=== PATIENT | female | born 1960 | race Caucasian/White ===

== ENCOUNTER → 2018-06-20 | Outpatient (CLI) | payer MEDICARE | LOC: LAB FS 16:48 | PROVIDERS: ATTEND Family Medicine | DX: Z53.9 Procedure and treatment not carried out, unspecified reason (principal) ==

== ENCOUNTER → 2018-06-21 | Outpatient (CLI) | payer MEDICARE ==
[2018-06-21 14:46] LABS: INR 2.4 (0.8-1.4); PROTHROMBIN TIME PATIENT 26.2 SEC (12.2-14.7)
== END ==
LOC: RAD FS 13:58
PROVIDERS: ATTEND Family Medicine
DX: Z79.01 Long term (current) use of anticoagulants (principal)
CPT/HCPCS: 36415; 85610

== ENCOUNTER → 2018-07-08 | Outpatient (CLI) | payer MEDICARE ==
--- NOTE | 2018-07-08 10:35 | Diagnostic Imaging Report ---
INDICATION: Followup fracture. TIME OF EXAMINATION: 10:03 AM. COMPARISON: No prior study is available for comparison. FINDINGS: An obliquely oriented fracture of the distal femur is noted. There is slight medial displacement of the distal fracture fragment. No significant angulation is seen. There does appear to be some callus formation at the fracture site but the fracture line does remain clearly visible. The alignment at the knee is normal. There is generalized demineralization. IMPRESSION: Healing distal femur fracture; however, the fracture line does remain clearly visible. Dictated by: Dictated on workstation # [id number]
== END ==
LOC: RAD FS 10:05
PROVIDERS: ATTEND Nurse Practitioner
DX: S72.401D Unspecified fracture of lower end of right femur, subsequent encounter for closed fracture with routine healing (principal)
CPT/HCPCS: 73562

== ENCOUNTER → 2018-07-09 | Outpatient (CLI) | payer MEDICARE | LOC: LAB FS 10:19 | PROVIDERS: ATTEND Family Medicine | DX: L98.9 Disorder of the skin and subcutaneous tissue, unspecified (principal) | CPT/HCPCS: 87070; 87077; 87205 ==

== ENCOUNTER → 2018-07-09 | Outpatient (CLI) | payer MEDICARE | LOC: LAB FS 16:57 | PROVIDERS: ATTEND Family Medicine | DX: L89.153 Pressure ulcer of sacral region, stage 3 (principal); T81.9XXA Unspecified complication of procedure, initial encounter | CPT/HCPCS: 87070; 87075; 87205 ==

== ENCOUNTER → 2018-07-10 | Outpatient (CLI) | payer MEDICARE ==
[2018-07-10 17:59] LABS: HEMATOCRIT 40 % (35-52); HEMOGLOBIN 13.5 G/DL (11.5-16.0); MEAN CORPUSCULAR HEMOGLOBIN 32 PG (25-34)
[2018-07-10 18:00] LABS: BASOPHILS % (AUTO) 1 % (0-10); EOSINOPHILS # (AUTO) 0.1 10^3/uL (0.0-0.3); EOSINOPHILS % (AUTO) 2 % (0-10); LYMPHOCYTES # (AUTO) 2.1 X 10^3 (1.0-4.0); LYMPHOCYTES % (AUTO) 35 % (12-44); MEAN CORPUSCULAR HGB CONC 34 G/DL (32-36); MEAN CORPUSCULAR VOLUME 93 FL (80-99); MEAN PLATELET VOLUME 9.4 FL (7.4-10.4); MONOCYTES # (AUTO) 0.3 X 10^3 (0.0-1.0); MONOCYTES % (AUTO) 5 % (0-12); NEUTROPHILS # (AUTO) 3.4 X 10^3 (1.8-7.8); NEUTROPHILS % (AUTO) 57 % (42-75); PLATELET COUNT 247 10^3/uL (130-400)
== END ==
LOC: LAB FS 17:46
PROVIDERS: ATTEND Family Medicine
DX: E03.9 Hypothyroidism, unspecified (principal); Z79.01 Long term (current) use of anticoagulants
CPT/HCPCS: 36415; 84443; 85025

== ENCOUNTER → 2018-07-23 | Outpatient (CLI) | payer MEDICARE ==
[2018-07-23 17:47] LABS: PROTHROMBIN TIME PATIENT 23.7 SEC (12.2-14.7)
== END ==
LOC: RAD FS 16:27
PROVIDERS: ATTEND Family Medicine
DX: Z79.01 Long term (current) use of anticoagulants (principal)
CPT/HCPCS: 36415; 85610

== ENCOUNTER 2018-09-04 17:17 | Inpatient (IN) | payer MEDICARE ==
[~2018-09-04] VITALS: Ht 167.6 cm; Wt 47.2 kg
--- NOTE | 2018-09-04 17:20 | NUR ---
Patient states she has a pressure ulcer on her sacrum/coccyx.
[2018-09-04] MEDS ORDERED: methylPREDNISolone 125 MG (Solu-MEDROL) VIAL IVP ONE (17:30)
[2018-09-04] MEDS ORDERED: NS 1000 ML IV BAG IV ONE (17:30)
[2018-09-04] MEDS ORDERED: cefTRIAXone FOR IV USE 1,000 MG in WATER (STERILE) FOR INJECTION 10 ML IV ONE (17:30)
[2018-09-04] MEDS ORDERED: AZITHROMYCIN 250 MG TAB (ZITHROMAX) PO ONE (17:30)
[2018-09-04] MEDS ORDERED: RT-ALBUTEROL SULF 2.5 MG/3 ML PRE-MIX VIAL INH SCH (17:30)
[2018-09-04 17:40] LABS: BASOPHILS % (AUTO) 1 % (0-10); EOSINOPHILS % (AUTO) 9 % (0-10); HEMATOCRIT 44 % (35-52); HEMOGLOBIN 14.9 G/DL (11.5-16.0); LYMPHOCYTES # (AUTO) 1.4 X 10^3 (1.0-4.0); LYMPHOCYTES % (AUTO) 24 % (12-44); MEAN CORPUSCULAR HEMOGLOBIN 31 PG (25-34); MEAN CORPUSCULAR HGB CONC 34 G/DL (32-36); MEAN CORPUSCULAR VOLUME 91 FL (80-99); MEAN PLATELET VOLUME 9.7 FL (7.4-10.4); MONOCYTES % (AUTO) 5 % (0-12); NEUTROPHILS # (AUTO) 3.6 X 10^3 (1.8-7.8); NEUTROPHILS % (AUTO) 61 % (42-75); PLATELET COUNT 229 10^3/uL (130-400); RED CELL DISTRIBUTION WIDTH 13.2 % (10.0-14.5); WHITE BLOOD COUNT 5.8 10^3/uL (4.3-11.0)
[2018-09-04 17:41] LABS: BASOPHILS # (AUTO) 0.1 10^3/uL (0.0-0.1); EOSINOPHILS # (AUTO) 0.5 10^3/uL (0.0-0.3); MONOCYTES # (AUTO) 0.3 X 10^3 (0.0-1.0)
--- NOTE | 2018-09-04 17:55 | ED Respiratory ---
General Chief Complaint: Respiratory Problems Stated Complaint: SOB History of Present Illness Date Seen by Provider: Sep 04, 2018 Time Seen by Provider: 17:50 Initial Comments Patient presents emergency department for evaluation of respiratory distress that has been worsening over the past several weeks. She is seen her primary care provider and was started on Levaquin 2 weeks ago and was on it for one week and seemed improved somewhat however that she decompensated again last week and was started on Omnicef last Sunday but she did not start the medications until today. She wears oxygen at night but not during the day. Her room air oxygen saturation is been in the mid 80s and EMS was called and she was brought here for further evaluation. She did receive a DuoNeb in route which made her feel better however she is still quite dyspneic with respiratory rate of 24 using accessory muscles. Cough has been productive of a yellowish sputum. She is not altered or confused. She is definitely dyspneic but she is nontoxic at this time. Allergies and Home Medications Allergies Coded Allergies: No Known Drug Allergies (Unverified , 09/04/18) Patient Home Medication List Home Medication List Reviewed: Yes Review of Systems Review of Systems Constitutional: no symptoms reported Respiratory: cough, phlegm, short of breath All Other Systems Reviewed Negative Unless Noted: Yes Past Xmbngoq-Aavzta-Trbagp Hx Patient Social History Recent Foreign Travel: No Contact w/Someone Who Travel: No Physical Exam Capillary Refill : Height: '" Weight: lbs. oz. kg; BMI Method: General Appearance: moderate distress HEENT: PERRL/EOMI Neck: supple Respiratory: other (decreased aeration in all lung yadav with trace wheezing auscultated) Cardiovascular: regular rate, rhythm Gastrointestinal: non tender Extremities: no pedal edema Neurologic/Psychiatric: alert, oriented x 3 Skin: normal color Focused Exam Lactate Level 09/04/18 17:30: Lactic Acid Level Laboratory Tests Test 09/04/18 17:30 Progress/Results/Core Measures Suspected Sepsis SIRS Temperature: Pulse: Respiratory Rate: Laboratory Tests 09/04/18 17:30: White Blood Count 5.8 Blood Pressure / Mean: 09/04/18 17:30: Laboratory Tests 09/04/18 17:30: Platelet Count 229 Results/Orders Lab Results Laboratory Tests Test 09/04/18 17:30 Range/Units White Blood Count 5.8 4.3-11.0 10^3/uL Red Blood Count 4.77 4.35-5.85 10^6/uL Hemoglobin 14.9 11.5-16.0 G/DL Hematocrit 44 35-52 % Mean Corpuscular Volume 91 80-99 FL Mean Corpuscular Hemoglobin 31 25-34 PG Mean Corpuscular Hemoglobin Concent 34 32-36 G/DL Red Cell Distribution Width 13.2 10.0-14.5 % Platelet Count 229 130-400 10^3/uL Mean Platelet Volume 9.7 7.4-10.4 FL Neutrophils (%) (Auto) 61 42-75 % Lymphocytes (%) (Auto) 24 12-44 % Monocytes (%) (Auto) 5 0-12 % Eosinophils (%) (Auto) 9 0-10 % Basophils (%) (Auto) 1 0-10 % Neutrophils # (Auto) 3.6 1.8-7.8 X 10^3 Lymphocytes # (Auto) 1.4 1.0-4.0 X 10^3 Monocytes # (Auto) 0.3 0.0-1.0 X 10^3 Eosinophils # (Auto) 0.5 H 0.0-0.3 10^3/uL Basophils # (Auto) 0.1 0.0-0.1 10^3/uL My Orders Orders - CLIFTON LAU DO Chest 1 View Ap/Pa Only (09/04/18 17:30) Cbc With Automated Diff (09/04/18 17:30) Comprehensive Metabolic Panel (09/04/18 17:30) Lactic Acid Analyzer (09/04/18 17:30) Blood Culture (09/04/18 17:30) Probnp Fs (09/04/18 17:30) Troponin T (09/04/18 17:30) Protime With Inr (09/04/18 17:30) Partial Thromboplastin Time (09/04/18 17:30) Magnesium (09/04/18 17:30) Methylprednisolone Sod Succ (Solu-Medrol (09/04/18 17:30) Albuterol Pre-Mix Nebs (Rt) (Proventil (09/04/18 17:30) Svn Small Volume Nebulizer (09/04/18 17:30) Ceftriaxone For Iv Use (Rocephin For I (09/04/18 17:30) Azithromycin Tablet (Zithromax Tablet) (09/04/18 17:30) Blood Culture (09/04/18 17:36) Vital Signs/I&O Capillary Refill : Progress Note : Progress Note She appears to be getting better and is satting in the mid 90s after several breathing treatments. Her lung sounds are somewhat improved and her respiratory rate dropped to 22. I do not think that she needs BiPAP or intubation at this time but given she is feeling outpatient treatment and decompensating and I do not think she will get better at home I recommended transferred to [place] and she was agreeable to plan. Patient will be transferred in guarded condition after being started on Solu-Medrol Rocephin and Zithromax here. Patient aware and agreeable with plan and was present for conversation. Departure Impression Primary Impression: COPD with exacerbation Disposition: ADMITTED INPATIENT Condition: Improved Transfer Method of Transfer: EMS Departure-Patient Inst. Referrals: SELF,ANDRÉS HE (PCP/Family) Primary Care Physician CLIFTON LAU DO Sep 04, 2018 17:55
[2018-09-04 17:59] LABS: PROTHROMBIN TIME PATIENT 40.6 SEC (12.2-14.7)
--- NOTE | 2018-09-04 18:05 | Diagnostic Imaging Report ---
INDICATION: Shortness of breath x1 week. Portable chest at 05:58 p.m. FINDINGS: There are emphysematous changes in the lungs. Heart size and pulmonary vascularity are normal. There are no infiltrates, effusions, or pneumothoraces. IMPRESSION: COPD. No acute abnormalities seen. Dictated by: Dictated on workstation # [id number]
[2018-09-04 18:14] LABS: CARBON DIOXIDE 25 MMOL/L (21-32); CHLORIDE 89 MMOL/L (98-107); POTASSIUM 4.2 MMOL/L (3.6-5.0); SODIUM 128 MMOL/L (135-145)
[2018-09-04 18:15] LABS: ALANINE AMINOTRANSFERASE 13 U/L (0-55); ALBUMIN 3.8 GM/DL (3.2-4.5); ALKALINE PHOSPHATASE 67 U/L (40-136); BILIRUBIN,TOTAL 0.4 MG/DL (0.1-1.0); BUN/CREATININE RATIO 11; CALCIUM 8.9 MG/DL (8.5-10.1); CREATININE SERUM 0.37 MG/DL (0.60-1.30); GFR ESTIMATED > 60; GLUCOSE 101 MG/DL (70-105); MAGNESIUM 1.9 MG/DL (1.8-2.4); TOTAL PROTEIN 7.1 GM/DL (6.4-8.2)
--- NOTE | 2018-09-04 19:40 | NUR ---
SHAHRZAD SOLIMAN admitted to room 431-1, with an admitting diagnosis of COPD EXACERBATION, on 09/04/18 from [facility] via [facility], accompanied by EMT.SHAHRZAD SOLIMAN introduced to surroundings, call light, bed controls, phone, TV, temperature control, lights, meal times, smoking policy, visitor policy, side rail policy, bathrooms and showers. Patient Rights given to patient in the handbook. SHAHRZAD SOLIMAN verbalizes understanding that [facility] is not responsible for the loss or damage to any personal effects or valuables that are kept in the patients possession during their hospitalization. SHAHRZAD SOLIMAN verbalizes understanding of Interdisciplinary Patient Education. Patient and/or family were informed about the Rapid Response Team and its purpose.
[2018-09-04] MEDS ORDERED: CATHETER FLUSH 10 ML SYR IV PRN (20:15)
[2018-09-04 20:33] VITALS: BP 131/71
[2018-09-04] MEDS ORDERED: RT-ALBUTEROL/IPRATROPIUM 3 ML (DUONEB) VIAL INH PRN ×2 (20:50→21:30)
[2018-09-04 20:51] VITALS: BP 131/71
[2018-09-04] MEDS: CATHETER FLUSH 10 ML SYR IV SCH (23:13)
--- OUTSIDE RECORDS SUMMARY | 2018-09-04 23:30 | XMS REPORT | Continuity of Care Document ---
Author Organization Unknown Address Unknown Allergies Active Description Code Type Severity Reaction Onset Reported/Identified Relationship to Patient Clinical Status Yes latex [id number] Drug Allergy Unknown hives 09/04/2018 Yes No Known Drug Allergies [id number] Drug Allergy Unknown N/A 09/04/2018 Yes tetracycline [id number] Drug Allergy Unknown hives 09/04/2018 Medications There is no data. 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 07/01/2018 ANDRÉS RAMOS MD, Ot Z53.9 PROCEDURE AND TREATMENT NOT CARRIED OUT, 07/09/2018 JOHANN THORNTON Ot S72.401D UNSP FX LOWER END OF R FEMUR, SUBS FOR C 07/09/2018 ANDRÉS RAMOS MD, Ot Z79.01 HALF-WAY (CURRENT) USE OF ANTICOAGULANT 07/09/2018 JOHANN THORNTON Ot S72.401D UNSP FX LOWER END OF R FEMUR, SUBS FOR C 07/10/2018 ANDRÉS RAMOS MD, Ot L98.9 DISORDER OF THE SKIN AND SUBCUTANEOUS TI 07/10/2018 ANDRÉS RAMOS MD Ot L89.153 PRESSURE ULCER OF SACRAL REGION, STAGE 3 07/10/2018 ANDRÉS RAMOS MD, Ot T81.9XXA UNSPECIFIED COMPLICATION OF PROCEDURE, I 07/10/2018 ANDRÉS RAMOS MD, Ot L89.153 PRESSURE ULCER OF SACRAL REGION, STAGE 3 07/10/2018 ANDRÉS RAMOS MD, Ot T81.9XXA UNSPECIFIED COMPLICATION OF PROCEDURE, I 07/11/2018 JOHANN THORNTON Ot S72.401D UNSP FX LOWER END OF R FEMUR, SUBS FOR C 07/11/2018 ANDRÉS RAMOS MD, Ot E03.9 HYPOTHYROIDISM, UNSPECIFIED 07/11/2018 ANDRÉS RAMOS MD, Ot Z79.01 HALF-WAY (CURRENT) USE OF ANTICOAGULANT 07/11/2018 ANDRÉS RAMOS MD, Ot E03.9 HYPOTHYROIDISM, UNSPECIFIED 07/11/2018 ANDRÉS RAMOS MD, Ot Z79.01 HALF-WAY (CURRENT) USE OF ANTICOAGULANT 07/12/2018 ANDRÉS RAMOS MD, Ot Z79.01 HALF-WAY (CURRENT) USE OF ANTICOAGULANT 07/15/2018 ANDRÉS RAMOS MD Ot L89.153 PRESSURE ULCER OF SACRAL REGION, STAGE 3 07/15/2018 ANDRÉS RAMOS MD, Ot T81.9XXA UNSPECIFIED COMPLICATION OF PROCEDURE, I 07/16/2018 ANDRÉS RAMOS MD, Ot L98.9 DISORDER OF THE SKIN AND SUBCUTANEOUS TI 07/26/2018 ANDRÉS RAMOS MD, Ot Z79.01 HALF-WAY (CURRENT) USE OF ANTICOAGULANT 07/30/2018 JOHANN THORNTON 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 Results Test Result Range PT panel in platelet poor plasma by coagulation assay - 06/21/18 00:00 Prothrombin time (PT) in platelet poor plasma by coagulation assay 26.2 s 12.2-14.7 INR in platelet poor plasma or blood by coagulation assay 2.4 0.8-1.4 Gram stain microscopy - 07/08/18 17:20 Gram stain microscopy Many Gram positive cocci in clusters NR Bacteria identification in wound by culture - 07/08/18 17:20 Bacteria identification in wound by culture [id number] NR FREE TEXT EXTERNAL SUSCEPTIBILITY REPORTED 07/11/18 14:05 NRG QUANTITY OF GROWTH Many NRG FREE TEXT ENTRY 2 NO INDUCIBLE CLINDAMYIN RESISTANCE NR FREE TEXT ENTRY 3 DETECTED. [facility] RML Sensitivity Panel - 07/08/18 17:20 Oxacillin susceptibility test by minimum inhibitory concentration 0.5 NRG Clindamycin susceptibility test by minimum inhibitory concentration <= NRG Erythromycin susceptibility test by minimum inhibitory concentration > NRG Trimethoprim/sulfamethoxazole susceptibility test by minimum inhibitoryconcentration <= NRG Vancomycin susceptibility test by minimum inhibitory concentration 1 NRG Levofloxacin susceptibility test by minimum inhibitory concentration <= NRG Rifampin susceptibility test by minimum inhibitory concentration <= NRG Cefazolin susceptibility test by minimum inhibitory concentration <= NRG Linezolid susceptibility test by minimum inhibitory concentration 2 NRG Penicillin G susceptibility test by minimum inhibitory concentration > NRG Moxifloxacin susceptibility test by minimum inhibitory concentration <= NRG Minocycline susc NYASIA <= NRG Bacteria identification in isolate by anaerobe culture - 07/09/18 14:53 FREE TEXT EXTERNAL BETA LACTAMASE POSITIVE NRG QUANTITY OF GROWTH . NRG Bacteria identification in isolate by anaerobe culture SEE COMMEN NRG Gram stain microscopy - 07/09/18 14:53 Gram stain microscopy Many gram positive cocci in clusters NRG Bacteria identification in wound by culture - 07/09/18 14:53 Bacteria identification in wound by culture [id number] NRG FREE TEXT EXTERNAL SUSCEPTIBILITY REPORTED 07/13/18 12:05 NRG QUANTITY OF GROWTH Many NRG FREE TEXT ENTRY 2 METHICILLIN-SENSITIVITE STAPH AUREUS NRG FREE TEXT ENTRY 3 NO INDUCIBLE CLINDAMYCIN RESISTANCE NRG RML Sensitivity Panel - 07/09/18 14:53 Oxacillin susceptibility test by minimum inhibitory concentration 0.5 NRG Clindamycin susceptibility test by minimum inhibitory concentration <= NRG Erythromycin susceptibility test by minimum inhibitory concentration > NRG Trimethoprim/sulfamethoxazole susceptibility test by minimum inhibitoryconcentration <= NRG Vancomycin susceptibility test by minimum inhibitory concentration 1 NRG Levofloxacin susceptibility test by minimum inhibitory concentration <= NRG Rifampin susceptibility test by minimum inhibitory concentration <= NRG Cefazolin susceptibility test by minimum inhibitory concentration <= NRG Linezolid susceptibility test by minimum inhibitory concentration 2 NRG Penicillin G susceptibility test by minimum inhibitory concentration > NRG Moxifloxacin susceptibility test by minimum inhibitory concentration <= NRG Minocycline susc NYASIA <= NRG Complete blood count (CBC) with automated white blood cell (WBC) differential - 07/10/18 13:00 Blood leukocytes automated count (number/volume) 6.0 10*3/uL 4.3-11.0 Blood erythrocytes automated count (number/volume) 4.27 10*6/uL 4.35-5.85 Venous blood hemoglobin measurement (mass/volume) 13.5 g/dL 11.5-16.0 Blood hematocrit (volume fraction) 40 % 35-52 Automated erythrocyte mean corpuscular volume 93 [foz_us] 80-99 Automated erythrocyte mean corpuscular hemoglobin (mass per erythrocyte) 32 pg 25-34 Automated erythrocyte mean corpuscular hemoglobin concentration measurement (mass/volume) 34 g/dL 32-36 Automated erythrocyte distribution width ratio 14.0 % 10.0- 14.5 Automated blood platelet count (count/volume) 247 10*3/uL 130-400 Automated blood platelet mean volume measurement 9.4 [foz_us] 7.4-10.4 Automated blood neutrophils/100 leukocytes 57 % 42-75 Automated blood lymphocytes/100 leukocytes 35 % 12-44 Blood monocytes/100 leukocytes 5 % 0-12 Automated blood eosinophils/100 leukocytes 2 % 0-10 Automated blood basophils/100 leukocytes 1 % 0-10 Blood neutrophils automated count (number/volume) 3.4 10*3 1.8-7.8 Blood lymphocytes automated count (number/volume) 2.1 10*3 1.0-4.0 Blood monocytes automated count (number/volume) 0.3 10*3 0.0- 1.0 Automated eosinophil count 0.1 10*3/uL 0.0-0.3 Automated blood basophil count (count/volume) 0.0 10*3/uL 0.0-0.1 THYROID STIMULATING HORMONE - 07/10/18 13:00 THYROID STIMULATING HORMONE 2.23 u[iU]/mL 0.35-4.94 Bacteria identification in isolate by anaerobe culture - 07/10/18 14:54 Bacteria identification in isolate by anaerobe culture NOANA NR Gram stain microscopy - 07/10/18 14:54 Gram stain microscopy No bacteria seen NRG Bacteria identification in wound by culture - 07/10/18 14:54 Bacteria identification in wound by culture NSF NRG FREE TEXT EXTERNAL NO SUSCEPTIBILITIES SET UP NRG QUANTITY OF GROWTH Moderate NRG FREE TEXT ENTRY 2 NO BETA STREP, STAPH AUREUS, OR NRG FREE TEXT ENTRY 3 PSEUDMONAS ISOLATED NRG PT panel in platelet poor plasma by coagulation assay - 07/23/18 00:00 Prothrombin time (PT) in platelet poor plasma by coagulation assay 23.7 s 12.2-14.7 INR in platelet poor plasma or blood by coagulation assay 2.0 0.8-1.4 Complete blood count (CBC) with automated white blood cell (WBC) differential - 09/04/18 17:30 Blood leukocytes automated count (number/volume) 5.8 10*3/uL 4.3-11.0 Blood erythrocytes automated count (number/volume) 4.77 10*6/uL 4.35-5.85 Venous blood hemoglobin measurement (mass/volume) 14.9 g/dL 11.5-16.0 Blood hematocrit (volume fraction) 44 % 35-52 Automated erythrocyte mean corpuscular volume 91 [foz_us] 80-99 Automated erythrocyte mean corpuscular hemoglobin (mass per erythrocyte) 31 pg 25-34 Automated erythrocyte mean corpuscular hemoglobin concentration measurement (mass/volume) 34 g/dL 32-36 Automated erythrocyte distribution width ratio 13.2 % 10.0- 14.5 Automated blood platelet count (count/volume) 229 10*3/uL 130-400 Automated blood platelet mean volume measurement 9.7 [foz_us] 7.4-10.4 Automated blood neutrophils/100 leukocytes 61 % 42-75 Automated blood lymphocytes/100 leukocytes 24 % 12-44 Blood monocytes/100 leukocytes 5 % 0-12 Automated blood eosinophils/100 leukocytes 9 % 0-10 Automated blood basophils/100 leukocytes 1 % 0-10 Blood neutrophils automated count (number/volume) 3.6 10*3 1.8-7.8 Blood lymphocytes automated count (number/volume) 1.4 10*3 1.0-4.0 Blood monocytes automated count (number/volume) 0.3 10*3 0.0- 1.0 Automated eosinophil count 0.5 10*3/uL 0.0-0.3 Automated blood basophil count (count/volume) 0.1 10*3/uL 0.0-0.1 Blood lactic acid measurement (moles/volume) - 09/04/18 17:30 Blood lactic acid measurement (moles/volume) 1.08 mmol/L 0.50- 2.00 PT panel in platelet poor plasma by coagulation assay - 09/04/18 17:30 Prothrombin time (PT) in platelet poor plasma by coagulation assay 40.6 s 12.2-14.7 INR in platelet poor plasma or blood by coagulation assay 4.0 0.8-1.4 Activated partial thromboplastin time (aPTT) in platelet poor plasma bycoagulation assay - 09/04/18 17:30 Activated partial thromboplastin time (aPTT) in platelet poor plasma bycoagulation assay 65 s 24-35 Comprehensive metabolic panel - 09/04/18 17:30 Serum or plasma sodium measurement (moles/volume) 128 mmol/L 135-145 Serum or plasma potassium measurement (moles/volume) 4.2 mmol/L 3.6-5.0 Serum or plasma chloride measurement (moles/volume) 89 mmol/L 98-107 Carbon dioxide 25 mmol/L 21-32 Serum or plasma anion gap determination (moles/volume) 14 mmol/L 5-14 Serum or plasma urea nitrogen measurement (mass/volume) 4 mg/dL 7-18 Serum or plasma creatinine measurement (mass/volume) 0.37 mg/dL 0.60-1.30 Serum or plasma urea nitrogen/creatinine mass ratio 11 NRG Serum or plasma creatinine measurement with calculation of estimated glomerular filtration rate > NRG Serum or plasma glucose measurement (mass/volume) 101 mg/dL 70-105 Serum or plasma calcium measurement (mass/volume) 8.9 mg/dL 8.5-10.1 Serum or plasma total bilirubin measurement (mass/volume) 0.4 mg/dL 0.1-1.0 Serum or plasma alkaline phosphatase measurement (enzymatic activity/volume) 67 U/L 40-136 Serum or plasma aspartate aminotransferase measurement (enzymatic activity/volume) 20 U/L 5-34 Serum or plasma alanine aminotransferase measurement (enzymatic activity/volume) 13 U/L 0-55 Serum or plasma protein measurement (mass/volume) 7.1 g/dL 6.4-8.2 Serum or plasma albumin measurement (mass/volume) 3.8 g/dL 3.2-4.5 CALCIUM CORRECTED 9.1 mg/dL 8.5-10.1 Magnesium - 09/04/18 17:30 Magnesium 1.9 mg/dL 1.8-2.4 TROPONIN T - 09/04/18 17:30 TROPONIN T 26 % <=10 PROBNP FS - 09/04/18 17:30 PROBNP FS 190.1 pg/mL <75.0 Encounters ACCT No. Visit Date/Time Discharge Status Pt. Type Provider Facility Loc./Unit Complaint [id number] 07/23/2018 16:27:00 07/23/2018 23:59:59 CLS Outpatient SELF MD, ANDRÉS [facility] RAD FS Z79.01 [id number] 07/10/2018 17:46:00 07/10/2018 23:59:59 CLS Outpatient ANDRÉS RAMOS MD [facility] LAB FS TSH;CBC WITH AUTO DIFF [id number] 07/09/2018 16:57:00 07/09/2018 23:59:59 CLS Outpatient ANDRÉS RAMOS MD [facility] LAB FS L89.153; T8H9XA [id number] 07/09/2018 10:19:00 07/09/2018 23:59:59 CLS Outpatient ANDRÉS RAMOS MD [facility] LAB FS WOUND INFECTION [id number] 07/08/2018 10:05:00 07/08/2018 23:59:59 CLS Outpatient JOHANN THORNTON [facility] RAD FS M28.561 [id number] 06/21/2018 13:58:00 06/21/2018 23:59:59 CLS Outpatient ANDRÉS RAMOS MD [facility] RAD FS Z79.01 [id number] 06/20/2018 16:48:00 06/20/2018 23:59:59 CLS Outpatient ANDRÉS RAMOS MD [facility] LAB FS PT-INR [id number] 09/04/2018 17:55:00 ACT Inpatient SHAZIA GILES MD [facility] 4TH COPD EXACERBATION
--- OUTSIDE RECORDS SUMMARY | 2018-09-04 23:33 | XMS REPORT | Continuity of Care Document ---
Author Organization Unknown Address Unknown Allergies Active Description Code Type Severity Reaction Onset Reported/Identified Relationship to Patient Clinical Status Yes latex [id number] Drug Allergy Unknown hives 09/04/2018 Yes No Known Drug Allergies [id number] Drug Allergy Unknown N/A 09/04/2018 Yes tetracycline [id number] Drug Allergy Unknown hives 09/04/2018 Medications There is no data. 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 07/01/2018 ANDRÉS RAMOS MD, Ot Z53.9 PROCEDURE AND TREATMENT NOT CARRIED OUT, 07/09/2018 JOHANN THORNTON Ot S72.401D UNSP FX LOWER END OF R FEMUR, SUBS FOR C 07/09/2018 ANDRÉS RAMOS MD, Ot Z79.01 CUSTODIAL (CURRENT) USE OF ANTICOAGULANT 07/09/2018 JOHANN THORNTON [...] UNSPECIFIED 07/11/2018 ANDRÉS RAMOS MD, Ot Z79.01 CUSTODIAL (CURRENT) USE OF ANTICOAGULANT 07/11/2018 ANDRÉS RAMOS MD, Ot E03.9 HYPOTHYROIDISM, UNSPECIFIED 07/11/2018 ANDRÉS RAMOS MD, Ot Z79.01 CUSTODIAL (CURRENT) USE OF ANTICOAGULANT 07/12/2018 ANDRÉS RAMOS MD, Ot Z79.01 CUSTODIAL (CURRENT) USE OF ANTICOAGULANT 07/15/2018 ANDRÉS RAMOS MD Ot L89.153 PRESSURE ULCER OF SACRAL REGION, STAGE 3 07/15/2018 ANDRÉS RAMOS MD, Ot T81.9XXA UNSPECIFIED COMPLICATION OF PROCEDURE, I 07/16/2018 ANDRÉS RAMOS MD, Ot L98.9 DISORDER OF THE SKIN AND SUBCUTANEOUS TI 07/26/2018 ANDRÉS RAMOS MD, Ot Z79.01 CUSTODIAL (CURRENT) USE OF ANTICOAGULANT 07/30/2018 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 [facility] RML Sensitivity Panel - 07/08/18 17:20 [...] 14:53 Bacteria identification in wound by culture [id number] NRG FREE TEXT EXTERNAL SUSCEPTIBILITY REPORTED 07/13/18 [...] Status Pt. Type Provider Facility Loc./Unit Complaint [id number] 07/23/2018 16:27:00 07/23/2018 23:59:59 CLS Outpatient SELF MD, ANDRÉS [facility] RAD FS Z79.01 [id number] 07/10/2018 17:46:00 07/10/2018 23:59:59 CLS Outpatient ANDRÉS RAMOS MD [facility] LAB FS TSH;CBC WITH AUTO DIFF [id number] 07/09/2018 16:57:00 07/09/2018 23:59:59 CLS Outpatient ANDRÉS RAMOS MD [facility] LAB FS L89.153; T8H9XA [id number] 07/09/2018 10:19:00 07/09/2018 23:59:59 CLS Outpatient ANDRÉS RAMOS MD [facility] LAB FS WOUND INFECTION [id number] 07/08/2018 10:05:00 07/08/2018 23:59:59 CLS Outpatient JOHANN THORNTON [facility] RAD FS M28.561 [id number] 06/21/2018 13:58:00 06/21/2018 23:59:59 CLS Outpatient ANDRÉS RAMOS MD [facility] RAD FS Z79.01 [id number] 06/20/2018 16:48:00 06/20/2018 23:59:59 CLS Outpatient ANDRÉS RAMOS MD [facility] LAB FS PT-INR [id number] 09/04/2018 17:55:00 ACT Inpatient SHAZIA GILES MD [facility] 4TH COPD EXACERBATION
[2018-09-05] VITALS (7 sets, daily range): BP systolic 92–129; BP diastolic 52–75
[2018-09-05] MEDS: RT-ALBUTEROL/IPRATROPIUM 3 ML (DUONEB) VIAL INH SCH ×6 (02:52→22:40)
[2018-09-05 05:53] LABS: BASOPHILS % (AUTO) 0 % (0-10); EOSINOPHILS % (AUTO) 0 % (0-10); HEMATOCRIT 40 % (35-52); HEMOGLOBIN 13.8 G/DL (11.5-16.0); LYMPHOCYTES # (AUTO) 0.8 X 10^3 (1.0-4.0); LYMPHOCYTES % (AUTO) 31 % (12-44); MEAN CORPUSCULAR HEMOGLOBIN 31 PG (25-34); MEAN CORPUSCULAR HGB CONC 35 G/DL (32-36); MEAN CORPUSCULAR VOLUME 88 FL (80-99); MEAN PLATELET VOLUME 9.5 FL (7.4-10.4); MONOCYTES # (AUTO) 0.1 X 10^3 (0.0-1.0); MONOCYTES % (AUTO) 4 % (0-12); NEUTROPHILS # (AUTO) 1.6 X 10^3 (1.8-7.8); NEUTROPHILS % (AUTO) 64 % (42-75); PLATELET COUNT 250 10^3/uL (130-400); RED CELL DISTRIBUTION WIDTH 13.7 % (10.0-14.5); WHITE BLOOD COUNT 2.5 10^3/uL (4.3-11.0)
[2018-09-05 06:14] LABS: ALANINE AMINOTRANSFERASE 15 U/L (0-55); ALBUMIN 3.5 GM/DL (3.2-4.5); ALKALINE PHOSPHATASE 59 U/L (40-136); BILIRUBIN,TOTAL 0.3 MG/DL (0.1-1.0); BUN/CREATININE RATIO 10; CALCIUM 8.9 MG/DL (8.5-10.1); CARBON DIOXIDE 22 MMOL/L (21-32); CHLORIDE 95 MMOL/L (98-107); CREATININE SERUM 0.61 MG/DL (0.60-1.30); GFR ESTIMATED > 60; GLUCOSE 121 MG/DL (70-105); POTASSIUM 4.5 MMOL/L (3.6-5.0); SODIUM 126 MMOL/L (135-145); TOTAL PROTEIN 6.1 GM/DL (6.4-8.2)
[2018-09-05] MEDS: CATHETER FLUSH 10 ML SYR IV SCH ×3 (06:24→23:07)
[2018-09-05] MEDS: LACTOBACILLUS ACIDOPHILUS (PROBIOTIC) CAPSULE PO SCH ×3 (07:30→17:37)
[2018-09-05] MEDS ORDERED: LEVO125T6 PO (08:56)
[2018-09-05] MEDS ORDERED: OXYB10TA6 PO (08:56)
[2018-09-05] MEDS ORDERED: SERT100T8 PO (08:56)
[2018-09-05] MEDS ORDERED: SIMV20TA3 PO (08:56)
[2018-09-05] MEDS ORDERED: OMEP20CA12 PO (08:56)
[2018-09-05] MEDS ORDERED: WARF-47 PO (08:56)
--- NOTE | 2018-09-05 09:10 | Diagnostic Imaging Report ---
Indication: Severe hyperinflation compatible with COPD with chronic-appearing increased interstitial markings. There is no alveolar consolidation or pneumothorax or pleural fluid. There are diffuse chronic-appearing increased interstitial markings. There is extensive biapical bullous disease. Impression: Severe COPD changes and chronic-appearing increased interstitial markings. No acute consolidation or pneumothorax or pleural fluid. Dictated by: Dictated on workstation # [id number]
[2018-09-05] MEDS ORDERED: ALBU2.5V4 NEB (09:35)
[2018-09-05] MEDS ORDERED: CEFD300C3 PO (09:35)
[2018-09-05] MEDS ORDERED: WARF-48 PO (09:35)
[2018-09-05] MEDS ORDERED: BACL10TA PO ×2 (09:35)
[2018-09-05] MEDS ORDERED: LEVO25TA5 PO (09:35)
[2018-09-05] MEDS ORDERED: ALEN70TA5 PO (09:35)
[2018-09-05] MEDS ORDERED: RT-ALBUINH INH (09:36)
--- NOTE | 2018-09-05 09:43 | NUR ---
WENT OVER THE EXTERNAL MED HISTORY WITH THE PATIENT, SHE VERIFIED EVERYTHING SHE TAKES. SHE DOES NOT TAKE ANY OTC MEDS.
[2018-09-05] MEDS ORDERED: BACLOFEN 10 MG (LIORESAL) TAB PO PRN (10:00)
[2018-09-05] MEDS ORDERED: NON-FORMULARY MEDICATION 1 EA EA (Alendronate Sodium 70 MG) PO SCH (10:00)
[2018-09-05 11:19] LABS: ABG BASE EXCESS 1.2 MMOL/L (-2.5-2.5); ABG OXYGEN SATURATION 94 % (94-100); ABG PCO2 41 MMHG (35-45); ABG PH 7.41 (7.37-7.43); ABG PO2 69 MMHG (79-93); ABG TCO2 26.5 MMOL/L (21.0-31.0)
[2018-09-05 11:20] LABS: ALLENS TEST YES-POS
[2018-09-05 11:21] LABS: INSPIRED O2 3; PATIENT TEMP 99.6
[2018-09-05] MEDS ORDERED: RT-ALBUTEROL SULF 2.5 MG/3 ML PRE-MIX VIAL ONE (11:26)
[2018-09-05] MEDS ORDERED: RT-IPRATROPIUM (ATROVENT) 0.5MG/2.5ML AMP IH ONE ×2 (11:26→11:30)
--- NOTE | 2018-09-05 11:27 | Pulmonary Consultation ---
History of Present Illness History of Present Illness Date of Consultation 09/05/18 11:24 Time Seen by Provider: 10:27 Date of Admission History of Present Illness 57yo with hx of transverse myelitis/paraplegia, severe COPD presented to ED secondary to worsening SOB, and nonproductive cough. Over the last 2 wks pt has been on multiple rounds of Abx however has had no improvement. While in the ED pt was found to be hypoxic which did improve with adding oxygen. I am consulted for pulmonary management. Allergies and Home Medications Allergies Coded Allergies: latex (Verified Allergy, Unknown, hives, 09/04/18) tetracycline (Verified Allergy, Unknown, hives, 09/04/18) Home Medications Albuterol Sulfate 2.5 Mg/3 Ml Vial.neb, 3 ML NEB Q8H, (Reported) Albuterol Sulfate 1 Puff Puff, 2 PUFF INH Q4H PRN for SHORTNESS OF BREATH, (Reported) 1 PUFF = 90 MCG Alendronate Sodium 70 Mg Tablet, 70 MG PO Th, (Reported) Baclofen 10 Mg Tablet, 10 MG PO 1200, (Reported) Baclofen 10 Mg Tablet, 10 MG PO HS PRN for MUSCLE SPASMS, (Reported) Cefdinir 300 Mg Capsule, 300 MG PO BID, (Reported) FILLED 7 DAY SUPPLY ON 08-30-2018 Levothyroxine Sodium 125 Mcg Tablet, 125 MCG PO DAILY, (Reported) TAKES 25MCG ALONG WITH THE 125MCG TO EQUAL WITH 150MCG DOSE Levothyroxine Sodium 25 Mcg Tablet, 25 MCG PO DAILY, (Reported) TAKES 25MCG ALONG WITH THE 125MCG TO EQUAL WITH 150MCG DOSE Omeprazole 20 Mg Capsule.dr, 20 MG PO DAILY PRN for HEARTBURN, (Reported) Oxybutynin Chloride 10 Mg Tab.er.24, 10 MG PO DAILY, (Reported) Sertraline HCl 100 Mg Tablet, 100 MG PO DAILY, (Reported) Simvastatin 20 Mg Tablet, 20 MG PO DAILY, (Reported) Warfarin Sodium 2 Mg Tablet, PO UD, (Reported) TAKES 7MG ON SUN,TUES,THURS,SAT AND TAKES 6MG MON,WED,FRI Warfarin Sodium 5 Mg Tablet, PO UD, (Reported) TAKES 7MG ON SUN,TUES,THURS,SAT AND TAKES 6MG MON,WED,FRI Past Idgmswg-Clafkf-Skogpu Hx Patient Social History Alcohol Use: Denies Use Recreational Drug Use: No Smoking Status: Current Everyday Smoker Type Used: Cigarettes 2nd Hand Smoke Exposure: Yes Recent Foreign Travel: No Contact w/Someone Who Travel: No Recent Infectious Disease Expo: No Recent Hopitalizations: No Physical Abuse: No Sexual Abuse: No Mistreated: No Fear: No Immunizations Up To Date Date of Pneumonia Vaccine: Jan 04, 2018 Seasonal Allergies Seasonal Allergies: No Past Medical History Surgeries: Yes Appendectomy, Hysterectomy, Tonsillectomy Respiratory: Yes COPD Currently Using CPAP: No Currently Using BIPAP: No Cardiac: Yes High Cholesterol Neurological: Yes (Transverse myelitis, 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) Genitourinary: Yes (conteh catheter at home) Gastrointestinal: Yes (Ulcerative colitis) Musculoskeletal: Yes (Right femur fracture) Foot Drop Endocrine: No HEENT: No Cancer: No Psychosocial: No Integumentary: Yes (pressure ulcer on sacrum/coccyx) Blood Disorders: Yes (Bilateral leg DVTs) Review of Systems Time Seen by Provider: 11:45 Constitutional: Fever, Chills, Sweats, Weakness, Malaise Eyes: No: Pain, Vision change, Conjunctivae inflammation, Eyelid inflammation, Other, Redness ENT: Nose congestion; No: Ear pain, Ear discharge, Nose pain, Nose discharge, Mouth pain, Mouth swelling, Throat pain, Throat swelling, Other Respiratory: Cough, Shortness of breath, SOB with excertion, Wheezing, Sputum; No: Hemoptysis Cardiovascular: Palpitations, Paroxysmal Noc. Dyspnea, Lt Headedness; No: Chest Pain, Orthopnea, Edema, Other Sepsis Event Evaluation Height, Weight, BMI Height: 5'6.00" Weight: 107lbs. 0.0oz. 48.046092rn; 17.3 BMI Method:Stated Exam Exam Vital Signs Date Time Temp Pulse Resp B/P (MAP) Pulse Ox O2 Delivery O2 Flow Rate FiO2 09/05/18 10:51 92 Nasal Cannula 3.00 09/05/18 10:05 99.6 109 22 129/65 (86) 92 Nasal Cannula 3.00 09/05/18 07:00 93 09/05/18 06:59 92 Room Air 2.00 09/05/18 04:03 97.9 88 18 110/53 (72) 93 Nasal Cannula 3.00 09/05/18 02:53 88 Room Air 2.00 21 09/05/18 01:00 90 09/05/18 00:33 97.4 93 18 116/68 (84) 97 Nasal Cannula 3.00 09/04/18 20:55 95 Nasal Cannula 3.00 09/04/18 20:51 78 95 28 09/04/18 20:33 97.8 95 20 131/71 95 Nasal Cannula 3.00 09/04/18 19:50 95 Nasal Cannula 3.00 09/04/18 19:00 78 09/04/18 18:55 97.0 87 17 119/46 (70) 95 Room Air 09/04/18 17:45 94 Nasal Cannula 3.00 09/04/18 17:20 97.7 95 21 102/40 (60) 94 Room Air I & O 09/05/18 07:00 Intake Total 950 ml Output Total 450 ml Balance 500 ml Height & Weight Height: 5'6.00" Weight: 107lbs. 0.0oz. 48.986873zq; 17.3 BMI Method:Stated General Appearance: Anxious, Chronically ill, Mild Distress, Thin HEENT: PERRL/EOMI, Normal ENT Inspection, Pharynx Normal Neck: Full Range of Motion, Non Tender, Supple Respiratory: Accessory Muscle Use, Crackles, Decreased Breath Sounds, Wheezing Cardiovascular: Tachycardia Capillary Refill: Less Than 3 Seconds Gastrointestinal: non tender Extremity: Normal Capillary Refill, Normal Inspection, No Pedal Edema Neurologic/Psychiatric: Alert, Oriented x3 Skin: Normal Color, Warm/Dry Lymphatic: No Adenopathy Results Lab Laboratory Tests 09/04/18 17:30 09/05/18 05:45 Assessment/Plan Assessment/Plan COPDAE r/o PNA (Uses 3 liters of oxygen at home) -Currently on Vanco Zosyn -Solumedrol 125 x 1 then 40 Q 6 -Oxygen -Will do 1hr nebulaizer -Stat ABG - C02 41 -Secondary to persistent worsening SOB and hyponatremia check CT of chest r/o mass/infiltrate Hyponatremia r/o lung mass -Monitor Tobacco use -Education UPDATE 1535: CT of chest shows bronchial mucous impaction and atelectasis. Will proceed with bronchoscopy tomorrow AM in ICU. JAYLA CUELLAR DO Sep 05, 2018 11:27
[2018-09-05] MEDS: OXYBUTYNIN (DITROPAN) 5 MG TAB PO SCH ×2 (11:29→20:28)
[2018-09-05] MEDS: BACLOFEN 10 MG (LIORESAL) TAB PO SCH (11:29)
[2018-09-05] MEDS ORDERED: RT-ALBUTEROL SULF 2.5 MG/3 ML PRE-MIX VIAL INH SCH (11:30)
[2018-09-05] MEDS ORDERED: methylPREDNISolone 125 MG (Solu-MEDROL) VIAL IVP NR (11:30)
[2018-09-05] MEDS ORDERED: VANCOMYCIN INJECTION 0.1 MG in NS (IVPB) 250 ML IV SCH (11:30)
[2018-09-05] MEDS ORDERED: PIPERACILLIN/TAZO 4.5 GM/NS 100 ML IV NR ×2 (11:31)
--- NOTE | 2018-09-05 11:32 | History & Physical-Hospitalist ---
History of Present Illness HPI/Chief Complaint Pt is a 57yoCF with a PMH of paraplegia secondary to transverse myelitis, COPD, hypothyroidism who presented to the ER with a month long history of shortness of breath and cough. She was seen by her PCP multiple times over the last couple of weeks and was given multiple rounds of antibiotics but despite this continued to worsen. She was found to be hypoxic which is not normal for her and required oxygen to maintain her sats. This morning she states she is still short of breath and worse than yesterday. She can hardly speak more than 4-5 words due to dyspnea. Source: patient Exam Limitations: no limitations Date Seen 09/05/18 Time Seen by a Provider: 11:32 Attending Physician Shazia Garza MD PCP Ari Mayer MD Referring Physician Date of Admission Sep 04, 2018 at 17:55 Home Medications & Allergies Home Medications Reviewed patient Home Medication Reconciliation performed by pharmacy medication reconciliations scale technician and/or nursing. Patients Allergies have been reviewed. Allergies Allergies Coded Allergies latex (Verified Allergy, Unknown, hives, 09/04/18) tetracycline (Verified Allergy, Unknown, hives, 09/04/18) Past Ddkbryv-Tbbtfy-Hfvqmc Hx Past Med/Social Hx: Reviewed Nursing Past Med/Soc Hx Patient Social History Marrital Status: Alcohol Use: Denies Use Recreational Drug Use: No Smoking Status: Current Everyday Smoker Type Used: Cigarettes 2nd Hand Smoke Exposure: Yes Recent Foreign Travel: No Contact w/other who traveled: No Recent Hopitalizations: No Recent Infectious Disease Expo: No Immunizations Up To Date Date of Pneumonia Vaccine: Jan 04, 2018 Seasonal Allergies Seasonal Allergies: No Past Medical History Surgeries: Appendectomy, Hysterectomy, Tonsillectomy Currently Using CPAP: No Currently Using BIPAP: No Cardiac: High Cholesterol Musculoskeletal: Foot Drop History of Blood Disorders: Yes (Bilateral leg DVTs) Review of Systems Constitutional: no symptoms reported, malaise EENTM: no symptoms reported Respiratory: cough, dyspnea on exertion; No orthopnea; short of breath Cardiovascular: No chest pain, No palpitations Genitourinary: no symptoms reported Skin: no symptoms reported Psychiatric/Neurological: No Symptoms Reported Physical Exam Physical Exam Vital Signs Vital Signs - First Documented 09/04/18 09/04/18 09/04/18 17:20 17:45 20:51 Temp 97.7 Pulse 95 Resp 21 B/P (MAP) 102/40 (60) Pulse Ox 94 O2 Delivery Room Air O2 Flow Rate 3.00 FiO2 28 Capillary Refill : Less Than 3 SecondsLess Than 3 Seconds Height, Weight, BMI Height: 5'6.00" Weight: 107lbs. 0.0oz. 48.184302hw; 17.3 BMI Method:Stated General Appearance: No Apparent Distress, WD/WN Respiratory: Accessory Muscle Use, Wheezing Cardiovascular: Regular Rate, Rhythm, No Murmur Gastrointestinal: Normal Bowel Sounds, Soft Results Results/Procedures Labs Laboratory Tests 09/04/18 17:30 09/05/18 05:45 Patient resulted labs reviewed. Imaging: Reviewed Imaging Report Assessment/Plan Admission Diagnosis COPD Exacerbation Admission Status: Inpatient Order (span 2 midnights) Reason for Inpatient Admission: failed outpatient management Diagnosis/Problems Diagnosis/Problems (1) Acute respiratory distress Assessment & Plan: Pulm consulted, appreciate recs ABG ordered Continue MAT protocol Hour long treatment ordered by Dr Fenton Low threshold for transfer to unit (2) COPD with exacerbation Status: Acute Assessment & Plan: Solu medrol MAT protocol oxygen to keep sats greater than 90 Rule out sepsis Cover with Vanc/Zosyn (3) Hypothyroidism Assessment & Plan: Continue home meds Qualifiers: Hypothyroidism type: unspecified Qualified Codes: E03.9 - Hypothyroidism, unspecified (4) Paraplegia Assessment & Plan: PT/OT (5) Tobacco abuse Assessment & Plan: Recommended cessation (6) Counseling regarding end of life decision making Assessment & Plan: Discussed code status Patient agreeable to short term ventilation but not to trach or long term care pharmacist ventilation States would be decision maker should she be unable to communicate Clinical Quality Measures DVT/VTE Risk/Contraindication: Risk Factor Score Per Nursin RFS Level Per Nursing on Admit: 4+=Very High SHAZIA GARZA MD Sep 05, 2018 11:32
[2018-09-05] MEDS ORDERED: VANCOMYCIN 1 GM/NS 250 ML IVPB IV NR ×2 (12:00)
--- NOTE | 2018-09-05 15:05 | Physical Therapy Evaluation ---
PT Evaluation-General Medical Diagnosis Admission Date Sep 04, 2018 at 17:55 Medical Diagnosis: COPD exacerbation Onset Date: Sep 04, 2018 Therapy Diagnosis Therapy Diagnosis: debility Height/Weight Height (Feet): 5 Height (Inches): 6.00 Weight (Pounds): 107 Weight (Ounces): 0.0 Precautions Precautions/Isolations: Fall Prevention, Standard Precautions Weight Bear Status Right Lower Extremity: Right Non Weight Bearing Left Lower Extremity: Left Non Weight Bearing Referral Physician: Greg Reason for Referral: Evaluation/Treatment Medical History Pertinent Medical History: COPD, Hypothroidism, Smoking Additional Medical History Transverse Myelitis resulting in paraplegia Current History ED secondary to respiratory distress Reviewed History: Yes Social History Home: Single Level Current Living Status: Spouse Entry Into Home: Ramp Prior/Core FIM Prior Level of Function Therapy Code Descriptions/Definitions Functional [place] Measure: 0=Not Assessed/NA 4=Minimal Assistance 1=Total Assistance 5=Supervision or Setup 2=Maximal Assistance 6=Modified [place] 3=Moderate Assistance 7=Complete [place] Therapy Quality Codes: 6 Independent with activity with or without an assistive device 5 Patient requires set up or clean up by helper. Patient completes activity by themselves 4 Supervision or touching assist (CGA). [place] provide cues , steadying assist 3 The helper provides less than half the effort to complete the activity 2 The helper provides more than half the effort to complete the activity 1 Dependent. The helper does all the effort to complete an activity 7 Patient refused to complete or attempt activity 9 The patient did not perform the activity before the current illness or injury 88 Not attempted due to Medical conditions or safety concerns Functional Abilities and Goals: Independent: Patient completed the activities by him/herself, with or without an assistive device, with no assistance from a helper. Needed Some Help: Patient needed partial assistance from another person to complete activities. Dependent: A helper completed the activities for the patient. Unknown: Not Applicable: Bed Mobility: 5 Transfers (B,C,W/C) (FIM): 1 ( lifts patient from bed to w/c and to commode at home PLOF) Prior Devices Use: Manual wheelchair PT Evaluation-Current Subjective Patient and spouse agree to PT. Objective Patient Orientation: Normal For Age Problem Solving: Good Attachments: Oxygen (HS) ROM/Strength ROM Lower Extremities right knee immobilized secondary to femur fracture (prior)/left LE WFL Strength Lower Extremities flaccid bilateral LE Integumentary/Posture Integumentary refer to nursing notes Bladder Incontinence: Cope Cath Posture WFL Neuromuscular (Tone, Coordination, Reflexes) bilateral LE atrophy/flaccid Sensory Vision: Functional Hearing: Functional Sensation Right Lower Extremit: Impaired Sensation Left Lower Extremity: Impaired Transfers Therapy Code Descriptions/Definitions Functional [place] Measure: 0=Not Assessed/NA 4=Minimal Assistance 1=Total Assistance 5=Supervision or Setup 2=Maximal Assistance 6=Modified [place] 3=Moderate Assistance 7=Complete [place] Transfers (B, C, W/C) (FIM): 4 Scootin Rollin Supine to/from Sit: 5 bed t/f WC(FIM only if WC use): 4 with use of slide board under pad and patient assisting Gait Mode of Locomotion: Wheelchair Anticipated Mode of Locomotion: Wheelchair Balance Sitting Static: Normal Sitting Dynamic: Normal Assessment/Needs 57 y.o. female, will be seen short term by skilled PT to address transfer training with slide board for home use. Rehab Potential: Fair PT Short Term Goals Short Term Goals Time Frame: Sep 11, 2018 Transfers (B,C,W/C) (FIM): 5 (with slide board bed<>w/c) PT Plan Treatment/Plan Treatment Plan: Continue Plan of Care Treatment Plan: Bed Mobility, Education, Therapeutic Exercise, Transfers Treatment Duration: Sep 11, 2018 Frequency: 5 times per week Estimated Hrs Per Day: .25 hour per day Patient and/or Family Agrees t: Yes Discharge Recommendations Therapy D/C Recommendations: Home w/ Family Support Time/GCodes Time In: 1415 Time Out: 1428 Total Billed Treatment Time: 13 Total Billed Treatment 1 visit [facility] 14 min ROSEMARY ORELLANA PT Sep 05, 2018 15:05
--- NOTE | 2018-09-05 15:09 | Diagnostic Imaging Report ---
PROCEDURE: CT chest with contrast only. TECHNIQUE: Multiple contiguous axial images were obtained through the chest after administration of intravenous contrast. Auto Exposure Controls were utilized during the CT exam to meet ALARA standards for radiation dose reduction. INDICATION: Productive cough. Centrilobular emphysema and symmetrical air trapping present. There is some mucoid impaction and debris within bilateral dependent lower lobe airways. Some subsegmental bibasilar posterior sulcal atelectasis. Mucoid containing and mildly ectatic airways showed some mild thickening. No blebs, bullous disease or air cyst were found. No pneumothorax, no effusion, no evidence for abscess. No soft tissue density or lung mass. No adenopathy. IMPRESSION: Some mild cylindrical bronchiectasis airway thickening and mucoid impaction within dependent lower lobed airways with only trace peripheral partial atelectasis. No elise pneumonia, effusion or abscess. No mass or adenopathy. Dictated by: Dictated on workstation # [id number]
[2018-09-05] MEDS: PIPERACILLIN/TAZOBACTAM (BULK) 4.5 GM in NS (IVPB) 100 ML IV SCH (17:37)
[2018-09-05] MEDS: methylPREDNISolone 125 MG (Solu-MEDROL) VIAL IVP SCH ×2 (17:37→23:09)
[2018-09-05] MEDS: SIMvastatin 20 MG (ZOCOR) TAB PO SCH (20:28)
[2018-09-05] MEDS: VANCOMYCIN 750 MG/NS 250 ML IVPB IV SCH ×2 (23:08)
[2018-09-06 00:56] VITALS: BP 96/55
[2018-09-06] MEDS: PIPERACILLIN/TAZOBACTAM (BULK) 4.5 GM in NS (IVPB) 100 ML IV SCH ×3 (01:51→17:59)
[2018-09-06] MEDS: RT-ALBUTEROL/IPRATROPIUM 3 ML (DUONEB) VIAL INH SCH ×5 (03:20→23:06)
[2018-09-06 04:31] VITALS: BP 92/52
[2018-09-06] MEDS: CATHETER FLUSH 10 ML SYR IV SCH ×3 (05:56→21:18)
[2018-09-06] MEDS: methylPREDNISolone 125 MG (Solu-MEDROL) VIAL IVP SCH ×4 (05:56→23:56)
[2018-09-06] MEDS: LACTOBACILLUS ACIDOPHILUS (PROBIOTIC) CAPSULE PO SCH ×3 (06:33→17:59)
[2018-09-06] MEDS: LEVOTHYROXINE 125 MCG (LEVOTHROID) TABLET PO SCH (06:33)
[2018-09-06] MEDS: LEVOTHYROXINE 25 MCG (LEVOTHROID) TAB PO SCH (06:33)
--- NOTE | 2018-09-06 07:56 | Pulmonary Progress Note ---
Subjective Time Seen by a Provider: 07:00 Subjective/Events-last exam No complications noted. Pt still complains of SOB and difficulty coughing up thick sputum. Sepsis Event Evaluation Height, Weight, BMI Height: 5'6.00" Weight: 107lbs. 0.0oz. 48.989688ip; 17.3 BMI Method:Stated Focused Exam Lactate Level 09/04/18 17:30: Lactic Acid Level 1.08 09/05/18 11:47: Lactic Acid Level 1.16 Exam Exam Vital Signs Date Time Temp Pulse Resp B/P (MAP) Pulse Ox O2 Delivery O2 Flow Rate FiO2 09/06/18 07:00 89 09/06/18 04:31 98.3 87 16 92/52 (65) 97 Nasal Cannula 3.00 09/06/18 03:20 92 Nasal Cannula 3.00 09/06/18 01:00 93 09/06/18 00:56 98.3 96 20 96/55 (69) 93 Nasal Cannula 3.00 09/05/18 22:41 91 Nasal Cannula 3.00 09/05/18 20:30 Nasal Cannula 3.00 09/05/18 19:55 99.2 96 20 92/60 (71) 94 Nasal Cannula 3.00 09/05/18 19:37 93 Nasal Cannula 3.00 09/05/18 19:00 96 09/05/18 16:05 99.8 104 20 95/52 (66) 97 Nasal Cannula 3.00 09/05/18 15:07 90 Nasal Cannula 3.00 09/05/18 12:21 111 09/05/18 12:00 99.0 89 22 115/75 (88) 93 Nasal Cannula 3.00 09/05/18 11:34 92 Nasal Cannula 3.00 09/05/18 10:51 92 Nasal Cannula 3.00 09/05/18 10:05 99.6 109 22 129/65 (86) 92 Nasal Cannula 3.00 09/05/18 08:00 98.6 100 18 106/67 (80) 92 Nasal Cannula 3.00 09/05/18 08:00 Nasal Cannula 3.00 I & O 09/06/18 07:00 Intake Total 2837.5 ml Output Total 2550 ml Balance 287.5 ml Height & Weight Height: 5'6.00" Weight: 107lbs. 0.0oz. 48.512975gf; 17.3 BMI Method:Stated General Appearance: Anxious, Chronically ill, Mild Distress, Thin HEENT: PERRL/EOMI, Normal ENT Inspection, Pharynx Normal Neck: Full Range of Motion, Non Tender, Supple Respiratory: Accessory Muscle Use, Crackles, Decreased Breath Sounds, Wheezing Cardiovascular: Tachycardia Capillary Refill: Less Than 3 Seconds Gastrointestinal: non tender Extremity: Normal Capillary Refill, Normal Inspection, No Pedal Edema Neurologic/Psychiatric: Alert, Oriented x3 Skin: Normal Color, Warm/Dry Lymphatic: No Adenopathy Results Lab Laboratory Tests 09/04/18 17:30 09/05/18 05:45 Assessment/Plan Assessment/Plan COPDAE r/o PNA (Uses 3 liters of oxygen at home) with mucous plugs -Bronchoscope on hold secondary to it being out of order. -Add mucomyst to SVNs -Currently on Vanco Zosyn -Solumedrol 40 Q 6 -Oxygen -Stat ABG - C02 41 -CT of chest shows mucous plugging/impaction Hyponatremia r/o lung mass -Monitor Tobacco use -Education JAYLA CUELLAR DO Sep 06, 2018 07:56
[2018-09-06 08:53] VITALS: BP 109/51
[2018-09-06] MEDS: OXYBUTYNIN (DITROPAN) 5 MG TAB PO SCH ×2 (09:03→21:10)
[2018-09-06] MEDS: SERTRALINE 100 MG (ZOLOFT) TAB PO SCH (09:03)
--- NOTE | 2018-09-06 10:06 | Physical Therapy Daily Note ---
PT Daily Note-Current Subjective Patient request assistance to prepare for bowel program. Mental Status Patient Orientation: Normal For Age Transfers Therapy Code Descriptions/Definitions Functional [place] Measure: 0=Not Assessed/NA 4=Minimal Assistance 1=Total Assistance 5=Supervision or Setup 2=Maximal Assistance 6=Modified [place] 3=Moderate Assistance 7=Complete [place] Therapy Quality Codes: 6 Independent with activity with or without an assistive device 5 Patient requires set up or clean up by helper. Patient completes activity by themselves 4 Supervision or touching assist (CGA). [place] provide cues , steadying assist 3 The helper provides less than half the effort to complete the activity 2 The helper provides more than half the effort to complete the activity 1 Dependent. The helper does all the effort to complete an activity 7 Patient refused to complete or attempt activity 9 The patient did not perform the activity before the current illness or injury 88 Not attempted due to Medical conditions or safety concerns Transfers (B, C, W/C) (FIM): 4 Scootin Rollin Supine to/from Sit: 5 Bed to/from Chair: 4 slide board transfer bed to w/c with assistance to immobilize right LE /patient transferred w/c to toilet with minimal assist. Patient right LE elevated on trash can with pillow/blanket top to keep LE extended Weight Bearing Right Lower Extremity: Right Non Weight Bearing Left Lower Extremity: Left Non Weight Bearing Wheelchair Training Wheelchair (FIM): 1 Wheelchair Distance: 1=up to 49 ft Distance: 25' Wheelchair Level of Assist: 4 patient had increase SOA with minimal activity and is on 3L NC O2 Assessment Patient requires time to complete all functional tasks due to SOA. RN notified of patient up to toilet with supplies in hand. PT Short Term Goals Short Term Goals Time Frame: Sep 11, 2018 Transfers (B,C,W/C) (FIM): 5 (with slide board bed<>w/c) PT Plan Treatment/Plan Treatment Plan: Continue Plan of Care Treatment Plan: Bed Mobility, Education, Therapeutic Exercise, Transfers Treatment Duration: Sep 11, 2018 Frequency: 5 times per week Estimated Hrs Per Day: .25 hour per day Patient and/or Family Agrees t: Yes Time/GCodes Time In: 930 Time Out: 953 Total Billed Treatment Time: 23 Total Billed Treatment 1 visit [facility] 23 min ROSEMARY ORELLANA PT Sep 06, 2018 10:06
[2018-09-06 11:30] LABS: BASOPHILS % (AUTO) 0 % (0-10); EOSINOPHILS % (AUTO) 0 % (0-10); HEMATOCRIT 40 % (35-52); HEMOGLOBIN 13.9 G/DL (11.5-16.0); LYMPHOCYTES # (AUTO) 0.6 X 10^3 (1.0-4.0); LYMPHOCYTES % (AUTO) 8 % (12-44); MEAN CORPUSCULAR HEMOGLOBIN 31 PG (25-34); MEAN CORPUSCULAR HGB CONC 35 G/DL (32-36); MEAN CORPUSCULAR VOLUME 90 FL (80-99); MEAN PLATELET VOLUME 9.6 FL (7.4-10.4); MONOCYTES # (AUTO) 0.2 X 10^3 (0.0-1.0); MONOCYTES % (AUTO) 3 % (0-12); NEUTROPHILS # (AUTO) 6.1 X 10^3 (1.8-7.8); NEUTROPHILS % (AUTO) 88 % (42-75); PLATELET COUNT 249 10^3/uL (130-400); RED CELL DISTRIBUTION WIDTH 13.8 % (10.0-14.5); WHITE BLOOD COUNT 6.9 10^3/uL (4.3-11.0)
--- NOTE | 2018-09-06 11:38 | Progress Note-Hospitalist ---
Subjective HPI/CC On Admission Date Seen by Provider: Sep 06, 2018 Time Seen by Provider: 11:33 Pt is a 57yoCF with a PMH of paraplegia secondary to transverse myelitis, COPD, hypothyroidism who presented to the ER with a month long history of shortness of breath and cough. She was seen by her PCP multiple times over the last couple of weeks and was given multiple rounds of antibiotics but despite this continued to worsen. She was found to be hypoxic which is not normal for her and required oxygen to maintain her sats. This morning she states she is still short of br eath and worse than yesterday. She can hardly speak more than 4-5 words due to dyspnea. Subjective/Events-last exam Pt reports feeling much better. Breathing improved. Getting some mucus up. Focused Exam Lactate Level 09/04/18 17:30: Lactic Acid Level 1.08 09/05/18 11:47: Lactic Acid Level 1.16 Objective Exam Vital Signs Vital Signs Date Time Temp Pulse Resp B/P (MAP) Pulse Ox O2 Delivery O2 Flow Rate FiO2 09/06/18 08:53 98.1 84 20 109/51 (70) 96 Nasal Cannula 3.00 09/05/18 02:53 21 Capillary Refill : Less Than 3 SecondsLess Than 3 Seconds General Appearance: No Apparent Distress, Chronically ill, Thin Respiratory: No Accessory Muscle Use, No Respiratory Distress, Rhonci Cardiovascular: Regular Rate, Rhythm, No Murmur Gastrointestinal: Normal Bowel Sounds, Soft Neurologic/Psychiatric: Alert, Oriented x3 Results/Procedures Lab Patient resulted labs reviewed. Imaging: Reviewed Imaging Report Assessment/Plan Assessment and Plan Assess & Plan/Chief Complaint COPD exacerbation Diagnosis/Problems Diagnosis/Problems (1) Acute respiratory distress Assessment & Plan: Much improved from yesterday Pulm consulted, appreciate recs Continue MAT protocol Still oxygen dependent which is new for her (2) COPD with exacerbation Status: Acute Assessment & Plan: Solu medrol MAT protocol oxygen to keep sats greater than 90 Continue with Vanc/Zosyn if continues to improve will DC Vanc tomorrow and deescalate Zosyn Sunday (3) Hypothyroidism Assessment & Plan: Continue home meds Qualifiers: Hypothyroidism type: unspecified Qualified Codes: E03.9 - Hypothyroidism, unspecified (4) Paraplegia Assessment & Plan: PT/OT (5) Anticoagulant long-term use Assessment & Plan: on warfarin due to multiple DVTs in past INR 4.0 on arrival today's pending (6) Tobacco abuse Assessment & Plan: Recommended cessation (7) Counseling regarding end of life decision making Assessment & Plan: Discussed code status 09/05 Patient agreeable to short term ventilation but not to trach or correction ventilation States would be decision maker should she be unable to communicate Clinical Quality Measures DVT/VTE Risk/Contraindication: Risk Factor Score Per Nursin RFS Level Per Nursing on Admit: 4+=Very High SHAZIA GILES MD Sep 06, 2018 11:38
[2018-09-06 11:42] LABS: INR 3.4 (0.8-1.4); PROTHROMBIN TIME PATIENT 36.2 SEC (12.2-14.7)
[2018-09-06 11:43] LABS: BUN/CREATININE RATIO 13; CALCIUM 9.4 MG/DL (8.5-10.1); CARBON DIOXIDE 23 MMOL/L (21-32); CHLORIDE 94 MMOL/L (98-107); CREATININE SERUM 0.75 MG/DL (0.60-1.30); GFR ESTIMATED > 60; GLUCOSE 90 MG/DL (70-105); POTASSIUM 4.2 MMOL/L (3.6-5.0); SODIUM 129 MMOL/L (135-145)
[2018-09-06] MEDS: VANCOMYCIN 750 MG/NS 250 ML IVPB IV SCH ×2 (11:48)
[2018-09-06 11:56] LABS: BAND NEUTROPHILS 0 %; BASOPHILS % (MANUAL) 0 %; EOSINOPHILS % (MANUAL) 0 %; LYMPHOCYTES % (MANUAL) 9 %; MONOCYTES % (MANUAL) 1 %; NEUTROPHILS % (MANUAL) 90 %; RBC MORPH NORMAL
[2018-09-06] MEDS: BACLOFEN 10 MG (LIORESAL) TAB PO SCH (12:04)
[2018-09-06 12:44] VITALS: BP 93/57
--- NOTE | 2018-09-06 13:26 | NUR ---
patient did not get her 1000 due to RT Violet was with a critical patient and went to CT 2 times and intubated in between.
[2018-09-06 15:58] VITALS: BP 103/50
[2018-09-06 20:33] VITALS: BP 93/51
[2018-09-06] MEDS ORDERED: aCETylcysteine 20% (MUCOMYST) 30ML SOLN VIAL PO SCH (21:00)
[2018-09-06] MEDS: SIMvastatin 20 MG (ZOCOR) TAB PO SCH (21:10)
[2018-09-06] MEDS: guaiFENesin (MUCINEX) 600 MG TAB PO SCH (21:10)
--- NOTE | 2018-09-06 21:15 | NUR ---
Clarification with Dr. Garza - Scheduled Mucomyst is to be given with breathing treatment BID - not PO as originally ordered. Respiratory therapist notified and order corrected on EMAR.
[2018-09-06] MEDS ORDERED: TROUGH ORDER-PHARMACY XX ONE (22:00)
[2018-09-07] VITALS (27 sets, daily range): BP systolic 73–151; BP diastolic 40–98
[2018-09-07] MEDS: PIPERACILLIN/TAZOBACTAM (BULK) 4.5 GM in NS (IVPB) 100 ML IV SCH ×3 (01:35→17:18)
[2018-09-07] MEDS: RT-ALBUTEROL/IPRATROPIUM 3 ML (DUONEB) VIAL INH SCH ×6 (02:16→21:50)
--- NOTE | 2018-09-07 05:11 | NUR ---
To ICU for Bronchoscopy via bed accompanied by Frida,RN & TerezaRN. O2 at 3L NC. Awake and alert.
[2018-09-07] MEDS: CATHETER FLUSH 10 ML SYR IV SCH ×3 (05:17→21:51)
[2018-09-07] MEDS ORDERED: NS IV 1000 ML 1,000 ML ONE ×2 (05:23→06:22)
--- NOTE | 2018-09-07 05:38 | NUR ---
B/P REPORTED TO DR. CUELLAR AT THIS TIME. ORDER RECEIVED FOR 1 L NS BOLUS.
[2018-09-07 05:42] LABS: BASOPHILS % (AUTO) 0 % (0-10); EOSINOPHILS % (AUTO) 0 % (0-10); HEMATOCRIT 38 % (35-52); HEMOGLOBIN 13.3 G/DL (11.5-16.0); LYMPHOCYTES # (AUTO) 0.6 X 10^3 (1.0-4.0); LYMPHOCYTES % (AUTO) 9 % (12-44); MEAN CORPUSCULAR HEMOGLOBIN 31 PG (25-34); MEAN CORPUSCULAR HGB CONC 35 G/DL (32-36); MEAN CORPUSCULAR VOLUME 89 FL (80-99); MEAN PLATELET VOLUME 9.4 FL (7.4-10.4); MONOCYTES # (AUTO) 0.2 X 10^3 (0.0-1.0); MONOCYTES % (AUTO) 3 % (0-12); NEUTROPHILS # (AUTO) 5.9 X 10^3 (1.8-7.8); NEUTROPHILS % (AUTO) 89 % (42-75); PLATELET COUNT 232 10^3/uL (130-400); RED CELL DISTRIBUTION WIDTH 13.9 % (10.0-14.5); WHITE BLOOD COUNT 6.6 10^3/uL (4.3-11.0)
[2018-09-07] MEDS ORDERED: NS IV 1000 ML 1,000 ML IV ONE (05:45)
[2018-09-07 05:54] LABS: INR 2.2 (0.8-1.4); PROTHROMBIN TIME PATIENT 25.1 SEC (12.2-14.7)
[2018-09-07] MEDS ORDERED: fentaNYL INJECTION 100 MCG/2 ML AMP ONE (05:54)
[2018-09-07] MEDS ORDERED: MIDAZOLAM 5 MG/5 ML (VERSED) VIAL ONE (05:54)
[2018-09-07 05:59] LABS: BUN/CREATININE RATIO 17; CALCIUM 8.7 MG/DL (8.5-10.1); CARBON DIOXIDE 21 MMOL/L (21-32); CHLORIDE 94 MMOL/L (98-107); CREATININE SERUM 0.69 MG/DL (0.60-1.30); GFR ESTIMATED > 60; GLUCOSE 121 MG/DL (70-105); POTASSIUM 3.9 MMOL/L (3.6-5.0); SODIUM 127 MMOL/L (135-145)
--- NOTE | 2018-09-07 06:02 | Pulmonary Progress Note ---
Subjective Time Seen by a Provider: 05:30 Subjective/Events-last exam Pt is agreeable to bronchoscopy. Risk vs benefits explained to patient. Sepsis Event Evaluation Height, Weight, BMI Height: 5'6.00" Weight: 107lbs. 0.0oz. 48.240541uv; 17.3 BMI Method:Stated Focused Exam Lactate Level 09/04/18 17:30: Lactic Acid Level 1.08 09/05/18 11:47: Lactic Acid Level 1.16 Exam Exam Vital Signs Date Time Temp Pulse Resp B/P (MAP) Pulse Ox O2 Delivery O2 Flow Rate FiO2 09/07/18 05:21 90 18 91/51 (64) 95 Nasal Cannula 3.00 09/07/18 04:58 95 Nasal Cannula 3.00 09/07/18 04:00 98.2 86 20 105/56 (72) 97 Nasal Cannula 3.00 09/07/18 02:16 95 Nasal Cannula 3.00 09/07/18 01:00 94 09/07/18 00:00 98.2 96 20 113/60 (77) 97 Nasal Cannula 3.00 09/06/18 23:11 95 Nasal Cannula 3.00 09/06/18 23:06 95 Nasal Cannula 3.00 09/06/18 20:50 Nasal Cannula 3.00 09/06/18 20:33 97.8 94 20 93/51 (65) 94 Nasal Cannula 3.00 09/06/18 19:34 96 Nasal Cannula 3.00 09/06/18 19:00 97 09/06/18 15:58 98.0 88 18 103/50 (67) 98 Nasal Cannula 3.00 09/06/18 12:44 98.2 86 21 93/57 (69) 96 Nasal Cannula 3.00 09/06/18 12:25 93 09/06/18 08:53 98.1 84 20 109/51 (70) 96 Nasal Cannula 3.00 09/06/18 08:00 Nasal Cannula 3.00 09/06/18 07:46 92 Nasal Cannula 3.00 09/06/18 07:00 89 I & O 09/07/18 07:00 Intake Total 2339.5 ml Output Total 1600 ml Balance 739.5 ml Height & Weight Height: 5'6.00" Weight: 107lbs. 0.0oz. 48.897977be; 17.3 BMI Method:Stated General Appearance: No Apparent Distress, Chronically ill, Thin Respiratory: No Accessory Muscle Use, No Respiratory Distress, Rhonci Cardiovascular: Regular Rate, Rhythm, No Murmur Capillary Refill: Less Than 3 Seconds Gastrointestinal: non tender Neurologic/Psychiatric: Alert, Oriented x3 Skin: Normal Color, Warm/Dry Lymphatic: No Adenopathy Results Lab Laboratory Tests 09/06/18 11:24 09/07/18 05:29 Assessment/Plan Assessment/Plan Acute on chronic respiratory failure -Pt intubated after bronchoscopy -continue mechanical ventilation -propofol gtt, og -stat cxr pending COPDAE r/o PNA (Uses 3 liters of oxygen at home) with mucous plugs -Will do Bronchoscope this AM. Everything explained to pt and she is in agreement. -Continue Vanco Zosyn -Solumedroln 40 Q 6 -Oxygen -Q4 Duonebs -Stat ABG - C02 41 - CT of chest shows mucoid impaction - will do bronchoscopy to suction out mucous plugs and to r/o endobronchial mass. Hypotension -Will give a liter bolus over 1 hr -start NS at 125 Hyponatremia r/o lung mass -Monitor Tobacco use -Education Paraplegia secondary to hx of transverse myelitis (wheelchair bound) Hx of multiple DVTs -chronic anticoagulation hx hypothyroid UPDATE: AFTER BRONCHOSCOPY AND DURING WAKE UP PERIOD I WAS CALLED INTO PATIENTS ROOM SECONDARY TO RESPIRATORY DISTRESS. PT IS HAVING RESPIRATORY DISTRESS AND ACCESSORY MUSCLE USE. LUNG SOUND COARSE BILATERAL. SECONDARY TO RESPIRATORY DISTRESS PT WAS URGENTLY INTUBATED WITHOUT COMPLICATION. I ALSO CALLED AND UPDATED . JAYLA CUELLAR DO Sep 07, 2018 06:02
[2018-09-07] MEDS ORDERED: PROPOFOL DRIP (ICU) 100 ML IV ONE (06:22)
--- NOTE | 2018-09-07 06:28 | Pulmonary Procedures ---
Pulmonary Procedures Date of Procedure Date of Service: Sep 07, 2018 Bronch Bronchoscopy with bilateral washes and multiple passes to clear mucous plugs Preop DX mucous plugs/impaction Postop DX: same Complications: none After informed consent obtained and formal time out pt was sedated using Fentanyl and Versed. Bronchoscope was advanced through the nare and vocal cords. 1% lidocaine was used to anesthetize vocal cords, epiglottis, harlan, and left/right main stem bronchus. An anatomical tour was undertaken down to the segmental bronchi bilaterally. Bilateral washes were obtained. Pt tolerated procedure well. No complications noted. Stat CXR is pending. JAYLA CUELLAR DO Sep 07, 2018 06:27
--- NOTE | 2018-09-07 07:00 | NUR ---
TIMELINE NOTE: 0600: BEDSIDE BRONCHOSCOPY STARTED AT THIS TIME PER DR. CUELLAR. CONSENT ON CHART AND PROCEDURE DISCUSSED WITH PT BY DR. CUELLAR. 5 MG OF IV VERSED AND 100 MCG OF IV FENTANYL ADMINISTERED BY THIS RN. POST BRONCHOSCOPY PT HAD SEVERE RESPIRATORY DISTRESS WITH NECK PULLING, AND ABDOMINAL RETRACTIONS. INTUBATION DISCUSSED WITH PATIENT. 0636: 2 MG IV VERSED ADMINISTERED 0638: 5 ML PROPOFOL ADMINISTERED 0639: PT INTUBATED WITH A SIZE [address] CUELLAR, COLOR CHANGE NOTED, BREATH SOUNDS AUSCULTATED EQUALLY, BILATERALLY. OG TUBE INSERTED. 0700: CHEST X-RAY TAKEN AT THIS TIME TO CONFIRM PLACEMENT OF ETT AND OG TUBE.
[2018-09-07 07:31] LABS: MAGNESIUM 1.9 MG/DL (1.8-2.4)
--- NOTE | 2018-09-07 07:34 | Pulmonary Procedures ---
Pulmonary Procedures Date of Procedure Date of Service: Sep 07, 2018 Reason for Intubation: Acute respiratory failure Time of Intubation: 06:00 Intubation Method: orotracheal Medications: Fentanyl, Propofol, Versed Positive End Tide CO2: Yes Breath Sounds after Intubation: bilateral-equal Intubation Complications: no complications Post Intubation Xray: Yes JAYLA CUELLAR DO Sep 07, 2018 07:33
[2018-09-07 08:03] LABS: HEMOGLOBIN 12.7 G/DL (11.5-16.0); MEAN PLATELET VOLUME 9.6 FL (7.4-10.4); RED CELL DISTRIBUTION WIDTH 13.8 % (10.0-14.5); WHITE BLOOD COUNT 6.2 10^3/uL (4.3-11.0)
[2018-09-07] MEDS: fentaNYL INJECTION 1,250 MCG in NORMAL SALINE 250 ML INJ SCH (08:05)
--- NOTE | 2018-09-07 08:10 | Diagnostic Imaging Report ---
Portable erect AP chest 700 hours. INDICATION: Respiratory distress. FINDINGS: In the interval since the prior exam of 09/05/2018, the patient has been intubated. The tip of the ET tube overlies the distal tracheal air shadow and lies approximately 3 CM proximal to the harlan. An OG line has also been inserted. The tip of line is not visualized but the line does appear to extend below the diaphragm. The overall appearance of the chest has not changed significantly otherwise. The heart is stable in size. The severe chronic pulmonary changes noted on the prior study are again visualized and essentially no different. There is still no sign of failure, pneumonia or pleural effusion to indicate an acute abnormality. There is a linear lucency extending along the periphery of the right lung base. This is felt to be due to a skin fold and not to a pneumothorax. The mediastinum is not widened. The osseous structures are intact. IMPRESSION: 1. In the interval since the prior exam, the patient has been intubated. The ET tube appears to be in good position. There is also an OG line in place. 2. The chronic pulmonary changes noted previously are again evident and no different. There is no sign of an acute cardiopulmonary abnormality. Dictated by: Dictated on workstation # [id number]
[2018-09-07] MEDS: methylPREDNISolone 125 MG (Solu-MEDROL) VIAL IVP SCH ×3 (08:15→17:18)
[2018-09-07] MEDS ORDERED: MIDAZOLAM 5 MG/5 ML (VERSED) VIAL IVP ONE (08:15)
[2018-09-07] MEDS: NS IV 1000 ML 1,000 ML IV SCH ×4 (08:15→23:00)
[2018-09-07] MEDS ORDERED: fentaNYL INJECTION 100 MCG/2 ML AMP IVP ONE (08:15)
[2018-09-07] MEDS: PROPOFOL DRIP (ICU) 100 ML IV SCH ×3 (08:16→19:22)
[2018-09-07 08:17] LABS: ALANINE AMINOTRANSFERASE 21 U/L (0-55); ALBUMIN 3.3 GM/DL (3.2-4.5); ALKALINE PHOSPHATASE 49 U/L (40-136); BILIRUBIN,TOTAL 0.3 MG/DL (0.1-1.0); BUN/CREATININE RATIO 17; CALCIUM 7.9 MG/DL (8.5-10.1); CARBON DIOXIDE 20 MMOL/L (21-32); CHLORIDE 99 MMOL/L (98-107); CREATININE SERUM 0.58 MG/DL (0.60-1.30); GFR ESTIMATED > 60; GLUCOSE 122 MG/DL (70-105); MAGNESIUM 1.9 MG/DL (1.8-2.4); PHOSPHORUS 4.1 MG/DL (2.3-4.7); POTASSIUM 3.9 MMOL/L (3.6-5.0); SODIUM 128 MMOL/L (135-145); TOTAL PROTEIN 5.6 GM/DL (6.4-8.2)
--- NOTE | 2018-09-07 08:37 | Progress Note-Hospitalist ---
Subjective HPI/CC On Admission Date Seen by Provider: Sep 07, 2018 Time Seen by Provider: 08:31 Pt is a 57yoCF with a PMH of paraplegia secondary to transverse myelitis, COPD, hypothyroidism who presented to the ER with a month long history of shortness of breath and cough. She was seen by her PCP multiple times over the last couple of weeks and was given multiple rounds of antibiotics but despite this continued to worsen. She was found to be hypoxic which is not normal for her and required oxygen to maintain her sats. This morning she states she is still short of breath and worse than yesterday. She can hardly speak more than 4-5 words due to dyspnea. Subjective/Events-last exam Pt was transferred to ICU for bronch and is now intubated. Unable to provide ROS. RN states appearred to have bracycardia in the 30s but with adjustment of leads normal heart rate. Focused Exam Lactate Level 09/04/18 17:30: Lactic Acid Level 1.08 09/05/18 11:47: Lactic Acid Level 1.16 Objective Exam Vital Signs Vital Signs Date Time Temp Pulse Resp B/P (MAP) Pulse Ox O2 Delivery O2 Flow Rate FiO2 09/07/18 08:21 97.0 09/07/18 08:16 129/85 09/07/18 07:00 110 09/07/18 05:21 18 95 Nasal Cannula 3.00 09/05/18 02:53 21 Capillary Refill : Less Than 3 SecondsLess Than 3 Seconds General Appearance: Chronically ill, Thin, Other (intubated on vent) HEENT: Pharynx Normal Neck: Supple Respiratory: Rhonci, Other (on vent) Cardiovascular: Regular Rate, Rhythm, No Murmur Gastrointestinal: Normal Bowel Sounds, Soft Neurologic/Psychiatric: Other (sedated) Results/Procedures Lab Laboratory Tests 09/06/18 11:24 09/07/18 05:29 09/07/18 07:45 Patient resulted labs reviewed. Imaging: Reviewed Imaging Report Assessment/Plan Assessment and Plan Assess & Plan/Chief Complaint COPD exacerbation Diagnosis/Problems Diagnosis/Problems (1) Acute respiratory failure Status: Acute Assessment & Plan: Intubated 09/07 Pulm consulted, appreciate recs Chest PT Mucomyst ordered Bronchoscopy this AM- await cultures Qualifiers: Respiratory failure complication: hypoxia Qualified Codes: J96.01 - Acute respiratory failure with hypoxia (2) COPD with exacerbation Status: Acute Assessment & Plan: Solu medrol MAT protocol Intubated 09/07 Continue Zosyn (3) Hypothyroidism Assessment & Plan: Continue home meds Qualifiers: Hypothyroidism type: unspecified Qualified Codes: E03.9 - Hypothyroidism, unspecified (4) Paraplegia Assessment & Plan: PT/OT (5) Anticoagulant long-term use Assessment & Plan: on warfarin due to multiple DVTs in past INR within goal today Resume warfarin (6) Tobacco abuse Assessment & Plan: Recommended cessation (7) Counseling regarding end of life decision making Assessment & Plan: Discussed code status 09/05 Patient agreeable to short term ventilation but 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
[2018-09-07 08:38] LABS: ABG BASE EXCESS -2.7 MMOL/L (-2.5-2.5); ABG OXYGEN SATURATION 100 % (94-100); ABG PCO2 48 MMHG (35-45); ABG PO2 306 MMHG (79-93); ABG TCO2 24.5 MMOL/L (21.0-31.0)
[2018-09-07 08:45] LABS: ALLENS TEST YES-POS
[2018-09-07 08:46] LABS: INSPIRED O2 75%; VENTILATOR YES
--- NOTE | 2018-09-07 08:47 | Physical Therapy Progress Note ---
Therapy Progress Note Patient is currently intubated. Will check back on Sunday to see if patient is appropriate for PT. ANA M MCGUIRE PT Sep 07, 2018 08:47
[2018-09-07] MEDS ORDERED: warFARin 1 MG (COUMADIN) TAB PO SCH (09:00)
[2018-09-07] MEDS ORDERED: aCETylcysteine 20% (MUCOMYST) 30ML SOLN VIAL INH SCH (09:00)
[2018-09-07] MEDS: guaiFENesin (MUCINEX) 600 MG TAB PO SCH ×2 (09:23→21:23)
[2018-09-07] MEDS: warFARin 2 MG (COUMADIN) TAB PO SCH (09:23)
[2018-09-07] MEDS: LACTOBACILLUS ACIDOPHILUS (PROBIOTIC) CAPSULE PO SCH ×3 (09:24→17:16)
[2018-09-07] MEDS: LEVOTHYROXINE 25 MCG (LEVOTHROID) TAB PO SCH (09:24)
[2018-09-07] MEDS: warFARin 5 MG (COUMADIN) TAB PO SCH (09:24)
[2018-09-07] MEDS: PANTOPRAZOLE 40 MG (PROTONIX) VIAL IV SCH (09:24)
[2018-09-07] MEDS: SERTRALINE 100 MG (ZOLOFT) TAB PO SCH (09:24)
[2018-09-07] MEDS: LEVOTHYROXINE 125 MCG (LEVOTHROID) TABLET PO SCH (09:24)
[2018-09-07] MEDS: OXYBUTYNIN (DITROPAN) 5 MG TAB PO SCH ×2 (09:24→21:23)
--- NOTE | 2018-09-07 09:47 | Diagnostic Imaging Report ---
EXAMINATION: Chest radiograph, portable AP view. DATE: September 07, 2018 at 0759 hours. INDICATION: 57-year-old female, status post bronchoscopy. Shortness of breath. COMPARISON: September 07, 2018 at 0700 hours. FINDINGS: The endotracheal tube is approximately 4 cm above the harlan. The nasogastric tube extends below the [id number]. Stable overall appearance of the cardiomediastinal silhouette. There is no identified pneumothorax. There is no pleural effusion. There is question of opacities within the peripheral aspect of the mid to lower lung zone on the right although this could relate to soft tissue overlap. The left lung appears clear. IMPRESSION: 1. Support lines and tubes as above. 2. There is question of opacification within the peripheral aspect of the right mid to lower lung zone although this could relate to soft tissue overlap. Dictated by: Dictated on workstation # [id number]
[2018-09-07 10:11] LABS: INR 2.1 (0.8-1.4); PROTHROMBIN TIME PATIENT 24.9 SEC (12.2-14.7)
[2018-09-07] MEDS ORDERED: LIDOCAINE PF 1% 2 ML AMP INJ ONE (10:15)
[2018-09-07] MEDS ORDERED: LIDOCAINE PF 2% 5 ML (XYLOCAINE) VIAL INJ ONE (10:15)
[2018-09-07] MEDS ORDERED: LIDOCAINE JELLY 2% 6 ML SYRINGE MM ONE (10:15)
[2018-09-07] MEDS: aCETylcysteine 20% (MUCOMYST) 30ML SOLN VIAL INH SCH ×4 (10:36→21:50)
[2018-09-07] MEDS: BACLOFEN 10 MG (LIORESAL) TAB PO SCH (11:44)
[2018-09-07] MEDS: inSUlin ASPART (NovoLOG) 1 UNIT/0.01 ML (CHARGE PER UNIT) SC SCH ×2 (12:23→18:14)
--- NOTE | 2018-09-07 15:24 | NUR ---
DR CUELLAR INFORMED OF PT'S DECREASING BP.
[2018-09-07] MEDS ORDERED: NS IV 1000 ML 1,000 ML IV SCH ×2 (15:45→17:15)
[2018-09-07] MEDS ORDERED: DEXMEDETOMIDINE INJECTION 1,000 MCG in NS (IVPB) 250 ML IV SCH (15:45)
[2018-09-07] MEDS: DEXMEDETOMIDINE INJECTION 1,000 MCG in NS (IVPB) 250 ML IV SCH (16:06)
--- NOTE | 2018-09-07 16:59 | NUR ---
DR CUELLAR INFORMED OF PT'S CONTINUED LOW BP AFTER NS BOLUS. NEW ORDERS RECEIVED TO HAVE DR ESTEBAN PLACE CENTRAL LINE AND START LEVOPHED ONCE CENTRAL LINE OBTAINED. ADDITIONAL NS BOLUS ORDERED.
[2018-09-07] MEDS ORDERED: NOREPINEPHRINE 4 MG/4 ML (LEVOPHED) AMP IV ONE (17:05)
[2018-09-07] MEDS ORDERED: NS (IVPB) 250 ML ONE (17:05)
[2018-09-07] MEDS ORDERED: NOREPINEPHRINE 4 MG in NS (IVPB) 250 ML IV SCH ×4 (17:15)
[2018-09-07] MEDS ORDERED: LIDOCAINE 1% INJ 20 ML 20 ML VIAL ONE (17:54)
--- NOTE | 2018-09-07 18:34 | Diagnostic Imaging Report ---
PATIENT HISTORY: Central line placement. TECHNIQUE: Frontal view of the chest. COMPARISON: 7:59 a.m. on the same day. FINDINGS: The endotracheal tube is approximately 3.3 cm from the harlan. The left central line tip projects over the upper SVC. There are large lung volumes. There is linear opacity in the left lung base which appears chronic, may represent scarring or atelectasis. No pleural effusion or pneumothorax is seen. IMPRESSION: The tip of the left central line projects over the upper SVC. The endotracheal tube is 3.3 cm from the harlan. Chronic findings in the lungs, as described above. Dictated by: Dictated on workstation # [id number]
--- NOTE | 2018-09-07 18:47 | CONSULTATION REPORT ---
DATE OF SERVICE: ADMITTING PHYSICIAN: Dr. Garza. ATTENDING PRIMARY CARE PHYSICIAN: Dr. Mayer. HISTORY OF PRESENT ILLNESS: The patient is a 57-year-old female with a past medical history including paraplegia secondary to a transverse myelitis. She also had a history of COPD, hypothyroidism and has recurrent episodes of shortness of breath and cough. She was seen by her primary care physician multiple times over the past few weeks and given multiple rounds of antibiotics; however, she states that her shortness of breath and cough did worsen. She was also found to be hypoxic requiring more oxygen to maintain her saturations. She was admitted to the ICU and she underwent a bronchoscopy. Since the bronchoscopy, her blood pressure has been running low. There is a strong chance that she may need vasopressors to maintain blood pressure. She is currently intubated as well. PAST MEDICAL HISTORY: COPD, hypercholesterolemia, footdrop, bilateral lower extremity DVT, and hypothyroid. PAST SURGICAL HISTORY: Appendectomy, tonsillectomy, and hysterectomy. ALLERGIES: LATEX, TETRACYCLINE. MEDICATIONS: Albuterol nebulizer q.8 hours, albuterol MDI 2 puffs q.4 hours p.r.n., alendronate 70 mg daily, baclofen 10 mg daily, cefdinir 300 mg daily, levothyroxine 150 mcg daily, omeprazole 20 mg daily, oxybutynin 10 mg daily, sertraline 100 mg daily, simvastatin 20 mg daily, Coumadin 7 mg on Sunday, Sunday, , Sunday and 6 mg on the remaining days. SOCIAL HISTORY: Positive for smoke, [id number], negative alcohol. FAMILY HISTORY: Noncontributory. VITAL SIGNS: Temperature is 97.8, blood pressure 73/40, pulse 76, respirations 15 on 30% FiO2 mechanical ventilation and a pulse oximetry of 91%. REVIEW OF SYSTEMS: A well-nourished female, who is slightly awake and responsive. She is intubated and sedated. She does not report any abdominal pain and moves all 4 extremities purposefully upon command. She is currently comfortable. PHYSICAL EXAMINATION: CHEST: Scattered rales and rhonchi bilaterally. HEART: Regular, no murmurs. EXTREMITIES: No lower extremity edema. Negative Homans sign. HEENT: No scleral icterus. NECK: No cervical lymphadenopathy. ABDOMEN: Soft, nontender, nondistended. SKIN: Warm, dry. LABORATORY DATA: WBC is 6.2, hemoglobin 12.7, hematocrit 37, and platelets 231. BUN is 10, creatinine 0.58. BUN and creatinine ratio is 17. INR is 2.1. ASSESSMENT AND PLAN: A 57-year-old female with exacerbation of chronic obstructive pulmonary disease as well as the possibility of a pneumonic process. She has a gradual decline in blood pressure. She is currently intubated and sedated and will require a central venous catheter for further IV medical therapy, possible fluids as well as vasopressors. Job ID: [id number] DocumentID: [id number] Dictated Date: 09/07/2018 18:25:10 Solution Director Date: 09/07/2018 18:46:45 Dictated By: NEFTALI ESTEBAN MD
--- NOTE | 2018-09-07 19:43 | OPERATIVE REPORT ---
DATE OF SERVICE: 09/07/2018 ADMITTING PHYSICIAN: Dr. Garza. ATTENDING PRIMARY CARE PHYSICIAN: Dr. Mayer. PREOPERATIVE DIAGNOSES: Exacerbation of chronic obstructive pulmonary disease as well as impending pneumonia. POSTOPERATIVE DIAGNOSES: Exacerbation of chronic obstructive pulmonary disease as well as impending pneumonia. PROCEDURE: Placement of left subclavian central venous catheter. SURGEON: Neftali Esteban MD ANESTHESIA: Local. ESTIMATED BLOOD LOSS: Minimal. FINDINGS: Catheter tip at superior vena cava/right atrial junction. DISPOSITION: The patient tolerated the procedure well. INDICATIONS: The patient is a 57-year-old female who was admitted with worsening shortness of breath as well as cough and sputum production. She has a history of COPD and was admitted for exacerbation of COPD. Since being admitted to the ICU, she has had worsening oxygen saturations as well as requiring more oxygen. She underwent a bronchoscopy today and since that time it appears that she has also steadily declined from a respiratory standpoint and was intubated. There is a question of a possible pneumonic process. She will require central venous catheter for multiple IV medications, fluids as well as possible IV pressors. DESCRIPTION OF PROCEDURE: The chest and neck were prepped and draped in standard surgical fashion. The left subclavian region was then anesthetized using 1% lidocaine. The left subclavian vein was then cannulated with drawing of venous blood. The guidewire was then inserted without any resistance. The cannulating needle was removed and a small incision was made using 11 blade. A tract was then created through the layers using a venous dilator. A triple lumen central venous catheter was then placed over the guidewire using the Seldinger technique. Guidewire was removed and all three ports arabella venous blood and saline pushed in without any resistance. The catheter was then sutured to the skin using interrupted 3-0 silk sutures. Catheter was then cleaned and covered with Op-Site. The patient tolerated the procedure well. The chest x-ray showed adequate positioning of the catheter as well as no pneumothorax and the catheter may be used at any time. Job ID: [id number] DocumentID: [id number] Dictated Date: 09/07/2018 18:28:11 Video Engineer Date: 09/07/2018 19:43:03 Dictated By: NEFTALI ESTEBAN MD
[2018-09-07] MEDS: SIMvastatin 20 MG (ZOCOR) TAB PO SCH (21:23)
[2018-09-08] VITALS (31 sets, daily range): BP systolic 93–133; BP diastolic 52–95
[2018-09-08] MEDS: inSUlin ASPART (NovoLOG) 1 UNIT/0.01 ML (CHARGE PER UNIT) SC SCH ×5 (00:39→23:43)
[2018-09-08] MEDS: methylPREDNISolone 125 MG (Solu-MEDROL) VIAL IVP SCH ×5 (00:40→23:49)
[2018-09-08] MEDS: RT-ALBUTEROL/IPRATROPIUM 3 ML (DUONEB) VIAL INH SCH ×6 (02:41→21:51)
[2018-09-08] MEDS: aCETylcysteine 20% (MUCOMYST) 30ML SOLN VIAL INH SCH ×6 (02:41→21:51)
[2018-09-08 03:59] LABS: BASOPHILS % (AUTO) 0 % (0-10); EOSINOPHILS % (AUTO) 0 % (0-10); HEMATOCRIT 38 % (35-52); LYMPHOCYTES # (AUTO) 0.4 X 10^3 (1.0-4.0); LYMPHOCYTES % (AUTO) 15 % (12-44); MEAN CORPUSCULAR HEMOGLOBIN 31 PG (25-34); MEAN CORPUSCULAR HGB CONC 34 G/DL (32-36); MEAN CORPUSCULAR VOLUME 90 FL (80-99); MEAN PLATELET VOLUME 9.7 FL (7.4-10.4); MONOCYTES # (AUTO) 0.1 X 10^3 (0.0-1.0); MONOCYTES % (AUTO) 4 % (0-12); NEUTROPHILS # (AUTO) 2.2 X 10^3 (1.8-7.8); NEUTROPHILS % (AUTO) 81 % (42-75); PLATELET COUNT 149 10^3/uL (130-400); RED CELL DISTRIBUTION WIDTH 13.8 % (10.0-14.5); WHITE BLOOD COUNT 2.7 10^3/uL (4.3-11.0)
[2018-09-08 04:05] LABS: ABG OXYGEN SATURATION 91 % (94-100); ABG PCO2 39 MMHG (35-45); ABG PO2 58 MMHG (79-93); ABG TCO2 20.5 MMOL/L (21.0-31.0)
[2018-09-08 04:08] LABS: ABG PH 7.31 (7.37-7.43); ALLENS TEST POSITIVE; INSPIRED O2 30%; PATIENT TEMP 96.9; VENTILATOR YES
[2018-09-08] MEDS: PIPERACILLIN/TAZOBACTAM (BULK) 4.5 GM in NS (IVPB) 100 ML IV SCH ×3 (04:11→17:21)
[2018-09-08 04:13] LABS: INR 2.2 (0.8-1.4); PROTHROMBIN TIME PATIENT 25.2 SEC (12.2-14.7)
[2018-09-08 04:17] LABS: BUN/CREATININE RATIO 17; CALCIUM 7.2 MG/DL (8.5-10.1); CARBON DIOXIDE 17 MMOL/L (21-32); CHLORIDE 107 MMOL/L (98-107); CREATININE SERUM 0.54 MG/DL (0.60-1.30); GFR ESTIMATED > 60; GLUCOSE 174 MG/DL (70-105); MAGNESIUM 1.6 MG/DL (1.8-2.4); PHOSPHORUS 3.2 MG/DL (2.3-4.7); POTASSIUM 3.5 MMOL/L (3.6-5.0); SODIUM 133 MMOL/L (135-145)
[2018-09-08] MEDS: CATHETER FLUSH 10 ML SYR IV SCH ×3 (04:27→22:10)
--- NOTE | 2018-09-08 05:07 | Pulmonary Progress Note ---
Subjective Time Seen by a Provider: 05:15 Subjective/Events-last exam Pt is sedated on vent. Sepsis Event Evaluation Height, Weight, BMI Height: 5'6.00" Weight: 107lbs. 0.0oz. 48.906171dm; 17.3 BMI Method:Stated Focused Exam Lactate Level 09/05/18 11:47: Lactic Acid Level 1.16 Exam Exam Vital Signs Date Time Temp Pulse Resp B/P (MAP) Pulse Ox O2 Delivery O2 Flow Rate FiO2 09/08/18 04:05 74 20 93 30 09/08/18 04:00 71 18 116/67 (83) 92 Mechanical Ventilator 30.00 09/08/18 04:00 Mechanical Ventilator 30 09/08/18 03:00 63 23 127/68 (87) 93 Mechanical Ventilator 30.00 09/08/18 02:49 Mechanical Ventilator 30 09/08/18 02:42 64 18 95 30 09/08/18 02:00 66 18 124/71 (88) 94 Mechanical Ventilator 30.00 09/08/18 01:00 65 09/08/18 01:00 64 17 112/57 (75) 92 Mechanical Ventilator 30.00 09/08/18 00:00 Mechanical Ventilator 40 09/08/18 00:00 63 17 117/69 (85) 93 Mechanical Ventilator 30.00 09/07/18 23:00 63 18 110/64 (79) 93 Mechanical Ventilator 30.00 09/07/18 22:00 65 18 109/61 (77) 93 Mechanical Ventilator 30.00 09/07/18 21:54 61 18 93 30 09/07/18 21:51 Mechanical Ventilator 30 09/07/18 21:00 66 18 114/62 (79) 92 Mechanical Ventilator 30.00 09/07/18 20:00 Mechanical Ventilator 40 09/07/18 20:00 70 18 109/60 (76) 92 Mechanical Ventilator 30.00 09/07/18 19:22 96.6 70 16 106/59 91 Mechanical Ventilator 30.00 09/07/18 19:20 96.6 70 16 106/59 (75) 91 Mechanical Ventilator 30.00 09/07/18 19:00 67 17 107/60 (76) 92 Mechanical Ventilator 30.00 09/07/18 19:00 70 09/07/18 18:54 66 18 93 30 09/07/18 18:00 71 18 108/60 (76) 94 Mechanical Ventilator 30.00 09/07/18 17:00 76 15 73/40 (51) 91 Mechanical Ventilator 30.00 09/07/18 16:00 90 10 101/67 (78) 95 Mechanical Ventilator 30.00 09/07/18 16:00 97.8 09/07/18 15:21 67 18 99 40 09/07/18 15:14 Mechanical Ventilator 40 09/07/18 15:00 73 18 93/48 (63) 99 Mechanical Ventilator 40.00 09/07/18 14:00 78 14 101/53 (69) 99 Mechanical Ventilator 40.00 09/07/18 13:00 79 09/07/18 13:00 79 15 95/58 (70) 98 Mechanical Ventilator 40.00 09/07/18 12:00 80 15 109/60 (76) 99 Mechanical Ventilator 40.00 09/07/18 11:43 135/70 09/07/18 11:30 97.2 09/07/18 11:23 Mechanical Ventilator 40 09/07/18 11:00 75 18 124/64 (84) 99 Mechanical Ventilator 40.00 09/07/18 10:37 76 18 99 40 09/07/18 10:00 78 15 148/83 (104) 99 Mechanical Ventilator 40.00 09/07/18 09:16 86 18 100 50 09/07/18 09:00 144/85 (104) 09/07/18 09:00 Mechanical Ventilator 70.00 09/07/18 08:21 97.0 09/07/18 08:16 129/85 09/07/18 08:00 Mechanical Ventilator 70.00 09/07/18 08:00 Mechanical Ventilator 75 09/07/18 08:00 129/85 (100) 09/07/18 07:00 107 133/98 (110) 09/07/18 07:00 110 09/07/18 07:00 Mechanical Ventilator 70.00 09/07/18 06:39 97 18 92 100 09/07/18 05:21 90 18 91/51 (64) 95 Nasal Cannula 3.00 I & O 09/08/18 07:00 Intake Total 4500 ml Output Total 1800 ml Balance 2700 ml Height & Weight Height: 5'6.00" Weight: 107lbs. 0.0oz. 48.428787jc; 17.3 BMI Method:Stated General Appearance: Chronically ill, Thin, Other (intubated on vent) HEENT: Pharynx Normal Neck: Supple Respiratory: Rhonci, Other (on vent) Cardiovascular: Regular Rate, Rhythm, No Murmur Capillary Refill: Less Than 3 Seconds Gastrointestinal: non tender Neurologic/Psychiatric: Other (sedated) Results Lab Laboratory Tests 09/06/18 11:24 09/07/18 05:29 09/07/18 07:45 09/08/18 03:45 Assessment/Plan Assessment/Plan Acute on chronic respiratory failure -continue mechanical ventilation -Will plan on repeating bronch prior to extubation to ensure mucous plugs are cleared out. -Per RN still suctioning copious amounts of sputum from ET tube. -propofol gtt COPDAE r/o PNA (Uses 3 liters of oxygen at home) with mucous plugs -Continue Vanco Zosyn -Solumedroln 40 Q 6 -Oxygen -Q4 Duonebs with mucomyst -ABG - C02 41 - CT of chest shows mucoid impaction - will do bronchoscopy to suction out mucous plugs and to r/o endobronchial mass. Hypotension - resolved after 3.5 liters of IVF Hyponatremia r/o lung mass -Monitor Tobacco use -Education Paraplegia secondary to hx of transverse myelitis (wheelchair bound) Hx of multiple DVTs -chronic anticoagulation hx hypothyroid JAYLA CUELLAR DO Sep 08, 2018 05:07
[2018-09-08] MEDS: DEXMEDETOMIDINE INJECTION 1,000 MCG in NS (IVPB) 250 ML IV SCH ×2 (06:09→19:59)
[2018-09-08] MEDS: PROPOFOL DRIP (ICU) 100 ML IV SCH ×2 (06:10→14:45)
[2018-09-08] MEDS: LEVOTHYROXINE 125 MCG (LEVOTHROID) TABLET PO SCH (06:20)
[2018-09-08] MEDS: LEVOTHYROXINE 25 MCG (LEVOTHROID) TAB PO SCH (06:20)
[2018-09-08] MEDS: LACTOBACILLUS ACIDOPHILUS (PROBIOTIC) CAPSULE PO SCH ×3 (06:20→17:21)
[2018-09-08] MEDS: NS IV 1000 ML 1,000 ML IV SCH ×3 (06:23→19:46)
[2018-09-08] MEDS: POTASSIUM CL 10MEQ/50ML IVPB 50 ML IV SCH ×6 (06:24→09:16)
[2018-09-08] MEDS: MAGNESIUM 1 GM/100 ML IVPB 100 ML IV SCH ×3 (07:30→09:16)
[2018-09-08] MEDS: fentaNYL INJECTION 1,250 MCG in NORMAL SALINE 250 ML INJ SCH (08:18)
--- NOTE | 2018-09-08 08:19 | NUR ---
25ml cadd pump fentanyl wasted w/ dalia delgado
[2018-09-08] MEDS: PANTOPRAZOLE 40 MG (PROTONIX) VIAL IV SCH (08:20)
[2018-09-08] MEDS: SERTRALINE 100 MG (ZOLOFT) TAB PO SCH (08:21)
[2018-09-08] MEDS: OXYBUTYNIN (DITROPAN) 5 MG TAB PO SCH ×2 (08:21→21:07)
[2018-09-08] MEDS: guaiFENesin (MUCINEX) 600 MG TAB PO SCH ×2 (08:21→21:07)
[2018-09-08] MEDS: warFARin 2 MG (COUMADIN) TAB PO SCH (08:21)
[2018-09-08] MEDS: warFARin 5 MG (COUMADIN) TAB PO SCH (08:21)
--- NOTE | 2018-09-08 09:57 | Diagnostic Imaging Report ---
INDICATION: COPD. Ventilated patient COMPARISON: 09/07/2018 FINDINGS: Single frontal radiographic view of the chest was obtained and demonstrates indwelling endotracheal tube with tip below the clavicular heads and above the harlan. Cardiac silhouette and pulmonary vasculature within normal limits. Lungs continue to show significant hyperinflation with flattening of the hemidiaphragms, but otherwise remain clear. There is no focal consolidation, large effusion, nor pneumothorax. Osseous structures show no gross acute abnormalities. Left subclavian central venous catheter is again noted. IMPRESSION: 1. Indwelling endotracheal tube in stable position. 2. Background COPD changes, but no new acute cardiopulmonary process. Dictated by: Dictated on workstation # [id number]
--- NOTE | 2018-09-08 10:28 | Progress Note-Hospitalist ---
Subjective HPI/CC On Admission Date Seen by Provider: Sep 08, 2018 Time Seen by Provider: 10:26 Pt is a 57yoCF with a PMH of paraplegia secondary to transverse myelitis, COPD, hypothyroidism who presented to the ER with a month long history of shortness of breath and cough. She was seen by her PCP multiple times over the last couple of weeks and was given multiple rounds of antibiotics but despite this continued to worsen. She was found to be hypoxic which is not normal for her and required oxygen to maintain her sats. This morning she states she is still short of breath and worse than yesterday. She can hardly speak more than 4-5 words due to dyspnea. Subjective/Events-last exam Intubated and sedated. Unable to provide ROS. Sister at bedside. Updated her on status. All questions answered. Focused Exam Lactate Level 09/05/18 11:47: Lactic Acid Level 1.16 09/08/18 05:40: Lactic Acid Level 1.39 Objective Exam Vital Signs Vital Signs Date Time Temp Pulse Resp B/P (MAP) Pulse Ox O2 Delivery O2 Flow Rate FiO2 09/08/18 10:00 65 17 116/65 (82) 94 Mechanical Ventilator 30.00 09/08/18 09:03 30 09/08/18 07:34 96.2 Capillary Refill : Less Than 3 SecondsLess Than 3 Seconds General Appearance: Chronically ill, Thin, Other (intubated on vent) HEENT: Pharynx Normal Neck: Supple Respiratory: Rhonci; No Wheezing; Other (on vent) Cardiovascular: Regular Rate, Rhythm, No Murmur Gastrointestinal: Normal Bowel Sounds, Soft Extremity: No Calf Tenderness, No Pedal Edema Neurologic/Psychiatric: Other (sedated) Skin: Normal Color, Warm/Dry Results/Procedures Lab Laboratory Tests 09/08/18 03:45 Patient resulted labs reviewed. Imaging: Reviewed Imaging Report Assessment/Plan Assessment and Plan Assess & Plan/Chief Complaint COPD exacerbation Diagnosis/Problems Diagnosis/Problems (1) Acute respiratory failure Status: Acute Assessment & Plan: Intubated 09/07 Pulm consulted, appreciate recs Chest PT Mucomyst ordered Plan for repeat bronch prior to extubation Qualifiers: Respiratory failure complication: hypoxia Qualified Codes: J96.01 - Acute respiratory failure with hypoxia (2) COPD with exacerbation Status: Acute Assessment & Plan: Solu medrol MAT protocol Intubated 09/07 Continue Zosyn (3) Hypothyroidism Assessment & Plan: Continue home meds Qualifiers: Hypothyroidism type: unspecified Qualified Codes: E03.9 - Hypothyroidism, unspecified (4) Paraplegia Assessment & Plan: PT/OT (5) Anticoagulant long-term use Assessment & Plan: 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
[2018-09-08] MEDS: BACLOFEN 10 MG (LIORESAL) TAB PO SCH (11:55)
--- NOTE | 2018-09-08 19:11 | NUR ---
PER RT, DR CUELLAR TO BRONCH PT IN AM. THIS RN ATTEMPTED TO CALL AND UPDATE PT'S NAN, NO ANSWER AND UNABLE TO LEAVE VOICEMAIL--MAILBOX IS FULL.
[2018-09-08] MEDS: SIMvastatin 20 MG (ZOCOR) TAB PO SCH (21:07)
[2018-09-09] VITALS (31 sets, daily range): BP systolic 98–130; BP diastolic 41–83
[2018-09-09] MEDS: PROPOFOL DRIP (ICU) 100 ML IV SCH ×3 (00:28→19:47)
[2018-09-09] MEDS: NS IV 1000 ML 1,000 ML IV SCH ×2 (02:31→09:53)
[2018-09-09] MEDS: PIPERACILLIN/TAZOBACTAM (BULK) 4.5 GM in NS (IVPB) 100 ML IV SCH ×3 (02:32→17:12)
[2018-09-09] MEDS: RT-ALBUTEROL/IPRATROPIUM 3 ML (DUONEB) VIAL INH SCH ×6 (02:43→21:35)
[2018-09-09] MEDS: aCETylcysteine 20% (MUCOMYST) 30ML SOLN VIAL INH SCH ×6 (02:43→21:35)
[2018-09-09 03:41] LABS: ABG OXYGEN SATURATION 95 % (94-100); ABG PCO2 36 MMHG (35-45); ABG PH 7.36 (7.37-7.43); ABG PO2 64 MMHG (79-93); BASOPHILS % (AUTO) 0 % (0-10); EOSINOPHILS % (AUTO) 0 % (0-10); HEMATOCRIT 37 % (35-52); HEMOGLOBIN 12.7 G/DL (11.5-16.0); LYMPHOCYTES # (AUTO) 0.4 X 10^3 (1.0-4.0); LYMPHOCYTES % (AUTO) 12 % (12-44); MEAN CORPUSCULAR HGB CONC 34 G/DL (32-36); MEAN CORPUSCULAR VOLUME 90 FL (80-99); MEAN PLATELET VOLUME 9.7 FL (7.4-10.4); MONOCYTES # (AUTO) 0.1 X 10^3 (0.0-1.0); MONOCYTES % (AUTO) 4 % (0-12); NEUTROPHILS # (AUTO) 2.9 X 10^3 (1.8-7.8); NEUTROPHILS % (AUTO) 85 % (42-75); PLATELET COUNT 161 10^3/uL (130-400); RED CELL DISTRIBUTION WIDTH 14.1 % (10.0-14.5); WHITE BLOOD COUNT 3.4 10^3/uL (4.3-11.0)
[2018-09-09 03:43] LABS: MEAN CORPUSCULAR HEMOGLOBIN 30 PG (25-34)
[2018-09-09 03:44] LABS: ALLENS TEST POSITIVE; INSPIRED O2 30%; PATIENT TEMP 96; VENTILATOR YES
[2018-09-09 03:59] LABS: INR 3.2 (0.8-1.4); PROTHROMBIN TIME PATIENT 34.1 SEC (12.2-14.7)
[2018-09-09 04:09] LABS: PHOSPHORUS 2.3 MG/DL (2.3-4.7)
[2018-09-09 04:10] LABS: BUN/CREATININE RATIO 13; CALCIUM 7.2 MG/DL (8.5-10.1); CARBON DIOXIDE 17 MMOL/L (21-32); CHLORIDE 109 MMOL/L (98-107); CREATININE SERUM 0.47 MG/DL (0.60-1.30); GFR ESTIMATED > 60; GLUCOSE 128 MG/DL (70-105); MAGNESIUM 2.2 MG/DL (1.8-2.4); POTASSIUM 3.6 MMOL/L (3.6-5.0); SODIUM 133 MMOL/L (135-145)
[2018-09-09] MEDS: POTASSIUM CL 10MEQ/50ML IVPB 50 ML IV SCH ×4 (04:16→06:17)
[2018-09-09] MEDS: MAGNESIUM 1 GM/100 ML IVPB 100 ML IV SCH (04:16)
[2018-09-09] MEDS: KCL 20 MEQ TAB (K-DUR) PO SCH (04:17)
[2018-09-09] MEDS ORDERED: POTASSIUM CL 10MEQ/50ML IVPB 100 ML IV ONE (04:17)
[2018-09-09] MEDS ORDERED: LIDOCAINE PF 1% 2 ML AMP INJ ONE (05:00)
[2018-09-09] MEDS: methylPREDNISolone 125 MG (Solu-MEDROL) VIAL IVP SCH ×3 (05:31→17:12)
[2018-09-09] MEDS ORDERED: SODIUM PHOSPHATE INJ 15 MM in D5W 100 ML IVPB 100 ML IV ONE (05:45)
[2018-09-09] MEDS ORDERED: SODIUM BICARB 8.4% 50 MEQ/50 ML VIAL IV ONE (05:45)
--- NOTE | 2018-09-09 05:45 | Pulmonary Progress Note ---
Subjective Time Seen by a Provider: 07:46 Subjective/Events-last exam Pt is sedated on vent. Sepsis Event Evaluation Height, Weight, BMI Height: 5'6.00" Weight: 107lbs. 0.0oz. 48.929748ko; 17.3 BMI Method:Stated Focused Exam Lactate Level 09/08/18 05:40: Lactic Acid Level 1.39 Exam Exam Vital Signs Date Time Temp Pulse Resp B/P (MAP) Pulse Ox O2 Delivery O2 Flow Rate FiO2 09/09/18 05:00 67 17 114/65 (81) 94 Mechanical Ventilator 30.00 09/09/18 04:00 Mechanical Ventilator 30 09/09/18 04:00 96.0 09/09/18 04:00 75 13 113/65 (81) 95 Mechanical Ventilator 30.00 09/09/18 03:00 74 36 130/69 (89) 96 Mechanical Ventilator 30.00 09/09/18 02:47 Mechanical Ventilator 30 09/09/18 02:43 71 18 95 30 09/09/18 02:00 65 17 119/67 (84) 95 Mechanical Ventilator 30.00 09/09/18 01:00 69 09/09/18 01:00 69 16 114/64 (81) 95 Mechanical Ventilator 30.00 09/09/18 00:28 71 111/71 09/09/18 00:26 71 18 96 30 09/09/18 00:00 Mechanical Ventilator 30 09/09/18 00:00 66 15 119/66 (83) 96 Mechanical Ventilator 30.00 09/09/18 00:00 96.3 09/08/18 23:00 67 18 116/67 (83) 96 Mechanical Ventilator 30.00 09/08/18 22:00 68 15 108/62 (77) 95 Mechanical Ventilator 30.00 09/08/18 21:55 Mechanical Ventilator 30 09/08/18 21:51 78 22 94 30 09/08/18 21:00 67 18 111/69 (83) 95 Mechanical Ventilator 30.00 09/08/18 20:00 96.8 Mechanical Ventilator 30.00 09/08/18 20:00 75 17 105/60 (75) 95 Mechanical Ventilator 30.00 09/08/18 20:00 Mechanical Ventilator 30 09/08/18 19:00 75 18 115/71 (86) 94 Mechanical Ventilator 30.00 09/08/18 19:00 75 09/08/18 18:44 Mechanical Ventilator 30 09/08/18 18:38 67 18 95 30 09/08/18 18:00 73 17 133/52 (79) 94 Mechanical Ventilator 30.00 09/08/18 17:00 63 38 109/61 (77) 95 Mechanical Ventilator 30.00 09/08/18 16:00 66 15 104/59 (74) 94 Mechanical Ventilator 30.00 09/08/18 15:42 96.1 09/08/18 15:27 Mechanical Ventilator 30 09/08/18 15:00 69 15 103/61 (75) 94 Mechanical Ventilator 30.00 09/08/18 14:45 107/62 09/08/18 14:44 79 22 93 30 09/08/18 14:00 60 17 94 Mechanical Ventilator 30.00 09/08/18 13:00 62 17 107/62 (77) 94 Mechanical Ventilator 30.00 09/08/18 12:52 61 09/08/18 12:01 96.4 09/08/18 12:00 62 18 106/60 (75) 94 Mechanical Ventilator 30.00 09/08/18 12:00 Mechanical Ventilator 30 09/08/18 11:00 68 10 106/62 (77) 93 Mechanical Ventilator 30.00 09/08/18 10:49 61 18 94 30 09/08/18 10:00 65 17 116/65 (82) 94 Mechanical Ventilator 30.00 09/08/18 09:03 68 18 93 30 09/08/18 09:00 68 17 115/64 (81) 94 Mechanical Ventilator 30.00 09/08/18 08:00 Mechanical Ventilator 30 09/08/18 08:00 71 17 123/72 (89) 96 Mechanical Ventilator 30.00 09/08/18 07:34 96.2 09/08/18 07:00 70 21 117/66 (83) 95 Mechanical Ventilator 30.00 09/08/18 07:00 75 09/08/18 06:41 64 18 97 30 09/08/18 06:10 63 17 127/95 95 Mechanical Ventilator 30.00 09/08/18 06:00 68 17 127/95 (106) 95 Mechanical Ventilator 30.00 I & O 09/09/18 07:00 Intake Total 2490 ml Output Total 1345 ml Balance 1145 ml Height & Weight Height: 5'6.00" Weight: 107lbs. 0.0oz. 48.702377ms; 17.3 BMI Method:Stated General Appearance: Chronically ill, Thin, Other (intubated on vent) HEENT: Pharynx Normal Neck: Supple Respiratory: Rhonci; No Wheezing; Other (on vent) Cardiovascular: Regular Rate, Rhythm, No Murmur Capillary Refill: Less Than 3 Seconds Gastrointestinal: non tender Extremity: No Calf Tenderness, No Pedal Edema Neurologic/Psychiatric: Other (sedated) Skin: Normal Color, Warm/Dry Results Lab Laboratory Tests 09/07/18 07:45 09/08/18 03:45 09/09/18 03:30 Assessment/Plan Assessment/Plan Acute on chronic respiratory failure -continue mechanical ventilation -Repeat bronchoscopy today -Per RN still suctioning copious amounts of sputum from ET tube. -propofol gtt COPDAE r/o PNA (Uses 3 liters of oxygen at home) with mucous plugs -Continue Vanco Zosyn -Solumedrol 40 Q 6 -Oxygen -Q4 Duonebs with mucomyst -ABG - C02 41 - CT of chest shows mucoid impaction - will do bronchoscopy to suction out mucous plugs and to r/o endobronchial mass. Hypotension - resolved after 3.5 liters of IVF Hyponatremia r/o lung mass -Monitor Tobacco use -Education Paraplegia secondary to hx of transverse myelitis (wheelchair bound) Hx of multiple DVTs -chronic anticoagulation hx hypothyroid JYALA CUELLAR DO Sep 09, 2018 05:45
[2018-09-09] MEDS ORDERED: MIDAZOLAM 5 MG/5 ML (VERSED) VIAL ONE (06:08)
[2018-09-09] MEDS: inSUlin ASPART (NovoLOG) 1 UNIT/0.01 ML (CHARGE PER UNIT) SC SCH ×3 (06:16→18:00)
--- NOTE | 2018-09-09 06:24 | NUR ---
0624 BRONCH STARTED AT THIS TIME, VERSED 5MG GIVEN IV 0630 30MG OF ROCURONIUM GIVEN IV
[2018-09-09] MEDS: CATHETER FLUSH 10 ML SYR IV SCH ×3 (06:36→22:04)
[2018-09-09] MEDS: LACTOBACILLUS ACIDOPHILUS (PROBIOTIC) CAPSULE PO SCH ×3 (06:45→17:11)
[2018-09-09] MEDS: LEVOTHYROXINE 125 MCG (LEVOTHROID) TABLET PO SCH (06:45)
[2018-09-09] MEDS: LEVOTHYROXINE 25 MCG (LEVOTHROID) TAB PO SCH (06:45)
[2018-09-09] MEDS ORDERED: ROCURONIUM 10 MG/ML 5 ML SYRINGE IV ONE ×2 (06:45)
--- NOTE | 2018-09-09 06:49 | NUR ---
20 mg of rocuronium wasted with cherrie rn after bronch
--- NOTE | 2018-09-09 06:57 | Pulmonary Procedures ---
Pulmonary Procedures Date of Procedure Date of Service: Sep 09, 2018 Bronch Bronchoscopy with bronchoalveolar lavage (BAL), bilateral bronchial washes. Multiple passes were required with bronchoscope secondary to copious very thick sputum/sputum plugs. Preop DX: Mucous Plugs Postop DX: same Complications: none After informed consent obtained and formal time out pt was sedated using Fentanyl, propofol and Versed. Bronchoscope was advanced through the ET tube. 1% lidocaine was used to anesthetize harlan, and left/right main stem bronchus. An anatomical tour was undertaken down to the segmental bronchi bilaterally. No endobronchial lesions noted. bronchoalveolar lavage (BAL), bilateral bronchial washes were obtained. Multiple passes were required with bronchoscope secondary to copious very thick sputum/sputum plugs. . Pt tolerated procedure well. No complications noted. Stat CXR is pending. JAYLA CUELLAR DO Sep 09, 2018 06:57
--- NOTE | 2018-09-09 07:44 | Diagnostic Imaging Report ---
EXAM: CHEST 1 VIEW, AP/PA ONLY INDICATION: COPD. Ventilator. COMPARISON: Chest radiograph 09/08/2018. FINDINGS: Stable ETT tip between the levels of the clavicle and the harlan. Left subclavian CVC tip in mid SVC. NG tube tip below the [id number]. Normal heart size and central pulmonary vascularity. Scattered scarring. No new focal pulmonary opacity. No pleural effusion or pneumothorax. IMPRESSION: Stable exam including COPD and support lines in the expected positions. Dictated by: Dictated on workstation # [id number]
[2018-09-09] MEDS: guaiFENesin (MUCINEX) 600 MG TAB PO SCH ×2 (08:10→20:48)
[2018-09-09] MEDS: PANTOPRAZOLE 40 MG (PROTONIX) VIAL IV SCH (08:10)
[2018-09-09] MEDS: OXYBUTYNIN (DITROPAN) 5 MG TAB PO SCH ×2 (08:10→20:48)
[2018-09-09] MEDS: SERTRALINE 100 MG (ZOLOFT) TAB PO SCH (08:10)
--- NOTE | 2018-09-09 08:24 | Physical Therapy Progress Note ---
Therapy Progress Note Patient transferred to ICU 09/07/18 and intubated. PT will require new orders when patient is medically stable and able to actively participate with skilled therapy. ROSEMARY ORELLANA PT Sep 09, 2018 08:24
[2018-09-09] MEDS: warFARin 5 MG (COUMADIN) TAB PO SCH (09:00)
[2018-09-09] MEDS: DEXMEDETOMIDINE INJECTION 1,000 MCG in NS (IVPB) 250 ML IV SCH (09:54)
--- NOTE | 2018-09-09 10:20 | NUR ---
Pastoral care visit, pts intubated had visit with at bedside.
--- NOTE | 2018-09-09 11:58 | Occ Therapy Progress Note ---
Therapy Progress Note Patient is currently intubated. Will check back on 09/10/18 to see if patient is appropriate for OT services MACK GREEN OT Sep 09, 2018 11:58
--- NOTE | 2018-09-09 12:03 | Progress Note (SOAP) ---
Subjective Subjective/Events-last exam Remains intubated and sedated, bronch done this am with marked mucous plugging noted. Review of Systems Date Seen by Provider: Sep 09, 2018 Time Seen by Provider: 09:30 Focused Exam Lactate Level 09/08/18 05:40: Lactic Acid Level 1.39 Objective Exam Last Set of Vital Signs Vital Signs Date Time Temp Pulse Resp B/P (MAP) Pulse Ox O2 Delivery O2 Flow Rate FiO2 09/09/18 11:35 125/66 09/09/18 11:14 77 17 99 30 09/09/18 11:00 Mechanical Ventilator 30.00 09/09/18 04:00 96.0 Capillary Refill : Less Than 3 SecondsLess Than 3 Seconds I&O Intake and Output 09/09/18 00:00 Intake Total 3790 ml Output Total 1375 ml Balance 2415 ml IV Total 3550 ml Other 240 ml Output Urine Total 825 ml Oral Regurgitation 550 ml General: Other (sedated, intubated) Lungs: Other (ronchi) Heart: Regular Rate, No Murmurs Abdomen: Normal Bowel Sounds, Soft Extremities: No Edema Results/Procedures Lab Laboratory Tests 09/08/18 12:00: Glucometer 178H 09/08/18 17:20: Glucometer 142H 09/08/18 23:41: Glucometer 131H 09/09/18 03:30: White Blood Count 3.4L, Red Blood Count 4.17L, Hemoglobin 12.7, Hematocrit 37, Mean Corpuscular Volume 90, Mean Corpuscular Hemoglobin 30, Mean Corpuscular Hemoglobin Concent 34, Red Cell Distribution Width 14.1, Platelet Count 161, Mean Platelet Volume 9.7, Neutrophils (%) (Auto) 85H, Lymphocytes (%) (Auto) 12, Monocytes (%) (Auto) 4, Eosinophils (%) (Auto) 0, Basophils (%) (Auto) 0, Neutrophils # (Auto) 2.9, Lymphocytes # (Auto) 0.4L, Monocytes # (Auto) 0.1, Eosinophils # (Auto) 0.0, Basophils # (Auto) 0.0, Prothrombin Time 34.1H, INR Comment 3.2H, Blood Gas Puncture Site LEFT RADIAL, Blood Gas Patient Temperature 96, Arterial Blood pH 7.36L, Arterial Blood Partial Pressure CO2 36, Arterial Blood Partial Pressure O2 64L, Arterial Blood HCO3 20L, Arterial Blood Total CO2 21.0, Arterial Blood Oxygen Saturation 95, Arterial Blood Base Excess -5.0L, Kamari Test POSITIVE, Blood Gas Ventilator Setting YES, Blood Gas Inspired Oxygen 30%, Sodium Level 133L, Potassium Level 3.6, Chloride Level 109H, Carbon Dioxide Level 17L, Anion Gap 7, Blood Urea Nitrogen 6L, Creatinine 0.47L, Estimat Glomerular Filtration Rate > 60, BUN/Creatinine Ratio 13, Glucose Level 128H, Calcium Level 7.2L, Phosphorus Level 2.3, Magnesium Level 2.2, Triglycerides Level 62 Microbiology 09/04/18 Blood Culture - Preliminary, Resulted No growth 09/07/18 Mycobacterial Culture - Preliminary, Resulted Assessment/Plan Assessment/Plan (1) COPD with exacerbation Status: Acute Assessment & Plan: Pulm consulted, appreciate recommendations. On solumedrol 40 q6, mucomist and breathing treatments as well as zosyn. (2) Acute respiratory failure Status: Acute Assessment & Plan: Intubated and mechanically ventilated, [facility] 6/24 am with mu cous plugging treated, weaning per Dr. Fenton's recommendations. Qualifiers: Qualified Codes: J96.01 - Acute respiratory failure with hypoxia (3) Paraplegia Status: Chronic (4) Hypothyroidism Status: Chronic Assessment & Plan: Continue home levothyroxine Qualifiers: Qualified Codes: E03.9 - Hypothyroidism, unspecified (5) Anticoagulant long-term use Status: Chronic Assessment & Plan: History of VTE. INR 3.2 today, will give lower dose and resu me at 5 mg daily tomorrow (down from alternating 6 and 7 mg) while on antibiotics. (6) Hyponatremia Status: Acute Assessment & Plan: Improving with IVF. No mass or adenopathy on CT chest. Mo nitor. (7) Leukopenia Status: Acute Assessment & Plan: Suppression related to critical illness suspected, monitor. (8) DVT prophylaxis Assessment & Plan: On coumadin with therapeutic INR. Clinical Quality Measures DVT/VTE Risk/Contraindication: Risk Factor Score Per Nursin RFS Level Per Nursing on Admit: 4+=Very High LB SHAFFER MD Sep 09, 2018 12:03
[2018-09-09] MEDS: BACLOFEN 10 MG (LIORESAL) TAB PO SCH (12:32)
[2018-09-09] MEDS: fentaNYL INJECTION 1,250 MCG in NORMAL SALINE 250 ML INJ SCH (12:59)
[2018-09-09] MEDS: SIMvastatin 20 MG (ZOCOR) TAB PO SCH (20:48)
[2018-09-09] MEDS ORDERED: warFARin 2 MG (COUMADIN) TAB PO ONE (21:00)
[2018-09-10] VITALS (29 sets, daily range): BP systolic 70–149; BP diastolic 52–91
[2018-09-10] MEDS: DEXMEDETOMIDINE INJECTION 1,000 MCG in NS (IVPB) 250 ML IV SCH (00:44)
[2018-09-10] MEDS: inSUlin ASPART (NovoLOG) 1 UNIT/0.01 ML (CHARGE PER UNIT) SC SCH ×4 (00:44→17:46)
[2018-09-10] MEDS: PIPERACILLIN/TAZOBACTAM (BULK) 4.5 GM in NS (IVPB) 100 ML IV SCH ×3 (02:00→17:45)
[2018-09-10] MEDS: RT-ALBUTEROL/IPRATROPIUM 3 ML (DUONEB) VIAL INH SCH ×6 (02:35→23:10)
[2018-09-10 03:28] LABS: ABG BASE EXCESS -2.5 MMOL/L (-2.5-2.5); ABG OXYGEN SATURATION 94 % (94-100); ABG PCO2 36 MMHG (35-45); ABG PH 7.39 (7.37-7.43); ABG PO2 62 MMHG (79-93); ABG TCO2 23.1 MMOL/L (21.0-31.0)
[2018-09-10 03:31] LABS: BASOPHILS % (AUTO) 0 % (0-10); EOSINOPHILS % (AUTO) 0 % (0-10); HEMATOCRIT 37 % (35-52); HEMOGLOBIN 12.7 G/DL (11.5-16.0); LYMPHOCYTES # (AUTO) 0.5 X 10^3 (1.0-4.0); LYMPHOCYTES % (AUTO) 11 % (12-44); MEAN CORPUSCULAR HEMOGLOBIN 31 PG (25-34); MEAN CORPUSCULAR HGB CONC 34 G/DL (32-36); MEAN CORPUSCULAR VOLUME 90 FL (80-99); MEAN PLATELET VOLUME 10.1 FL (7.4-10.4); MONOCYTES # (AUTO) 0.1 X 10^3 (0.0-1.0); MONOCYTES % (AUTO) 3 % (0-12); NEUTROPHILS # (AUTO) 3.4 X 10^3 (1.8-7.8); NEUTROPHILS % (AUTO) 86 % (42-75); PLATELET COUNT 151 10^3/uL (130-400); RED CELL DISTRIBUTION WIDTH 14.2 % (10.0-14.5)
[2018-09-10 03:32] LABS: ALLENS TEST POSITIVE; INSPIRED O2 25% VENT; VENTILATOR YES
[2018-09-10 03:44] LABS: INR 4.1 (0.8-1.4); PROTHROMBIN TIME PATIENT 41.6 SEC (12.2-14.7)
[2018-09-10 03:51] LABS: BUN/CREATININE RATIO 15; CALCIUM 7.2 MG/DL (8.5-10.1); CARBON DIOXIDE 21 MMOL/L (21-32); CHLORIDE 109 MMOL/L (98-107); CREATININE SERUM 0.46 MG/DL (0.60-1.30); GFR ESTIMATED > 60; GLUCOSE 121 MG/DL (70-105); MAGNESIUM 2.1 MG/DL (1.8-2.4); PHOSPHORUS 2.8 MG/DL (2.3-4.7); SODIUM 136 MMOL/L (135-145)
[2018-09-10] MEDS: POTASSIUM CL 10MEQ/50ML IVPB 50 ML IV SCH (04:48)
[2018-09-10] MEDS: MAGNESIUM 1 GM/100 ML IVPB 100 ML IV SCH (04:48)
[2018-09-10] MEDS: KCL 20 MEQ TAB (K-DUR) PO SCH (04:49)
--- NOTE | 2018-09-10 05:06 | Pulmonary Progress Note ---
Subjective Time Seen by a Provider: 05:06 Subjective/Events-last exam Sedated on vent. Sepsis Event Evaluation Height, Weight, BMI Height: 5'6.00" Weight: 107lbs. 0.0oz. 48.026151iy; 17.3 BMI Method:Stated Focused Exam Lactate Level 09/08/18 05:40: Lactic Acid Level 1.39 Exam Exam Vital Signs Date Time Temp Pulse Resp B/P (MAP) Pulse Ox O2 Delivery O2 Flow Rate FiO2 09/10/18 04:00 Mechanical Ventilator 25 09/10/18 04:00 65 15 111/61 (78) 95 Mechanical Ventilator 25.00 09/10/18 04:00 96.0 09/10/18 03:00 67 17 111/61 (78) 94 Mechanical Ventilator 25.00 09/10/18 02:00 72 15 108/61 (77) 94 Mechanical Ventilator 25.00 09/10/18 01:00 81 13 112/57 (75) 95 Mechanical Ventilator 25.00 09/10/18 01:00 70 09/10/18 00:45 Mechanical Ventilator 25 09/10/18 00:00 Mechanical Ventilator 30 09/10/18 00:00 68 13 109/60 (76) 95 Mechanical Ventilator 25.00 09/10/18 00:00 96.3 09/09/18 23:00 73 14 106/59 (75) 91 Mechanical Ventilator 25.00 09/09/18 22:00 73 15 101/58 (72) 94 Mechanical Ventilator 25.00 09/09/18 21:00 71 15 107/59 (75) 96 Mechanical Ventilator 25.00 09/09/18 20:00 Mechanical Ventilator 30 09/09/18 20:00 96.0 09/09/18 20:00 75 16 111/58 (75) 96 Mechanical Ventilator 25.00 09/09/18 19:47 72 109/61 09/09/18 19:30 Mechanical Ventilator 25.00 09/09/18 19:15 78 16 99 25 09/09/18 19:00 69 09/09/18 19:00 78 14 112/63 (79) 99 Mechanical Ventilator 30.00 09/09/18 18:00 79 13 120/73 (89) 98 Mechanical Ventilator 30.00 09/09/18 17:00 72 17 114/59 (77) 95 Mechanical Ventilator 30.00 09/09/18 16:00 95.7 09/09/18 16:00 71 14 113/62 (79) 95 Mechanical Ventilator 30.00 09/09/18 15:32 Mechanical Ventilator 30 09/09/18 15:05 66 15 95 30 09/09/18 15:00 63 15 110/61 (77) 95 Mechanical Ventilator 30.00 09/09/18 14:00 69 14 104/50 (68) 94 Mechanical Ventilator 30.00 09/09/18 13:00 68 10 104/59 (74) 95 Mechanical Ventilator 30.00 09/09/18 13:00 67 09/09/18 12:00 Mechanical Ventilator 30 09/09/18 12:00 95.8 09/09/18 12:00 82 16 105/41 (62) 94 Mechanical Ventilator 30.00 09/09/18 11:35 125/66 09/09/18 11:14 77 17 99 30 09/09/18 11:00 76 26 111/83 (92) 98 Mechanical Ventilator 30.00 09/09/18 10:00 74 14 116/78 (91) 98 Mechanical Ventilator 30.00 09/09/18 09:00 71 14 113/59 (77) 99 Mechanical Ventilator 30.00 09/09/18 08:00 Mechanical Ventilator 30 09/09/18 08:00 75 14 101/59 (73) 99 Mechanical Ventilator 30.00 09/09/18 07:31 80 15 99 30 09/09/18 07:00 78 14 100/52 (68) 100 Mechanical Ventilator 30.00 09/09/18 07:00 80 09/09/18 06:30 23 09/09/18 06:00 79 17 110/59 (76) 96 Mechanical Ventilator 30.00 I & O 09/10/18 07:00 Intake Total 550 ml Output Total 1000 ml Balance -450 ml Height & Weight Height: 5'6.00" Weight: 107lbs. 0.0oz. 48.240378uj; 17.3 BMI Method:Stated General Appearance: Chronically ill, Thin, Other (intubated on vent) HEENT: Pharynx Normal Neck: Supple Respiratory: Rhonci; No Wheezing; Other (on vent) Cardiovascular: Regular Rate, Rhythm, No Murmur Capillary Refill: Less Than 3 Seconds Gastrointestinal: non tender Extremity: No Calf Tenderness, No Pedal Edema Neurologic/Psychiatric: Other (sedated) Skin: Normal Color, Warm/Dry Results Lab Laboratory Tests 09/09/18 03:30 09/10/18 03:20 Assessment/Plan Assessment/Plan Acute on chronic respiratory failure -continue mechanical ventilation -Will wean vent today -D/C Propofol, Fentanyl -Sputum production improved -propofol gtt COPDAE r/o PNA (Uses 3 liters of oxygen at home) with mucous plugs -Vanco Zosyn -Solumedrol 40 Q 6 -Oxygen -Q4 Duonebs with mucomyst -ABG - C02 41 - CT of chest shows mucoid impaction - will do bronchoscopy to suction out mucous plugs and to r/o endobronchial mass. Hypotension - resolved after 3.5 liters of IVF Hyponatremia r/o lung mass -Monitor Tobacco use -Education Paraplegia secondary to hx of transverse myelitis (wheelchair bound) Hx of multiple DVTs -chronic anticoagulation hx hypothyroid JAYLA CUELLAR DO Sep 10, 2018 05:06
[2018-09-10] MEDS: PROPOFOL DRIP (ICU) 100 ML IV SCH (05:20)
--- NOTE | 2018-09-10 05:45 | NUR ---
fentanyl drip held at this time per dr shen
[2018-09-10] MEDS: CATHETER FLUSH 10 ML SYR IV SCH ×3 (06:01→22:00)
[2018-09-10] MEDS: methylPREDNISolone 125 MG (Solu-MEDROL) VIAL IVP SCH ×3 (06:01→12:18)
[2018-09-10] MEDS: LEVOTHYROXINE 25 MCG (LEVOTHROID) TAB PO SCH (06:41)
[2018-09-10] MEDS: LEVOTHYROXINE 125 MCG (LEVOTHROID) TABLET PO SCH (06:42)
[2018-09-10] MEDS: LACTOBACILLUS ACIDOPHILUS (PROBIOTIC) CAPSULE PO SCH ×3 (06:42→17:00)
[2018-09-10] MEDS: warFARin 5 MG (COUMADIN) TAB PO SCH (07:29)
[2018-09-10] MEDS: aCETylcysteine 20% (MUCOMYST) 30ML SOLN VIAL INH SCH ×5 (07:45→23:10)
--- NOTE | 2018-09-10 08:33 | Physical Therapy Progress Note ---
Therapy Progress Note Patient transferred to ICU with no current PT orders. Patient is currently sedated and on mechanical ventilator. PT to dismiss patient from PT at this time. ROSEMARY ORELLANA PT Sep 10, 2018 08:32
[2018-09-10] MEDS ORDERED: LIDOCAINE 1% INJ 20 ML 20 ML VIAL ONE (09:06)
--- NOTE | 2018-09-10 09:12 | Diagnostic Imaging Report ---
INDICATION: Mechanical ventilation, COPD exacerbation. TECHNIQUE: Single view chest at 4:10 AM. CORRELATION STUDY: 09/09/2018. FINDINGS: Endotracheal tube projects over the low trachea above the level of the harlan. The left-sided central line tip projects over the right paramediastinal region. Gastric tubes are also present. Heart size and mediastinum are stable. Lung yadav are hyperinflated with changes reflecting likely COPD. Minimal atelectasis or perhaps infiltrate at the right lung base medially does appear to be a change from the prior study. IMPRESSION: 1. Generally stable appearance about the support lines and tubes. The endotracheal tube is over the lower aspect of the trachea. 2. Suggested infiltrate or atelectasis at the right lung base superimposed on COPD. Dictated by: Dictated on workstation # [id number]
--- NOTE | 2018-09-10 09:25 | NUR ---
Pt extubated per RT to Vapotherm 10L and 21%. Pt to have oxygen sats around the 92% sudha per Dr. Fenton.
[2018-09-10] MEDS: OXYBUTYNIN (DITROPAN) 5 MG TAB PO SCH ×2 (09:57→21:14)
[2018-09-10] MEDS: guaiFENesin (MUCINEX) 600 MG TAB PO SCH ×2 (09:57→21:14)
[2018-09-10] MEDS: PANTOPRAZOLE 40 MG (PROTONIX) VIAL IV SCH (09:57)
[2018-09-10] MEDS: NS IV 1000 ML 1,000 ML IV SCH (09:57)
[2018-09-10] MEDS: SERTRALINE 100 MG (ZOLOFT) TAB PO SCH (09:57)
--- NOTE | 2018-09-10 11:23 | Progress Note (SOAP) ---
Subjective Subjective/Events-last exam Planning to extubate this am per Dr. Fenton. Review of Systems Date Seen by Provider: Sep 10, 2018 Time Seen by Provider: 09:15 Focused Exam Lactate Level 09/08/18 05:40: Lactic Acid Level 1.39 Objective Exam Last Set of Vital Signs Vital Signs Date Time Temp Pulse Resp B/P (MAP) Pulse Ox O2 Delivery O2 Flow Rate FiO2 09/10/18 11:18 96 Vapotherm 5.00 21 09/10/18 10:00 90 20 98/62 (74) 09/10/18 04:00 96.0 Capillary Refill : Less Than 3 SecondsLess Than 3 Seconds I&O Intake and Output0 09/10/18 00:00 Intake Total 670 ml Output Total 1195 ml Balance -525 ml IV Total 310 ml Other 360 ml Output Urine Total 920 ml Oral Regurgitation 275 ml General: Alert, Mild Distress, Other (intubated, sedation off due to weaning) Lungs: Other (ronchi) Heart: Regular Rate, No Murmurs Results/Procedures Lab Laboratory Tests 09/09/18 12:02: Glucometer 145H 09/09/18 18:04: Glucometer 118H 09/09/18 23:30: Glucometer 113H 09/10/18 03:20: White Blood Count 4.0L, Red Blood Count 4.12L, Hemoglobin 12.7, Hematocrit 37, Mean Corpuscular Volume 90, Mean Corpuscular Hemoglobin 31, Mean Corpuscular Hemoglobin Concent 34, Red Cell Distribution Width 14.2, Platelet Count 151, Mean Platelet Volume 10.1, Neutrophils (%) (Auto) 86H, Lymphocytes (%) (Auto) 11L, Monocytes (%) (Auto) 3, Eosinophils (%) (Auto) 0, Basophils (%) (Auto) 0, N eutrophils # (Auto) 3.4, Lymphocytes # (Auto) 0.5L, Monocytes # (Auto) 0.1, Eosinophils # (Auto) 0.0, Basophils # (Auto) 0.0, Prothrombin Time 41.6H, INR Comment 4.1H, Blood Gas Puncture Site LEFT RADIAL, Blood Gas Patient Temperature 96.0, Arterial Blood pH 7.39, Arterial Blood Partial Pressure CO2 36, Arterial Blood Partial Pressure O2 62L, Arterial Blood HCO3 22L, Arterial Blood Total CO2 23.1, Arterial Blood Oxygen Saturation 94, Arterial Blood Base Excess -2.5, Kamari Test POSITIVE, Blood Gas Ventilator Setting YES, Blood Gas Inspired Oxygen 25% VENT, Sodium Level 136, Potassium Level 4.0, Chloride Level 109H, Carbon Dioxide Level 21, Anion Gap 6, Blood Urea Nitrogen 7, Creatinine 0.46L, Estimat Glomerular Filtration Rate > 60, BUN/Creatinine Ratio 15, Glucose Level 121H, Calcium Level 7.2L, Phosphorus Level 2.8, Magnesium Level 2.1 Microbiology 09/04/18 Blood Culture - Preliminary, Resulted No growth 09/09/18 Mycobacterial Culture - Preliminary, Resulted Assessment/Plan Assessment/Plan (1) COPD with exacerbation Status: Acute Assessment & Plan: Pulm consulted, appreciate recommendations. On solumedrol 40 q6, mucomist and breathing treatments as well as zosyn. (2) Acute respiratory failure Status: Acute Assessment & Plan: Intubated and mechanically ventilated, [facility] 09/09 am with mucous plugging treated, weaning per Dr. Fenton's recommendations. 09/10 attempting extubation today Qualifiers: Qualified Codes: J96.01 - Acute respiratory failure with hypoxia (3) Paraplegia Status: Chronic (4) Hypothyroidism Status: Chronic Assessment & Plan: Continue home levothyroxine Qualifiers: Qualified Codes: E03.9 - Hypothyroidism, unspecified (5) Anticoagulant long-term use Status: Chronic Assessment & Plan: History of VTE. INR 3.2 today, will give lower dose and resume at 5 mg daily tomorrow (down from alternating 6 and 7 mg) while on antibiotics. 09/10 INR 4.1 today, hold coumadin for today and resume at 5 mg daily. (6) Hyponatremia Status: Acute Assessment & Plan: Improving with IVF. No mass or adenopathy on CT chest. Monitor. (7) Leukopenia Status: Acute Assessment & Plan: Suppression related to critical illness suspected, monitor. 09/10 improving (8) DVT prophylaxis Assessment & Plan: On coumadin with therapeutic INR. Clinical Quality Measures DVT/VTE Risk/Contraindication: Risk Factor Score Per Nursin RFS Level Per Nursing on Admit: 4+=Very High LB SHAFFER MD Sep 10, 2018 11:23
--- NOTE | 2018-09-10 11:38 | Occ Therapy Progress Note ---
Therapy Progress Note pt was extubated this date. according to NSG (Elizabeth) pt remains on bed rest this date. OT will attempt to see pt 09/11/18/ when medically stable. MACK GREEN OT Sep 10, 2018 11:38
[2018-09-10] MEDS: BACLOFEN 10 MG (LIORESAL) TAB PO SCH (12:18)
[2018-09-10] MEDS ORDERED: morphine INJ 4 MG/ML 1 ML (VIAL/SYRINGE) IVP PRN (16:15)
[2018-09-10] MEDS: methylPREDNISolone 40 MG/ML (Solu-MEDROL) VIAL IV SCH ×2 (17:42→23:57)
[2018-09-10] MEDS: SIMvastatin 20 MG (ZOCOR) TAB PO SCH (21:14)
[2018-09-11] VITALS (25 sets, daily range): BP systolic 90–146; BP diastolic 41–95
[2018-09-11] MEDS: inSUlin ASPART (NovoLOG) 1 UNIT/0.01 ML (CHARGE PER UNIT) SC SCH ×4 (00:01→17:11)
[2018-09-11] MEDS: NS IV 1000 ML 1,000 ML IV SCH ×2 (00:02→02:41)
[2018-09-11] MEDS: PIPERACILLIN/TAZOBACTAM (BULK) 4.5 GM in NS (IVPB) 100 ML IV SCH ×3 (02:00→17:11)
[2018-09-11] MEDS: aCETylcysteine 20% (MUCOMYST) 30ML SOLN VIAL INH SCH ×6 (03:00→23:03)
[2018-09-11] MEDS: RT-ALBUTEROL/IPRATROPIUM 3 ML (DUONEB) VIAL INH SCH ×6 (03:00→23:03)
[2018-09-11 03:14] LABS: BASOPHILS % (AUTO) 0 % (0-10); EOSINOPHILS % (AUTO) 0 % (0-10); HEMATOCRIT 39 % (35-52); HEMOGLOBIN 13.4 G/DL (11.5-16.0); LYMPHOCYTES # (AUTO) 0.8 X 10^3 (1.0-4.0); LYMPHOCYTES % (AUTO) 6 % (12-44); MEAN CORPUSCULAR HEMOGLOBIN 31 PG (25-34); MEAN CORPUSCULAR HGB CONC 35 G/DL (32-36); MEAN CORPUSCULAR VOLUME 89 FL (80-99); MEAN PLATELET VOLUME 9.3 FL (7.4-10.4); MONOCYTES # (AUTO) 0.8 X 10^3 (0.0-1.0); MONOCYTES % (AUTO) 6 % (0-12); NEUTROPHILS # (AUTO) 11.5 X 10^3 (1.8-7.8); NEUTROPHILS % (AUTO) 88 % (42-75); PLATELET COUNT 217 10^3/uL (130-400); RED CELL DISTRIBUTION WIDTH 14.9 % (10.0-14.5)
[2018-09-11 03:29] LABS: INR 3.1 (0.8-1.4); PROTHROMBIN TIME PATIENT 33.6 SEC (12.2-14.7)
[2018-09-11 03:33] LABS: BUN/CREATININE RATIO 16; CARBON DIOXIDE 19 MMOL/L (21-32); CHLORIDE 107 MMOL/L (98-107); CREATININE SERUM 0.58 MG/DL (0.60-1.30); GFR ESTIMATED > 60; GLUCOSE 63 MG/DL (70-105); SODIUM 140 MMOL/L (135-145)
[2018-09-11] MEDS ORDERED: DEXTROSE 10% IV SOLUTION 1,000 ML IV PRN (05:00)
[2018-09-11] MEDS ORDERED: DEXTROSE 50% 50 ML (IMS) SYR IV PRN (05:00)
[2018-09-11] MEDS ORDERED: GLUCAGON EMERGENCY 1 MG/KIT IM PRN (05:00)
[2018-09-11] MEDS ORDERED: FLUCONAZOLE 200 MG/100 ML 100 ML IV ONE ×2 (05:30→09:00)
--- NOTE | 2018-09-11 05:31 | Pulmonary Progress Note ---
Subjective Time Seen by a Provider: 11:10 Subjective/Events-last exam Pt is having psychosis and confusion Sepsis Event Evaluation Height, Weight, BMI Height: 5'6.00" Weight: 107lbs. 0.0oz. 48.271517se; 17.3 BMI Method:Stated Focused Exam Lactate Level 09/08/18 05:40: Lactic Acid Level 1.39 Exam Exam Vital Signs Date Time Temp Pulse Resp B/P (MAP) Pulse Ox O2 Delivery O2 Flow Rate FiO2 09/11/18 05:00 97 24 127/66 (86) 91 Vapotherm 30.00 20.00 09/11/18 04:00 101 19 131/61 (84) 91 Vapotherm 30.00 20.00 09/11/18 04:00 Vapotherm 15.00 21 09/11/18 03:00 90 Vapotherm 20.00 30 09/11/18 03:00 96 26 127/95 (106) 91 Vapotherm 25.00 15.00 09/11/18 02:00 107 25 129/73 (91) 90 Vapotherm 25.00 15.00 09/11/18 01:00 106 19 134/94 (107) 92 Vapotherm 25.00 15.00 09/11/18 00:58 104 09/11/18 00:00 116 28 140/69 (92) 90 Vapotherm 25.00 15.00 09/11/18 00:00 Vapotherm 15.00 21 09/10/18 23:10 90 Vapotherm 15.00 25 09/10/18 23:00 124 27 134/65 (88) 89 Vapotherm 25.00 15.00 09/10/18 22:00 111 21 115/62 (79) 92 Vapotherm 25.00 15.00 09/10/18 21:00 101 23 139/90 (106) 90 Vapotherm 25.00 15.00 09/10/18 20:00 Vapotherm 15.00 21 09/10/18 20:00 98.4 09/10/18 20:00 109 21 70/52 (58) 96 Vapotherm 25.00 15.00 09/10/18 19:58 90 Vapotherm 15.00 25 09/10/18 19:00 98 27 149/65 (93) 92 Vapotherm 25.00 15.00 09/10/18 19:00 112 09/10/18 18:00 111 14 118/62 (80) 91 Vapotherm 25.00 15.00 09/10/18 17:42 Vapotherm 25.00 15.00 09/10/18 17:00 113 17 133/66 (88) 92 Vapotherm 21.00 15.00 09/10/18 16:00 124 11 119/56 (77) 88 Vapotherm 21.00 15.00 09/10/18 16:00 99.0 09/10/18 16:00 Vapotherm 15.00 21 09/10/18 15:56 Vapotherm 21.00 15.00 09/10/18 15:00 122 22 106/74 (85) Vapotherm 21.00 5.00 09/10/18 14:42 115 95 09/10/18 14:40 95 Vapotherm 5.00 21 09/10/18 14:00 115 18 130/91 (104) Vapotherm 21.00 5.00 09/10/18 13:00 114 24 127/71 (89) Vapotherm 21.00 5.00 09/10/18 12:55 104 09/10/18 12:00 96.8 09/10/18 12:00 112 17 134/70 (91) 96 Vapotherm 21.00 5.00 09/10/18 11:18 96 Vapotherm 5.00 21 09/10/18 11:13 Vapotherm 10.00 21 09/10/18 11:00 107 7 108/64 (79) 95 Vapotherm 21.00 10.00 09/10/18 10:00 90 20 98/62 (74) 94 Vapotherm 21.00 10.00 09/10/18 09:00 111 25 140/71 (94) 100 Mechanical Ventilator 25.00 09/10/18 08:10 77 20 99 25 09/10/18 08:00 92 19 104/58 (73) 100 Mechanical Ventilator 25.00 09/10/18 07:46 79 23 100 25 09/10/18 07:00 Mechanical Ventilator 25 09/10/18 07:00 60 19 104/59 (74) 94 Mechanical Ventilator 25.00 09/10/18 07:00 75 09/10/18 06:00 65 25 101/59 (73) 95 Mechanical Ventilator 25.00 I & O 09/11/18 07:00 Intake Total 250 ml Output Total 5965 ml Balance -5715 ml Height & Weight Height: 5'6.00" Weight: 107lbs. 0.0oz. 48.000828hr; 17.3 BMI Method:Stated General Appearance: Anxious, Chronically ill, Mild Distress, Thin HEENT: PERRL/EOMI, Normal ENT Inspection, Pharynx Normal Neck: Full Range of Motion, Non Tender, Supple Respiratory: Accessory Muscle Use, Crackles, Decreased Breath Sounds, Wheezing Cardiovascular: Tachycardia Capillary Refill: Less Than 3 Seconds Gastrointestinal: non tender Extremity: Normal Capillary Refill, Normal Inspection, No Pedal Edema Neurologic/Psychiatric: Alert, Oriented x3 Skin: Normal Color, Warm/Dry Lymphatic: No Adenopathy Results Lab Laboratory Tests 09/10/18 03:20 09/11/18 03:05 Assessment/Plan Assessment/Plan Acute on chronic respiratory failure -Pt is doing well off ventilator COPDAE with PNA (Uses 3 liters of oxygen at home) with mucous plugs - Zosyn -Solumedrol 40 Q 6 -Oxygen -Q4 Duonebs with mucomyst -ABG - C02 41 Tobacco use -Education ICU psychosis -Start Risperdal Paraplegia secondary to hx of transverse myelitis (wheelchair bound) Hx of multiple DVTs -chronic anticoagulation hx hypothyroid JAYLA CUELLAR DO Sep 11, 2018 05:31
[2018-09-11] MEDS ORDERED: HALOPERIDOL 5 MG/ML (HALDOL) AMP ONE (05:43)
[2018-09-11] MEDS ORDERED: HALOPERIDOL 5 MG/ML (HALDOL) AMP IV PRN (05:45)
[2018-09-11] MEDS ORDERED: NS (IVPB) 50 ML ONE (05:54)
[2018-09-11] MEDS: CATHETER FLUSH 10 ML SYR IV SCH ×3 (06:12→22:18)
[2018-09-11] MEDS: methylPREDNISolone 40 MG/ML (Solu-MEDROL) VIAL IV SCH ×3 (06:13→17:10)
[2018-09-11] MEDS: LEVOTHYROXINE 25 MCG (LEVOTHROID) TAB PO SCH (06:13)
[2018-09-11] MEDS: LACTOBACILLUS ACIDOPHILUS (PROBIOTIC) CAPSULE PO SCH ×3 (06:13→16:16)
[2018-09-11] MEDS: LEVOTHYROXINE 125 MCG (LEVOTHROID) TABLET PO SCH (06:13)
[2018-09-11] MEDS: DEXMEDETOMIDINE INJECTION 200 MCG in NS (IVPB) 50 ML IV SCH ×2 (06:20→08:57)
--- NOTE | 2018-09-11 07:46 | Diagnostic Imaging Report ---
INDICATION: Extubation chest. Comparison with 09/10/2018. FINDINGS: ET tube and NG tube have been removed. Left PICC line remains in good position. Lungs show mild hyperaeration with interstitial lung disease. Heart is not enlarged. IMPRESSION: Satisfactory extubation chest. Dictated by: Dictated on workstation # [id number]
[2018-09-11] MEDS: guaiFENesin (MUCINEX) 600 MG TAB PO SCH ×2 (08:36→20:58)
[2018-09-11] MEDS: SERTRALINE 100 MG (ZOLOFT) TAB PO SCH ×2 (08:36→08:47)
[2018-09-11] MEDS: OXYBUTYNIN (DITROPAN) 5 MG TAB PO SCH (08:36)
[2018-09-11] MEDS: PANTOPRAZOLE 40 MG (PROTONIX) VIAL IV SCH (08:36)
[2018-09-11] MEDS: risperiDONE 1 MG (RisperDAL) TAB PO SCH ×2 (08:36→20:58)
--- NOTE | 2018-09-11 09:19 | Physical Therapy Evaluation ---
PT Evaluation-General Medical Diagnosis Admission Date Sep 04, 2018 at 17:55 Medical Diagnosis: COPD exacerbation Onset Date: Sep 04, 2018 Therapy Diagnosis Therapy Diagnosis: impaired mobility, endurance, strength, ROM Height/Weight Height (Feet): 5 Height (Inches): 6.00 Weight (Pounds): 107 Weight (Ounces): 0.0 Precautions Precautions/Isolations: Fall Prevention, Standard Precautions, Pressure Ulcer Weight Bear Status Right Lower Extremity: Right Non Weight Bearing Left Lower Extremity: Left Non Weight Bearing Referral Physician: Morteza Fenton DO Reason for Referral: Evaluation/Treatment Medical History Pertinent Medical History: COPD, Hypothroidism, Smoking Additional Medical History Transverse Myelitis resulting in paraplegia Reviewed History: Yes Social History Home: Single Level Current Living Status: Spouse Entry Into Home: Ramp Patient states she can enter through garage (level entry) Prior/Core FIM Prior Level of Function Therapy Code Descriptions/Definitions Functional Gibson Measure: 0=Not Assessed/NA 4=Minimal Assistance 1=Total Assistance 5=Supervision or Setup 2=Maximal Assistance 6=Modified [place] 3=Moderate Assistance 7=Complete Gibson Therapy Quality Codes: 6 Independent with activity with or without an assistive device 5 Patient requires set up or clean up by helper. Patient completes activity by themselves 4 Supervision or touching assist (CGA). [place] provide cues , steadying assist 3 The helper provides less than half the effort to complete the activity 2 The helper provides more than half the effort to complete the activity 1 Dependent. The helper does all the effort to complete an activity 7 Patient refused to complete or attempt activity 9 The patient did not perform the activity before the current illness or injury 88 Not attempted due to Medical conditions or safety concerns Functional Abilities and Goals: Independent: Patient completed the activities by him/herself, with or without an assistive device, with no assistance from a helper. Needed Some Help: Patient needed partial assistance from another person to complete activities. Dependent: A helper completed the activities for the patient. Unknown: Not Applicable: Bed Mobility: 5 Transfers (B,C,W/C) (FIM): 1 Wheelchair Mobility: 5 Prior Devices Use: Manual wheelchair Patient states she performs a sliding transfer without sliding board at home, previous PT note states that her lifts her. PT Evaluation-Current Subjective Patient in bed pre tx, does not want to get out of bed or perform exercises in bed, she agrees to LE stretching. Patient seems to be hallucinating some, thinks the man on the TV is talking to her. Patient has a knee immobilizer on the right side. Pt/Family Goals none stated Objective Patient Orientation: Person, Confused Attachments: Oxygen, Cope Catheter, IV ROM/Strength ROM Lower Extremities right ankle contracture, limited ROM on right leg due to recent femur fx., patient has no AROM of LE's Strength Lower Extremities NA Integumentary/Posture Bladder Incontinence: Cope Cath Neuromuscular (Tone, Coordination, Reflexes) increased clonus right ankle Sensory Vision: Functional Hearing: Functional Sensation Right Lower Extremit: Impaired Sensation Left Lower Extremity: Impaired Transfers Therapy Code Descriptions/Definitions Functional Gibson Measure: 0=Not Assessed/NA 4=Minimal Assistance 1=Total Assistance 5=Supervision or Setup 2=Maximal Assistance 6=Modified Gibson 3=Moderate Assistance 7=Complete Gibson Treatment LE PROM in all planes on the left leg, just ankle stretching and hip abd on the right side due to femur fx. Assessment/Needs Patient has impaired mobility, strength, endurance, ROM. She has tight ankles, needs gastroc stretching. Rehab Potential: Fair PT Short Term Goals Short Term Goals Time Frame: Sep 11, 2018 Transfers (B,C,W/C) (FIM): 5 (with slide board bed<>w/c) Wheelchair (FIM): 1 Wheelchair Distance: 25' Wheelchair Level of Assist: 5 PT Plan Problem List Problem List: Activity Tolerance, Functional Strength, Safety, Balance, Transfer, Bed Mobility, ROM Treatment/Plan Treatment Plan: Continue Plan of Care Treatment Plan: Bed Mobility, Education, Therapeutic Exercise, Transfers Treatment Duration: Sep 11, 2018 Frequency: 5 times per week Estimated Hrs Per Day: .25 hour per day Patient and/or Family Agrees t: Yes Safety Risks/Education Patient Education: Transfer Techniques, Correct Positioning, Safety Issues Teaching Recipient: Patient Teaching Methods: Demonstration, Discussion Response to Teaching: Reinforcement Needed Discharge Recommendations Plan Patient will perform bed mobility and transfer training, balance and endurance training, functional strengthening, and education, to improve functional mobi lity and independence at home. Therapy D/C Recommendations: Home w/ Family Support Time/GCodes Time In: 0855 Time Out: 0910 Total Billed Treatment Time: 15 Total Billed Treatment 1 visit GEOVANNI 15' ANA M MCGUIRE PT Sep 11, 2018 09:19
--- NOTE | 2018-09-11 09:58 | NUR ---
DR SHAFFER INFORMED OF LOW BP.
[2018-09-11] MEDS ORDERED: DEXMEDETOMIDINE INJECTION 1,000 MCG in NS (IVPB) 250 ML IV SCH (11:00)
[2018-09-11] MEDS ORDERED: NS IV 1000 ML 1,000 ML IV ONE (11:15)
[2018-09-11] MEDS: BACLOFEN 10 MG (LIORESAL) TAB PO SCH (11:18)
--- NOTE | 2018-09-11 11:50 | Occupational Therapy Eval ---
OT Evaluation-General/PLF Medical Diagnosis Admission Date Sep 04, 2018 at 17:55 Medical Diagnosis: COPD exacerbation Onset Date: Sep 04, 2018 Therapy Diagnosis Therapy Diagnosis: impaired ADLs and mobility Height/Weight Height (Feet): 5 Height (Inches): 6.00 Weight (Pounds): 107 Weight (Ounces): 0.0 Precautions Precautions/Isolations: Fall Prevention, Standard Precautions, Pressure Ulcer Safety Interventions: Reorient-Attempt, Reorient-PRN Weight Bear Status Weight Bearing Restriction: Non Weight Bearing Location Restriction: SCOTT FEET pt is paraplegia Referral Physician: Morteza Fenton DO Referral Reason: Activity Tolerance, Self Care, Evaluation/Treatment, Strengthening/ROM Medical History Pertinent Medical History: COPD, Hypothroidism, Smoking Current History Pt is a 57yo CF with a PMH of paraplegia secondary to transverse myelitis, COPD, hypothyroidism who presented to the ER with a month long history of shortness of breath and cough. She was seen by her PCP multiple times over the last couple of weeks and was given multiple rounds of antibiotics but despite this continued to worsen. She was found to be hypoxic which is not normal for her and required oxygen to maintain her sats. pt was extubated 09/10/18 Reviewed History: Yes Social History Home: Single Level Current Living Status: Spouse Entry Into Home: Ramp, Level Entry Other Obstacles: pt stated if she enters through garage its carpentry teacher ADL-Prior Level of Function Therapy Code Descriptions/Definitions Functional [place] Measure: 0=Not Assessed/NA 4=Minimal Assistance 1=Total Assistance 5=Supervision or Setup 2=Maximal Assistance 6=Modified [place] 3=Moderate Assistance 7=Complete [place] Therapy Quality Codes: 6 Independent with activity with or without an assistive device 5 Patient requires set up or clean up by helper. Patient completes activity by themselves 4 Supervision or touching assist (CGA). [place] provide cues , steadying assist 3 The helper provides less than half the effort to complete the activity 2 The helper provides more than half the effort to complete the activity 1 Dependent. The helper does all the effort to complete an activity 7 Patient refused to complete or attempt activity 9 The patient did not perform the activity before the current illness or injury 88 Not attempted due to Medical conditions or safety concerns Functional Abilities and Goals: Independent: Patient completed the activities by him/herself, with or without an assistive device, with no assistance from a helper. Needed Some Help: Patient needed partial assistance from another person to complete activities. Dependent: A helper completed the activities for the patient. Unknown: Not Applicable: ADL PLOF Comments pt stated September 2017 she broke her Right femur. since then she required assist from her with LB ADLs. pt would "pick pt up" for transfers. Self Care: Needed Some Help Functional Cognition: Needed Some Help DME/Equipment: Bath Bench, Tub/Shower Drive Self: No OT Current Status Subjective pt agreed to OT evaluation session. pt present in room. NSG stated pt may participate in OT session. pt c/o no pain at this time. Pain Numeric Pain Scale: 0-No Pain Mental Status/Objective Patient Orientation: Person, Place, Time, Situation Current Glasses/Contacts: Yes Dentures/Partials: No Hand Dominance: Right Upper Extremity ROM right shoulder flex 100 degrees Left shoulder flexion 120 degrees elbow and wrist WFL Upper Extremity Coordination finger to nose WFL Upper Extremity Sensation pt has light touch sensation for scott LE no heat sensation Scott LE Scott UE WFL Upper Extremity Strength 2+/5 MMT ADL-Treatment Therapy Code Descriptions/Definitions Functional [place] Measure: 0=Not Assessed/NA 4=Minimal Assistance 1=Total Assistance 5=Supervision or Setup 2=Maximal Assistance 6=Modified [place] 3=Moderate Assistance 7=Complete [place] Therapy Quality Codes: 6 Independent with activity with or without an assistive device 5 Patient requires set up or clean up by helper. Patient completes activity by themselves 4 Supervision or touching assist (CGA). [place] provide cues , steadying assist 3 The helper provides less than half the effort to complete the activity 2 The helper provides more than half the effort to complete the activity 1 Dependent. The helper does all the effort to complete an activity 7 Patient refused to complete or attempt activity 9 The patient did not perform the activity before the current illness or injury 88 Not attempted due to Medical conditions or safety concerns Other Treatments pt education on proper positioning on UE placement when performing bed mobility. pt reuqird tactile cuing but demo correctly. pt required MAX A to perform supine to sit. pt maintain static seated balance EOB with MIN A. skilled cuing for positioning. pt required TA to scoot up in bed . call light within reach, all needs met. Education OT Patient Education: Progress toward Goal/Update tx plan, Purpose of tx/functional activities, Transfer techniques Teaching Recipient: Patient Teaching Methods: Demonstration, Discussion Response to Teaching: Verbalize Understanding, Return Demonstration OT Short Term Goals Short Term Goals Transfers (B,C,W/C) (FIM): 5 (with slide board bed<>w/c) 1=Demonstrate adherence to instructed precautions during ADL tasks. 2=Patient will verbalize/demonstrate understanding of assistive devices/modifications for ADL. 3=Patient will improve strength/tolerance for activity to enable patient to perform ADL's. OT Senior Living Goals Director Bioinformatics Goals Eating (FIM): 7 Grooming(FIM): 6 (w/c level) Bathing(FIM): 3 (UB only ) Bathing Location: L Arm, R Arm, Chest, Abdomen Upper Body Dressing(FIM): 5 Additional Goals: 1-Demonstrate ADL Tasks, 2-Verbalize Understanding, 3-Improve Strength/[place] 1=Demonstrate adherence to instructed precautions during ADL tasks. 2=Patient will verbalize/demonstrate understanding of assistive devices/modifications for ADL. 3=Patient will improve strength/tolerance for activity to enable patient to pe rform ADL's. OT Education/Plan Problem List/Assessment Assessment: Decreased Activ Tolerance, Decreased Safety Aware, Decreased UE Strength, Dependent Transfers, Impaired Bed Mobility, Impaired Cognition, Impai red Coordination, Impaired Funct Balance, Impaired I ADL's, Impaired Self-Care Skills, Restricted Funct UE ROM currently pt required MIN A for eating, MOD A for grooming, TA for UE/ LB dressing and bathing. MAX A for bed mobility, and TA for functional transfers. pt presents with functional limitations affecting areas of ADLS and functional transfers with deficits in the above mention. pt would benefit from OT serivces to increase independence with ADLs/ functional transfers. and for safe transition back to home. pt stated he would like to take pt home when medically stable. pt does have L LE brace on. Discharge Recommendations Plan/Recommendations: Continue POC Therapy D/C Recommendations: 24 hr Supervision (ans assist ) Treatment Plan/Plan of Care Treatment,Training & Education: Yes Patient would benefit from OT for education, treatment and training to promote independence in ADL's, mobility, safety and/or upper extremity function for ADL's. Plan of Care: ADL Retraining, Caregiver Training, Functional Mobility, Group Exercise/Act as Ind, UE Funct Exercise/Act Treatment Duration: Oct 02, 2018 Frequency: 5 times per week Estimated Hrs Per Day: .25 hour per day Agreement: Yes Rehab Potential: Fair Time/GCodes Start Time: 11:20 Stop Time: 11:45 Billed Treatment Time EVM 15 minutes FA 10 minutes, 1 unit MACK GREEN OT Sep 11, 2018 11:49
--- NOTE | 2018-09-11 15:41 | ST Dysphagia Evaluation ---
Speech Evaluation-General Medical Diagnosis COPD exacerbation Onset Date: Sep 04, 2018 Therapy Diagnosis Therapy Diagnosis: Oropharyngeal Dysphagia Precautions Precautions: Aspiration Precautions/Isolations: Fall Prevention, Standard Precautions, Pressure Ulcer Medical History Pertinent Medical History: COPD, Hypothroidism, Smoking Reviewed History: Yes Social History Current Living Status: Spouse Speech PLF/Current-Dysphagia Prior Level of Function The patient lives at home with her . She was independent with her daily needs prior to being hospitalized. Subjective The patient was alert and attentive during the Bedside Dysphagia Evaluation. She had already been served a regular tray with thin liquid (coffee) when I entered her room. Cognitive Status Patient Orientation: Person, Place, Situation Oral Motor Skills Dentition: Natural Current Food Consistancy: Regular, Thin Liquids Patient had received a tray prior to the BDE. Oral Expression Ability: No Impairment Voice Voice Phonatory-Based Quality: Breathy Voice Pitch: Moderately Low Voice Loudness: Moderately Soft/Quiet Face Facial Symmetry: Symmetrical Oral-Facial Assessment Oral-Facial Dentition: Normal Labial Seal Description: Reduced ROM Smile: Reduced ROM Puff Cheeks: Reduced Strength Lingual Protrusion: Normal Lingual ROM: Normal Lingual Strength: Normal Pharynx Velopharyngeal Move.: Normal Volitional Dry Swallow: Yes Voluntary Cough: Yes Can Clear Throat Volitionally: Yes Dysphagia Evaluation Consistencies Presented: Regular, Thin Liquid, Mechanical Soft, Pureed Patient exhibits a normal range of function for the oral phase. Patient exhibits a normal range of function for the pharyngeal phase of swallow. She does get SOB with swallow coordination with each bite/sip. Dietary Recommendations: Regular Liquid Recommendations: Thin Swallowing Precautions: Alternate Liquids/Solids, Double Swallow, Decreased Bolus 1/2 Tsp, Liquids from Cup, Liquids from Straw, Small Bites and Sips, Sitting Upright 90 Degrees, Sitting 90 Degrees 30 Post Intake Dysphagia Evaluation Summary The patient is a 57 year old female who was hospitalized due to COPD exacerbation. The patient had been intubated with removal on 09/10/18. The patient was referred for a BDE. This morning when I entered her room she had already been served a regular tray of toast and scrambled eggs and thin coffee. She was able to take a small sip of coffee from the cup without s/s of asp iration. She also ate 1/2 tsp each of puree, mechanical soft and a small bite of toast with breaks in between. She gets SOB with swallow, breathe coordination, The patient's diet level of regular and thin was written on the white board in her room as well as her nurse, Olena. The patient will receive skilled dysphagia services for safety training of oral intake. Barriers to Learning Patient's recent serious respiratory status. Speech Short Term Goals Short Term Goals Short Term Goals 1) The patient will tolerate the least restrictive diet level without s/s of aspiration at 90% or greater. 2) The patient will utilize compensatory strategies as trained for safety of oral intake at 90% or greater given minimal cues. Speech Booth Usher Goals Residential Goals The patient will maintain adequate nutrition/hydration via safe effective swallow function. Speech-Plan Patient/Family Goals Patient/Family Goals: The patient plans on returning home with her upon hospital discharge. Treatment Plan Speech Therapy Treatment Plan: Continue Plan of Care The patient will receive skilled ST for dysphagia for compensatory strategies training. Treatment Duration: Sep 20, 2018 Frequency: 3 times per week Estimated Hrs Per Day: .25 hour per day Rehab Potential: Fair Barriers to Learning: The patient has recently had serious respiratory issues. Pt/Family Agrees to Plan: Yes Safety Risks/Education Teaching Recipient: Patient Teaching Methods: Demonstration, Discussion Response to Teaching: Verbalize Understanding, Return Demonstration Education Topics Provided: Safety of oral intake. Time Speech Therapy Time In: 08:30 Speech Therapy Time Out: 08:45 Total Billed Time: 15 Billed Treatment Time 1SHARAD [address] ST Sep 11, 2018 15:41
--- NOTE | 2018-09-11 16:43 | Progress Note (SOAP) ---
Subjective Subjective/Events-last exam Alert but disoriented this am. Review of Systems Date Seen by Provider: Sep 11, 2018 Time Seen by Provider: 10:00 Objective Exam Last Set of Vital Signs Vital Signs Date Time Temp Pulse Resp B/P (MAP) Pulse Ox O2 Delivery O2 Flow Rate FiO2 09/11/18 15:14 96.1 09/11/18 15:02 Vapotherm 20.00 30 09/11/18 15:00 62 92/54 (67) 100 09/11/18 14:00 17 Capillary Refill : Less Than 3 SecondsLess Than 3 Seconds I&O Intake and Output 09/10/18 23:59 Intake Total 250 ml Output Total 5265 ml Balance -5015 ml Intake Oral 250 ml Output Urine Total 5265 ml General: Alert, No Acute Distress HEENT: PERRLA, EOMI Lungs: Other (ronchi) Heart: Regular Rate, No Murmurs Abdomen: Normal Bowel Sounds, Soft Neuro: Normal Speech, Cranial Nerves 3-12 NL (decreased hearing left ear compared to right), Other (5/5 strength in arms, baseline paraplegia, oriented to self only) Results/Procedures Lab Laboratory Tests 09/10/18 17:35: Glucometer 74 09/10/18 23:56: Glucometer 95 09/11/18 03:05: White Blood Count 13.0H, Red Blood Count 4.33L, Hemoglobin 13.4, Hematocrit 39, Mean Corpuscular Volume 89, Mean Corpuscular Hemoglobin 31, Mean Corpuscular Hemoglobin Concent 35, Red Cell Distribution Width 14.9H, Platelet Count 217, Mean Platelet Volume 9.3, Neutrophils (%) (Auto) 88H, Lymphocytes (%) (Auto) 6L, Monocytes (%) (Auto) 6, Eosinophils (%) (Auto) 0, Basophils (%) (Auto) 0, Neutrophils # (Auto) 11.5H, Lymphocytes # (Auto) 0.8L, Monocytes # (Auto) 0.8, Eosinophils # (Auto) 0.0, Basophils # (Auto) 0.0, Prothrombin Time 33.6H, INR Comment 3.1H, Sodium Level 140, Potassium Level 4.0, Chloride Level 107, Carbon Dioxide Level 19L, Anion Gap 14, Blood Urea Nitrogen 9, Creatinine 0.58L, Estimat Glomerular Filtration Rate > 60, BUN/Creatinine Ratio 16, Glucose Level 63L, Calcium Level 8.0L, Magnesium Level 2.0 09/11/18 04:24: Glucometer 132H 09/11/18 11:21: Glucometer 95 Microbiology 09/04/18 Blood Culture - Final, Complete No growth 09/09/18 Mycobacterial Culture - Preliminary, Resulted Assessment/Plan Assessment/Plan (1) COPD with exacerbation Status: Acute Assessment & Plan: Pulm consulted, appreciate recommendations. On solumedrol 40 q6, mucomist and breathing treatments as well as zosyn. 09/11 bronch washing with mason, started on diflucan per Dr. Fenton (2) Acute respiratory failure Status: Acute Assessment & Plan: Intubated and mechanically ventilated, [facility] 09/09 am with mucous plugging treated, weaning per Dr. Fenton's recommendations. 09/10 attempting extubation today 09/11 respiratory status stable on vapotherm Qualifiers: Qualified Codes: J96.01 - Acute respiratory failure with hypoxia (3) Paraplegia Status: Chronic (4) Hypothyroidism Status: Chronic Assessment & Plan: Continue home levothyroxine Qualifiers: Qualified Codes: E03.9 - Hypothyroidism, unspecified (5) Anticoagulant long-term use Status: Chronic Assessment & Plan: History of VTE. INR 3.2 today, will give lower dose and resume at 5 mg daily tomorrow (down from alternating 6 and 7 mg) while on antibiotics. 09/10 INR 4.1 today, hold coumadin for today and resume at 5 mg daily. 09/11 INR 3.1 (6) Hyponatremia Status: Resolved Assessment & Plan: Improving with IVF. No mass or adenopathy on CT chest. Monitor. (7) Leukopenia Status: Resolved Assessment & Plan: Suppression related to critical illness suspected, monitor. 09/10 improving (8) Delirium Status: Acute Assessment & Plan: Suspect related to ICU stay and illness, unable to remove any lines at this time, will hold oxybutynin. Reorient as needed. (9) DVT prophylaxis Assessment & Plan: On coumadin with therapeutic INR. Clinical Quality Measures DVT/VTE Risk/Contraindication: Risk Factor Score Per Nursin RFS Level Per Nursing on Admit: 4+=Very High LB SHAFFER MD Sep 11, 2018 16:43
[2018-09-11] MEDS: warFARin 5 MG (COUMADIN) TAB PO SCH (17:11)
[2018-09-11] MEDS: SIMvastatin 20 MG (ZOCOR) TAB PO SCH (20:58)
[2018-09-12] VITALS (15 sets, daily range): BP systolic 91–148; BP diastolic 46–102
[2018-09-12] MEDS: inSUlin ASPART (NovoLOG) 1 UNIT/0.01 ML (CHARGE PER UNIT) SC SCH ×4 (00:32→18:25)
[2018-09-12] MEDS: methylPREDNISolone 40 MG/ML (Solu-MEDROL) VIAL IV SCH ×4 (00:47→17:34)
[2018-09-12] MEDS: aCETylcysteine 20% (MUCOMYST) 30ML SOLN VIAL INH SCH ×6 (02:47→23:10)
[2018-09-12] MEDS: RT-ALBUTEROL/IPRATROPIUM 3 ML (DUONEB) VIAL INH SCH ×6 (02:47→23:09)
[2018-09-12] MEDS: PIPERACILLIN/TAZOBACTAM (BULK) 4.5 GM in NS (IVPB) 100 ML IV SCH (02:48)
[2018-09-12 03:08] LABS: BASOPHILS % (AUTO) 0 % (0-10); EOSINOPHILS % (AUTO) 0 % (0-10); HEMATOCRIT 37 % (35-52); HEMOGLOBIN 12.7 G/DL (11.5-16.0); LYMPHOCYTES # (AUTO) 0.7 X 10^3 (1.0-4.0); LYMPHOCYTES % (AUTO) 11 % (12-44); MEAN CORPUSCULAR HEMOGLOBIN 31 PG (25-34); MEAN CORPUSCULAR HGB CONC 34 G/DL (32-36); MEAN CORPUSCULAR VOLUME 91 FL (80-99); MEAN PLATELET VOLUME 9.6 FL (7.4-10.4); MONOCYTES # (AUTO) 0.2 X 10^3 (0.0-1.0); MONOCYTES % (AUTO) 3 % (0-12); NEUTROPHILS # (AUTO) 5.6 X 10^3 (1.8-7.8); NEUTROPHILS % (AUTO) 86 % (42-75); PLATELET COUNT 124 10^3/uL (130-400); RED CELL DISTRIBUTION WIDTH 14.5 % (10.0-14.5); WHITE BLOOD COUNT 6.5 10^3/uL (4.3-11.0)
[2018-09-12 03:20] LABS: INR 2.6 (0.8-1.4); PROTHROMBIN TIME PATIENT 28.9 SEC (12.2-14.7)
[2018-09-12 03:47] LABS: BUN/CREATININE RATIO 24; CARBON DIOXIDE 21 MMOL/L (21-32); CHLORIDE 105 MMOL/L (98-107); CREATININE SERUM 0.58 MG/DL (0.60-1.30); GFR ESTIMATED > 60; GLUCOSE 95 MG/DL (70-105); PHOSPHORUS 4.1 MG/DL (2.3-4.7); POTASSIUM 4.2 MMOL/L (3.6-5.0); SODIUM 138 MMOL/L (135-145)
[2018-09-12] MEDS: LEVOTHYROXINE 25 MCG (LEVOTHROID) TAB PO SCH (05:56)
[2018-09-12] MEDS: LEVOTHYROXINE 125 MCG (LEVOTHROID) TABLET PO SCH (05:56)
[2018-09-12] MEDS: CATHETER FLUSH 10 ML SYR IV SCH ×3 (05:56→21:45)
[2018-09-12] MEDS: LACTOBACILLUS ACIDOPHILUS (PROBIOTIC) CAPSULE PO SCH ×3 (05:56→17:34)
[2018-09-12] MEDS ORDERED: MAGNESIUM 1 GM/100 ML IVPB 100 ML IV SCH (06:00)
[2018-09-12] MEDS ORDERED: POTASSIUM CL 10MEQ/50ML IVPB 50 ML IV SCH (06:00)
[2018-09-12] MEDS ORDERED: KCL 20 MEQ TAB (K-DUR) PO SCH (06:00)
--- NOTE | 2018-09-12 06:21 | Pulmonary Progress Note ---
Subjective Time Seen by a Provider: 11:09 Subjective/Events-last exam Pt appears to be dong slightly better. Sepsis Event Evaluation Height, Weight, BMI Height: 5'6.00" Weight: 104lbs. 0.0oz. 47.185486ha; 17.3 BMI Method:Stated Exam Exam Vital Signs Date Time Temp Pulse Resp B/P (MAP) Pulse Ox O2 Delivery O2 Flow Rate FiO2 09/12/18 05:00 81 17 124/57 (79) 95 Vapotherm 30.00 20.00 09/12/18 04:15 93 17 116/65 (82) 93 Vapotherm 30.00 20.00 09/12/18 04:00 75 18 98/85 (89) 94 Vapotherm 30.00 20.00 09/12/18 04:00 Vapotherm 20.00 30 09/12/18 03:00 78 17 122/73 (89) 97 Vapotherm 30.00 20.00 09/12/18 02:48 94 Vapotherm 20.00 30 09/12/18 02:00 60 11 110/58 (75) 96 Vapotherm 30.00 20.00 09/12/18 01:00 55 09/12/18 01:00 55 11 94/46 (62) 95 Vapotherm 30.00 20.00 09/12/18 00:00 Vapotherm 20.00 30 09/12/18 00:00 97.6 09/12/18 00:00 56 12 91/50 (64) 95 Vapotherm 30.00 20.00 09/11/18 23:03 95 Vapotherm 20.00 30 09/11/18 23:00 57 10 94/50 (65) 95 Vapotherm 30.00 20.00 09/11/18 22:00 60 12 101/58 (72) 95 Vapotherm 30.00 20.00 09/11/18 21:00 65 13 100/74 (83) Vapotherm 30.00 20.00 09/11/18 20:00 Vapotherm 20.00 30 09/11/18 20:00 84 20 94/78 (83) Vapotherm 30.00 20.00 09/11/18 19:51 96.8 62 14 107/56 (73) 97 Vapotherm 30.00 20.00 09/11/18 19:09 93 Vapotherm 20.00 30 09/11/18 19:00 68 17 106/54 (71) 94 Vapotherm 30.00 20.00 09/11/18 19:00 68 09/11/18 18:00 61 13 110/58 (75) 94 Vapotherm 30.00 20.00 09/11/18 17:00 70 13 97/55 (69) 94 Vapotherm 30.00 20.00 09/11/18 16:00 68 13 108/61 (77) 98 Vapotherm 30.00 20.00 09/11/18 15:14 96.1 09/11/18 15:02 Vapotherm 20.00 30 09/11/18 15:00 62 92/54 (67) 100 Vapotherm 30.00 20.00 09/11/18 14:51 97 Vapotherm 15.00 25 09/11/18 14:00 73 17 105/52 (69) 92 Vapotherm 30.00 20.00 09/11/18 13:00 70 13 96/64 (75) 95 Vapotherm 30.00 20.00 09/11/18 12:30 68 09/11/18 12:00 65 15 92/41 (58) 94 Vapotherm 30.00 20.00 09/11/18 11:45 92 Vapotherm 20.00 30 09/11/18 11:22 96.4 09/11/18 11:05 Vapotherm 20.00 30 09/11/18 11:00 81 17 90/46 (61) 92 Vapotherm 30.00 20.00 09/11/18 10:00 87 14 97/50 (66) 91 Vapotherm 30.00 20.00 09/11/18 09:00 82 17 94/50 (65) 92 Vapotherm 30.00 20.00 09/11/18 08:08 Vapotherm 20.00 30 09/11/18 08:00 84 21 96/48 (64) 91 Vapotherm 30.00 20.00 09/11/18 07:41 96.8 09/11/18 07:20 101 09/11/18 07:17 90 Vapotherm 20.00 30 09/11/18 07:00 87 23 118/56 (76) 89 Vapotherm 30.00 20.00 I & O 09/12/18 07:00 Intake Total 1764 ml Output Total 3900 ml Balance -2136 ml Height & Weight Height: 5'6.00" Weight: 104lbs. 0.0oz. 47.574172uk; 17.3 BMI Method:Stated General Appearance: Anxious, Chronically ill, Mild Distress, Thin HEENT: PERRL/EOMI, Normal ENT Inspection, Pharynx Normal Neck: Full Range of Motion, Non Tender, Supple Respiratory: Accessory Muscle Use, Crackles, Decreased Breath Sounds, Wheezing Cardiovascular: Tachycardia Capillary Refill: Less Than 3 Seconds Gastrointestinal: non tender Extremity: Normal Capillary Refill, Normal Inspection, No Pedal Edema Neurologic/Psychiatric: Alert, Oriented x3 Skin: Normal Color, Warm/Dry Lymphatic: No Adenopathy Results Lab Laboratory Tests 09/11/18 03:05 09/12/18 03:00 Assessment/Plan Assessment/Plan Acute on chronic respiratory failure COPDAE with PNA (Uses 3 liters of oxygen at home) with mucous plugs - Zosyn -Solumedrol 40 Q 6 -Oxygen -Q4 Duonebs with mucomyst -ABG - C02 41 Tobacco use -Education Paraplegia secondary to hx of transverse myelitis (wheelchair bound) Hx of multiple DVTs -chronic anticoagulation hx hypothyroid JAYLA CUELLAR DO Sep 12, 2018 06:21
--- NOTE | 2018-09-12 06:34 | NUR ---
Due to above O2 sat of 96% Vapotherm was decreased from a flow of 20 to a flow of 10 and O2 was left at 30% at this time.
[2018-09-12] MEDS: guaiFENesin (MUCINEX) 600 MG TAB PO SCH ×2 (08:50→21:45)
[2018-09-12] MEDS: FLUCONAZOLE 200 MG/100 ML 50 ML, EMPTY IV BAG (PVC) 1 EA IV SCH ×2 (08:50)
[2018-09-12] MEDS: risperiDONE 1 MG (RisperDAL) TAB PO SCH ×2 (08:50→21:44)
[2018-09-12] MEDS: PANTOPRAZOLE 40 MG (PROTONIX) VIAL IV SCH (08:50)
[2018-09-12] MEDS: SERTRALINE 100 MG (ZOLOFT) TAB PO SCH (08:50)
--- NOTE | 2018-09-12 10:30 | NUR ---
PT TRANSFERRED TO [facility] VIA W/ STAFF/PERSONAL BELONGINGS. REPORT GIVEN TO KALEB MOORE WHO ASSUMES CARE OF PT. NO QUESTIONS/CONCERNS VOICED.
--- NOTE | 2018-09-12 10:38 | NUR ---
RECEIVED REPORT FROM TERESA SALCEDO. PT ARRIVED TO ROOM. PT DENIES ANY NEEDS AND EXPRESSED SHE IS GLAD TO BE UP IN HER CHAIR.
--- NOTE | 2018-09-12 10:46 | Physical Therapy Daily Note ---
PT Daily Note-Current Subjective Patient agrees to up to w/c and is transferring to 4th medical floor on this date. Pain Numeric Pain Scale: 0-No Pain Location: No Pain Reported Mental Status Patient Orientation: Normal For Age Attachments: Oxygen (vapotherm), Polar Pack Transfers Therapy Code Descriptions/Definitions Functional [place] Measure: 0=Not Assessed/NA 4=Minimal Assistance 1=Total Assistance 5=Supervision or Setup 2=Maximal Assistance 6=Modified [place] 3=Moderate Assistance 7=Complete [place] Therapy Quality Codes: 6 Independent with activity with or without an assistive device 5 Patient requires set up or clean up by helper. Patient completes activity by themselves 4 Supervision or touching assist (CGA). Jonancy provide cues , steadying assist 3 The helper provides less than half the effort to complete the activity 2 The helper provides more than half the effort to complete the activity 1 Dependent. The helper does all the effort to complete an activity 7 Patient refused to complete or attempt activity 9 The patient did not perform the activity before the current illness or injury 88 Not attempted due to Medical conditions or safety concerns Transfers (B, C, W/C) (FIM): 1 Scootin Supine to/from Sit: 1 Bed to/from Chair: 1 dependent assist with slide board transfer bed to w/c Weight Bearing Right Lower Extremity: Right Non Weight Bearing Left Lower Extremity: Left Non Weight Bearing Assessment Patient tolerated treatment well and is up in recliner with needs met. PT to increase activity as tolerated by patient. PT Short Term Goals Short Term Goals Time Frame: Sep 11, 2018 Transfers (B,C,W/C) (FIM): 5 (with slide board bed<>w/c) Wheelchair (FIM): 1 Wheelchair Distance: 25' Wheelchair Level of Assist: 5 PT Plan Treatment/Plan Treatment Plan: Continue Plan of Care Treatment Plan: Bed Mobility, Education, Therapeutic Exercise, Transfers Treatment Duration: Sep 11, 2018 Frequency: 5 times per week Estimated Hrs Per Day: .25 hour per day Patient and/or Family Agrees t: Yes Time/GCodes Time In: 1001 Time Out: 1015 Total Billed Treatment Time: 14 Total Billed Treatment 1 visit FA 14 min ROSEMARY ORELLANA PT Sep 12, 2018 10:46
--- NOTE | 2018-09-12 11:08 | Diagnostic Imaging Report ---
INDICATION: COPD, exacerbation. COMPARISON: Compared 09/11/2018. FINDINGS: Air trapping and COPD as chronic findings are present. Pulmonary opacity in the left lung base is increased with a small left pleural effusion. Left basilar density could be from atelectasis or pneumonia. No pneumothorax. Central venous catheter at the SVC. IMPRESSION: While there is chronic background COPD, new opacity in the left base could be pneumonia or atelectasis with a new small left pleural effusion. Dictated by: Dictated on workstation # [id number]
[2018-09-12] MEDS: BACLOFEN 10 MG (LIORESAL) TAB PO SCH (11:59)
--- NOTE | 2018-09-12 13:11 | Speech Therapy Daily Note ---
Speech Daily Progress Note Subjective Date Seen by Provider: Sep 12, 2018 Time Seen by Provider: 00:15 Patient appears to be better this date. She will be transferring to the 4th floor this morning. Objective The patient was able to take a few very small bites/sips with breaks in between without s/s of aspiration. Assessment Assessment Current Status: Fair Progress Treatment Plan Continue Plan of Care Speech Short Term Goals Short Term Goals Short Term Goals 1) The patient will tolerate the least restrictive diet level without s/s of aspiration at 90% or greater. 2) The patient will utilize compensatory strategies as trained for safety of oral intake at 90% or greater given minimal cues. Speech [employer] Supervisor Goals Fpc Goals The patient will maintain adequate nutrition/hydration via safe effective swallow function. Speech-Plan Patient/Family Goals Patient/Family Goals: The patient plans on returning home with her upon hospital discharge. Treatment Plan Speech Therapy Treatment Plan: Continue Plan of Care Patient is feeling a little better. Treatment Duration: Sep 20, 2018 Frequency: 3 times per week Estimated Hrs Per Day: .25 hour per day Rehab Potential: Fair Barriers to Learning: Patient has a complex medical status. Pt/Family Agrees to Plan: Yes Safety Risks/Education Teaching Recipient: Patient Teaching Methods: Discussion Response to Teaching: Verbalize Understanding Education Topics Provided: Safety of oral intake. Time Speech Therapy Time In: 08:15 Speech Therapy Time Out: 08:30 Total Billed Time: 15 Billed Treatment Time 1RJ PAOLA Kelley Sep 12, 2018 13:11
--- NOTE | 2018-09-12 14:17 | Progress Note (SOAP) ---
Subjective Subjective/Events-last exam Afebrile, less confused, feeling better. Review of Systems Date Seen by Provider: Sep 12, 2018 Time Seen by Provider: 09:40 Objective Exam Last Set of Vital Signs Vital Signs Date Time Temp Pulse Resp B/P (MAP) Pulse Ox O2 Delivery O2 Flow Rate FiO2 09/12/18 12:29 Nasal Cannula 09/12/18 11:40 96 10.00 25 09/12/18 10:00 112 21 123/81 (95) 09/12/18 08:00 97.3 Capillary Refill : Less Than 3 SecondsLess Than 3 Seconds I&O Intake and Output 09/12/18 00:00 Intake Total 1764 ml Output Total 6200 ml Balance -4436 ml Intake Oral 200 ml IV Total 1564 ml Output Urine Total 6200 ml General: Alert, No Acute Distress Lungs: Clear to Auscultation Heart: Regular Rate, No Murmurs Abdomen: Normal Bowel Sounds, Soft Neuro: Normal Speech, Other (oriented to self and location) Psych/Mental Status: Mood NL Results/Procedures Lab Laboratory Tests 09/11/18 17:09: Glucometer 145H 09/12/18 00:28: Glucometer 127H 09/12/18 03:00: White Blood Count 6.5, Red Blood Count 4.06L, Hemoglobin 12.7, Hematocrit 37, Mean Corpuscular Volume 91, Mean Corpuscular Hemoglobin 31, Mean Corpuscular Hemoglobin Concent 34, Red Cell Distribution Width 14.5, Platelet Count 124L, Mean Platelet Volume 9.6, Neutrophils (%) (Auto) 86H, Lymphocytes (%) (Auto) 11L , Monocytes (%) (Auto) 3, Eosinophils (%) (Auto) 0, Basophils (%) (Auto) 0, Neutrophils # (Auto) 5.6, Lymphocytes # (Auto) 0.7L, Monocytes # (Auto) 0.2, Eosinophils # (Auto) 0.0, Basophils # (Auto) 0.0, Prothrombin Time 28.9H, INR Comment 2.6H, Sodium Level 138, Potassium Level 4.2, Chloride Level 105, Carbon Dioxide Level 21, Anion Gap 12, Blood Urea Nitrogen 14, Creatinine 0.58L, Estimat Glomerular Filtration Rate > 60, BUN/Creatinine Ratio 24, Glucose Level 95, Calcium Level 8.0L, Phosphorus Level 4.1, Magnesium Level 2.0 6/27/19 11:46: Glucometer 117H Microbiology 09/04/18 Blood Culture - Final, Complete No growth 09/09/18 Mycobacterial Culture - Preliminary, Resulted Assessment/Plan Assessment/Plan (1) COPD with exacerbation Status: Acute Assessment & Plan: Pulm consulted, appreciate recommendations. On solumedrol 40 q6, mucomist and breathing treatments as well as zosyn. 09/11 bronch washing with mason, started on diflucan per Dr. Fenton (2) Acute respiratory failure Status: Acute Assessment & Plan: Intubated and [facility] am with mucous plugging treated, weaning per Dr. Fenton's recommendations. 09/10 attempting extubation today 09/11 respiratory status stable on vapotherm 09/12 remains on vapotherm Qualifiers: Qualified Codes: J96.01 - Acute respiratory failure with hypoxia (3) Paraplegia Status: Chronic (4) Hypothyroidism Status: Chronic Assessment & Plan: Continue home levothyroxine Qualifiers: Qualified Codes: E03.9 - Hypothyroidism, unspecified (5) Anticoagulant long-term use Status: Chronic Assessment & Plan: History of VTE. INR 3.2 today, will give lower dose and resume at 5 mg daily tomorrow (down from alternating 6 and 7 mg) while on antibiotics. 09/10 INR 4.1 today, hold coumadin for today and resume at 5 mg daily. 09/11 INR 3.1 09/12 INR 2.6 (6) Hyponatremia Status: Resolved Assessment & Plan: Improving with IVF. No mass or adenopathy on CT chest. Monitor. (7) Leukopenia Status: Resolved Assessment & Plan: Suppression related to critical illness suspected, monitor. 09/10 improving (8) Delirium Status: Resolved Assessment & Plan: Suspect related to ICU stay and illness, unable to remove any lines at this time, will hold oxybutynin. Reorient as needed. (9) DVT prophylaxis Assessment & Plan: On coumadin with therapeutic INR. Clinical Quality Measures DVT/VTE Risk/Contraindication: Risk Factor Score Per Nursin RFS Level Per Nursing on Admit: 4+=Very High LB SHAFFER MD Sep 12, 2018 14:17
--- NOTE | 2018-09-12 14:33 | Occupational Ther Daily Note ---
OT Current Status-Daily Note Subjective pt sitting in w/c upon OT arrival. pt agreed to OT TX session with focus on increasing independence with ADLs/ functional mobility. p tc/o no pain at this time. Mental Status/Objective Therapy Code Descriptions/Definitions Functional [place] Measure: 0=Not Assessed/NA 4=Minimal Assistance 1=Total Assistance 5=Supervision or Setup 2=Maximal Assistance 6=Modified [place] 3=Moderate Assistance 7=Complete [place] ADL-Treatment Grooming (FIM): 3 (pt dem abilityt o wash face indep, pt comb half pf hair but unable to finish secondary to actvity tolerance. OT finished brushing hair for pt. ) pt self propelled into bathroom with SBA requiring additional timing to position w/c in bathroom in front of mirror with skilled cuing. noted R LE brace on. pt required additional timing to complete ADL task in front of mirror secondary to limited activity tolerance. pt required to stay in bathroom in front of mirror post OT session to style hair. SERVICE ADVISOR aware pt is in bathroom. pt has call light in reach, all needs met. Education OT Patient Education: Energy conservation, Modified ADL techniques, Progress toward Goal/Update tx plan, Purpose of tx/functional activities Teaching Methods: Demonstration, Discussion Response to Teaching: Verbalize Understanding, Return Demonstration OT Short Term Goals Short Term Goals Transfers (B,C,W/C) (FIM): 5 (with slide board bed<>w/c) 1=Demonstrate adherence to instructed precautions during ADL tasks. 2=Patient will verbalize/demonstrate understanding of assistive devices/modifications for ADL. 3=Patient will improve strength/tolerance for activity to enable patient to perform ADL's. OT Custodial Goals Tdp Displays Analyst Goals Eating (FIM): 7 Grooming(FIM): 6 (w/c level) Bathing(FIM): 3 (UB only ) Bathing Location: L Arm, R Arm, Chest, Abdomen Upper Body Dressing(FIM): 5 Additional Goals: 1-Demonstrate ADL Tasks, 2-Verbalize Understanding, 3- ImproveStrength/[place] 1=Demonstrate adherence to instructed precautions during ADL tasks. 2=Patient will verbalize/demonstrate understanding of assistive devices/modifications for ADL. 3=Patient will improve strength/tolerance for activity to enable patient to perform ADL's. OT Education/Plan Problem List/Assessment Assessment: Decreased Activ Tolerance, Decreased Safety Aware, Decreased UE Strength, Dependent Transfers, Impaired Coordination, Impaired Funct Balance, Impaired I ADL's, Impaired Self-Care Skills currently pt required MIN A for eating, MOD A for grooming, TA for UE/ LB dressing and bathing. MAX A for bed mobility, and TA for functional transfers. pt presents with functional limitations affecting areas of ADLS and functional transfers with deficits in the above mention. pt would benefit from OT serivces to increase independence with ADLs/ functional transfers. and for safe transition back to home. pt stated he would like to take pt home when medically stable. pt does have L LE brace on. Discharge Recommendations Plan/Recommendations: Continue POC Therapy D/C Recommendations: Home w/ Family Support Equpiment Recommendations-D/C: None Treatment Plan/Plan of Care Treatment,Training & Education: Yes Patient would benefit from OT for education, treatment and training to promote independence in ADL's, mobility, safety and/or upper extremity function for ADL's. Plan of Care: ADL Retraining, Caregiver Training, Functional Mobility, Group Exercise/Act as Ind, UE Funct Exercise/Act Treatment Duration: Oct 02, 2018 Frequency: 5 times per week Estimated Hrs Per Day: .25 hour per day Agreement: Yes Rehab Potential: Fair Time/GCodes Start Time: 13:40 Stop Time: 14:10 Billed Treatment Time ADL 30 minutes, 2 units MACK GREEN OT Sep 12, 2018 14:33
[2018-09-12] MEDS: warFARin 5 MG (COUMADIN) TAB PO SCH (17:34)
--- NOTE | 2018-09-12 18:30 | NUR ---
QUESTION OF WHETHER DR. CUELLAR ORDERED TELEMETRY OR EKG. MESSAGED HIM AND HE STATED THAT HE DID NOT. ADVISED THAT AN ORDER WAS ACKNOWLEDGED. ADVISED CNAS TO DISREGARD PER DR. CUELLAR.
[2018-09-12] MEDS: SIMvastatin 20 MG (ZOCOR) TAB PO SCH (21:44)
[2018-09-13 00:45] VITALS: BP 120/70
[2018-09-13] MEDS: methylPREDNISolone 40 MG/ML (Solu-MEDROL) VIAL IV SCH ×2 (00:54→06:03)
[2018-09-13] MEDS: inSUlin ASPART (NovoLOG) 1 UNIT/0.01 ML (CHARGE PER UNIT) SC SCH ×3 (00:55→12:38)
[2018-09-13] MEDS: aCETylcysteine 20% (MUCOMYST) 30ML SOLN VIAL INH SCH ×3 (02:37→10:14)
[2018-09-13] MEDS: RT-ALBUTEROL/IPRATROPIUM 3 ML (DUONEB) VIAL INH SCH ×3 (02:37→10:14)
[2018-09-13 02:57] LABS: BASOPHILS % (AUTO) 0 % (0-10); EOSINOPHILS % (AUTO) 0 % (0-10); HEMATOCRIT 38 % (35-52); HEMOGLOBIN 13.3 G/DL (11.5-16.0); LYMPHOCYTES # (AUTO) 1.1 X 10^3 (1.0-4.0); LYMPHOCYTES % (AUTO) 10 % (12-44); MEAN CORPUSCULAR HEMOGLOBIN 31 PG (25-34); MEAN CORPUSCULAR HGB CONC 35 G/DL (32-36); MEAN CORPUSCULAR VOLUME 90 FL (80-99); MEAN PLATELET VOLUME 9.7 FL (7.4-10.4); MONOCYTES # (AUTO) 0.4 X 10^3 (0.0-1.0); MONOCYTES % (AUTO) 4 % (0-12); NEUTROPHILS # (AUTO) 9.3 X 10^3 (1.8-7.8); NEUTROPHILS % (AUTO) 87 % (42-75); PLATELET COUNT 155 10^3/uL (130-400); RED CELL DISTRIBUTION WIDTH 14.6 % (10.0-14.5); WHITE BLOOD COUNT 10.7 10^3/uL (4.3-11.0)
[2018-09-13 03:10] LABS: INR 4.2 (0.8-1.4); PROTHROMBIN TIME PATIENT 42.8 SEC (12.2-14.7)
[2018-09-13 03:18] LABS: BUN/CREATININE RATIO 22; CALCIUM 8.3 MG/DL (8.5-10.1); CARBON DIOXIDE 26 MMOL/L (21-32); CHLORIDE 98 MMOL/L (98-107); GFR ESTIMATED > 60; GLUCOSE 82 MG/DL (70-105); MAGNESIUM 1.9 MG/DL (1.8-2.4); PHOSPHORUS 3.3 MG/DL (2.3-4.7); POTASSIUM 3.5 MMOL/L (3.6-5.0); SODIUM 134 MMOL/L (135-145)
[2018-09-13] MEDS: CATHETER FLUSH 10 ML SYR IV SCH (06:03)
[2018-09-13] MEDS: LEVOTHYROXINE 25 MCG (LEVOTHROID) TAB PO SCH (06:04)
[2018-09-13] MEDS: LEVOTHYROXINE 125 MCG (LEVOTHROID) TABLET PO SCH (06:04)
[2018-09-13] MEDS: LACTOBACILLUS ACIDOPHILUS (PROBIOTIC) CAPSULE PO SCH ×2 (06:04→12:36)
--- NOTE | 2018-09-13 06:55 | Diagnostic Imaging Report ---
INDICATION: Exacerbation COPD. Portable chest 4:16 AM FINDINGS: There are emphysematous changes in lungs with air trapping. There are no infiltrates, effusions or pneumothoraces. IMPRESSION: COPD. No acute abnormality is seen. No change from previous day. Dictated by: Dictated on workstation # [id number]
[2018-09-13 08:00] VITALS: BP 131/72
--- NOTE | 2018-09-13 08:54 | Pulmonary Progress Note ---
Subjective Time Seen by a Provider: 08:53 Subjective/Events-last exam PT is doing much better. Sepsis Event Evaluation Height, Weight, BMI Height: 5'6.00" Weight: 104lbs. 0.0oz. 47.218682dl; 17.3 BMI Method:Stated Exam Exam Vital Signs Date Time Temp Pulse Resp B/P (MAP) Pulse Ox O2 Delivery O2 Flow Rate FiO2 09/13/18 06:36 93 High Flow N/C 3.00 09/13/18 02:38 95 High Flow N/C 3.00 09/13/18 00:45 98.6 89 18 120/70 (87) 96 High Flow N/C 3.00 09/12/18 23:10 95 High Flow N/C 3.00 09/12/18 20:00 Nasal Cannula 3.00 09/12/18 20:00 97.9 94 20 144/67 (92) 98 High Flow N/C 3.00 09/12/18 19:10 98 High Flow N/C 3.00 09/12/18 16:20 98.2 96 20 123/75 (91) 98 High Flow N/C 3.00 09/12/18 16:16 Nasal Cannula 4.00 09/12/18 15:04 96 High Flow N/C 4.00 09/12/18 12:29 Nasal Cannula 09/12/18 11:40 96 Vapotherm 10.00 25 09/12/18 10:00 112 21 123/81 (95) 96 Vapotherm 25.00 10.00 09/12/18 09:00 113 10 92/85 (87) 94 Vapotherm 25.00 10.00 I & O0 09/13/18 06:59 Intake Total 1900 ml Output Total 3725 ml Balance -1825 ml Height & Weight Height: 5'6.00" Weight: 104lbs. 0.0oz. 47.862067bx; 17.3 BMI Method:Stated General Appearance: No Apparent Distress, Anxious, Chronically ill, Thin HEENT: PERRL/EOMI, Normal ENT Inspection, Pharynx Normal Neck: Full Range of Motion, Non Tender, Supple Respiratory: Accessory Muscle Use, Crackles, Decreased Breath Sounds, Wheezing Cardiovascular: Tachycardia Capillary Refill: Less Than 3 Seconds Gastrointestinal: non tender Extremity: Normal Capillary Refill, Normal Inspection, No Pedal Edema Neurologic/Psychiatric: Alert, Oriented x3 Skin: Normal Color, Warm/Dry Lymphatic: No Adenopathy Results Lab Laboratory Tests 09/12/18 03:00 09/13/18 02:40 09/13/18 02:45 Assessment/Plan Assessment/Plan Acute on chronic respiratory failure COPDAE with PNA (Uses 3 liters of oxygen at home) with mucous plugs -Pt feels much improved after bronchoscopy - she states she can take a deeper breath. - Zosyn -Solumedrol 40 Q 6 - change to prednisone taper -Oxygen -Q4 Duonebs with mucomyst -ABG - C02 41 Tobacco use -Education Paraplegia secondary to hx of transverse myelitis (wheelchair bound) Hx of multiple DVTs -chronic anticoagulation hx hypothyroid JAYLA CUELLAR DO Sep 13, 2018 08:54
[2018-09-13] MEDS ORDERED: predniSONE 10 MG TAB PO SCH (09:00)
--- NOTE | 2018-09-13 09:00 | NUR ---
Visited with patient about prior level of function et what her goals of care are. She reported that she is a paraplegic et fell while transferring approximately 1 year ago which caused a femur fracture to her right lower extremity. She reports that this has been slow to heal et that Dr. Urbina has been following this as an outpatient. She recently had an xray [address] Urbina gave his blessing to start doing passive ROM on that extremity to increase flexion in bending her right knee. She reports that since this fall she has needed help with transferring to her shower chair et bathing but can still transfer to her toilet and preform her own crystal care. Prior to falling she reports that she was able to preform all ADL's herself. She also reported that the reason for her fall was because she became very sick with ulcerative colitis et became very weak from that. She reports that typically she is very active et strong. She also reported that she needs to be able to let her two large dogs out of the house to go to the bathroom while her is at work. Visited with her about the different levels of care with Inpatient Electric Stove Mechanic June when talking about 3 hours of intensive therapy a day the patient stated "three hours isn't intensive". She reports high motivation to participate with therapies et return home at the best she can be to lessen the burden on her husbands caregiving.
[2018-09-13] MEDS ORDERED: KCL 20 MEQ TAB (K-DUR) PO NR (09:15)
[2018-09-13] MEDS: PANTOPRAZOLE 40 MG (PROTONIX) VIAL IV SCH (09:29)
[2018-09-13] MEDS: guaiFENesin (MUCINEX) 600 MG TAB PO SCH (09:29)
[2018-09-13] MEDS: FLUCONAZOLE 200 MG/100 ML 50 ML, EMPTY IV BAG (PVC) 1 EA IV SCH ×2 (09:30)
[2018-09-13] MEDS: risperiDONE 1 MG (RisperDAL) TAB PO SCH (09:30)
[2018-09-13] MEDS: SERTRALINE 100 MG (ZOLOFT) TAB PO SCH (09:30)
--- NOTE | 2018-09-13 09:30 | NUR ---
IRF Evaluation In partnership with SWB Coordinator, Leatha, met with patient to discuss her options specific to next level of care. This worker went on to explain details in reference to rehabilitation program. Patient agreeable to required therapy regimen; in fact, patient stated, "that is not intensive." Patient went on to state she is hoping to gain the ability to "lift her right leg" and is motivated to return home, soon. Chart review complete and above findings discussed with Dr. Noriega; patient accepted. Thank you for this referral.
[2018-09-13 10:26] VITALS: BP 131/72
--- NOTE | 2018-09-13 11:39 | Physical Therapy Daily Note ---
PT Daily Note-Current Subjective Patient has no c/o and agrees to PT. Patient report she desires to go home soon. Mental Status Patient Orientation: Normal For Age Attachments: Oxygen (3.5L HF NC), Coep Catheter Transfers Therapy Code Descriptions/Definitions Functional [place] Measure: 0=Not Assessed/NA 4=Minimal Assistance 1=Total Assistance 5=Supervision or Setup 2=Maximal Assistance 6=Modified [place] 3=Moderate Assistance 7=Complete [place] Therapy Quality Codes: 6 Independent with activity with or without an assistive device 5 Patient requires set up or clean up by helper. Patient completes activity by themselves 4 Supervision or touching assist (CGA). [place] provide cues , steadying assist 3 The helper provides less than half the effort to complete the activity 2 The helper provides more than half the effort to complete the activity 1 Dependent. The helper does all the effort to complete an activity 7 Patient refused to complete or attempt activity 9 The patient did not perform the activity before the current illness or injury 88 Not attempted due to Medical conditions or safety concerns Transfers (B, C, W/C) (FIM): 4 Scootin Supine to/from Sit: 6 Bed to/from Chair: 4 minimal assist with slide board transfer. Per patient report, spouse lifts and transfers her at home PLOF. Weight Bearing Right Lower Extremity: Right Non Weight Bearing Left Lower Extremity: Left Non Weight Bearing Exercises Supine Ex: Ankle pumps, Heel Slides, Straight leg raise, Hip abd/add Supine Reps: 15 (PROM) Assessment Patient tolerated treatment well and is up in w/c with needs met. PT Short Term Goals Short Term Goals Time Frame: Sep 21, 2018 Transfers (B,C,W/C) (FIM): 5 (with slide board bed<>w/c) Wheelchair (FIM): 1 Wheelchair Distance: 25' Wheelchair Level of Assist: 5 PT Plan Treatment/Plan Treatment Plan: Continue Plan of Care Treatment Plan: Bed Mobility, Education, Therapeutic Exercise, Transfers Treatment Duration: Sep 21, 2018 Frequency: 5 times per week Estimated Hrs Per Day: .25 hour per day Patient and/or Family Agrees t: Yes Discharge Recommendations Therapy D/C Recommendations: Home w/ Family Support Time/GCodes Time In: 1121 Time Out: 1132 Total Billed Treatment Time: 11 Total Billed Treatment 1 visit FA 11 min ROSEMARY ORELLANA PT Sep 13, 2018 11:39
[2018-09-13 12:00] VITALS: BP 120/70
[2018-09-13] MEDS: BACLOFEN 10 MG (LIORESAL) TAB PO SCH (12:36)
[2018-09-13] MEDS ORDERED: WARF5TAB PO (12:41)
[2018-09-13] MEDS ORDERED: GUAI600T43 PO (12:41)
[2018-09-13] MEDS ORDERED: PRD10T PO (12:41)
[2018-09-13] MEDS ORDERED: FLUC100T6 PO (12:41)
[2018-09-13] MEDS ORDERED: LACT1CAP7 PO (12:41)
[2018-09-13] MEDS ORDERED: IPRA3AMP31 INH (12:41)
--- NOTE | 2018-09-13 15:06 | Discharge Summary ---
Diagnosis/Chief Complaint Date of Admission Sep 04, 2018 at 17:55 Date of Discharge Sep 13, 2018 at 13:04 Admission Diagnosis Admission Diagnosis COPD exacerbation Acute on chronic respiratory failure Discharge Diagnosis See problem list Problems/Diagnosis: (1) COPD with exacerbation Assessment & Plan: Pulm consulted, appreciate recommendations. On solumedrol 40 q6, mucomist and breathing treatments as well as zosyn. 09/11 bronch washing with mason, started on diflucan per Dr. Fenton, continued oral on d/c for 14 days Status: Acute (2) Acute respiratory failure Assessment & Plan: Intubated and mechanically ventilated, [facility]09 am with mucous plugging treated, weaning per Dr. Fenton's recommendations. 09/10 attempting extubation today 09/11 respiratory status stable on vapotherm 09/12 remains on vapotherm 09/13 stable on nasal cannula Qualifiers: Qualified Codes: J96.01 - Acute respiratory failure with hypoxia Status: Acute (3) Paraplegia Status: Chronic (4) Hypothyroidism Assessment & Plan: Continue home levothyroxine Qualifiers: Qualified Codes: E03.9 - Hypothyroidism, unspecified Status: Chronic (5) Anticoagulant long-term use Assessment & Plan: History of VTE. INR 3.2 today, will give lower dose and resume at 5 mg daily tomorrow (down from alternating 6 and 7 mg) while on antibiotics. 09/10 INR 4.1 today, hold coumadin for today and resume at 5 mg daily. 09/11 INR 3.1 09/12 INR 2.6 Status: Chronic (6) Hyponatremia Assessment & Plan: Improving with IVF. No mass or adenopathy on CT chest. Status: Resolved Resolution Date/Time: 09/11/18 @ 16:40 (7) Leukopenia Assessment & Plan: Suppression related to critical illness suspected, monitor. 09/10 improving Status: Resolved Resolution Date/Time: 09/11/18 @ 16:40 (8) Delirium Assessment & Plan: Suspect related to ICU stay and illness, unable to remove a ny lines at this time, will hold oxybutynin. Reorient as needed. Status: Resolved Resolution Date/Time: 09/12/18 @ 14:16 (9) Debility Assessment & Plan: Discharged to inpatient rehab. Status: Acute Chief Complaint/HPI Chief Complaint/HPI From Dr. Garza's H&P "Pt is a 57yoCF with a PMH of paraplegia secondary to transverse myelitis, COPD, hypothyroidism who presented to the ER with a month long history of shortness of breath and cough. She was seen by her PCP multiple times over the last couple of weeks and was given multiple rounds of antibiotics but despite this continued to worsen. She was found to be hypoxic which is not normal for her and required oxygen to maintain her sats. This morning she states she is still short of breath and worse than yesterday. She can hardly speak more than 4-5 words due to dyspnea." Discharge Summary-Simple/Stand Consultations Discharge Physical Examination Allergies: Coded Allergies: latex (Verified Allergy, Unknown, hives, 09/04/18) tetracycline (Verified Allergy, Unknown, hives, 09/04/18) Vitals & I&Os Vital Sign - Last 12Hours Date Time Temp Pulse Resp B/P (MAP) Pulse Ox O2 Delivery O2 Flow Rate FiO2 09/13/18 13:00 89 09/13/18 12:00 98.3 20 120/70 (87) 97 High Flow N/C 3.00 09/12/18 11:40 25 Intake and Output 09/13/18 00:00 Intake Total 890 ml Output Total 1425 ml Balance -535 ml General Appearance: Alert, No Acute Distress Respiratory: Other (decreased air movement) Cardiovascular: Regular Rate, No Murmurs Neuro: Normal Speech Psych/Mental Status: Mental Status NL Hospital Course See final discharge diagnosis. Labs Laboratory Tests Test 09/11/18 17:09 09/12/18 00:28 09/12/18 03:00 09/12/18 11:46 Range/Units Glucometer 145 H 127 H 117 H 70-110 MG/DL White Blood Count 6.5 4.3-11.0 10^3/uL Red Blood Count 4.06 L 4.35-5.85 10^6/uL Hemoglobin 12.7 11.5-16.0 G/DL Hematocrit 37 35-52 % Mean Corpuscular Volume 91 80-99 FL Mean Corpuscular Hemoglobin 31 25-34 PG Mean Corpuscular Hemoglobin Concent 34 32-36 G/DL Red Cell Distribution Width 14.5 10.0-14.5 % Platelet Count 124 L 130-400 10^3/uL Mean Platelet Volume 9.6 7.4-10.4 FL Neutrophils (%) (Auto) 86 H 42-75 % Lymphocytes (%) (Auto) 11 L 12-44 % Monocytes (%) (Auto) 3 0-12 % Eosinophils (%) (Auto) 0 0-10 % Basophils (%) (Auto) 0 0-10 % Neutrophils # (Auto) 5.6 1.8-7.8 X 10^3 Lymphocytes # (Auto) 0.7 L 1.0-4.0 X 10^3 Monocytes # (Auto) 0.2 0.0-1.0 X 10^3 Eosinophils # (Auto) 0.0 0.0-0.3 10^3/uL Basophils # (Auto) 0.0 0.0-0.1 10^3/uL Prothrombin Time 28.9 H 12.2-14.7 SEC INR Comment 2.6 H 0.8-1.4 Sodium Level 138 135-145 MMOL/L Potassium Level 4.2 3.6-5.0 MMOL/L Chloride Level 105 98-107 MMOL/L Carbon Dioxide Level 21 21-32 MMOL/L Anion Gap 12 5-14 MMOL/L Blood Urea Nitrogen 14 7-18 MG/DL Creatinine 0.58 L 0.60-1.30 MG/DL Estimat Glomerular Filtration Rate > 60 BUN/Creatinine Ratio 24 Glucose Level 95 70-105 MG/DL Calcium Level 8.0 L 8.5-10.1 MG/DL Phosphorus Level 4.1 2.3-4.7 MG/DL Magnesium Level 2.0 1.8-2.4 MG/DL Test 09/12/18 17:59 09/13/18 00:12 09/13/18 02:40 09/13/18 02:45 Range/Units Glucometer 118 H 201 H 70-110 MG/DL White Blood Count 10.7 4.3-11.0 10^3/uL Red Blood Count 4.26 L 4.35-5.85 10^6/uL Hemoglobin 13.3 11.5-16.0 G/DL Hematocrit 38 35-52 % Mean Corpuscular Volume 90 80-99 FL Mean Corpuscular Hemoglobin 31 25-34 PG Mean Corpuscular Hemoglobin Concent 35 32-36 G/DL Red Cell Distribution Width 14.6 H 10.0-14.5 % Platelet Count 155 130-400 10^3/uL Mean Platelet Volume 9.7 7.4-10.4 FL Neutrophils (%) (Auto) 87 H 42-75 % Lymphocytes (%) (Auto) 10 L 12-44 % Monocytes (%) (Auto) 4 0-12 % Eosinophils (%) (Auto) 0 0-10 % Basophils (%) (Auto) 0 0-10 % Neutrophils # (Auto) 9.3 H 1.8-7.8 X 10^3 Lymphocytes # (Auto) 1.1 1.0-4.0 X 10^3 Monocytes # (Auto) 0.4 0.0-1.0 X 10^3 Eosinophils # (Auto) 0.0 0.0-0.3 10^3/uL Basophils # (Auto) 0.0 0.0-0.1 10^3/uL Sodium Level 134 L 135-145 MMOL/L Potassium Level 3.5 L 3.6-5.0 MMOL/L Chloride Level 98 98-107 MMOL/L Carbon Dioxide Level 26 21-32 MMOL/L Anion Gap 10 5-14 MMOL/L Blood Urea Nitrogen 13 7-18 MG/DL Creatinine 0.60 0.60-1.30 MG/DL Estimat Glomerular Filtration Rate > 60 BUN/Creatinine Ratio 22 Glucose Level 82 70-105 MG/DL Calcium Level 8.3 L 8.5-10.1 MG/DL Phosphorus Level 3.3 2.3-4.7 MG/DL Magnesium Level 1.9 1.8-2.4 MG/DL Test 09/13/18 02:50 09/13/18 05:26 09/13/18 12:38 Range/Units Prothrombin Time 42.8 H 12.2-14.7 SEC INR Comment 4.2 H 0.8-1.4 Glucometer 140 H 149 H 70-110 MG/DL Discharge Instructions to patient/family Please see electronic discharge instructions given to patient. Discharge Medications Reviewed and agree with Discharge Medication list on patient's Discharge Instruction sheet Clinical Quality Measures DVT/VTE Risk/Contraindication: Risk Factor Score Per Nursin RFS Level Per Nursing on Admit: 4+=Very High LB SHAFFER MD Sep 13, 2018 15:05
[2018-09-14] MEDS ORDERED: fluCOnazole (DIFLUCAN) 100 MG TAB PO SCH (09:00)
== END 2018-09-13 13:04 | DRG 208 ==
LOC: EDUNIT# 17:17 → ER FS 17:18 → 4TH 17:55 → ICU 09-07 06:33 → 4TH 09-12 10:15
PROVIDERS: ADMIT Family Medicine; ATTEND Family Medicine
PROC: 0BC78ZZ Extirpation of Matter from Left Main Bronchus, Via Natural or Artificial Opening Endoscopic (ICD-10-PCS; principal; 2018-09-07)
PROC: 0BC38ZZ Extirpation of Matter from Right Main Bronchus, Via Natural or Artificial Opening Endoscopic (ICD-10-PCS; 2018-09-07)
PROC: 5A1945Z Respiratory Ventilation, 24-96 Consecutive Hours (ICD-10-PCS; 2018-09-07)
PROC: 0BH17EZ Insertion of Endotracheal Airway into Trachea, Via Natural or Artificial Opening (ICD-10-PCS; 2018-09-07)
PROC: 0B9J8ZX Drainage of Left Lower Lung Lobe, Via Natural or Artificial Opening Endoscopic, Diagnostic (ICD-10-PCS; 2018-09-09)
PROC: 0BC38ZZ Extirpation of Matter from Right Main Bronchus, Via Natural or Artificial Opening Endoscopic (ICD-10-PCS; 2018-09-09)
PROC: 0BC78ZZ Extirpation of Matter from Left Main Bronchus, Via Natural or Artificial Opening Endoscopic (ICD-10-PCS; 2018-09-09)
DX: J18.9 Pneumonia, unspecified organism (principal); J44.1 Chronic obstructive pulmonary disease with (acute) exacerbation; J44.0 Chronic obstructive pulmonary disease with (acute) lower respiratory infection; R06.03 Acute respiratory distress; B37.1 Pulmonary candidiasis; J96.21 Acute and chronic respiratory failure with hypoxia; J98.09 Other diseases of bronchus, not elsewhere classified; G82.20 Paraplegia, unspecified; E87.1 Hypo-osmolality and hyponatremia; K51.90 Ulcerative colitis, unspecified, without complications; L89.159 Pressure ulcer of sacral region, unspecified stage; I95.9 Hypotension, unspecified; E03.9 Hypothyroidism, unspecified; E78.00 Pure hypercholesterolemia, unspecified; F17.210 Nicotine dependence, cigarettes, uncomplicated; M21.379 Foot drop, unspecified foot; R41.0 Disorientation, unspecified; Z86.61 Personal history of infections of the central nervous system; Z86.718 Personal history of other venous thrombosis and embolism; Z79.01 Long term (current) use of anticoagulants; Z99.3 Dependence on wheelchair
CPT/HCPCS: 36415; 36600; 71045; 71260; 80048; 80053; 82805; 82962; 83605; 83735; 83880; 84100; 84478; 84484; 85007; 85025; 85027; 85610; 85730; 87015; 87040; 87070; 87081; 87101; 87106; 87116; 87205; 87206; 88112; 88305; 88312; 93005; 94002; 94003; 94640; 94668; 94760; 94799; 96374; 96375

== ENCOUNTER 2018-09-13 12:54 | Inpatient (IN) | payer MEDICARE ==
[~2018-09-13] VITALS: Ht 167.6 cm; Wt 54.5 kg
[~2018-09-13 12:54] MED LIST: ALBU2.5V4 NEB; ALEN70TA5 PO; BACL10TA PO; CEFD300C3 PO; FLUC100T6 PO; GUAI600T43 PO; IPRA3AMP31 INH; LACT1CAP7 PO; LEVO125T6 PO; LEVO25TA5 PO; OMEP20CA12 PO; OXYB10TA6 PO; PRD10T PO; RT-ALBUINH INH; SERT100T8 PO; SIMV20TA3 PO; WARF-47 PO; WARF-48 PO; WARF5TAB PO
--- NOTE | 2018-09-13 13:30 | NUR ---
SHAHRZAD SOLIMAN admitted to room 227-1, with an admitting diagnosis of PARAPLEGIA , on 09/13/18 from 4TH FLOOR via , accompanied by STAFF.SHAHRZAD SOLIMAN introduced to surroundings, call light, bed controls, phone, TV, temperature control, lights, meal times, smoking policy, visitor policy, side rail policy, bathrooms and showers. Patient Rights given to patient in the handbook.SHAHRZAD SOLIMAN verbalizes understanding that [facility] is not responsible for the loss or damage to any personal effects or valuables that are kept in the patients possession during their hospitalization. The following Patient Care Plans were discussed with the IMPAIRED MOBILITY, POTENTIAL FOR INJURY. SHAHRZAD SOLIMAN verbalizes understanding of Interdisciplinary Patient Education. Patient WAS informed about the Rapid Response Team and its purpose. Patient received Patient Rights Booklet, which includes Privacy Act Statement and Data Collection Information Summary.
[2018-09-13 14:00] VITALS: BP 123/67
--- NOTE | 2018-09-13 14:13 | Occupational Therapy Eval ---
OT Evaluation-General/PLF Medical Diagnosis Admission Date Sep 13, 2018 at 13:30 Medical Diagnosis: PARAPLEGIA Onset Date: Sep 13, 2018 Therapy Diagnosis Therapy Diagnosis: impaired ADL and mobility Height/Weight Height (Feet): 5 Height (Inches): 6.00 Weight (Pounds): 104 Weight (Ounces): 7.0 Precautions Precautions/Isolations: Fall Prevention, Standard Precautions Weight Bear Status paraplegia. Referral Referral Reason: Activity Tolerance, Self Care, Evaluation/Treatment, Strengthening/ROM Medical History Pertinent Medical History: COPD, Hypothroidism, Smoking Current History Pt is a 57yo CF with a PMH of paraplegia secondary to transverse myelitis, COPD, hypothyroidism who presented to the ER with a month long history of shortness of breath and cough. She was seen by her PCP multiple times over the last couple of weeks and was given multiple rounds of antibiotics but despite this continued to worsen. She was found to be hypoxic which is not normal for her and required oxygen to maintain her sats. pt was extubated 09/10/18. pt has been admitted to in rehab for intensive therapy and medical treatment. Reviewed History: Yes Social History Home: Single Level Current Living Status: Significant Other Entry Into Home: Ramp, Level Entry ADL-Prior Level of Function Therapy Code Descriptions/Definitions Functional [place] Measure: 0=Not Assessed/NA 4=Minimal Assistance 1=Total Assistance 5=Supervision or Setup 2=Maximal Assistance 6=Modified [place] 3=Moderate Assistance 7=Complete [place] Therapy Quality Codes: 6 Independent with activity with or without an assistive device 5 Patient requires set up or clean up by helper. Patient completes activity by themselves 4 Supervision or touching assist (CGA). [place] provide cues , steadying assist 3 The helper provides less than half the effort to complete the activity 2 The helper provides more than half the effort to complete the activity 1 Dependent. The helper does all the effort to complete an activity 7 Patient refused to complete or attempt activity 9 The patient did not perform the activity before the current illness or injury 88 Not attempted due to Medical conditions or safety concerns Functional Abilities and Goals: Independent: Patient completed the activities by him/herself, with or without an assistive device, with no assistance from a helper. Needed Some Help: Patient needed partial assistance from another person to complete activities. Dependent: A helper completed the activities for the patient. Unknown: Not Applicable: ADL PLOF Comments per pt pt required assist for bed mobility and transfers from bed to w/c. pt st ated she was able to transfer self on and off of toilet with minimal assist scooting.pt stated she is independent with dressing while in bed. and required min assist for bathing. pt stated sits on tub and supports pt Ulises LE during shower. Self Care: Needed Some Help Functional Cognition: Independent DME/Equipment: Bath Bench, Tub/Shower Drive Self: No OT Current Status Subjective pt sitting in personal w/c upon OT arrival. pt wearing 3L NC. pt in no apparent distress. pt agreed to OT evaluation/ treatment session. pt stated she is excited to start rehab. pt is concerned will be upset secondary to pt coming to rehab. pt stated wanted pt to go home. pt stated she wanted to become independent again and does not want to rely on her as much. Pain Numeric Pain Scale: 0-No Pain Mental Status/Objective Patient Orientation: Person, Place, Time, Situation Attachments: Oxygen (3L NC) Current Glasses/Contacts: Yes Hearing Aids: No Dentures/Partials: No Hand Dominance: Right Upper Extremity ROM pt does have slight RLE ankle and toes movement Ulises UE WFL Upper Extremity Coordination Ulises UE WFL Upper Extremity Sensation Ulises UE WFL. pt does have light touch to Ulises LE but does not have temperature sensation Upper Extremity Strength 4/5 MMT ulises UE ADL-Treatment Eating (FIM): 5 (set up ) Eating (QC): 5 Grooming (FIM): 5 (set up at sink. pt seated in w/c (brush teeth, comb hair, wash face, wash hands) ) Oral Hygiene (QC): 4 Bathing (FIM): 0 (pt REF this date. will complete 09/14/18) Shower/Bathe Self (QC): 0 Upper Body Dressing (FIM): 4 Upper Body Dressing (QC): 4 Lower Body Dressing (FIM): 1 (required TA for Ulises socks during eval. once in tx session pt education on donning/ soffing ulises socks while seated on mat. pt completed task with CGA. noted left lateral lean ) Lower Body Dressing (QC): 1 On/Off Footwear (QC): 1 Toileting (FIM): 1 (pt required assist to complete 3/3 toileting task. ) Toileting Hygiene (QC): 1 Transfers (B, C, W/C) (FIM): 3 (slide transfers with no SB ) Toilet/Commode Transfer (FIM): 1 Toilet Transfer (QC): 1 Shower Transfer (FIM): 0 (NT secodnary to REF ) Other Treatments PT/ OT TX session secondary to complexity of pt deficits. OT focus on ADL task, UE positioning, and sequencing while PT focus on LB positioning, gross movements and transfers. pt perform chair to mat transfer with MOD A. OT gave VC for proper positioning hand placement while PT assist in transfers. once on table to perform rolling R<>L with MIN A. pt education on donning/ doffing right LE brace while PT focus on seated balance. pt required additional timing to complete task. pt then perfo rm supine with MIN A. while in supine PT perform LE ROM while OT focused on increase UE strength/ activity tolerance by having pt perform 20X1 shoulder flexion/ ext/ ADD/ ABD,20X1 elbow flex/ ext against gravity. pt required MAX A to perform supine to sit. pt then self propelled w/c back to room. pt requested to stay in w/c. call light within reach, all needs met. Education OT Patient Education: Energy conservation, Modified ADL techniques, Progress toward Goal/Update tx plan, Purpose of tx/functional activities, Reviewed precautions, Rehab process, Safety issues, Transfer techniques Teaching Recipient: Patient Teaching Methods: Demonstration, Discussion Response to Teaching: Verbalize Understanding, Return Demonstration OT Short Term Goals Short Term Goals Eating(FIM): 6 Grooming(FIM): 5 Bathing(FIM): 5 Upper Body Dressing(FIM): 5 Lower Body Dressing(FIM): 5 Toileting(FIM): 5 Transfers (B,C,W/C) (FIM): 4 Toilet/Commode Transfer(FIM): 4 Tub Transfer(FIM): 4 Shower Transfer(FIM): 4 Additional Short Term Goals: 1-Demonstrate ADL Tasks, 2-Verbalize Understanding, 3-ImproveStrength/Chevy 1=Demonstrate adherence to instructed precautions during ADL tasks. 2=Patient will verbalize/demonstrate understanding of assistive devices/modifications for ADL. 3=Patient will improve strength/tolerance for activity to enable patient to perform ADL's. OT Bankruptcy Processor Goals Bankruptcy Processor Goals Time Frame: Oct 11, 2018 Eating (FIM): 7 Eating (QC): 6 Groomin Oral Hygiene (QC): 6 Bathing(FIM): 6 Bathing Location: L Arm, R Arm, L Upper Leg, R Upper Leg, L Lower Leg (including foot), R Lower Leg (including foot), Chest, Abdomen, Buttocks, Perineal Area Shower/Bathe Self (QC): 6 Upper Body Dressing(FIM): 7 Upper Body Dressing (QC): 6 Lower Body Dressing(FIM): 6 Lower Body Dressing (QC): 6 On/Off Footwear (QC): 6 Toileting(FIM): 6 Toileting Hygiene (QC): 6 Transfers (B,C,W/C) (FIM): 6 Toilet/Commode Transfer(FIM): 6 Toilet/Commode Transfer (QC): 6 Tub Transfer(FIM): 6 Shower Transfer(FIM): 6 Additional Goals: 1-Demonstrate ADL Tasks, 2-Verbalize Understanding, 3- ImproveStrength/Chevy 1=Demonstrate adherence to instructed precautions during ADL tasks. 2=Patient will verbalize/demonstrate understanding of assistive devices/modifications for ADL. 3=Patient will improve strength/tolerance for activity to enable patient to perform ADL's. OT Education/Plan Problem List/Assessment Assessment: Decreased Activ Tolerance, Decreased Safety Aware, Decreased UE Strength, Impaired Bed Mobility, Impaired Cognition, Impaired Coordination, Impaired Funct Balance, Impaired I ADL's, Impaired Self-Care Skills pt presents with functional limitations affecting areas of ADLs and functional transfers. pt would benefit from skilled OT Services to increase independence with ADLS/ functional transfers. Discharge Recommendations Plan/Recommendations: Continue POC Treatment Plan/Plan of Care Treatment,Training & Education: Yes Patient would benefit from OT for education, treatment and training to promote i ndependence in ADL's, mobility, safety and/or upper extremity function for ADL's. Plan of Care: ADL Retraining, Caregiver Training, Concurrent Therapy, Functional Mobility, Group Exercise/Act as Ind, UE Funct Exercise/Act, W/C Management Training Treatment Duration: Oct 11, 2018 Frequency: At least 5 of 7 days/Wk (IRF) Estimated Hrs Per Day: 1 hour per day (60-90 minutes per day) Agreement: Yes Rehab Potential: Good Time/GCodes Start Time: 13:30 Stop Time: 15:25 Billed Treatment Time [id number] EVM 15 minutes [id number] ADL 20 minutes 1415- 1525 (co treat with PT) FA 5 units, 70 minutes MACK GREEN OT Sep 13, 2018 14:13
--- NOTE | 2018-09-13 15:23 | NUR ---
PARTS ASSEMBLER approached by Bindu WOODSON with request to contact TEST TUBE MAKERShane at [facility] to clarifying need for brace and ROM status. PARTS ASSEMBLER left voicemail with office, as they are closed for the day.
[2018-09-13 16:05] VITALS: BP 120/64
--- NOTE | 2018-09-13 16:11 | Physical Therapy Evaluation ---
PT Evaluation-General Medical Diagnosis Admission Date Sep 13, 2018 at 13:30 Medical Diagnosis: PARAPLEGIA Onset Date: Sep 13, 2018 Therapy Diagnosis Therapy Diagnosis: impaired mobility, strength, endurance, balance Height/Weight Height (Feet): 5 Height (Inches): 6.00 Weight (Pounds): 104 Weight (Ounces): 7.0 Precautions Precautions/Isolations: Fall Prevention, Standard Precautions Weight Bear Status Right Lower Extremity: Right Weight Bearing/Tolerated Left Lower Extremity: Left Weight Bearing/Tolerated Referral Physician: Sumaya Noriega DO Reason for Referral: Evaluation/Treatment Medical History Pertinent Medical History: COPD, Hypothroidism, Smoking Current History Pt is a 57yo CF with a PMH of paraplegia secondary to transverse myelitis, COPD, hypothyroidism who presented to the ER with a month long history of shortness of breath and cough. She was seen by her PCP multiple times over the last couple of weeks and was given multiple rounds of antibiotics but despite this continued to worsen. She was found to be hypoxic which is not normal for her and required oxygen to maintain her sats. pt was extubated 09/10/18. pt has been admitted to in rehab for intensive therapy and medical treatment. Reviewed History: Yes Social History Home: Single Level Current Living Status: Significant Other Entry Into Home: Ramp, Level Entry Prior/[facility] FIM Prior Level of Function Therapy Code Descriptions/Definitions Functional [place] Measure: 0=Not Assessed/NA 4=Minimal Assistance 1=Total Assistance 5=Supervision or Setup 2=Maximal Assistance 6=Modified [place] 3=Moderate Assistance 7=Complete [place] Therapy Quality Codes: 6 Independent with activity with or without an assistive device 5 Patient requires set up or clean up by helper. Patient completes activity by themselves 4 Supervision or touching assist (CGA). [place] provide cues , steadying a ssist 3 The helper provides less than half the effort to complete the activity 2 The helper provides more than half the effort to complete the activity 1 Dependent. The helper does all the effort to complete an activity 7 Patient refused to complete or attempt activity 9 The patient did not perform the activity before the current illness or injury 88 Not attempted due to Medical conditions or safety concerns Functional Abilities and Goals: Independent: Patient completed the activities by him/herself, with or without an assistive device, with no assistance from a helper. Needed Some Help: Patient needed partial assistance from another person to complete activities. Dependent: A helper completed the activities for the patient. Unknown: Not Applicable: Bed Mobility: 2 Transfers (B,C,W/C) (FIM): 6 Wheelchair Mobility: 6 Patient states that her helps her out of bed. PT Evaluation-Current Subjective Patient in wheelchair pre tx, agrees to PT, will be co-treating with OT for most of this treatment after evaluation. Patient has no complaints of pain at rest. Pt/Family Goals to be independent at home Objective Patient Orientation: Person, Place, Situation Attachments: Oxygen, Cope Catheter 3L of O2 nasal canula ROM/Strength ROM Lower Extremities Patient has bilateral ankle contractures, each about 5 degrees from neutral dorsiflexion Strenght Lower Extremities Patient has some slight movement in right toes and ankle, not enough to be 2/5 Integumentary/Posture Bladder Incontinence: Cope Cath Neuromuscular (Tone, Coordination, Reflexes) Involuntary legs spasms in both sides. Sensory Vision: Wears Glasses Hearing: Functional Hand Dominance: Right Sensation Right Lower Extremit: Impaired Sensation Left Lower Extremity: Impaired Sensation Lower Extremities Patient has intact light touch sensation in both legs but states that she cannot feel temp or pain. Transfers Therapy Code Descriptions/Definitions Functional [place] Measure: 0=Not Assessed/NA 4=Minimal Assistance 1=Total Assistance 5=Supervision or Setup 2=Maximal Assistance 6=Modified [place] 3=Moderate Assistance 7=Complete [place] Therapy Quality Codes: 6 Independent with activity with or without an assistive device 5 Patient requires set up or clean up by helper. Patient completes activity by themselves 4 Supervision or touching assist (CGA). [place] provide cues , steadying assist 3 The helper provides less than half the effort to complete the activity 2 The helper provides more than half the effort to complete the activity 1 Dependent. The helper does all the effort to complete an activity 7 Patient refused to complete or attempt activity 9 The patient did not perform the activity before the current illness or injury 88 Not attempted due to Medical conditions or safety concerns Transfers (B, C, W/C) (FIM): 2 Scootin Rollin Roll Left to Right (QC): 4 Supine to/from Sit: 2 bed t/f WC(FIM only if WC use): 2 Sit to Lying (QC): 2 Lying to Sitting/Side of Bed(Q: 2 Chair/Zzs-tq-Zonay Xfer(QC): 2 Car Transfer (QC): 1 Patient performs bed mobility with SBA/CGA, supine <-> sit with mod assist, scooting transfer (without sliding board) with mod assist, dependent for car transfer. Gait Does the Patient Walk?: No and Walking Goal NOT indicated Wheelchair Training Does the Pt Use a Wheelchair?: Yes Wheelchair (FIM): 5 Distance: 150'x2 Wheelchair Level of Assist: 5 Wheel 50 ft with 2 turns (QC): 4 Wheel 150 ft (QC): 4 Type of Wheelchair: Manual Balance Sitting Static: Fair Sitting Dynamic: Fair Special Test Comments Patient is able to use her arms to support herself for sitting balance. Treatment BLE ROM and stretching, practiced transfers several times. PT worked on bed mobility and transfers and LE ROM. OT worked on UE activity, assist with transfers and bed mobility. Co-treated with OT because patient needs assist with coordinating UE and LE during activity, poor strength. Assessment/Needs Patient has impaired mobility, strength, endurance, balance. She has her own wheelchair. She has a right side knee immobilizer due to a femur fracture. Rehab Potential: Fair PT Short Term Goals Short Term Goals Time Frame: Sep 20, 2018 Transfers (B,C,W/C) (FIM): 4 Wheelchair (FIM): 6 Wheelchair Distance: 150' PT Energy Analyst Goals Chcf Goals PT Chcf Goals Time Frame: Oct 04, 2018 Transfers (B,C,W/C) (FIM): 5 Sit to Lying (QC): 4 Lying-Sitting on Side/Bed(QC): 4 Sit to Stand (QC): 4 Rollin Roll Left to Right (QC): 4 Chair/Puh-pw-Ekjlk Xfer(QC): 4 Car Transfer (QC): 3 Wheelchair (FIM): 6 Distance: 200' Wheelchair Level of Assist: 6 Wheel 50 feet with 2 turns (QC: 6 PT Plan Problem List Problem List: Activity Tolerance, Functional Strength, Safety, Balance, Transfer, Bed Mobility, ROM Treatment/Plan Treatment Plan: Continue Plan of Care Treatment Plan: Bed Mobility, Concurrent Therapy, Education, Functional Activity Chevy, Functional Strength, Group Therapy, Gait, Safety, Therapeutic Exercise, Transfers Treatment Duration: Oct 04, 2018 Frequency: At least 5 of 7 days/Wk (IRF) Estimated Hrs Per Day: 1.5 hours per day Patient and/or Family Agrees t: Yes Safety Risks/Education Patient Education: Transfer Techniques, Reviewed Precautions, Correct Positioning, Reviewed Don/Doff Brace, Safety Issues Teaching Recipient: Patient Teaching Methods: Demonstration, Discussion Response to Teaching: Reinforcement Needed Discharge Recommendations Plan Patient will perform bed mobility and transfer training, balance and endurance training, functional strengthening, wheelchair mobility training, and education. Therapy D/C Recommendations: Home w/ Family Support Time/GCodes Time In: 1330 Time Out: 1525 Total Billed Treatment Time: 80 Total Billed Treatment 1 visit EVM 10' FA 70' PT eval from [id number], co-treat from [id number] ANA M MCGUIRE PT Sep 13, 2018 16:11
[2018-09-13 16:14] VITALS: BP 120/64
--- NOTE | 2018-09-13 16:43 | ST Cognitive Linguistic Eval ---
Speech Evaluation-General Medical Diagnosis PARAPLEGIA Onset Date: Sep 13, 2018 Therapy Diagnosis Therapy Diagnosis: Cognitive-communication Precautions Precautions/Isolations: Fall Prevention, Standard Precautions Medical History Pertinent Medical History: COPD, Hypothroidism, Smoking Reviewed History: Yes Social History Current Living Status: Significant Other Speech PLF-Current Status Prior Level of Function The patient lived at home with her who helped her with her daily needs secondaray to being paraplegic. Subjective The patient was cooperative with the cognitive evaluation. Language Eval: Auditory Comprehends Simple Yes/No Ques: Functional Indent/Objects Multiple Julio: Functional Ident/Pics in Multiple Julio: Functional Follows 1-Step Commands: Functional Follows Complex Directions: Functional Follows General Conversations: Functional Language Eval: Verbal Language Completes Spontaneous Greeting: Functional Produces Auto, Serial Info: Functional Imitates Simple Words/Phrases: Functional Word Finding: Functional Requests Basic Needs: Functional States Basic Personal Info: Functional Expresses Complex Ideas: Functional Objective Cognitive Domain Attention: WNL Memory: WNL Problem Solving: Functional Executive Functions: WNL Visuospatial Skills: WNL Composite Severity Rating: WNL Clock Drawing Severity Rating: WNL Objective Formal/Standardized Tests [facility] Status ([facility]) Results The patient scored within the normal range at 28/30. The patient is aware of her situation. She does not require cognitive therapy at this time. Oral Motor/Speech Production Within Functional Limits Impression The patient is a pleasant 57 year old female who was admitted to the ARU for medical monitoring as well as strengthening in order to safely return home. The patient lives with her who assists her with her daily needs. She does not meet criteria for skilled ST services at this time. Communication/Social Cognition Comprehension: 7 Expression: 7 Social Interaction: 7 Problem Solvin Memory: 7 Speech Patient Assess Expression of Ideas/Wants: Expression (4) Understanding Verbal Content: Understands (4) Brief Interview-Mental Status: Yes Repetition of Three Words: Three (3) Temporal Orientation: Year: Correct (3) Temporal Orientation: Month: Accurate within 5 days(2) Temporal Orientation: Day: Correct (1) Recall : Wear to say "Sock": Yes,after cueing (1) Recall : Color: Yes, no cue required (2) Recall : Bed: Yes, no cue required (2) Memory/Recall Ability: Current season, That he or she is in a hsp/hsp unit Speech-Plan Patient/Family Goals Patient/Family Goals: The patient plans on returning home with her s/p rehab. Treatment Plan Speech Therapy Treatment Plan: Discontinue ST The patient does not warrant skilled ST at this time. Treatment Duration: Sep 13, 2018 Frequency: 1 time per week Estimated Hrs Per Day: .25 hour per day Rehab Potential: Fair Barriers to Learning: None identified at this time. Pt/Family Agrees to Plan: Yes Safety Risks/Education Teaching Recipient: Patient Teaching Methods: Discussion Response to Teaching: Verbalize Understanding Education Topics Provided: Safety within her room and communication of her needs Time Speech Therapy Time In: 16:15 Speech Therapy Time Out: 16:30 Total Billed Time: 15 Billed Treatment Time 1, PAOLA Castillo Sep 13, 2018 16:43
[2018-09-13] MEDS ORDERED: RT-ALBUTEROL/IPRATROPIUM 3 ML (DUONEB) VIAL INH PRN ×2 (16:45→17:00)
[2018-09-13] MEDS ORDERED: MELATONIN 3 MG TABLET PO PRN (17:00)
[2018-09-13] MEDS ORDERED: BACLOFEN 10 MG (LIORESAL) TAB PO PRN (17:00)
[2018-09-13] MEDS ORDERED: CALCIUM CARBONATE 500 MG (TUMS) TAB.CHEW PO PRN (17:00)
[2018-09-13] MEDS ORDERED: LOPERAMIDE 2 MG (IMODIUM) TABLET PO PRN (17:00)
[2018-09-13] MEDS ORDERED: morphine INJ 4 MG/ML 1 ML (VIAL/SYRINGE) IVP PRN (17:00)
[2018-09-13] MEDS ORDERED: diphenhydrAMINE 25 MG TAB (BENADRYL) PO PRN (17:00)
[2018-09-13] MEDS ORDERED: CATHETER FLUSH 10 ML SYR IV PRN (17:00)
[2018-09-13] MEDS ORDERED: HYDROcodone/APAP 5 MG/325 MG (LORTAB) TAB PO PRN (17:00)
[2018-09-13] MEDS ORDERED: ALPRAZolam 0.25 MG (XANAX) TAB PO PRN (17:00)
[2018-09-13] MEDS ORDERED: guaiFENesin/CODEINE (ROBITUSSIN AC) 10ML UDC PO PRN (17:00)
--- NOTE | 2018-09-13 17:00 | PM&R H&P / Post Admit Assess ---
History of Present Illness HPI/Chief Complaint Chief complaint: Debility from respiratory failure and ventilation History of present illness: This is a 57-year-old white female of [facility] who was originally admitted last week for respiratory failure. She was maintained on ventilator support for several days and under Dr. Fenton's expertise she was able to be extubated without complication. She was found to have exacerbation of COPD and has become very debilitated considering her T4 paralysis from transverse myelitis since 1993 requiring indwelling Conteh catheter for the past 1 year since she fractured her good leg on the right. 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 Her INR today is 4.2 so that will be held. Patient's does quite a bit for her at home and prior level of functioning required a great deal of help from him to transfer from wheelchair to bed and toilet and so forth. She is very weak having significant shortness of breath since COPD flare and recent ventilator support and will require inpatient rehab to optimize ADLs at home to lessen the burden on her . Pulmonology will be maintained due to high risk for respiratory insufficiency. Source: patient Exam Limitations: no limitations Date Seen 09/13/18 Time Seen by a Provider: 15:00 Attending Physician Sumaya Martinez DO PCP Self,Ari HE Referring Physician Date of Admission Sep 13, 2018 at 13:30 Home Medications & Allergies Home Medications Reviewed patient Home Medication Reconciliation performed by pharmacy medication reconciliations maintenance technician 3rd shift and/or nursing. Patients Allergies have been reviewed. 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) Alcohol Use: Denies Use Recreational Drug Use: No Smoking Status: Current Everyday Smoker Type Used: Cigarettes 2nd Hand Smoke Exposure: Yes Physical Abuse Screen: No Sexual Abuse: No Recent Foreign Travel: No Contact w/other who traveled: No Recent Hopitalizations: No Recent Infectious Disease Expo: No Immunizations Up To Date Date of Pneumonia Vaccine: Jan 04, 2018 Seasonal Allergies Seasonal Allergies: No Past Medical History Surgeries: Appendectomy, Hysterectomy, Tonsillectomy Currently Using CPAP: No Currently Using BIPAP: No Cardiac: High Cholesterol Neurological: Spinal Cord Injury Musculoskeletal: Foot Drop History of Blood Disorders: Yes (Bilateral leg DVTs) Family History Diabetes mellitus 19 FATHER G8 BROTHER Dysphasia 19 MOTHER FH: esophageal cancer Review of Systems Constitutional: see HPI, malaise EENTM: no symptoms reported Respiratory: cough, dyspnea on exertion Cardiovascular: no symptoms reported Gastrointestinal: other (stimulation of rectum to produce BM does on her own) Genitourinary: other (conteh cath in place x 1 year) Musculoskeletal: back pain, joint pain (right leg) Skin: other (decubitus ulcer) Psychiatric/Neurological: Anxiety, Depressed Physical Exam Exam Vital Signs Vital Signs Date Time Temp Pulse Resp B/P (MAP) Pulse Ox O2 Delivery O2 Flow Rate FiO2 09/13/18 16:14 73 100 09/13/18 16:05 96.6 16 120/64 (82) Nasal Cannula 3.00 Capillary Refill : Less Than 3 Seconds General Appearance: No Apparent Distress, WD/WN, Chronically ill, Thin HEENT: PERRL/EOMI, Normal ENT Inspection, Pharynx Normal, Moist Mucous Membranes Neck: Full Range of Motion, Normal Inspection, Non Tender, Supple Respiratory: Chest Non Tender, No Accessory Muscle Use, No Respiratory Distress, Crackles, Decreased Breath Sounds Cardiovascular: Regular Rate, Rhythm, No Edema, No Gallop, No JVD, No Murmur Gastrointestinal: Normal Bowel Sounds, No Organomegaly, No Pulsatile Mass, Non Tender, Soft Back: Normal Inspection, No CVA Tenderness, No Vertebral Tenderness Extremity: Normal Capillary Refill, Normal Inspection, No Pedal Edema, Other (parplegia) Neurologic/Psychiatric: Alert, Oriented x3, Normal Mood/Affect, hand wood sander II-XII Norm as Tested, Depressed Affect, Motor Weakness (paraplegia) Skin: Normal Color, Warm/Dry Lymphatic: No Adenopathy Results Results/Procedures Labs Patient resulted labs reviewed. 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 Yung consult for coccyx decubitus ulcer Maintain Conteh catheter as it is chronic she previously did in and out caths before she fractured her right leg Smoking cessation (1) Debility (2) Paraplegia (3) Hypothyroidism (4) Tobacco abuse (5) Anticoagulant long-term use (6) Hyponatremia Resolution Date/Time: 09/11/18 @ 16:40 (7) Leukopenia Resolution Date/Time: 09/11/18 @ 16:40 (8) COPD with exacerbation (9) Delirium Resolution Date/Time: 09/12/18 @ 14:16 (10) DVT prophylaxis Post Admission Physician Asses Date seen by provider: Sep 13, 2018 Time seen by provider: 15:00 Admisison Dx: (1) Debility Status: Acute (2) Delirium Status: Resolved (3) DVT prophylaxis (4) Paraplegia Status: Chronic (5) Hypothyroidism Status: Chronic (6) Tobacco abuse Status: Chronic (7) Acute respiratory distress Status: Acute (8) Anticoagulant long-term use Status: Chronic (9) Counseling regarding end of life decision making Status: Acute (10) Hyponatremia Status: Resolved (11) Leukopenia Status: Resolved The preadmission screen agrees with the post admission assessment that the patient is a good candidate for inpatient rehabilitation. The patient will have a comprehensive program of inpatient rehabilitation with a goal of maximizing level of functional independence prior to discharge home with family. The patient will have PT/OT ninety minutes per day, each discipline, five days a week for gait, strengthening, conditioning, balance, ADLs, any patient/family/caregiver training as necessary. Speech therapy to do cognitive assessment and treat as indicated. Rehabilitation nursing to assist with bowel, bladder, skin, wound care, medication administration, pain management. Supervisor Ore Dressing to assist with discharge planning, community reentry. SCD's for DVT prophylaxis. She appears to be well motivated to participate in three hours of therapy a day. She should be able to tolerate three hours of therapy a day from a medical standpoint. She should benefit from the three hours of therapy a day. She has a reasonable discharge plan, reasonable discharge rehabilitation goals and a supportive family. She has various comorbidities that need to be closely monitored with medications and treatments adjusted on a daily basis as needed. These include: Barriers to discharge for this patient who had been independent prior to this are for her to be modified independent to supervision for ADLs and mobility skills prior to discharge home with [family], so as to lessen the burden of the caregivers. Risks for this patient include: 1. Fall 2. Fracture 3. DVT 4. Pulmonary embolism 5. Wound infection 6. Skin breakdown 7. Contractures 8. Poorly controlled pain 9. Urinary retention 10. UTI 11. Respiratory infection 12. Aspiration Estimated Length of Stay: 7 days Prognosis: Rehab prognosis appears good for goal of discharge home with family modified independent to supervision for ADLs and mobility skills. SUMAYA MARTINEZ DO Sep 13, 2018 17:00
[2018-09-13] MEDS: inSUlin ASPART (NovoLOG) 1 UNIT/0.01 ML (CHARGE PER UNIT) SC SCH (17:48)
[2018-09-13] MEDS: LACTOBACILLUS ACIDOPHILUS (PROBIOTIC) CAPSULE PO SCH (17:49)
[2018-09-13] MEDS ORDERED: aCETylcysteine 20% (MUCOMYST) 30ML SOLN VIAL INH SCH (18:00)
[2018-09-13] MEDS: RT-ALBUTEROL/IPRATROPIUM 3 ML (DUONEB) VIAL INH SCH (18:53)
[2018-09-13] MEDS: POLYETHYLENE GLYCOL 17 GM (MIRALAX) PACK PO SCH (21:49)
[2018-09-13] MEDS: guaiFENesin (MUCINEX) 600 MG TAB PO SCH (21:49)
[2018-09-13] MEDS: SIMvastatin 20 MG (ZOCOR) TAB PO SCH (21:49)
[2018-09-13] MEDS: risperiDONE 1 MG (RisperDAL) TAB PO SCH (21:53)
--- NOTE | 2018-09-14 | NUR ---
Hx of chronic use of indwelling catheter. While transferring from toilet to wheel chair, the inserted catheter came out, balloon appears partially deflated. No signs of trauma, pt denies any discomfort. New latex free catheter inserted utilizing sterile technique. Clear yellow urine visualized in tubing, StatLock in placed, pt tolerated procedure well.
[2018-09-14 05:32] VITALS: BP 116/66
[2018-09-14] MEDS: LEVOTHYROXINE 25 MCG (LEVOTHROID) TAB PO SCH (05:32)
[2018-09-14] MEDS: LEVOTHYROXINE 125 MCG (LEVOTHROID) TABLET PO SCH (05:32)
[2018-09-14] MEDS: inSUlin ASPART (NovoLOG) 1 UNIT/0.01 ML (CHARGE PER UNIT) SC SCH ×2 (05:33)
[2018-09-14 06:01] LABS: BASOPHILS % (AUTO) 0 % (0-10); EOSINOPHILS # (AUTO) 0.1 10^3/uL (0.0-0.3); EOSINOPHILS % (AUTO) 1 % (0-10); HEMATOCRIT 39 % (35-52); HEMOGLOBIN 13.7 G/DL (11.5-16.0); LYMPHOCYTES % (AUTO) 20 % (12-44); MEAN CORPUSCULAR HEMOGLOBIN 31 PG (25-34); MEAN CORPUSCULAR HGB CONC 35 G/DL (32-36); MEAN CORPUSCULAR VOLUME 90 FL (80-99); MEAN PLATELET VOLUME 9.7 FL (7.4-10.4); MONOCYTES # (AUTO) 0.7 X 10^3 (0.0-1.0); MONOCYTES % (AUTO) 7 % (0-12); NEUTROPHILS # (AUTO) 7.2 X 10^3 (1.8-7.8); NEUTROPHILS % (AUTO) 73 % (42-75); PLATELET COUNT 149 10^3/uL (130-400); RED CELL DISTRIBUTION WIDTH 14.2 % (10.0-14.5); WHITE BLOOD COUNT 9.9 10^3/uL (4.3-11.0)
[2018-09-14 06:12] LABS: INR 3.6 (0.8-1.4); PROTHROMBIN TIME PATIENT 37.9 SEC (12.2-14.7)
[2018-09-14] MEDS: LACTOBACILLUS ACIDOPHILUS (PROBIOTIC) CAPSULE PO SCH ×3 (06:13→17:11)
[2018-09-14] MEDS: PANTOPRAZOLE 40 MG (PROTONIX) TAB PO SCH (06:13)
[2018-09-14 06:20] LABS: ALANINE AMINOTRANSFERASE 25 U/L (0-55); ALBUMIN 3.2 GM/DL (3.2-4.5); ALKALINE PHOSPHATASE 39 U/L (40-136); BILIRUBIN,TOTAL 0.5 MG/DL (0.1-1.0); BUN/CREATININE RATIO 20; CALCIUM 8.7 MG/DL (8.5-10.1); CARBON DIOXIDE 26 MMOL/L (21-32); CHLORIDE 98 MMOL/L (98-107); CREATININE SERUM 0.55 MG/DL (0.60-1.30); GFR ESTIMATED > 60; GLUCOSE 73 MG/DL (70-105); POTASSIUM 4.1 MMOL/L (3.6-5.0); SODIUM 134 MMOL/L (135-145); TOTAL PROTEIN 5.6 GM/DL (6.4-8.2)
[2018-09-14] MEDS: RT-ALBUTEROL/IPRATROPIUM 3 ML (DUONEB) VIAL INH SCH ×4 (07:11→20:08)
[2018-09-14] MEDS: fluCOnazole (DIFLUCAN) 100 MG TAB PO SCH (09:48)
[2018-09-14] MEDS: predniSONE 10 MG TAB PO SCH (09:48)
[2018-09-14] MEDS: SERTRALINE 100 MG (ZOLOFT) TAB PO SCH (09:48)
[2018-09-14] MEDS: guaiFENesin (MUCINEX) 600 MG TAB PO SCH ×2 (09:48→21:44)
[2018-09-14] MEDS: POLYETHYLENE GLYCOL 17 GM (MIRALAX) PACK PO SCH ×2 (09:49→21:43)
[2018-09-14] MEDS: risperiDONE 1 MG (RisperDAL) TAB PO SCH ×2 (10:00→21:44)
[2018-09-14] MEDS: aCETylcysteine 20% (MUCOMYST) 30ML SOLN VIAL INH SCH ×3 (10:36→20:08)
--- NOTE | 2018-09-14 12:22 | Occupational Ther Daily Note ---
OT Current Status-Daily Note Subjective Pt alert, sitting up in bed. Pt agrees to therapy. No c/o pain. Mental Status/Objective Patient Orientation: Person, Place, Time, Situation Therapy Code Descriptions/Definitions Functional [place] Measure: 0=Not Assessed/NA 4=Minimal Assistance 1=Total Assistance 5=Supervision or Setup 2=Maximal Assistance 6=Modified [place] 3=Moderate Assistance 7=Complete [place] Attachments: Cope Catheter, IV, Oxygen (2L) ADL-Treatment Co-treat part of session, skills of 2 therapists are required for skill instruction to improve core balance, sitting dynamic balance, UE/LE strength and transfers, skin integrity and need to coordinate balance and mobility while performing ADL's. PT worked on functional transfers, standing balance and LE strength. OT worked on functional transfers, UE strength and ADLs. Pt takes increased time to complete surface to surface transfers with minimal wt bearing on L LE, R LE in brace with assist to keep R LE horizontal. Pt able to don/doff brace and socks by self. Tub bench transfer to <--> from w/c with mod A x2, one to assist with R LE and one to assist to clear buttocks over side of w/c. Pt able to complete all areas except lower legs and feet. Pt declined to don regular clothing after bathing. Completed grooming mod I. Assist x2 to transfer back into bed. After therapy, pt sitting up in bed with call light/phone in reach. All needs met in room. Therapy Code Descriptions/Definitions Functional [place] Measure: 0=Not Assessed/NA 4=Minimal Assistance 1=Total Assistance 5=Supervision or Setup 2=Maximal Assistance 6=Modified [place] 3=Moderate Assistance 7=Complete [place] Therapy Quality Codes: 6 Independent with activity with or without an assistive device 5 Patient requires set up or clean up by helper. Patient completes activity by themselves 4 Supervision or touching assist (CGA). [place] provide cues , steadying assist 3 The helper provides less than half the effort to complete the activity 2 The helper provides more than half the effort to complete the activity 1 Dependent. The helper does all the effort to complete an activity 7 Patient refused to complete or attempt activity 9 The patient did not perform the activity before the current illness or injury 88 Not attempted due to Medical conditions or safety concerns Grooming (FIM): 6 Oral Hygiene (QC): 6 Bathing (FIM): 4 Bathing Location: L Arm, R Arm, L Upper Leg, R Upper Leg, Chest, Abdomen, Buttocks (leaning to reach), Perineal Area Shower/Bathe Self (QC): 3 On/Off Footwear (QC): 6 Shower Transfer(FIM): 1 OT Short Term Goals Short Term Goals Eating(FIM): 6 Grooming(FIM): 5 Bathing(FIM): 5 Upper Body Dressing(FIM): 5 Lower Body Dressing(FIM): 5 Toileting(FIM): 5 Transfers (B,C,W/C) (FIM): 4 Toilet/Commode Transfer(FIM): 4 Tub Transfer(FIM): 4 Shower Transfer(FIM): 4 Additional Short Term Goals: 1-Demonstrate ADL Tasks, 2-Verbalize Understanding, 3-ImproveStrength/[place]vy 1=Demonstrate adherence to instructed precautions during ADL tasks. 2=Patient will verbalize/demonstrate understanding of assistive devices/modifications for ADL. 3=Patient will improve strength/tolerance for activity to enable patient to perform ADL's. OT Sales Promotion Director Goals [facility] Goals Time Frame: Oct 11, 2018 Eating (FIM): 7 Eating (QC): 6 Groomin Oral Hygiene (QC): 6 Bathing(FIM): 6 Bathing Location: L Arm, R Arm, L Upper Leg, R Upper Leg, L Lower Leg (including foot), R Lower Leg (including foot), Chest, Abdomen, Buttocks, Perineal Area Shower/Bathe Self (QC): 6 Upper Body Dressing(FIM): 7 Upper Body Dressing (QC): 6 Lower Body Dressing(FIM): 6 Lower Body Dressing (QC): 6 On/Off Footwear (QC): 6 Toileting(FIM): 6 Toileting Hygiene (QC): 6 Transfers (B,C,W/C) (FIM): 6 Toilet/Commode Transfer(FIM): 6 Toilet/Commode Transfer (QC): 6 Tub Transfer(FIM): 6 Shower Transfer(FIM): 6 Additional Goals: 1-Demonstrate ADL Tasks, 2-Verbalize Understanding, 3- ImproveStrength/Chevy 1=Demonstrate adherence to instructed precautions during ADL tasks. 2=Patient will verbalize/demonstrate understanding of assistive devices/modifications for ADL. 3=Patient will improve strength/tolerance for activity to enable patient to perform ADL's. OT Education/Plan Problem List/Assessment Assessment: Decreased UE Strength, Impaired Coordination, Impaired Funct [place] nce, Impaired Self-Care Skills pt presents with functional limitations affecting areas of ADLs and functional transfers. pt would benefit from skilled OT Services to increase independence with ADLS/ functional transfers. Discharge Recommendations Plan/Recommendations: Continue POC Treatment Plan/Plan of Care Patient would benefit from OT for education, treatment and training to promote independence in ADL's, mobility, safety and/or upper extremity function for ADL's. Plan of Care: ADL Retraining, Caregiver Training, Concurrent Therapy, Functional Mobility, Group Exercise/Act as Ind, UE Funct Exercise/Act, W/C Management Training Treatment Duration: Oct 11, 2018 Frequency: At least 5 of 7 days/Wk (IRF) Estimated Hrs Per Day: 1 hour per day (60-90 minutes per day) Agreement: Yes Rehab Potential: Fair Time/GCodes Start Time: 10:05 Stop Time: 11:50 Total Time Billed (hr/min): 105 Billed Treatment Time 1 visit-ADL 7 (105 min) co-treat with PT [id number] (43 min) rest of time individual MACARIO BAUTISTA Sep 14, 2018 12:22
--- NOTE | 2018-09-14 12:46 | PM&R Progress Note ---
Subjective HPI/CC On Admission Date Seen by Provider: Sep 14, 2018 Time Seen by Provider: 10:30 Chief complaint: Debility from respiratory failure and ventilation History of present illness: This is a 57-year-old white female of [facility] who was originally admitted last week for respiratory failure. She was maintained on ventilator support for several days and under Dr. Fenton's expertise she was able to be extubated without complication. 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 Her INR today is 4.2 so that will be held. Patient's does quite a bit for her at home and prior level of functioning required a great deal of help from him to transfer from wheelchair to bed and toilet and so forth. She is very weak having significant shortness of breath since COPD flare and recent ventilator support and will require inpatient rehab to optimize ADLs at home to lessen the burden on her . Pulmonology will be maintained due to high risk for respiratory i nsufficiency. Subjective/Events-last exam Patient getting ready to take a shower Right leg is in an immobilizer like she has had for the past 1 year INR is 3.6 so we will continue to hold Coumadin Accu-Cheks before meals and at bedtime will be discontinued Solu-Medrol is maintained Wound care consult is appreciated by Dr. Yung [facility] maintain but it is hard for her to navigate since she cannot get out of the bed on her own so we will discontinue that very soon but that was to protect her coccyx Productive cough continues and RT maintains nebulizer treatments and Mucomyst Check meds and labs Conferred with RN Reviewed therapy notes Has ulcerative colitis so she cannot really take any medication for her bowels she manages it by diet and does digital stimulation for bowels Review of Systems General: Fatigue Pulmonary: Dyspnea, Cough Objective Exam Vital Signs Vital Signs Date Time Temp Pulse Resp B/P (MAP) Pulse Ox O2 Delivery O2 Flow Rate FiO2 09/14/18 14:40 96 Nasal Cannula 2.50 09/14/18 07:00 96 09/14/18 05:32 97.0 18 116/66 (83) Capillary Refill : Less Than 3 Seconds General Appearance: No Apparent Distress, WD/WN, Chronically ill, Thin HEENT: PERRL/EOMI, Normal ENT Inspection, Pharynx Normal, Moist Mucous Membranes Neck: Full Range of Motion, Normal Inspection, Non Tender, Supple Respiratory: Chest Non Tender, No Accessory Muscle Use, No Respiratory Distress, Crackles, Decreased Breath Sounds Cardiovascular: Regular Rate, Rhythm, No Edema, No Gallop, No JVD, No Murmur Gastrointestinal: Normal Bowel Sounds, No Organomegaly, No Pulsatile Mass, Non Tender, Soft Back: Normal Inspection, No CVA Tenderness, No Vertebral Tenderness Extremity: Normal Capillary Refill, Normal Inspection, No Pedal Edema, Other (parplegia) Neurologic/Psychiatric: Alert, Oriented x3, Normal Mood/Affect, cripple worker II-XII Norm as Tested, Depressed Affect, Motor Weakness (paraplegia) Skin: Normal Color, Warm/Dry Lymphatic: No Adenopathy Results/Procedures Lab Laboratory Tests 09/14/18 05:43 Patient resulted labs reviewed. FIM Transfers Therapy Code Descriptions/Definitions Functional [place] Measure: 0=Not Assessed/NA 4=Minimal Assistance 1=Total Assistance 5=Supervision or Setup 2=Maximal Assistance 6=Modified [place] 3=Moderate Assistance 7=Complete [place] Therapy Quality Codes: 6 Independent with activity with or without an assistive device 5 Patient requires set up or clean up by helper. Patient completes activity by themselves 4 Supervision or touching assist (CGA). [place] provide cues , steadying assist 3 The helper provides less than half the effort to complete the activity 2 The helper provides more than half the effort to complete the activity 1 Dependent. The helper does all the effort to complete an activity 7 Patient refused to complete or attempt activity 9 The patient did not perform the activity before the current illness or injury 88 Not attempted due to Medical conditions or safety concerns Transfers (B, C, W/C) (FIM): 2 Scootin Rollin Roll Left to Right (QC): 4 Supine to/from Sit: 2 Sit to Lying (QC): 2 Chair/Eke-jw-Yxeas Xfer(QC): 2 Bed to/from Chair: 2 Car Transfer (QC): 1 Gait Training Does the Patient Walk?: No and Walking Goal NOT indicated Wheelchair Training Does the Pt Use a Wheelchair?: Yes Wheelchair (FIM): 5 Distance: 150' Wheelchair Level of Assist: 5 Wheel 50 ft with 2 turns (QC): 4 Wheel 150 ft (QC): 4 Type of Wheelchair: Manual Mental Status/Objective Comprehension: 7 Expression: 7 Social Interaction: 7 Problem Solvin Memory: 7 ADL-Treatment Feedin (set up ) Eating (QC): 5 Groomin Oral Hygiene (QC): 6 Bathin Bathing Location: L Arm, R Arm, L Upper Leg, R Upper Leg, Chest, Abdomen, Buttocks (leaning to reach), Perineal Area Shower/Bathe Self (QC): 3 Upper Extremity Dressin Upper Body Dressing (QC): 4 Lower Extremity Dressin (required TA for Ulises socks during eval. once in tx session pt education on donning/ soffing ulises socks while seated on mat. pt completed task with CGA. noted left lateral lean ) Lower Body Dressing (QC): 1 On/Off Footwear (QC): 6 Toiletin (pt required assist to complete 3/3 toileting task. ) Toileting Hygiene (QC): 1 Toilet/Commode Transfer: 1 Toilet Transfer (QC): 1 Shower: 1 Assessment/Plan Assessment and Plan Assess & Plan/Chief Complaint Assessment: Severe debility from critical illness Status post ventilator dependent respiratory failure Exacerbation of COPD Current smoker T4 paralysis from transverse myelitis in 1993 Indwelling Cope catheter for past 1 year Right femur fracture 1 year ago managed by [facility] in [place] Bowel dysfunction requiring rectal stimulation for bowel movement Thin and frail status high risk for respiratory compromise 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 Pulmonology consult [facility] Dr. Yung consult for coccyx decubitus ulcer is appreciated Maintain Cope catheter as it is chronic she previously did in and out caths before she fractured her right leg Smoking cessation (1) Debility (2) Delirium Resolution Date/Time: 09/12/18 @ 14:16 (3) DVT prophylaxis (4) Paraplegia (5) Hypothyroidism (6) Tobacco abuse (7) Acute respiratory distress (8) Anticoagulant long-term use (9) Counseling regarding end of life decision making (10) Hyponatremia Resolution Date/Time: 09/11/18 @ 16:40 (11) Leukopenia Resolution Date/Time: 09/11/18 @ 16:40 CHEVY MARTINEZ DO Sep 14, 2018 12:46
--- NOTE | 2018-09-14 13:35 | Physical Therapy Daily Note ---
PT Daily Note-Current Subjective Pt agreeable to treatment session. Pain Numeric Pain Scale: 0-No Pain Appearance Upon arrival, pt sitting up in bed awake and alert. Co-treat with OT At end of session, pt with OT in shower. Mental Status Patient Orientation: Person, Place, Time, Eyes Open, Situation Attachments: Oxygen (2L/NC), Cope Catheter, IV Leg brace R Transfers Therapy Code Descriptions/Definitions Functional [place] Measure: 0=Not Assessed/NA 4=Minimal Assistance 1=Total Assistance 5=Supervision or Setup 2=Maximal Assistance 6=Modified [place] 3=Moderate Assistance 7=Complete [place] Therapy Quality Codes: 6 Independent with activity with or without an assistive device 5 Patient requires set up or clean up by helper. Patient completes activity by themselves 4 Supervision or touching assist (CGA). [place] provide cues , steadying assist 3 The helper provides less than half the effort to complete the activity 2 The helper provides more than half the effort to complete the activity 1 Dependent. The helper does all the effort to complete an activity 7 Patient refused to complete or attempt activity 9 The patient did not perform the activity before the current illness or injury 88 Not attempted due to Medical conditions or safety concerns Transfers (B, C, W/C) (FIM): 1 Scootin Rollin Supine to/from Sit: 4 Bed to/from Chair: 2 Sliding board transfer bed to w/c max verb inst, min to mod A of 2, increased time to perform. Sliding transfer w/c to bath bench mod to max A of 2. Also requires assist to hold RLE up. Minimal WB LLE, attempts using mostly UE's and is weak Weight Bearing Right Lower Extremity: Right Weight Bearing/Tolerated Left Lower Extremity: Left Weight Bearing/Tolerated Wheelchair Training Does the Pt Use a Wheelchair?: Yes Wheelchair (FIM): 1 Wheelchair Distance: 1=up to 49 ft Type of Wheelchair: Manual increased time to complete Treatments Co treat with OT part of session, OT 105 minutes and PT 43 minutes. Skills of 2 therapists are required for skill instruction to improve core balance, sitting dynamic balance, UE/LE strength and transfers, skin integrity and need to coordinate balance and mobility while performing ADL's. PT worked on functional transfers, LE strength, W/C mobility, sitting balance, activity tolerance while OT worked on functional transfers, UE strength and ADL's. Pt requires increased time to perform all activities, nadir surface to surface transfers with minimal WB through LLE, RLE in breace with assist to keep RLE horizontal per pt request. Mod A of 2 required during transfers, one to assist with RLE and one to assist to clear buttocks over side of w/c. Assessment Continues with weakness throughout, increased time to perform activities. PT Short Term Goals Short Term Goals Time Frame: Sep 20, 2018 Transfers (B,C,W/C) (FIM): 4 Wheelchair (FIM): 6 Wheelchair Distance: 150' PT Mcc Goals Office Machines Teacher Goals PT Office Machines Teacher Goals Time Frame: Oct 04, 2018 Transfers (B,C,W/C) (FIM): 5 Sit to Lying (QC): 4 Lying-Sitting on Side/Bed(QC): 4 Sit to Stand (QC): 4 Rollin Roll Left to Right (QC): 4 Chair/Jxr-uz-Pnoit Xfer(QC): 4 Car Transfer (QC): 3 Wheelchair (FIM): 6 Distance: 200' Wheelchair Level of Assist: 6 Wheel 50 feet with 2 turns (QC: 6 PT Plan Treatment/Plan Treatment Plan: Continue Plan of Care Treatment Plan: Bed Mobility, Concurrent Therapy, Education, Functional Activity Chevy, Functional Strength, Group Therapy, Gait, Safety, Therapeutic Exercise, Transfers Treatment Duration: Oct 04, 2018 Frequency: At least 5 of 7 days/Wk (IRF) Estimated Hrs Per Day: 1.5 hours per day Patient and/or Family Agrees t: Yes Safety Risks/Education Patient Education: Transfer Techniques, Correct Positioning, W/C Management, Reviewed Don/Doff Brace, Safety Issues Teaching Recipient: Patient Teaching Methods: Discussion Response to Teaching: Verbalize Understanding, Reinforcement Needed Time/GCodes Time In: 1005 Time Out: 1048 Total Billed Treatment Time: 43 Total Billed Treatment 1 visit, FA x2 units, WC x1 unit WILFRED CRISTOBAL MECHANICAL APPLICATIONS ENGINEER Sep 14, 2018 13:35
--- NOTE | 2018-09-14 14:09 | Wound Care Assessment ---
Wound Care Assessment Date Seen by Provider: Sep 14, 2018 Time Seen by Provider: 13:50 Chief Complaint Sacral and L calf ulcers. HPI The patient is a 57 year old female with paraplegia secondary to T4 transverse myelitis, a sacral pressure, and a neuropathic injury to L calf. The ulcer on the sacrum has been present for a year and the ulcer on the calf has been present for 3 months, per patient. She relates a 60# weight loss over the last 10 months, which she attributes to her ulcerative colitis. She has COPD and continues to smoke. Recommended to stop. Off-loads as she is able. Lesion on L calf began as a purple area, possibly traumatic. Past Medical History: Admits Deep Vein Thrombosis (On anticoagulation.) Chronic conteh catheter, paraplegia incomplete, R femur fracture with non-union. Smoking Status: Current Everyday Smoker (has COPD) Recreational Drug Use: No Alcohol Use: Denies Use Review of Systems General: No Chills HEENT: No Visual Changes, No Eye Pain Pulmonary: Dyspnea Cardiovascular: Chest Pain Gastrointestinal: No: Nausea, Abdominal Pain Genitourinary: No Dysuria Musculoskeletal: leg pain (L) Neurological: Weakness, Numbness Other systems Endocrine -- denies diabetes. Integumentary -- sacral ulcer present for over a year. Questionable off- loading. Exam Vital Signs Date Time Temp Pulse Resp B/P (MAP) Pulse Ox O2 Delivery O2 Flow Rate FiO2 09/14/18 09:00 Nasal Cannula 3.00 09/14/18 07:37 98 09/14/18 07:00 96 09/14/18 05:32 97.0 18 116/66 (83) Capillary Refill : Less Than 3 Seconds General Appearance: no apparent distress, cachetic HEENT: PERRL/EOMI (Temporal wasting) Neck: normal inspection; No carotid bruit, No thyromegaly Cardiovascular: regular rate, rhythm, no edema Respiratory: lungs clear, no respiratory distress Gastrointestinal: normal bowel sounds, non tender, no organomegaly Extremities: other (L lateral calf -- 1.4 x 1.0 x 0.2 cm, 100% exudate. Partial thickness.) Neurologic/Psychiatric: oriented x 3, abnormal gait (Non-ambulatory.), motor weakness (Paraplegia) Skin: normal color, cool, other (sacrum 2.3 x 18 x 0.2cm, 50% slough, 50% regenerating tissue, periwound macerated due to dressing.) Results Laboratory Tests 09/13/18 17:42: Glucometer 108 09/14/18 00:09: Glucometer 108 09/14/18 05:12: Glucometer 107 09/14/18 05:43: White Blood Count 9.9, Red Blood Count 4.36, Hemoglobin 13.7, Hematocrit 39, Mean Corpuscular Volume 90, Mean Corpuscular Hemoglobin 31, Mean Corpuscular Hemoglobin Concent 35, Red Cell Distribution Width 14.2, Platelet Count 149, Mean Platelet Volume 9.7, Neutrophils (%) (Auto) 73, Lymphocytes (%) (Auto) 20, Monocytes (%) (Auto) 7, Eosinophils (%) (Auto) 1, Basophils (%) (Auto) 0, Neutrophils # (Auto) 7.2, Lymphocytes # (Auto) 2.0, Monocytes # (Auto) 0.7, Eosinophils # (Auto) 0.1, Basophils # (Auto) 0.0, Prothrombin Time 37.9H, INR Comment 3.6H, Sodium Level 134L, Potassium Level 4.1, Chloride Level 98, Carbon Dioxide Level 26, Anion Gap 10, Blood Urea Nitrogen 11, Creatinine 0.55L, Estimat Glomerular Filtration Rate > 60, BUN/Creatinine Ratio 20, Glucose Level 73, Calcium Level 8.7, Corrected Calcium 9.3, Total Bilirubin 0.5, Aspartate Amino Transf (AST/SGOT) 20, Alanine Aminotransferase (ALT/SGPT) 25, Alkaline Phosphatase 39L, Total Protein 5.6L, Albumin 3.2 Assessment/Plan/Dx 1. Pressure ulcer, sacrum, unstageable, present on admission. 2. L calf ulcer, chronic, neuropathic. 3. Paraplegia, T4 incomplete, due to transverse myelitis. 4. Cachexia, with 60# weight loss. 5. Tobacco abuse, with wound healing complication. Plan: Urged to quit smoking. Off-loading of sacral area discussed at length. Carefully explained to patient that if she continues to not off-load the area, she will continue to have this wound for another year. Encouraged to increase protein intake. Dietary consult requested. The sacral area is badly macerated with foam dressing with satellite moisture injuries. Barrier cream ordered. HARJINDER MAGUIRE MD Sep 14, 2018 14:09
[2018-09-14] MEDS: ZINC OXIDE 16% OINT (BUTT PASTE) 113 GM TUBE TOP SCH ×2 (15:59→21:30)
[2018-09-14] MEDS: A & D OINT 113 GM TUBE TOP SCH (16:00)
[2018-09-14 17:29] VITALS: BP 100/63
[2018-09-14] MEDS: SIMvastatin 20 MG (ZOCOR) TAB PO SCH (21:44)
[2018-09-14] MEDS: DOCUSATE SODIUM 100 MG (COLACE) CAP PO PRN (21:44)
[2018-09-15 05:38] VITALS: BP 102/64
[2018-09-15] MEDS: LEVOTHYROXINE 125 MCG (LEVOTHROID) TABLET PO SCH (06:02)
[2018-09-15] MEDS: LEVOTHYROXINE 25 MCG (LEVOTHROID) TAB PO SCH (06:02)
[2018-09-15] MEDS: RT-ALBUTEROL/IPRATROPIUM 3 ML (DUONEB) VIAL INH SCH ×4 (06:57→19:27)
[2018-09-15] MEDS: PANTOPRAZOLE 40 MG (PROTONIX) TAB PO SCH (07:29)
[2018-09-15] MEDS: LACTOBACILLUS ACIDOPHILUS (PROBIOTIC) CAPSULE PO SCH ×3 (07:29→17:23)
[2018-09-15] MEDS: guaiFENesin (MUCINEX) 600 MG TAB PO SCH ×2 (09:46→20:01)
[2018-09-15] MEDS: SERTRALINE 100 MG (ZOLOFT) TAB PO SCH (09:46)
[2018-09-15] MEDS: risperiDONE 1 MG (RisperDAL) TAB PO SCH ×2 (09:46→20:01)
[2018-09-15] MEDS: ONDANSETRON 4 MG (ZOFRAN) ORAL DISSOLVE TAB PO PRN (09:46)
[2018-09-15] MEDS: fluCOnazole (DIFLUCAN) 100 MG TAB PO SCH (09:47)
[2018-09-15] MEDS: predniSONE 10 MG TAB PO SCH (09:47)
[2018-09-15] MEDS: POLYETHYLENE GLYCOL 17 GM (MIRALAX) PACK PO SCH ×2 (09:49→20:01)
[2018-09-15] MEDS: aCETylcysteine 20% (MUCOMYST) 30ML SOLN VIAL INH SCH ×4 (10:17→19:28)
--- NOTE | 2018-09-15 11:41 | PM&R Progress Note ---
Subjective HPI/CC On Admission Date Seen by Provider: Sep 15, 2018 Time Seen by Provider: 11:15 Chief complaint: Debility from respiratory failure and ventilation History of present illness: This is a 57-year-old white female of [facility] who was originally admitted last week for respiratory failure. She was maintained on ventilator support for several days and under Dr. Fenton's expertise she was able to be extubated without complication. 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 Her INR today is 4.2 so that will be held. Patient's does quite a bit for her at home and prior level of functioning required a great deal of help from him to transfer from wheelchair to bed and toilet and so forth. She is very weak having significant shortness of breath since COPD flare and recent ventilator support and will require inpatient rehab to optimize ADLs at home to lessen the burden on her . Pulmonology will be maintained due to high risk for respiratory insufficiency. Subjective/Events-last exam Patient is now lying on her left side to relieve pressure from her coccyx Right leg is in an immobilizer like she has had for the past 1 year INR is 3.6 yesterday so we will continue to hold Coumadin today and recheck yesterday Accu-Cheks before meals and at bedtime were discontinued Solu-Medrol is maintained for weaning down for AECOPD Wound care consult is appreciated by Dr. Yung Air mattress maintained Productive cough continues and RT maintains nebulizer treatments and Mucomyst but now it is much better and she really likes the Mucomyst Checked meds and will recheck labs in morning Conferred with RN Reviewed therapy notes Has ulcerative colitis so she cannot really take any medication for her bowels she manages it by diet and does digital stimulation for bowels Review of Systems General: Fatigue Pulmonary: Cough Objective Exam Vital Signs Vital Signs Date Time Temp Pulse Resp B/P (MAP) Pulse Ox O2 Delivery O2 Flow Rate FiO2 09/15/18 10:20 99 Nasal Cannula 2.00 09/15/18 05:38 98.4 88 20 102/64 (77) Capillary Refill : Less Than 3 Seconds General Appearance: No Apparent Distress, WD/WN, Chronically ill, Thin HEENT: PERRL/EOMI, Normal ENT Inspection, Pharynx Normal, Moist Mucous Membranes Neck: Full Range of Motion, Normal Inspection, Non Tender, Supple Respiratory: Chest Non Tender, No Accessory Muscle Use, No Respiratory Distress, Crackles, Decreased Breath Sounds Cardiovascular: Regular Rate, Rhythm, No Edema, No Gallop, No JVD, No Murmur Gastrointestinal: Normal Bowel Sounds, No Organomegaly, No Pulsatile Mass, Non Tender, Soft Back: Normal Inspection, No CVA Tenderness, No Vertebral Tenderness Extremity: Normal Capillary Refill, Normal Inspection, No Pedal Edema, Other (parplegia) Neurologic/Psychiatric: Alert, Oriented x3, Normal Mood/Affect, encapsulator II-XII Norm as Tested, Depressed Affect, Motor Weakness (paraplegia) Skin: Normal Color, Warm/Dry Lymphatic: No Adenopathy Results/Procedures Lab Patient resulted labs reviewed. FIM Transfers Therapy Code Descriptions/Definitions Functional [place] Measure: 0=Not Assessed/NA 4=Minimal Assistance 1=Total Assistance 5=Supervision or Setup 2=Maximal Assistance 6=Modified [place] 3=Moderate Assistance 7=Complete [place] Therapy Quality Codes: 6 Independent with activity with or without an assistive device 5 Patient requires set up or clean up by helper. Patient completes activity by themselves 4 Supervision or touching assist (CGA). Lynd provide cues , steadying assist 3 The helper provides less than half the effort to complete the activity 2 The helper provides more than half the effort to complete the activity 1 Dependent. The helper does all the effort to complete an activity 7 Patient refused to complete or attempt activity 9 The patient did not perform the activity before the current illness or injury 88 Not attempted due to Medical conditions or safety concerns Transfers (B, C, W/C) (FIM): 1 Scootin Rollin Roll Left to Right (QC): 4 Supine to/from Sit: 4 Sit to Lying (QC): 2 Chair/Iyc-zx-Jhwaj Xfer(QC): 2 Bed to/from Chair: 2 Car Transfer (QC): 1 Gait Training Does the Patient Walk?: No and Walking Goal NOT indicated Wheelchair Training Does the Pt Use a Wheelchair?: Yes Wheelchair (FIM): 1 Wheelchair Distance: 1=up to 49 ft Distance: 150' Wheelchair Level of Assist: 5 Wheel 50 ft with 2 turns (QC): 4 Wheel 150 ft (QC): 4 Type of Wheelchair: Manual Mental Status/Objective Comprehension: 7 Expression: 7 Social Interaction: 7 Problem Solvin Memory: 7 ADL-Treatment Feedin (set up ) Eating (QC): 5 Groomin Oral Hygiene (QC): 6 Bathin Bathing Location: L Arm, R Arm, L Upper Leg, R Upper Leg, Chest, Abdomen, Buttocks (leaning to reach), Perineal Area Shower/Bathe Self (QC): 3 Upper Extremity Dressin Upper Body Dressing (QC): 4 Lower Extremity Dressin (required TA for Ulises socks during eval. once in tx session pt education on donning/ soffing ulises socks while seated on mat. pt completed task with CGA. noted left lateral lean ) Lower Body Dressing (QC): 1 On/Off Footwear (QC): 6 Toiletin (pt required assist to complete 3/3 toileting task. ) Toileting Hygiene (QC): 1 Toilet/Commode Transfer: 1 Toilet Transfer (QC): 1 Shower: 1 Assessment/Plan Assessment and Plan Assess & Plan/Chief Complaint Assessment: Severe debility from critical illness Status post ventilator dependent respiratory failure Exacerbation of COPD Current smoker T4 paralysis from transverse myelitis in 1993 Indwelling Cope catheter for past 1 year Right femur fracture 1 year ago managed by [facility] in [place] Bowel dysfunction requiring rectal stimulation for bowel movement Thin and frail status high risk for respiratory compromise 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 Yung consult for coccyx decubitus ulcer is appreciated Maintain Cope catheter as it is chronic she previously did in and out caths before she fractured her right leg Smoking cessation (1) Debility (2) Delirium Resolution Date/Time: 09/12/18 @ 14:16 (3) DVT prophylaxis (4) Paraplegia (5) Hypothyroidism (6) Tobacco abuse (7) Acute respiratory distress (8) Anticoagulant long-term use (9) Counseling regarding end of life decision making (10) Hyponatremia Resolution Date/Time: 09/11/18 @ 16:40 (11) Leukopenia Resolution Date/Time: 09/11/18 @ 16:40 CHEVY MARTINEZ DO Sep 15, 2018 11:41
--- NOTE | 2018-09-15 11:43 | Individualized Plan of Care ---
Individualized Plan of Care Rehab Nursing IPOC Order Admission Date Sep 13, 2018 at 13:30 Current Orders Orders Admission Order(Inpt,Obs,Sdc) (09/13/18 13:01) Vital Signs: Per Unit Policy ( 08,16,00 (09/13/18 13:01) Talent Acquisition Consultant-Inpt Rehab Con (09/13/18 13:01) Rehab Nursing Orders-Ipoc (09/13/18 13:01) Physical Therapy Rehab Orders (09/13/18 13:01) Occupational Therapy Rehab Ord (09/13/18 13:01) Speech Therapy Rehab Orders (09/13/18 13:01) Intake & Output 06,14,22 (09/13/18 13:01) Precautions (Aru) (09/13/18 13:01) Weekly Weight (Lbs) WEEK (09/13/18 13:01) Rehab-Intensity Of Therapy (09/13/18 13:01) Initiate Admission Nursing Pro .admission (09/13/18 13:01) Ambulate 08,12,20 (09/13/18 14:34) Dvt/Vte Risk - Notifiy Physici 08 (09/13/18 14:34) Patient Visit (09/13/18 ) Pt Eval Moderate Complexity (09/13/18 ) Functional Activities, Ea 15 (09/13/18 ) General/Regular (09/13/18 Dinner) Mat Initiate Protocol (09/13/18 16:32) Albuterol/Ipra Inhalation Soln (Duoneb I (09/13/18 19:00) Svn Small Volume Nebulizer (09/13/18 16:32) Albuterol/Ipra Inhalation Soln (Duoneb I (09/13/18 16:45) Svn Small Volume Nebulizer (09/13/18 16:32) Patient Visit (09/13/18 ) Speech Sound Lang Comp (09/13/18 ) Code/Resuscitation (09/13/18 16:58) Heel Protectors Bilateral (09/13/18 16:58) Initiate Admission Nursing Pro .admission (09/13/18 16:58) Oxygen-Administer 07,19 (09/13/18 16:58) Sequential Compression Device 08,20 (09/13/18 16:58) Skin Integrity Checks (09/13/18 16:58) General/Regular (09/14/18 Breakfast) (Nf) Alendronate Sodium (09/19/18 17:00) Acetylcysteine (Rt Or Po Use) (Mucomyst (09/13/18 18:00) Albuterol/Ipra Inhalation Soln (Duoneb I (09/13/18 17:00) Baclofen Tablet (Lioresal Tablet) (09/13/18 17:00) Fluconazole Tablet (Diflucan Tablet) (09/14/18 08:00) Lactobacillus Acidophilus Cap (Acidophil (09/13/18 17:00) Levothyroxine Tablet (Synthroid Tablet) (09/14/18 06:30) Levothyroxine Tablet (Synthroid Tablet) (09/14/18 06:30) Prednisone Tablet (Deltasone Tablet) (09/14/18 09:00) Sertraline Tablet (Zoloft Tablet) (09/14/18 09:00) Simvastatin Tablet (Zocor Tablet) (09/13/18 21:00) Sodium Chloride Flush (Catheter Flush Sy (09/13/18 17:00) Warfarin Tablet (Coumadin Tablet) (09/13/18 18:00) Guaifenesin Tablet (Mucinex Tablet) (09/13/18 21:00) Insulin Aspart (Novolog) (Novolog (Charg (09/13/18 18:00) Morphine Injection (Morphine Injection (09/13/18 17:00) Risperidone Tablet (Risperdal Tablet) (09/13/18 21:00) Consult Pulmonology (09/13/18 16:58) Dietary Consult (09/13/18 16:58) Svn Small Volume Nebulizer (09/13/18 16:58) Svn Small Volume Nebulizer (09/13/18 16:58) Pantoprazole Tablet (Protonix Tablet) (09/14/18 07:00) Air Mattress - Central Supply (09/13/18 16:58) Cbc With Automated Diff (09/14/18 06:00) Comprehensive Metabolic Panel (09/14/18 06:00) Protime With Inr (09/14/18 06:00) Consult Wound Care Physician (09/13/18 16:58) Acetaminophen Tablet (Tylenol Tablet) (09/13/18 17:00) Alprazolam Tablet (Xanax Tablet) (09/13/18 17:00) Calcium Carbonate Chew Tablet (Antacid C (09/13/18 17:00) Diphenhydramine Tablet (Benadryl Tablet) (09/13/18 17:00) Docusate Sodium Capsule (Colace Capsule) (09/13/18 17:00) Loperamide Tablet (Imodium Tablet) (09/13/18 17:00) Hydrocodone/Apap 5/325 Tablet (Lortab 5 (09/13/18 17:00) Polyethylene Glycol Powder Pkt (Miralax (09/13/18 21:00) Ondansetron Injection (Zofran Injectio (09/13/18 17:00) Ondansetron Oral Dissolve Tab (Zofran (09/13/18 17:00) Guaifenesin/Codeine Syrup (Robitussin Ac (09/13/18 17:00) Melatonin Tablet (Melatonin Tablet) (09/13/18 17:00) Pharmacy Consult/Message (09/13/18 17:04) Nursing Communication (Order) (09/13/18 17:04) Acetylcysteine (Rt Or Po Use) (Mucomyst (09/14/18 11:00) Patient Visit (09/14/18 ) Functional Activities, Ea 15 (09/14/18 ) Wheelchair Mgmt/Propulsn 15min (09/14/18 ) Advanced Wound Care Dressing O TID (09/14/18 14:15) Advanced Wound Care Dressing O DAILY (09/14/18 14:18) Zinc Oxide 16% Ointment (Butt Paste) (09/14/18 21:00) Vitamin A & D Ointment (A & D Ointment) (09/15/18 09:00) Protime With Inr (09/16/18 06:00) Rehab Nursing Orders: Ongoing Assess. of Function Status, Bladder Management, Bladder Scan, Bladder Training, Bowel Management, Bowel Training, Disease Management & Educaiton, DVT Prophylaxis, Fluid/Electrolyte/Nutrition Mgmt, Medication Management & Education, Management of Risks & Complications, Management of Skin Intergrity, Nutrition Management, Pain Management, Patient/Family Support, Safety Management Intensity of Therapy to be met Patient to be seen: Min.3h per day/5 of 7d PT IPOC Problem List: Activity Tolerance, Functional Strength, Safety, Balance, Transfer, Bed Mobility, ROM Treatment Plan: Continue Plan of Care Bed Mobility, Concurrent Therapy, Education, Functional Activity Chevy, Functional Strength, Group Therapy, Gait, Safety, Therapeutic Exercise, Transfers Treatment Duration: Oct 04, 2018 Frequency: At least 5 of 7 days/Wk (IRF) Estimated Hrs Per Day: 1.5 hours per day OT IPOC Problems: Decreased UE Strength, Impaired Coordination, Impaired Funct Balance, Impaired Self-Care Skills OT Treatment, Training and Edu: Yes OT Problems pt presents with functional limitations affecting areas of ADLs and functional transfers. pt would benefit from skilled OT Services to increase independence with ADLS/ functional transfers. Plan of Care: ADL Retraining, Caregiver Training, Concurrent Therapy, Functional Mobility, Group Exercise/Act as Ind, UE Funct Exercise/Act, W/C Management Training Treatment Duration: Oct 11, 2018 Frequency: At least 5 of 7 days/Wk (IRF) Estimated Hrs Per Day: 1 hour per day (60-90 minutes per day) ST IPOC Speech Therapy Treatment Plan: Discontinue ST Treatment Duration: Sep 13, 2018 Frequency: 1 time per week Estimated Hrs Per Day: .25 hour per day Talent Acquisition Consultant/Case Mgmt Talent Acquisition Consultant/Case Managemen: Discharge Planning Dietitian/Cancer Researcher Dietitian/Cancer Researcher to monitor nutritional status and make changes and/or recommendations as needed and work with speech pathology on dietary upgrades as the occur. Physician IPOC Medical Issues being managed closely and that require the 24 hour availability of a physician: Warfarin coagulopathy will require close INR checks along with maintenance of Cope catheter for urinary retention transitioning to an and out catheters and bowel regimen the use of digital stimulation due to paraplegia and recent ventilator dependent respiratory failure will require close monitoring and Mucomyst nebulizer treatments to prevent respiratory distress Medical Issues: Bowel/Bladder Function, DVT Prophylaxis, Falls Precautions, Fluid/Electrolyte/Nutrition Balance, Infection Protection, Pain Management, Wound Care Brief Synthesis of Preadmission Screen, Post-Admission Evaluation, and Therapy Evaluations: Physical therapy will focus on range of motion and transfers in order to 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
[2018-09-15] MEDS: ZINC OXIDE 16% OINT (BUTT PASTE) 113 GM TUBE TOP SCH ×2 (12:30→20:01)
--- NOTE | 2018-09-15 14:08 | NUR ---
Spoke w pt re: nutrition/protein/wt loss. Pt states that she has lost approx 60# in the last year. Feels like she gags when she eats, & nausea. Pt states that she mostly drinks coffee, & Blue Powerade at home. Doesn't like the foods that she used to. Pt did agree to eat a yogurt parfait, & cheese & crackers. Also ordered protein jellos, puddings for pt, which she said that she would try also. Pt eating parfait now, & drinking powerade. Remainder of foods placed in frig w pt name for later.
[2018-09-15 18:21] VITALS: BP 98/52
[2018-09-15] MEDS: DOCUSATE SODIUM 100 MG (COLACE) CAP PO PRN (20:00)
[2018-09-15] MEDS: SIMvastatin 20 MG (ZOCOR) TAB PO SCH (20:01)
[2018-09-16 05:43] VITALS: BP 111/55
[2018-09-16] MEDS: LEVOTHYROXINE 25 MCG (LEVOTHROID) TAB PO SCH (06:17)
[2018-09-16] MEDS: LEVOTHYROXINE 125 MCG (LEVOTHROID) TABLET PO SCH (06:18)
[2018-09-16 06:21] LABS: BASOPHILS % (AUTO) 0 % (0-10); EOSINOPHILS % (AUTO) 1 % (0-10); HEMATOCRIT 37 % (35-52); HEMOGLOBIN 12.4 G/DL (11.5-16.0); LYMPHOCYTES # (AUTO) 1.5 X 10^3 (1.0-4.0); LYMPHOCYTES % (AUTO) 24 % (12-44); MEAN CORPUSCULAR HEMOGLOBIN 31 PG (25-34); MEAN CORPUSCULAR HGB CONC 34 G/DL (32-36); MEAN CORPUSCULAR VOLUME 92 FL (80-99); MEAN PLATELET VOLUME 9.9 FL (7.4-10.4); MONOCYTES # (AUTO) 0.5 X 10^3 (0.0-1.0); MONOCYTES % (AUTO) 7 % (0-12); NEUTROPHILS # (AUTO) 4.5 X 10^3 (1.8-7.8); NEUTROPHILS % (AUTO) 69 % (42-75); PLATELET COUNT 164 10^3/uL (130-400); RED CELL DISTRIBUTION WIDTH 14.3 % (10.0-14.5); WHITE BLOOD COUNT 6.5 10^3/uL (4.3-11.0)
[2018-09-16 06:31] LABS: INR 1.4 (0.8-1.4); PROTHROMBIN TIME PATIENT 17.3 SEC (12.2-14.7)
[2018-09-16] MEDS: aCETylcysteine 20% (MUCOMYST) 30ML SOLN VIAL INH SCH ×4 (06:39→21:01)
[2018-09-16] MEDS: RT-ALBUTEROL/IPRATROPIUM 3 ML (DUONEB) VIAL INH SCH ×4 (06:39→21:01)
[2018-09-16 06:45] LABS: ALANINE AMINOTRANSFERASE 23 U/L (0-55); ALKALINE PHOSPHATASE 44 U/L (40-136); BILIRUBIN,TOTAL 0.4 MG/DL (0.1-1.0); BUN/CREATININE RATIO 21; CARBON DIOXIDE 27 MMOL/L (21-32); CHLORIDE 98 MMOL/L (98-107); CREATININE SERUM 0.61 MG/DL (0.60-1.30); GFR ESTIMATED > 60; GLUCOSE 87 MG/DL (70-105); POTASSIUM 4.1 MMOL/L (3.6-5.0); SODIUM 133 MMOL/L (135-145); TOTAL PROTEIN 5.2 GM/DL (6.4-8.2)
[2018-09-16] MEDS: LACTOBACILLUS ACIDOPHILUS (PROBIOTIC) CAPSULE PO SCH ×3 (07:02→17:45)
[2018-09-16] MEDS: ONDANSETRON 4 MG (ZOFRAN) ORAL DISSOLVE TAB PO PRN (07:02)
[2018-09-16] MEDS: PANTOPRAZOLE 40 MG (PROTONIX) TAB PO SCH (07:02)
[2018-09-16] MEDS ORDERED: WARF6TAB49 PO (08:22)
[2018-09-16] MEDS ORDERED: WARF-47 PO (08:22)
[2018-09-16] MEDS ORDERED: ALBU2.5V4 NEB (08:22)
--- NOTE | 2018-09-16 08:22 | NUR ---
Pt states that it has been 35 years that she hasn't been able to walk, had DVT of bilat legs 15 years ago, been on Coumadin since.
[2018-09-16] MEDS: fluCOnazole (DIFLUCAN) 100 MG TAB PO SCH (08:23)
[2018-09-16] MEDS: guaiFENesin (MUCINEX) 600 MG TAB PO SCH ×2 (08:24→22:14)
[2018-09-16] MEDS: risperiDONE 1 MG (RisperDAL) TAB PO SCH ×2 (08:24→22:15)
[2018-09-16] MEDS: SERTRALINE 100 MG (ZOLOFT) TAB PO SCH (08:24)
[2018-09-16] MEDS: predniSONE 10 MG TAB PO SCH (08:24)
--- NOTE | 2018-09-16 08:25 | NUR ---
REVIEWED MED REC IT WAS REPORTED UPON ADMISSION TO 4TH FLOOR. NOTE THE FOLLOWING CHANGES WERE MADE WHEN THE PATIENT DISCHARGED TO REHAB THAT ARE NOT CURRENTLY REFLECTED ON THE HOME MED REC: START TAKING: FLUCONAZOLE 100MG DAILY #14 GUAIFENESIN 600MG BID DUONEB Q4H LACTOBACILLUS 2 TID WITH MEALS PREDNISONE 10MG 6 TABS DAILY DECREASE BY 1 EVERY OTHER DAY #42 WARFARIN 5MG DAILY START 09-14-18 STOP TAKING: ALBUTEROL 2.5MG NEBS Q8H CEFDINIR 300MG BID 7 DAY FILLED 08-30-18 WARFARIN 2MG 7MG WARFARIN 2MG 6MG MO Sun I REMOVED THE 5 NEW MEDICATIONS AND ADDED BACK THE ALBUTEROL, AND TWO WARFARIN STRINGS TO THE MED REC AT THIS TIME SO PROPER DISCHARGE HOME ORDERS CAN BE ENTERED. I DID NOT ADD BACK THE ANTIBIOTIC.
[2018-09-16] MEDS: ZINC OXIDE 16% OINT (BUTT PASTE) 113 GM TUBE TOP SCH ×3 (08:27→22:27)
[2018-09-16] MEDS: POLYETHYLENE GLYCOL 17 GM (MIRALAX) PACK PO SCH ×2 (08:28→22:22)
[2018-09-16] MEDS: A & D OINT 113 GM TUBE TOP SCH (08:28)
--- NOTE | 2018-09-16 09:02 | PM&R Progress Note ---
Subjective HPI/CC On Admission Date Seen by Provider: Sep 16, 2018 Time Seen by Provider: 09:00 Chief complaint: Debility from respiratory failure and ventilation History of present illness: This is a 57-year-old white female of [facility] who was originally admitted last week for respiratory failure. She was maintained on ventilator support for several days and under Dr. Fenton's expertise she was able to be extubated without complication. 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 Her INR today is 4.2 so that will be held. Patient's does quite a bit for her at home and prior level of functioning required a great deal of help from him to transfer from wheelchair to bed and toilet and so forth. She is very weak having significant shortness of breath since COPD flare and recent ventilator support and will require inpatient rehab to optimize ADLs at home to lessen the burden on her . Pulmonology will be maintained due to high risk for respiratory in sufficiency. Subjective/Events-last exam INR is 1.4 so will initiate Lovenox bridge of 40 mg subcutaneous Q12 hours in addition to restarting Coumadin Nicotine patch is requested Labs are okay all reviewed sodium level 133 Cope catheter will be maintained until she is able to bend her right leg that had a femur fracture and she has been immobilizer and that will be discontinued in three weeks so that way she can do her own catheterizations Eating very well considering her 60 pound weight loss she has a lot more to go Weaning oxygen off during the day cause she uses it at night chronically Checked meds and labs Conferred with RN Reviewed therapy notes Review of Systems General: Fatigue Pulmonary: Dyspnea, Cough Objective Exam Vital Signs Vital Signs Date Time Temp Pulse Resp B/P (MAP) Pulse Ox O2 Delivery O2 Flow Rate FiO2 09/16/18 15:43 97.6 91 16 92/54 (67) 97 Nasal Cannula 3.00 Capillary Refill : Less Than 3 Seconds General Appearance: No Apparent Distress, WD/WN, Chronically ill, Thin HEENT: PERRL/EOMI, Normal ENT Inspection, Pharynx Normal, Moist Mucous Membranes Neck: Full Range of Motion, Normal Inspection, Non Tender, Supple Respiratory: Chest Non Tender, Lungs Clear, No Accessory Muscle Use, No Respiratory Distress, Decreased Breath Sounds Cardiovascular: Regular Rate, Rhythm, No Edema, No Gallop, No JVD, No Murmur Gastrointestinal: Normal Bowel Sounds, No Organomegaly, No Pulsatile Mass, Non Tender, Soft Back: Normal Inspection, No CVA Tenderness, No Vertebral Tenderness Extremity: Normal Capillary Refill, Normal Inspection, No Pedal Edema, Other (parplegia) Neurologic/Psychiatric: Alert, Oriented x3, Normal 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 FIM Transfers Therapy Code Descriptions/Definitions Functional [place] Measure: 0=Not Assessed/NA 4=Minimal Assistance 1=Total Assistance 5=Supervision or Setup 2=Maximal Assistance 6=Modified [place] 3=Moderate Assistance 7=Complete [place] Therapy Quality Codes: 6 Independent with activity with or without an assistive device 5 Patient requires set up or clean up by helper. Patient completes activity by themselves 4 Supervision or touching assist (CGA). [place] provide cues , steadying assist 3 The helper provides less than half the effort to complete the activity 2 The helper provides more than half the effort to complete the activity 1 Dependent. The helper does all the effort to complete an activity 7 Patient refused to complete or attempt activity 9 The patient did not perform the activity before the current illness or injury 88 Not attempted due to Medical conditions or safety concerns Transfers (B, C, W/C) (FIM): 1 Scootin Rollin Roll Left to Right (QC): 4 Supine to/from Sit: 4 Sit to Lying (QC): 2 Chair/Jwq-kf-Ckzbw Xfer(QC): 2 Bed to/from Chair: 2 Car Transfer (QC): 1 Gait Training Does the Patient Walk?: No and Walking Goal NOT indicated Wheelchair Training Does the Pt Use a Wheelchair?: Yes Wheelchair (FIM): 1 Wheelchair Distance: 1=up to 49 ft Distance: 150' Wheelchair Level of Assist: 5 Wheel 50 ft with 2 turns (QC): 4 Wheel 150 ft (QC): 4 Type of Wheelchair: Manual Mental Status/Objective Comprehension: 7 Expression: 7 Social Interaction: 7 Problem Solvin Memory: 7 ADL-Treatment Feedin (set up ) Eating (QC): 5 Groomin Oral Hygiene (QC): 6 Bathin Bathing Location: L Arm, R Arm, L Upper Leg, R Upper Leg, Chest, Abdomen, Buttocks (leaning to reach), Perineal Area Shower/Bathe Self (QC): 3 Upper Extremity Dressin Upper Body Dressing (QC): 4 Lower Extremity Dressin (required TA for Ulises socks during eval. once in tx session pt education on donning/ soffing ulises socks while seated on mat. pt completed task with CGA. noted left lateral lean ) Lower Body Dressing (QC): 1 On/Off Footwear (QC): 6 Toiletin (pt required assist to complete 3/3 toileting task. ) Toileting Hygiene (QC): 1 Toilet/Commode Transfer: 1 Toilet Transfer (QC): 1 Shower: 1 Assessment/Plan Assessment and Plan Assess & Plan/Chief Complaint Assessment: Severe debility from critical illness Status post ventilator dependent respiratory failure Exacerbation of COPD now on steroid taper Current smoker T4 paralysis from transverse myelitis in 1993 Indwelling Cope catheter for past 1 year Right femur fracture 1 year ago managed by [facility] in [facility] immobilizer in 3 weeks Bowel dysfunction requiring rectal stimulation for bowel movement Thin and frail status high risk for respiratory compromise 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 Yung consult for coccyx decubitus ulcer is appreciated Maintain Cope catheter as it is chronic she previously did in and out caths before she fractured her right leg and will resume this in 3 weeks Smoking cessation (1) Debility (2) Delirium Resolution Date/Time: 09/12/18 @ 14:16 (3) DVT prophylaxis (4) Paraplegia (5) Hypothyroidism (6) Tobacco abuse (7) Acute respiratory distress (8) Anticoagulant long-term use (9) Counseling regarding end of life decision making (10) Hyponatremia Resolution Date/Time: 09/11/18 @ 16:40 (11) Leukopenia Resolution Date/Time: 09/11/18 @ 16:40 CHEVY MARTINEZ DO Sep 16, 2018 09:02
--- NOTE | 2018-09-16 10:02 | Physical Therapy Daily Note ---
PT Daily Note-Current Subjective Patient in bed pre tx, agrees to PT, has no complaints of pain at rest. Patient is in an air bed that does not have controls on the inside and she cannot position it herself, she would like to, nurse notified. Patient needs to get dressed and she does so with min assist for lowers. She is able to get her bra and shirt on herself. Patient privacy maintained. Appearance Patient in wheelchair at bedside post tx, has nurse call, phone, tray, all needs met. Patient has OT right after PT. Mental Status Patient Orientation: Person, Place, Situation Attachments: Cope Catheter computer recycling worker called doctor and she is allowed to take her knee immobilizer off and stretch knee, she has a contracture and can only flex her right knee to about 20 degrees. Transfers Therapy Code Descriptions/Definitions Functional Mobile Measure: 0=Not Assessed/NA 4=Minimal Assistance 1=Total Assistance 5=Supervision or Setup 2=Maximal Assistance 6=Modified Mobile 3=Moderate Assistance 7=Complete Mobile Therapy Quality Codes: 6 Independent with activity with or without an assistive device 5 Patient requires set up or clean up by helper. Patient completes activity by themselves 4 Supervision or touching assist (CGA). [place] provide cues , steadying assist 3 The helper provides less than half the effort to complete the activity 2 The helper provides more than half the effort to complete the activity 1 Dependent. The helper does all the effort to complete an activity 7 Patient refused to complete or attempt activity 9 The patient did not perform the activity before the current illness or injury 88 Not attempted due to Medical conditions or safety concerns Transfers (B, C, W/C) (FIM): 3 Scootin Rollin Supine to/from Sit: 5 Bed to/from Chair: 3 Sliding board transfer mod assist. Weight Bearing Right Lower Extremity: Right Weight Bearing/Tolerated Left Lower Extremity: Left Weight Bearing/Tolerated Wheelchair Training Does the Pt Use a Wheelchair?: Yes Wheelchair (FIM): 6 Distance: 150'x2 Type of Wheelchair: Manual Exercises right knee flexion manual stretching and knee joint mobilization, bilateral ankle stretching, UE bicep curls and vertical press with 3# weights Treatments UE exercise, transfers, dressing, wheelchair mobility, stretching Assessment Current Status: Fair Progress Patient has right knee contracture. PT Short Term Goals Short Term Goals Time Frame: Sep 20, 2018 Transfers (B,C,W/C) (FIM): 4 Wheelchair (FIM): 6 Wheelchair Distance: 150' PT Water Maintenance Supervisor Goals Mcc Goals PT Water Maintenance Supervisor Goals Time Frame: Oct 04, 2018 Transfers (B,C,W/C) (FIM): 5 Sit to Lying (QC): 4 Lying-Sitting on Side/Bed(QC): 4 Sit to Stand (QC): 4 Rollin Roll Left to Right (QC): 4 Chair/Arq-of-Yddsr Xfer(QC): 4 Car Transfer (QC): 3 Wheelchair (FIM): 6 Distance: 200' Wheelchair Level of Assist: 6 Wheel 50 feet with 2 turns (QC: 6 PT Plan Problem List Problem List: Activity Tolerance, Functional Strength, Safety, Balance, Transfer, Bed Mobility, ROM Treatment/Plan Treatment Plan: Continue Plan of Care Treatment Plan: Bed Mobility, Concurrent Therapy, Education, Functional Activity Chevy, Functional Strength, Group Therapy, Gait, Safety, Therapeutic Exercise, Transfers Treatment Duration: Oct 04, 2018 Frequency: At least 5 of 7 days/Wk (IRF) Estimated Hrs Per Day: 1.5 hours per day Patient and/or Family Agrees t: Yes Safety Risks/Education Patient Education: Transfer Techniques, Correct Positioning, W/C Management, Safety Issues Teaching Recipient: Patient Teaching Methods: Demonstration, Discussion Response to Teaching: Reinforcement Needed Time/GCodes Time In: 0900 Time Out: 1000 Total Billed Treatment Time: 60 Total Billed Treatment 1 visit [facility] 10' EX 20' FA 30' ANA M MCGUIRE PT Sep 16, 2018 10:02
--- NOTE | 2018-09-16 10:50 | NUR ---
Pastoral care visit.
[2018-09-16] MEDS: ENOXAPARIN 40 MG/0.4 ML (LOVENOX) SYR SC SCH ×2 (12:25→22:17)
--- NOTE | 2018-09-16 12:54 | Occupational Ther Daily Note ---
OT Current Status-Daily Note Subjective Pt alert, finishing up with PT. Pt agrees to therapy. No c/o pain. Mental Status/Objective Patient Orientation: Person, Place, Time, Situation Therapy Code Descriptions/Definitions Functional [place] Measure: 0=Not Assessed/NA 4=Minimal Assistance 1=Total Assistance 5=Supervision or Setup 2=Maximal Assistance 6=Modified [place] 3=Moderate Assistance 7=Complete [place] Attachments: IV, Oxygen ADL-Treatment Pt declines shower today. Pt takes increased time to complete all tasks. Pt completed grooming and sponge bath at sink by self. Propelled w/c to therapy gym. Arm bike completed 15 min duration at 20 davis resistance with no breaks to increase strength and activity tolerance. Then completed resistive clothes pins (50 each hand) to increase combiner and pinch strength for fine motor tasks. Attempted to get pt to lay down so that pt could get pressure of buttocks, pt declined stating that she wanted to let R knee bend. After therapy, pt sitting in w/c with call light/phone in reach. All needs met in room. Therapy Code Descriptions/Definitions Functional [place] Measure: 0=Not Assessed/NA 4=Minimal Assistance 1=Total Assistance 5=Supervision or Setup 2=Maximal Assistance 6=Modified [place] 3=Moderate Assistance 7=Complete [place] Therapy Quality Codes: 6 Independent with activity with or without an assistive device 5 Patient requires set up or clean up by helper. Patient completes activity by themselves 4 Supervision or touching assist (CGA). [place] provide cues , steadying assist 3 The helper provides less than half the effort to complete the activity 2 The helper provides more than half the effort to complete the activity 1 Dependent. The helper does all the effort to complete an activity 7 Patient refused to complete or attempt activity 9 The patient did not perform the activity before the current illness or injury 88 Not attempted due to Medical conditions or safety concerns OT Short Term Goals Short Term Goals Eating(FIM): 6 Grooming(FIM): 5 Bathing(FIM): 5 Upper Body Dressing(FIM): 5 Lower Body Dressing(FIM): 5 Toileting(FIM): 5 Transfers (B,C,W/C) (FIM): 4 Toilet/Commode Transfer(FIM): 4 Tub Transfer(FIM): 4 Shower Transfer(FIM): 4 Additional Short Term Goals: 1-Demonstrate ADL Tasks, 2-Verbalize Understanding, 3-ImproveStrength/Chevy 1=Demonstrate adherence to instructed precautions during ADL tasks. 2=Patient will verbalize/demonstrate understanding of assistive devices/modifications for ADL. 3=Patient will improve strength/tolerance for activity to enable patient to perform ADL's. OT Data Administrator Goals Data Administrator Goals Time Frame: Oct 11, 2018 Eating (FIM): 7 Eating (QC): 6 Groomin Oral Hygiene (QC): 6 Bathing(FIM): 6 Bathing Location: L Arm, R Arm, L Upper Leg, R Upper Leg, L Lower Leg (including foot), R Lower Leg (including foot), Chest, Abdomen, Buttocks, Perineal Area Shower/Bathe Self (QC): 6 Upper Body Dressing(FIM): 7 Upper Body Dressing (QC): 6 Lower Body Dressing(FIM): 6 Lower Body Dressing (QC): 6 On/Off Footwear (QC): 6 Toileting(FIM): 6 Toileting Hygiene (QC): 6 Transfers (B,C,W/C) (FIM): 6 Toilet/Commode Transfer(FIM): 6 Toilet/Commode Transfer (QC): 6 Tub Transfer(FIM): 6 Shower Transfer(FIM): 6 Additional Goals: 1-Demonstrate ADL Tasks, 2-Verbalize Understanding, 3- ImproveStrength/Chevy 1=Demonstrate adherence to instructed precautions during ADL tasks. 2=Patient will verbalize/demonstrate understanding of assistive devices/modifications for ADL. 3=Patient will improve strength/tolerance for activity to enable patient to perform ADL's. OT Education/Plan Problem List/Assessment Assessment: Decreased UE Strength, Impaired Coordination, Impaired Funct Balance, Impaired Self-Care Skills pt presents with functional limitations affecting areas of ADLs and functional transfers. pt would benefit from skilled OT Services to increase independence with ADLS/ functional transfers. Discharge Recommendations Plan/Recommendations: Continue POC Treatment Plan/Plan of Care Patient would benefit from OT for education, treatment and training to promote independence in ADL's, mobility, safety and/or upper extremity function for ADL's. Plan of Care: ADL Retraining, Caregiver Training, Concurrent Therapy, Functional Mobility, Group Exercise/Act as Ind, UE Funct Exercise/Act, W/C Management Training Treatment Duration: Oct 11, 2018 Frequency: At least 5 of 7 days/Wk (IRF) Estimated Hrs Per Day: 1 hour per day (60-90 minutes per day) Agreement: Yes Rehab Potential: Fair Time/GCodes Start Time: 10:00 Stop Time: 11:30 Total Time Billed (hr/min): 90 Billed Treatment Time 1 visit-ADL 4 (60 min) EX 2 (30 min) MACARIO BAUTISTA Sep 16, 2018 12:54
--- NOTE | 2018-09-16 14:31 | NUR ---
FANCY WIRE DRAWER met with patient to complete initial assessment. Patient was alert and oriented and agreeable to assessment. 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 Prior to current hospitalization patient spouse reside in a one level home in [place], [place]. The home is entry level management. She currently presents with paraplegia secondary to transverse myelitis from 1993 and right femur fracture from approximately one year ago. Conservative therapy ordered for femur fracture by ARPAN Varela at Dr. Myles's office. Patient and therapy were unsure on restrictions, FANCY WIRE DRAWER clarified with Shane Urbina, he states there are no restrictions at this time. Patient spouse have adapted well to conditions. Prior to hospitalization, patient reports independence with toilet transfers and dressing and grooming in bed. Patient reports spouse assisted with showering. Spouse also performs all household activities. Patient utilizes a manual wheelchair, tub shower transfer bench, welding machine operator thermit, nebulizer and 3 L continuous oxygen. Patient requests FANCY WIRE DRAWER to locate pricing for new tub shower transfer bench and to determine if patient qualifies for hospital bed. Primary contact identified as spouse, Richard at [phone], Richard works aircraft time clerk days. Secondary contact identified as sister, Amy Pinon of [place], [place] at [phone] or son, [place] who resides within 4 miles. Patient also reports being close neighbors and can rely on them for assistance. Insurance verified as Medicare and Blue Cross Medicare supplement with [employer] prescription coverage. Preferred pharmacy listed as [facility]. FANCY WIRE DRAWER reviewed typical ARU length of stay and weekly team conferences. Patient is hopeful discharge home by September 21. FANCY WIRE DRAWER will continue to follow for additional needs.
--- NOTE | 2018-09-16 14:59 | Therapy Group Daily Note ---
Therapy Daily Group Note Patient Education Topic Other List Below (TRF skills) Exercises LE Seated Exercise, UE Exercise Session Ratio (pt:therapist): 3:1 Goal of Session: Safety with Transfers Goal Met for this Session: Yes Pt Benefit of Group: Increased Functional Safety, Increased Functional Strength, Socialization Other/Notes Pt. participated in group PT OT session this date. Pt. was social, shared her name and what her first childhood job was . Pts enjoyed visiting and laughed at each others short stories. Pts were lead through U&L extremity exercises as well as vocalization and annunciation, oral motor exercises. TRF techniques and safety were demonstrated for bed mob, sup to sit, sit to stand and equipment used for each if needed. Pt. to room after group with assist to bed, call rosado at side Start Time: 13:00 Stop Time: 14:15 Total Billed Treatment Time: 75 Total Billed Treatment 1,GRP MARIANGEL HENNING WOOL MERCHANT Sep 16, 2018 14:59
[2018-09-16 15:43] VITALS: BP 92/54
--- NOTE | 2018-09-16 15:59 | Pulmonary Progress Note ---
Subjective Time Seen by a Provider: 08:03 Subjective/Events-last exam Pt is doing better. Sepsis Event Evaluation Height, Weight, BMI Height: 5'6.00" Weight: 113lbs. 6.0oz. [id number]; 16.9 BMI Method:Stated Exam Exam Vital Signs Date Time Temp Pulse Resp B/P (MAP) Pulse Ox O2 Delivery O2 Flow Rate FiO2 09/16/18 15:43 97.6 91 16 92/54 (67) 97 Nasal Cannula 3.00 09/16/18 14:44 98 High Flow N/C 3.00 09/16/18 11:25 98 High Flow N/C 2.00 09/16/18 08:42 Nasal Cannula 3.00 09/16/18 06:39 84 99 09/16/18 06:39 99 High Flow N/C 3.00 09/16/18 05:43 98.2 93 18 111/55 (73) 100 Nasal Cannula 3.00 09/15/18 21:00 Nasal Cannula 3.00 09/15/18 19:28 97 Nasal Cannula 3.00 09/15/18 18:21 99.2 82 20 98/52 (67) 98 Nasal Cannula 3.00 I & O 09/16/18 07:00 Intake Total 1000 ml Output Total 2050 ml Balance -1050 ml Height & Weight Height: 5'6.00" Weight: 113lbs. 6.0oz. 51.383024vi; 16.9 BMI Method:Stated General Appearance: No Apparent Distress, WD/WN, Chronically ill, Thin HEENT: PERRL/EOMI, Normal ENT Inspection, Pharynx Normal, Moist Mucous Membranes Neck: Full Range of Motion, Normal Inspection, Non Tender, Supple Respiratory: Chest Non Tender, No Accessory Muscle Use, No Respiratory Distress, Crackles, Decreased Breath Sounds Cardiovascular: Regular Rate, Rhythm, No Edema, No Gallop, No JVD, No Murmur Gastrointestinal: normal bowel sounds, non tender, no organomegaly Extremity: Normal Capillary Refill, Normal Inspection, No Pedal Edema, Other (parplegia) Neurologic/Psychiatric: Alert, Oriented x3, Normal Mood/Affect, rock climbing team member II-XII Norm as Tested, Depressed Affect, Motor Weakness (paraplegia) Skin: Normal Color, Warm/Dry Lymphatic: No Adenopathy Results Lab Laboratory Tests 09/16/18 05:25 7/1/19 05:35 Assessment/Plan Assessment/Plan Acute on chronic respiratory failure COPDAE with PNA (Uses 3 liters of oxygen at home) with mucous plugs -Pt feels much improved after bronchoscopy - she states she can take a deeper breath. -Oxygen -Q4 Duonebs -ABG - C02 41 Tobacco use -Education Paraplegia secondary to hx of transverse myelitis (wheelchair bound) Hx of multiple DVTs -chronic anticoagulation hx hypothyroid JAYLA CUELLAR DO Sep 16, 2018 15:59
[2018-09-16] MEDS: warFARin 5 MG (COUMADIN) TAB PO SCH (17:45)
--- NOTE | 2018-09-16 19:22 | NUR ---
bedside report received from JOY MOORE, assume care of pt
--- NOTE | 2018-09-16 21:00 | NUR ---
assessments and interventions completed, see assessments & interventions, remains up in w/c, transfers with slide board & 2 staff members
[2018-09-16] MEDS: BACLOFEN 10 MG (LIORESAL) TAB PO SCH (22:15)
[2018-09-16] MEDS: SIMvastatin 20 MG (ZOCOR) TAB PO SCH (22:15)
--- NOTE | 2018-09-16 22:15 | NUR ---
refused miralax, assisted to bathroom for bowel prep that pt does herself
--- NOTE | 2018-09-16 22:30 | NUR ---
had small stool assisted into bed with slide board & 2 staff members
[2018-09-17 05:25] VITALS: BP 123/77
[2018-09-17] MEDS: LEVOTHYROXINE 25 MCG (LEVOTHROID) TAB PO SCH (07:08)
[2018-09-17] MEDS: LEVOTHYROXINE 125 MCG (LEVOTHROID) TABLET PO SCH (07:08)
[2018-09-17] MEDS: LACTOBACILLUS ACIDOPHILUS (PROBIOTIC) CAPSULE PO SCH ×3 (07:09→17:42)
[2018-09-17] MEDS: PANTOPRAZOLE 40 MG (PROTONIX) TAB PO SCH (07:09)
--- NOTE | 2018-09-17 07:25 | NUR ---
bedside report given to ALEXA MOORE
[2018-09-17] MEDS: aCETylcysteine 20% (MUCOMYST) 30ML SOLN VIAL INH SCH ×4 (07:31→19:53)
[2018-09-17] MEDS: RT-ALBUTEROL/IPRATROPIUM 3 ML (DUONEB) VIAL INH SCH ×4 (07:32→19:46)
--- NOTE | 2018-09-17 08:00 | NUR ---
STATES "SLEPT TERRIBLE BECAUSE THEY WERE CLEANING MY ROOM AT 0230". STATES BOTTOM SORER TODAY BECAUSE OF ALL THE TRANSFERRING BACK AND FORTH ON SLIDE BOARD. NOSE STILL BLEEDING SOME, BUT HUMIDIFIER WAS ADDED TO OXYGEN. PATIENT STATES HAS NOT SMOKED FOR A MONTH, BUT IS FEELING NERVOUS AND ORDER OBTAINED FOR NICOTINE PATCH. IS ON AIR MATTRESS.
--- NOTE | 2018-09-17 09:30 | Occupational Ther Daily Note ---
OT Current Status-Daily Note Subjective Pt alert, lying in bed. Pt agrees to therapy. Pt wondering about Baclofen and worried about her skin breakdown, reported to nrsg and physician. Mental Status/Objective Patient Orientation: Person, Place, Time, Situation Therapy Code Descriptions/Definitions Functional [place] Measure: 0=Not Assessed/NA 4=Minimal Assistance 1=Total Assistance 5=Supervision or Setup 2=Maximal Assistance 6=Modified [place] 3=Moderate Assistance 7=Complete [place] Attachments: Cope Catheter, IV ADL-Treatment Pt agrees to shower. Pt takes increased time to complete surface to surface transfers, difficulty with lifting self up enough to clear buttocks from bed or w/c wheel. Pt able to don/doff brace and socks by self. Tub bench transfer to <--> from w/c with max A x1. Pt Pt able to complete all areas except lower legs and feet. Pt donned/doffed shirt by self. Pt did not don lower body clothing due to change of dressing after showering. Completed grooming mod I. Max A to transfer back into bed. Assist x2 to scoot up and over in bed. After therapy, pt sitting up in bed with call light/phone in reach. All needs met in room. Therapy Code Descriptions/Definitions Functional [place] Measure: 0=Not Assessed/NA 4=Minimal Assistance 1=Total Assistance 5=Supervision or Setup 2=Maximal Assistance 6=Modified [place] 3=Moderate Assistance 7=Complete [place] Therapy Quality Codes: 6 Independent with activity with or without an assistive device 5 Patient requires set up or clean up by helper. Patient completes activity by themselves 4 Supervision or touching assist (CGA). [place] provide cues , steadying assist 3 The helper provides less than half the effort to complete the activity 2 The helper provides more than half the effort to complete the activity 1 Dependent. The helper does all the effort to complete an activity 7 Patient refused to complete or attempt activity 9 The patient did not perform the activity before the current illness or injury 88 Not attempted due to Medical conditions or safety concerns Grooming (FIM): 6 Oral Hygiene (QC): 6 Bathing (FIM): 4 Bathing Location: L Arm, R Arm, L Upper Leg, R Upper Leg, Chest, Abdomen, Buttocks, Perineal Area Shower/Bathe Self (QC): 3 Upper Body (FIM): 5 Upper Body Dressing (QC): 5 Shower Transfer(FIM): 3 OT Short Term Goals Short Term Goals Eating(FIM): 6 Grooming(FIM): 5 Bathing(FIM): 5 Upper Body Dressing(FIM): 5 Lower Body Dressing(FIM): 5 Toileting(FIM): 5 Transfers (B,C,W/C) (FIM): 4 Toilet/Commode Transfer(FIM): 4 Tub Transfer(FIM): 4 Shower Transfer(FIM): 4 Additional Short Term Goals: 1-Demonstrate ADL Tasks, 2-Verbalize Understanding, 3-ImproveStrength/Chevy 1=Demonstrate adherence to instructed precautions during ADL tasks. 2=Patient will verbalize/demonstrate understanding of assistive devices/modifications for ADL. 3=Patient will improve strength/tolerance for activity to enable patient to perform ADL's. OT Half-Way Goals Leather Fitter Goals Time Frame: Oct 11, 2018 Eating (FIM): 7 Eating (QC): 6 Groomin Oral Hygiene (QC): 6 Bathing(FIM): 6 Bathing Location: L Arm, R Arm, L Upper Leg, R Upper Leg, L Lower Leg (including foot), R Lower Leg (including foot), Chest, Abdomen, Buttocks, Perineal Area Shower/Bathe Self (QC): 6 Upper Body Dressing(FIM): 7 Upper Body Dressing (QC): 6 Lower Body Dressing(FIM): 6 Lower Body Dressing (QC): 6 On/Off Footwear (QC): 6 Toileting(FIM): 6 Toileting Hygiene (QC): 6 Transfers (B,C,W/C) (FIM): 6 Toilet/Commode Transfer(FIM): 6 Toilet/Commode Transfer (QC): 6 Tub Transfer(FIM): 6 Shower Transfer(FIM): 6 Additional Goals: 1-Demonstrate ADL Tasks, 2-Verbalize Understanding, 3- ImproveStrength/Chevy 1=Demonstrate adherence to instructed precautions during ADL tasks. 2=Patient will verbalize/demonstrate understanding of assistive devices/modific ations for ADL. 3=Patient will improve strength/tolerance for activity to enable patient to perform ADL's. OT Education/Plan Problem List/Assessment Assessment: Decreased UE Strength, Impaired Bed Mobility, Impaired Coordination, Impaired Funct Balance, Restricted Funct UE ROM pt presents with functional limitations affecting areas of ADLs and functional transfers. pt would benefit from skilled OT Services to increase independence with ADLS/ functional transfers. Discharge Recommendations Plan/Recommendations: Continue POC Treatment Plan/Plan of Care Patient would benefit from OT for education, treatment and training to promote independence in ADL's, mobility, safety and/or upper extremity function for ADL's. Plan of Care: ADL Retraining, Caregiver Training, Concurrent Therapy, Functional Mobility, Group Exercise/Act as Ind, UE Funct Exercise/Act, W/C Management Training Treatment Duration: Oct 11, 2018 Frequency: At least 5 of 7 days/Wk (IRF) Estimated Hrs Per Day: 1 hour per day (60-90 minutes per day) Agreement: Yes Rehab Potential: Fair Time/GCodes Start Time: 08:15 Stop Time: 09:45 Total Time Billed (hr/min): 90 Billed Treatment Time 1 visit-ADL 6 (90 min) MACARIO BAUTISTA Sep 17, 2018 09:30
--- NOTE | 2018-09-17 09:37 | PM&R Progress Note ---
Subjective HPI/CC On Admission Date Seen by Provider: Sep 17, 2018 Time Seen by Provider: 09:00 Chief complaint: Debility from respiratory failure and ventilation History of present illness: This is a 57-year-old white female of [facility] who was originally admitted last week for respiratory failure. She was maintained on ventilator support for several days and under Dr. Fenton's expertise she was able to be extubated without complication. 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 Her INR today is 4.2 so that will be held. Patient's does quite a bit for her at home and prior level of functioning required a great deal of help from him to transfer from wheelchair to bed and toilet and so forth. She is very weak having significant shortness of breath since COPD flare and recent ventilator support and will require inpatient rehab to optimize ADLs at home to lessen the burden on her . Pulmonology will be maintained due to high risk for respiratory insufficiency. Subjective/Events-last exam Wants a Nicoderm patch so that was ordered Her coccyx is sore from decubitus ulcer Slept badly last night because someone was cleaning her bathroom but I'm really unsure of those details Weaning off oxygen Has ulcerative colitis she uses digital stimulation for bowels because of the paraplegia Checked meds and labs Conferred with RN Reviewed therapy notes Review of Systems General: Fatigue Pulmonary: Dyspnea, Cough Objective Exam Vital Signs Vital Signs Date Time Temp Pulse Resp B/P (MAP) Pulse Ox O2 Delivery O2 Flow Rate FiO2 09/17/18 19:48 98 Nasal Cannula 2.00 09/17/18 15:49 98.0 82 16 94/54 (67) Capillary Refill : Less Than 3 Seconds General Appearance: No Apparent Distress, WD/WN, Chronically ill, Thin HEENT: PERRL/EOMI, Normal ENT Inspection, Pharynx Normal, Moist Mucous Membranes Neck: Full Range of Motion, Normal Inspection, Non Tender, Supple Respiratory: Chest Non Tender, Lungs Clear, No Accessory Muscle Use, No Respiratory Distress, Decreased Breath Sounds Cardiovascular: Regular Rate, Rhythm, No Edema, No Gallop, No JVD, No Murmur Gastrointestinal: Normal Bowel Sounds, No Organomegaly, No Pulsatile Mass, Non Tender, Soft Back: Normal Inspection, No CVA Tenderness, No Vertebral Tenderness Extremity: Normal Capillary Refill, Normal Inspection, No Pedal Edema, Other (parplegia) Neurologic/Psychiatric: Alert, Oriented x3, Normal Mood/Affect, manager medical device II-XII Norm as Tested, Depressed Affect, Motor Weakness (paraplegia) Skin: Normal Color, Warm/Dry Lymphatic: No Adenopathy Results/Procedures Lab Patient resulted labs reviewed. FIM Transfers Therapy Code Descriptions/Definitions Functional [place] Measure: 0=Not Assessed/NA 4=Minimal Assistance 1=Total Assistance 5=Supervision or Setup 2=Maximal Assistance 6=Modified [place] 3=Moderate Assistance 7=Complete [place] Therapy Quality Codes: 6 Independent with activity with or without an assistive device 5 Patient requires set up or clean up by helper. Patient completes activity by themselves 4 Supervision or touching assist (CGA). [place] provide cues , steadying assist 3 The helper provides less than half the effort to complete the activity 2 The helper provides more than half the effort to complete the activity 1 Dependent. The helper does all the effort to complete an activity 7 Patient refused to complete or attempt activity 9 The patient did not perform the activity before the current illness or injury 88 Not attempted due to Medical conditions or safety concerns Transfers (B, C, W/C) (FIM): 3 Scootin Rollin Roll Left to Right (QC): 4 Supine to/from Sit: 5 Sit to Lying (QC): 2 Chair/Ndd-kd-Wrvhs Xfer(QC): 2 Bed to/from Chair: 3 Car Transfer (QC): 1 Gait Training Does the Patient Walk?: No and Walking Goal NOT indicated Wheelchair Training Does the Pt Use a Wheelchair?: Yes Wheelchair (FIM): 6 Wheelchair Distance: 1=up to 49 ft Distance: 150'x2 Wheelchair Level of Assist: 5 Wheel 50 ft with 2 turns (QC): 4 Wheel 150 ft (QC): 4 Type of Wheelchair: Manual Mental Status/Objective Comprehension: 7 Expression: 7 Social Interaction: 7 Problem Solvin Memory: 7 ADL-Treatment Feedin (set up ) Eating (QC): 5 Groomin Oral Hygiene (QC): 6 Bathin Bathing Location: L Arm, R Arm, L Upper Leg, R Upper Leg, Chest, Abdomen, Buttocks (leaning to reach), Perineal Area Shower/Bathe Self (QC): 3 Upper Extremity Dressin Upper Body Dressing (QC): 4 Lower Extremity Dressin (required TA for Ulises socks during eval. once in tx session pt education on donning/ soffing ulises socks while seated on mat. pt completed task with CGA. noted left lateral lean ) Lower Body Dressing (QC): 1 On/Off Footwear (QC): 6 Toiletin (pt required assist to complete 3/3 toileting task. ) Toileting Hygiene (QC): 1 Toilet/Commode Transfer: 1 Toilet Transfer (QC): 1 Shower: 1 Assessment/Plan Assessment and Plan Assess & Plan/Chief Complaint Assessment: Severe debility from critical illness Status post ventilator dependent respiratory failure Exacerbation of COPD now on steroid taper Current smoker T4 paralysis from transverse myelitis in 1993 Indwelling Cope catheter for past 1 year Right femur fracture 1 year ago managed by [facility] in [place] will DC immobilizer in 3 weeks Bowel dysfunction requiring rectal stimulation for bowel movement Thin and frail status high risk for respiratory compromise 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 Yung consult for coccyx decubitus ulcer is appreciated Maintain Cope catheter as it is chronic she previously did in and out caths before she fractured her right leg and will resume this in 3 weeks Smoking cessation (1) Debility (2) Delirium Resolution Date/Time: 09/12/18 @ 14:16 (3) DVT prophylaxis (4) Paraplegia (5) Hypothyroidism (6) Tobacco abuse (7) Acute respiratory distress (8) Anticoagulant long-term use (9) Counseling regarding end of life decision making (10) Hyponatremia Resolution Date/Time: 09/11/18 @ 16:40 (11) Leukopenia Resolution Date/Time: 09/11/18 @ 16:40 CHEVY MARTINEZ 2, 2019 09:37
[2018-09-17] MEDS: BACLOFEN 10 MG (LIORESAL) TAB PO SCH ×2 (09:39→21:45)
[2018-09-17] MEDS: predniSONE 10 MG TAB PO SCH (09:39)
[2018-09-17] MEDS: SERTRALINE 100 MG (ZOLOFT) TAB PO SCH (09:39)
[2018-09-17] MEDS: fluCOnazole (DIFLUCAN) 100 MG TAB PO SCH (09:39)
[2018-09-17] MEDS: ENOXAPARIN 40 MG/0.4 ML (LOVENOX) SYR SC SCH ×2 (09:39→21:46)
[2018-09-17] MEDS: guaiFENesin (MUCINEX) 600 MG TAB PO SCH ×2 (09:39→21:45)
[2018-09-17] MEDS: risperiDONE 1 MG (RisperDAL) TAB PO SCH ×2 (09:39→21:45)
[2018-09-17] MEDS: ZINC OXIDE 16% OINT (BUTT PASTE) 113 GM TUBE TOP SCH ×3 (09:40→21:48)
[2018-09-17] MEDS: POLYETHYLENE GLYCOL 17 GM (MIRALAX) PACK PO SCH ×2 (09:41→21:48)
[2018-09-17] MEDS: A & D OINT 113 GM TUBE TOP SCH (09:42)
[2018-09-17] MEDS: NICOTINE 21 MG (NICODERM) PATCH TD SCH (09:50)
--- NOTE | 2018-09-17 10:59 | Physical Therapy Daily Note ---
PT Daily Note-Current Subjective Patient in bed pre tx, agrees to PT, no complaints of pain. Patient has her brace back on her leg and states that it swelled up yesterday and she would like to have it on for comfort. Patient needs dressed lowers and she does so with min assist to help pull her pants up while leaning from side to side. She is able to get them on her legs by herself while long sitting. Appearance Patient in wheelchair at bedside post tx with nurse call, phone, tray, all needs met, RT in room to see patient. Mental Status Patient Orientation: Normal For Age Attachments: Oxygen Transfers Therapy Code Descriptions/Definitions Functional [place] Measure: 0=Not Assessed/NA 4=Minimal Assistance 1=Total Assistance 5=Supervision or Setup 2=Maximal Assistance 6=Modified [place] 3=Moderate Assistance 7=Complete [place] Therapy Quality Codes: 6 Independent with activity with or without an assistive device 5 Patient requires set up or clean up by helper. Patient completes activity by themselves 4 Supervision or touching assist (CGA). [place] provide cues , steadying assist 3 The helper provides less than half the effort to complete the activity 2 The helper provides more than half the effort to complete the activity 1 Dependent. The helper does all the effort to complete an activity 7 Patient refused to complete or attempt activity 9 The patient did not perform the activity before the current illness or injury 88 Not attempted due to Medical conditions or safety concerns Transfers (B, C, W/C) (FIM): 3 Scootin Rollin Supine to/from Sit: 4 Bed to/from Chair: 4 Patient performed a sliding board transfer with min assist. She attempted another sliding transfer to the therapy mat but was having spasms in her right leg that was making it very difficult for her. She states that her baclofen meds have been messed up and would like to get it straightened out before doing another transfer. Another transfer not performed at this time but she will have to do one when she goes back to bed. Weight Bearing Right Lower Extremity: Right Weight Bearing/Tolerated Left Lower Extremity: Left Weight Bearing/Tolerated Wheelchair Training Does the Pt Use a Wheelchair?: Yes Wheelchair (FIM): 6 Distance: 150'x2 Type of Wheelchair: Manual Exercises UE exercises, chair push-ups 2 sets of 10, bicep curls, sh. ER, vertical press x20 with 3# weights, manual stretching dorsiflexion Treatments bed mobility and transfers, wheelchair mobility, UE exercise, stretching Assessment Current Status: Fair Progress improving UE strength but she has trouble with falling backward today while sitting and during transfer PT Short Term Goals Short Term Goals Time Frame: Sep 20, 2018 Transfers (B,C,W/C) (FIM): 4 Wheelchair (FIM): 6 Wheelchair Distance: 150'x2 PT Incinerator Plant Laborer Goals Incinerator Plant Laborer Goals PT Incinerator Plant Laborer Goals Time Frame: Oct 04, 2018 Transfers (B,C,W/C) (FIM): 5 Sit to Lying (QC): 4 Lying-Sitting on Side/Bed(QC): 4 Sit to Stand (QC): 4 Rollin Roll Left to Right (QC): 4 Chair/Fop-jv-Mugkz Xfer(QC): 4 Car Transfer (QC): 3 Wheelchair (FIM): 6 Distance: 200' Wheelchair Level of Assist: 6 Wheel 50 feet with 2 turns (QC: 6 PT Plan Problem List Problem List: Activity Tolerance, Functional Strength, Safety, Balance, Transfer, Bed Mobility, ROM Treatment/Plan Treatment Plan: Continue Plan of Care Treatment Plan: Bed Mobility, Concurrent Therapy, Education, Functional Activity Chevy, Functional Strength, Group Therapy, Gait, Safety, Therapeutic Exercise, Transfers Treatment Duration: Oct 04, 2018 Frequency: At least 5 of 7 days/Wk (IRF) Estimated Hrs Per Day: 1.5 hours per day Patient and/or Family Agrees t: Yes Safety Risks/Education Patient Education: Transfer Techniques, Correct Positioning, W/C Management, Safety Issues Teaching Recipient: Patient Teaching Methods: Demonstration, Discussion Response to Teaching: Reinforcement Needed Time/GCodes Time In: 1000 Time Out: 1100 Total Billed Treatment Time: 60 Total Billed Treatment 1 visit FA 30' EX 15' WCH 15' ANA M MCGUIRE PT Sep 17, 2018 10:58
--- NOTE | 2018-09-17 14:30 | Physical Therapy Daily Note ---
PT Daily Note-Current Subjective Patient in bed pre tx, agrees to PT, has no complaints of pain. Patient back in bed due to sore on bottom, has air matress. Appearance Patient in bed post tx with nurse call, phone, tray, on left side with pillow support, all needs met. Mental Status Patient Orientation: Normal For Age Attachments: Oxygen, Cope Catheter Transfers Therapy Code Descriptions/Definitions Functional [place] Measure: 0=Not Assessed/NA 4=Minimal Assistance 1=Total Assistance 5=Supervision or Setup 2=Maximal Assistance 6=Modified [place] 3=Moderate Assistance 7=Complete [place] Therapy Quality Codes: 6 Independent with activity with or without an assistive device 5 Patient requires set up or clean up by helper. Patient completes activity by themselves 4 Supervision or touching assist (CGA). [place] provide cues , steadying assist 3 The helper provides less than half the effort to complete the activity 2 The helper provides more than half the effort to complete the activity 1 Dependent. The helper does all the effort to complete an activity 7 Patient refused to complete or attempt activity 9 The patient did not perform the activity before the current illness or injury 88 Not attempted due to Medical conditions or safety concerns Weight Bearing Right Lower Extremity: Right Weight Bearing/Tolerated Left Lower Extremity: Left Weight Bearing/Tolerated Exercises Supine Ex: Ankle pumps, Heel Slides, Short Arc Quads Supine Reps: 20 (only right side, and is AAROM except for ankle pumps) BLE ROM/stretching in all planes, light stretching on the right leg, brace put back on afterward for patient comfort Treatments LE ROM and exercises Assessment Current Status: Fair Progress improving right knee flexion PT Short Term Goals Short Term Goals Time Frame: Sep 20, 2018 Transfers (B,C,W/C) (FIM): 4 Wheelchair (FIM): 6 Wheelchair Distance: 150'x2 PT Mcfp Goals Mcfp Goals PT Rough Planer Tender Goals Time Frame: Oct 04, 2018 Transfers (B,C,W/C) (FIM): 5 Sit to Lying (QC): 4 Lying-Sitting on Side/Bed(QC): 4 Sit to Stand (QC): 4 Rollin Roll Left to Right (QC): 4 Chair/Fwl-hh-Finka Xfer(QC): 4 Car Transfer (QC): 3 Wheelchair (FIM): 6 Distance: 200' Wheelchair Level of Assist: 6 Wheel 50 feet with 2 turns (QC: 6 PT Plan Problem List Problem List: Activity Tolerance, Functional Strength, Safety, Balance, Transfer, Bed Mobility, ROM Treatment/Plan Treatment Plan: Continue Plan of Care Treatment Plan: Bed Mobility, Concurrent Therapy, Education, Functional Activity [place], Functional Strength, Group Therapy, Gait, Safety, Therapeutic Exercise, Transfers Treatment Duration: Oct 04, 2018 Frequency: At least 5 of 7 days/Wk (IRF) Estimated Hrs Per Day: 1.5 hours per day Patient and/or Family Agrees t: Yes Safety Risks/Education Patient Education: Correct Positioning, Safety Issues Teaching Recipient: Patient Teaching Methods: Demonstration, Discussion Response to Teaching: Reinforcement Needed Time/GCodes Time In: 1400 Time Out: 1430 Total Billed Treatment Time: 30 Total Billed Treatment 1 visit EX 30' ANA M MCGUIRE PT Sep 17, 2018 14:30
--- NOTE | 2018-09-17 15:23 | Pulmonary Progress Note ---
Subjective Time Seen by a Provider: 08:02 Subjective/Events-last exam No complication noted Sepsis Event Evaluation Height, Weight, BMI Height: 5'6.00" Weight: 113lbs. 8.0oz. 51.801307bf; 16.9 BMI Method:Stated Exam Exam Vital Signs Date Time Temp Pulse Resp B/P (MAP) Pulse Ox O2 Delivery O2 Flow Rate FiO2 09/17/18 10:51 94 Nasal Cannula 2.00 09/17/18 07:29 98 Nasal Cannula 3.00 09/17/18 05:25 97.7 74 18 123/77 (92) 100 Nasal Cannula 3.00 09/16/18 21:13 98 High Flow N/C 3.00 09/16/18 21:00 Nasal Cannula 3.00 09/16/18 15:43 97.6 91 16 92/54 (67) 97 Nasal Cannula 3.00 I & O 09/17/18 07:00 Intake Total 1550 ml Output Total 2600 ml Balance -1050 ml Height & Weight Height: 5'6.00" Weight: 113lbs. 8.0oz. 51.227138nh; 16.9 BMI Method:Stated General Appearance: No Apparent Distress, WD/WN, Chronically ill, Thin HEENT: PERRL/EOMI, Normal ENT Inspection, Pharynx Normal, Moist Mucous Membranes Neck: Full Range of Motion, Normal Inspection, Non Tender, Supple Respiratory: Chest Non Tender, Lungs Clear, No Accessory Muscle Use, No Respiratory Distress, Decreased Breath Sounds Cardiovascular: Regular Rate, Rhythm, No Edema, No Gallop, No JVD, No Murmur Gastrointestinal: normal bowel sounds, non tender, no organomegaly Extremity: Normal Capillary Refill, Normal Inspection, No Pedal Edema, Other (parplegia) Neurologic/Psychiatric: Alert, Oriented x3, Normal Mood/Affect, cloth edge singer II-XII Norm as Tested, Depressed Affect, Motor Weakness (paraplegia) Skin: Normal Color, Warm/Dry Lymphatic: No Adenopathy Results Lab Laboratory Tests 09/16/18 05:25 09/16/18 05:35 Assessment/Plan Assessment/Plan Acute on chronic respiratory failure COPDAE with PNA (Uses 3 liters of oxygen at home) with mucous plugs -Pt feels much improved after bronchoscopy - she states she can take a deeper breath. -Oxygen -Q4 Duonebs -ABG - C02 41 Tobacco use -Education Paraplegia secondary to hx of transverse myelitis (wheelchair bound) Hx of multiple DVTs -chronic anticoagulation hx hypothyroid JAYLA CUELLAR DO Sep 17, 2018 15:23
[2018-09-17 15:49] VITALS: BP 94/54
[2018-09-17] MEDS: warFARin 5 MG (COUMADIN) TAB PO SCH (17:42)
--- NOTE | 2018-09-17 18:31 | Wound Care Assessment ---
Wound Care Assessment Date Seen by Provider: Sep 17, 2018 Time Seen by Provider: 11:30 Chief Complaint Sacral and L calf ulcers. HPI The patient is a 57 year old female with paraplegia secondary to T4 transverse myelitis, a sacral pressure, and a neuropathic injury to L calf. The ulcer on the sacrum has been present for a year and the ulcer on the calf has been present for 3 months, per patient. She relates a 60# weight loss over the last 10 months, which she attributes to her ulcerative colitis. She has COPD and continues to smoke. Recommended to stop. Off-loads as she is able. Lesion on L calf began as a purple area, possibly traumatic. 09/17/18 -- Interval note: The patient is trying to off-load, but was sitting up in bed when interviewed. L calf wound is improved. She is encouraged to quit smoking and to increase protein intake. Past Medical History: Admits Deep Vein Thrombosis (On anticoagulation.) Smoking Status: Current Everyday Smoker (has COPD) Recreational Drug Use: No Alcohol Use: Denies Use Review of Systems Pulmonary: No Dyspnea Cardiovascular: No: Chest Pain Musculoskeletal: leg pain Exam Vital Signs Date Time Temp Pulse Resp B/P (MAP) Pulse Ox O2 Delivery O2 Flow Rate FiO2 09/17/18 17:44 Nasal Cannula 3.00 09/17/18 15:58 97 09/17/18 15:49 98.0 82 16 94/54 (67) Capillary Refill : Less Than 3 Seconds General Appearance: no apparent distress HEENT: normal ENT inspection Neck: normal inspection Cardiovascular: regular rate, rhythm Respiratory: lungs clear Back: other (Sacrum -- 2.1 x 1.9 x 0.2 cm, 50% slough, 50% regenerating tissue, periwound macerated.) Assessment/Plan/Dx 1. Pressure ulcer, sacrum, unstageable, present on admission. 2. L calf ulcer, chronic, neuropathic. 3. Paraplegia, T4 incomplete, due to transverse myelitis. 4. Cachexia, with 60# weight loss. 5. Tobacco abuse, with wound healing complication. Plan: Urged to quit smoking and off-load. Told patient that if she continues to not off-load the area, she will continue to have this wound for another year. Encouraged to increase protein intake. Dietary consult requested. Barrier cream to wound. HARJINDER MAGUIRE MD Sep 17, 2018 18:31
--- NOTE | 2018-09-17 19:22 | NUR ---
bedside report received from ALEXA MOORE, assume care of pt
--- NOTE | 2018-09-17 20:04 | NUR ---
c/o nausea, Zofran 4mg iv given
[2018-09-17] MEDS: ONDANSETRON 4 MG/2 ML (SDV) Z0FRAN IVP PRN (20:05)
--- NOTE | 2018-09-17 21:10 | NUR ---
assessments & interventions completed, see assessments & interventions pt states still has some nausea states family trys pushing her to eat more then feels sick to stomach, refused to go to bathroom for digital rectal stimulation
--- NOTE | 2018-09-17 21:43 | NUR ---
refused miralax states just can not take all that liq now, sacral wound care performed, repositioned to sides
[2018-09-17] MEDS: SIMvastatin 20 MG (ZOCOR) TAB PO SCH (21:45)
[2018-09-18 05:50] VITALS: BP 100/45
[2018-09-18] MEDS: RT-ALBUTEROL/IPRATROPIUM 3 ML (DUONEB) VIAL INH SCH ×4 (06:50→23:56)
[2018-09-18] MEDS: aCETylcysteine 20% (MUCOMYST) 30ML SOLN VIAL INH SCH ×4 (06:50→23:56)
[2018-09-18] MEDS: LEVOTHYROXINE 125 MCG (LEVOTHROID) TABLET PO SCH (06:54)
[2018-09-18] MEDS: LEVOTHYROXINE 25 MCG (LEVOTHROID) TAB PO SCH (06:54)
[2018-09-18] MEDS: PANTOPRAZOLE 40 MG (PROTONIX) TAB PO SCH (06:54)
[2018-09-18] MEDS: LACTOBACILLUS ACIDOPHILUS (PROBIOTIC) CAPSULE PO SCH ×3 (06:54→17:07)
--- NOTE | 2018-09-18 07:22 | NUR ---
bedside report given to OJY MOORE
[2018-09-18 07:27] LABS: INR 1.4 (0.8-1.4); PROTHROMBIN TIME PATIENT 17.7 SEC (12.2-14.7)
[2018-09-18 07:46] VITALS: BP 101/53
--- NOTE | 2018-09-18 09:24 | Pulmonary Progress Note ---
Subjective Time Seen by a Provider: 08:00 Subjective/Events-last exam Pt is doing better. Sepsis Event Evaluation Height, Weight, BMI Height: 5'6.00" Weight: 113lbs. 0.0oz. 51.723493qb; 16.9 BMI Method:Stated Exam Exam Vital Signs Date Time Temp Pulse Resp B/P (MAP) Pulse Ox O2 Delivery O2 Flow Rate FiO2 09/18/18 07:46 98.7 91 20 101/53 (69) 97 Nasal Cannula 3.00 09/18/18 06:50 98 Nasal Cannula 2.00 09/18/18 05:50 99.9 90 16 100/45 (63) 98 Nasal Cannula 3.00 09/17/18 21:10 Nasal Cannula 3.00 09/17/18 19:48 98 Nasal Cannula 2.00 09/17/18 17:44 Nasal Cannula 3.00 09/17/18 15:58 97 Nasal Cannula 2.00 09/17/18 15:49 98.0 82 16 94/54 (67) 99 Nasal Cannula 3.00 09/17/18 10:51 94 Nasal Cannula 2.00 I & O 09/18/18 07:00 Intake Total 980 ml Output Total 800 ml Balance 180 ml Height & Weight Height: 5'6.00" Weight: 113lbs. 0.0oz. 51.237044oh; 16.9 BMI Method:Stated General Appearance: No Apparent Distress, WD/WN, Chronically ill, Thin HEENT: PERRL/EOMI, Normal ENT Inspection, Pharynx Normal, Moist Mucous Membranes Neck: Full Range of Motion, Normal Inspection, Non Tender, Supple Respiratory: Chest Non Tender, Lungs Clear, No Accessory Muscle Use, No Respiratory Distress, Decreased Breath Sounds Cardiovascular: Regular Rate, Rhythm, No Edema, No Gallop, No JVD, No Murmur Gastrointestinal: normal bowel sounds, non tender, no organomegaly Extremity: Normal Capillary Refill, Normal Inspection, No Pedal Edema, Other (parplegia) Neurologic/Psychiatric: Alert, Oriented x3, Normal Mood/Affect, vamp seamer II-XII Norm as Tested, Depressed Affect, Motor Weakness (paraplegia) Skin: Normal Color, Warm/Dry Lymphatic: No Adenopathy Assessment/Plan Assessment/Plan Acute on chronic respiratory failure COPDAE with PNA (Uses 3 liters of oxygen at home) with mucous plugs -Pt feels much improved after bronchoscopy - she states she can take a deeper breath. -Oxygen -Q4 Duonebs -ABG - C02 41 Tobacco use -Education Paraplegia secondary to hx of transverse myelitis (wheelchair bound) Hx of multiple DVTs -chronic anticoagulation hx hypothyroid JAYLA CUELLAR DO Sep 18, 2018 09:24
[2018-09-18] MEDS: SERTRALINE 100 MG (ZOLOFT) TAB PO SCH (09:30)
[2018-09-18] MEDS: fluCOnazole (DIFLUCAN) 100 MG TAB PO SCH (09:30)
[2018-09-18] MEDS: guaiFENesin (MUCINEX) 600 MG TAB PO SCH ×2 (09:30→21:22)
[2018-09-18] MEDS: BACLOFEN 10 MG (LIORESAL) TAB PO SCH ×2 (09:30→21:22)
[2018-09-18] MEDS: risperiDONE 1 MG (RisperDAL) TAB PO SCH ×2 (09:30→21:22)
[2018-09-18] MEDS: NICOTINE 21 MG (NICODERM) PATCH TD SCH (09:30)
[2018-09-18] MEDS: NICOTINE PATCH REMOVAL TP SCH (09:30)
[2018-09-18] MEDS: predniSONE 10 MG TAB PO SCH (09:31)
[2018-09-18] MEDS: A & D OINT 113 GM TUBE TOP SCH (09:31)
[2018-09-18] MEDS: ZINC OXIDE 16% OINT (BUTT PASTE) 113 GM TUBE TOP SCH ×3 (09:31→21:28)
[2018-09-18] MEDS: ENOXAPARIN 40 MG/0.4 ML (LOVENOX) SYR SC SCH ×2 (09:32→21:23)
--- NOTE | 2018-09-18 09:43 | NUR ---
OT reports that pt's 02 sat remained 95-98% on R/A while working in gym. Pt uses 02 @ HS @ home.
--- NOTE | 2018-09-18 09:44 | PM&R Progress Note ---
Subjective HPI/CC On Admission Date Seen by Provider: Sep 18, 2018 Time Seen by Provider: 09:15 Chief complaint: Debility from respiratory failure and ventilation History of present illness: This is a 57-year-old white female of [facility] who was originally admitted last week for respiratory failure. She was maintained on ventilator support for several days and under Dr. Fenton's expertise she was able to be extubated without complication. 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 Her INR today is 4.2 so that will be held. Patient's does quite a bit for her at home and prior level of functioning required a great deal of help from him to transfer from wheelchair to bed and toilet and so forth. She is very weak having significant shortness of breath since COPD flare and recent ventilator support and will require inpatient rehab to optimize ADLs at home to lessen the burden on her . Pulmonology will be maintained due to high risk for respiratory insufficiency. Subjective/Events-last exam Wants to go on a day pass on Sunday because it is her birthday Patient feels like she has a UTI and she does not usually get UTIs so will obtain specimen and hopefully be able to discontinue Cope catheter and restart the in and out caths that she does at home because now the right leg immobilizer can be lifted after we reached out to helena mcpherson with Dr. 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 but avoiding sharing of the skin when she transfers Very low-grade fever at 99.9 this morning Using incentive spirometer Needs a bowel movement but she wants a dietitian to come and talk to her about ulcerative colitis nutrition and recommendations to help her with that INR is 1.4 Checked meds and labs Conferred with RN Reviewed therapy notes Review of Systems General: Fatigue Pulmonary: Dyspnea, Cough Genitourinary: Dysuria, Frequency Objective Exam Vital Signs Vital Signs Date Time Temp Pulse Resp B/P (MAP) Pulse Ox O2 Delivery O2 Flow Rate FiO2 09/18/18 15:00 98 Nasal Cannula 2.00 09/18/18 07:46 98.7 91 20 101/53 (69) Capillary Refill : Less Than 3 Seconds General Appearance: No Apparent Distress, WD/WN, Chronically ill, Thin HEENT: PERRL/EOMI, Normal ENT Inspection, Pharynx Normal, Moist Mucous Membranes Neck: Full Range of Motion, Normal Inspection, Non Tender, Supple Respiratory: Chest Non Tender, Lungs Clear, No Accessory Muscle Use, No Respiratory Distress, Decreased Breath Sounds Cardiovascular: Regular Rate, Rhythm, No Edema, No Gallop, No JVD, No Murmur Gastrointestinal: Normal Bowel Sounds, No Organomegaly, No Pulsatile Mass, Non Tender, Soft Back: Normal Inspection, No CVA Tenderness, No Vertebral Tenderness Extremity: Normal Capillary Refill, Normal Inspection, No Pedal Edema, Other (parplegia) Neurologic/Psychiatric: Alert, Oriented x3, Normal Mood/Affect, senior information security architect II-XII Norm as Tested, Depressed Affect, Motor Weakness (paraplegia) Skin: Normal Color, Warm/Dry Lymphatic: No Adenopathy Results/Procedures Lab Patient resulted labs reviewed. FIM Transfers Therapy Code Descriptions/Definitions Functional [place] Measure: 0=Not Assessed/NA 4=Minimal Assistance 1=Total Assistance 5=Supervision or Setup 2=Maximal Assistance 6=Modified [place] 3=Moderate Assistance 7=Complete [place] Therapy Quality Codes: 6 Independent with activity with or without an assistive device 5 Patient requires set up or clean up by helper. Patient completes activity by themselves 4 Supervision or touching assist (CGA). [place] provide cues , steadying assist 3 The helper provides less than half the effort to complete the activity 2 The helper provides more than half the effort to complete the activity 1 Dependent. The helper does all the effort to complete an activity 7 Patient refused to complete or attempt activity 9 The patient did not perform the activity before the current illness or injury 88 Not attempted due to Medical conditions or safety concerns Transfers (B, C, W/C) (FIM): 3 Scootin Rollin Roll Left to Right (QC): 4 Supine to/from Sit: 4 Sit to Lying (QC): 2 Chair/Skn-vo-Vhizo Xfer(QC): 2 Bed to/from Chair: 4 Car Transfer (QC): 1 Gait Training Does the Patient Walk?: No and Walking Goal NOT indicated Wheelchair Training Does the Pt Use a Wheelchair?: Yes Wheelchair (FIM): 6 Wheelchair Distance: 1=up to 49 ft Distance: 150'x2 Wheelchair Level of Assist: 5 Wheel 50 ft with 2 turns (QC): 4 Wheel 150 ft (QC): 4 Type of Wheelchair: Manual Mental Status/Objective Comprehension: 7 Expression: 7 Social Interaction: 7 Problem Solvin Memory: 7 ADL-Treatment Feedin (set up ) Eating (QC): 5 Groomin Oral Hygiene (QC): 6 Bathin Bathing Location: L Arm, R Arm, L Upper Leg, R Upper Leg, Chest, Abdomen, Buttocks, Perineal Area Shower/Bathe Self (QC): 3 Upper Extremity Dressin Upper Body Dressing (QC): 5 Lower Extremity Dressin (required TA for Ulises socks during eval. once in tx session pt education on donning/ soffing ulises socks while seated on mat. pt completed task with CGA. noted left lateral lean ) Lower Body Dressing (QC): 1 On/Off Footwear (QC): 6 Toiletin (pt required assist to complete 3/3 toileting task. ) Toileting Hygiene (QC): 1 Toilet/Commode Transfer: 1 Toilet Transfer (QC): 1 Shower: 3 Assessment/Plan Assessment and Plan Assess & Plan/Chief Complaint Assessment: Severe debility from critical illness Status post ventilator dependent respiratory failure Exacerbation of COPD now on steroid taper Current smoker T4 paralysis from transverse myelitis in 1993 Indwelling Cope catheter for past 1 year so will transition to in/out caths to prevent infections and send UA for analysis Right femur fracture 1 year ago managed by [facility] in [place] will DC immobilizer in 3 weeks Bowel dysfunction requiring rectal stimulation for bowel movement Thin and frail status high risk for respiratory compromise Bilateral DVTs history maintained on Coumadin Warfarin coagulopathy INR 3.6 2 days ago so held Coumadin and now INR 1.4 again so will maintain Lovenox bridge and will recheck in 2 days and restart home dose of 7mg daily Plan: Inpatient rehab protocol Restarted home dose of Coumadin and will maintain Lovenox bridge and check INR Sunday Reviewed meds from transfer from [facility] Pulmonology consult appreciated Air mattress for coccyx decubitus Dr. Yung consult for coccyx decubitus ulcer is appreciated Maintain Cope catheter as it is chronic she previously did in and out caths before she fractured her right leg and will resume this in 3 weeks Smoking cessation DC right leg immobilizer (1) Debility (2) Delirium Resolution Date/Time: 09/12/18 @ 14:16 (3) DVT prophylaxis (4) Paraplegia (5) Hypothyroidism (6) Tobacco abuse (7) Acute respiratory distress (8) Anticoagulant long-term use (9) Counseling regarding end of life decision making (10) Hyponatremia Resolution Date/Time: 09/11/18 @ 16:40 (11) Leukopenia Resolution Date/Time: 09/11/18 @ 16:40 CHEVY MARTINEZ DO Sep 18, 2018 09:44
[2018-09-18] MEDS: POLYETHYLENE GLYCOL 17 GM (MIRALAX) PACK PO SCH ×2 (10:04→21:27)
[2018-09-18] MEDS: ONDANSETRON 4 MG (ZOFRAN) ORAL DISSOLVE TAB PO PRN (10:09)
--- NOTE | 2018-09-18 11:13 | Physical Therapy Daily Note ---
PT Daily Note-Current Subjective Pt. agrees to Rx. States she use to be so indep with all her TRFs but since her recent illness and skin break down on her bottom and the LE immoblizer on right she is limited in what she can do Pain Location: No Pain Reported Mental Status Patient Orientation: Normal For Age Attachments: Cope Catheter, Other-See Comments (RLE immoblizer at tknee) Transfers Therapy Code Descriptions/Definitions Functional [place] Measure: 0=Not Assessed/NA 4=Minimal Assistance 1=Total Assistance 5=Supervision or Setup 2=Maximal Assistance 6=Modified [place] 3=Moderate Assistance 7=Complete [place] Therapy Quality Codes: 6 Independent with activity with or without an assistive device 5 Patient requires set up or clean up by helper. Patient completes activity by themselves 4 Supervision or touching assist (CGA). [place] provide cues , steadying assist 3 The helper provides less than half the effort to complete the activity 2 The helper provides more than half the effort to complete the activity 1 Dependent. The helper does all the effort to complete an activity 7 Patient refused to complete or attempt activity 9 The patient did not perform the activity before the current illness or injury 88 Not attempted due to Medical conditions or safety concerns Transfers (B, C, W/C) (FIM): 3 Scootin Rollin Supine to/from Sit: 3 Bed to/from Chair: 3 slide board TRFs w/c to bed and w/c to high low table and back all with pad between pts bottom and board to reduce sheering with mod assist to slide pad on board as well as assist to place board and also to assist pt with trunk stability as she is having spasms in LEs as well as back . Weight Bearing Right Lower Extremity: Right Weight Bearing/Tolerated Left Lower Extremity: Left Weight Bearing/Tolerated Gait Training Does the Patient Walk?: No and Walking Goal NOT indicated Wheelchair Training Does the Pt Use a Wheelchair?: Yes Wheelchair (FIM): 4 Wheelchair Distance: 3=150 ft (160x2) Wheelchair Level of Assist: 4 Type of Wheelchair: Manual assist at times to position w/c for safe TRF and for brakes locked x 1 Exercises LE HS stretch, HC stretches bilat as well as abd stretches, many spasms noted this date Assessment Current Status: Fair Progress limited on aggressive TRF slides until skin on bottom can tolerate such activity ie sheering etc PT Short Term Goals Short Term Goals Time Frame: Sep 20, 2018 Transfers (B,C,W/C) (FIM): 4 Wheelchair (FIM): 6 Wheelchair Distance: 150'x2 PT Perianesthesia Rn Goals Perianesthesia Rn Goals PT Perianesthesia Rn Goals Time Frame: Oct 04, 2018 Transfers (B,C,W/C) (FIM): 5 Sit to Lying (QC): 4 Lying-Sitting on Side/Bed(QC): 4 Sit to Stand (QC): 4 Rollin Roll Left to Right (QC): 4 Chair/Eyi-yz-Nfflz Xfer(QC): 4 Car Transfer (QC): 3 Wheelchair (FIM): 6 Distance: 200' Wheelchair Level of Assist: 6 Wheel 50 feet with 2 turns (QC: 6 PT Plan Treatment/Plan Treatment Plan: Continue Plan of Care Treatment Plan: Bed Mobility, Concurrent Therapy, Education, Functional Activity Chevy, Functional Strength, Group Therapy, Gait, Safety, Therapeutic Exercise, Transfers Treatment Duration: Oct 04, 2018 Frequency: At least 5 of 7 days/Wk (IRF) Estimated Hrs Per Day: 1.5 hours per day Patient and/or Family Agrees t: Yes Safety Risks/Education Patient Education: Transfer Techniques, Reviewed Use of Ice, W/C Management, Disease Process, Safety Issues Teaching Recipient: Patient Teaching Methods: Demonstration, Discussion Response to Teaching: Verbalize Understanding, Return Demonstration, Reinforcement Needed Time/GCodes Time In: 1000 Time Out: 1100 Total Billed Treatment Time: 60 Total Billed Treatment 1,EX15m,WCH 15m,FA30m G Codes Necessary: MARIANGEL Mcmahan EXECUTIVE PRODUCER Sep 18, 2018 11:13
[2018-09-18] MEDS: ONDANSETRON 4 MG/2 ML (SDV) Z0FRAN IVP PRN (13:16)
--- NOTE | 2018-09-18 13:20 | Occupational Ther Daily Note ---
OT Current Status-Daily Note Subjective Pt alert, lying in bed. Pt agrees to therapy. Pt c/o of stomach, reported to physician. Mental Status/Objective Patient Orientation: Person, Place, Time, Situation Therapy Code Descriptions/Definitions Functional [place] Measure: 0=Not Assessed/NA 4=Minimal Assistance 1=Total Assistance 5=Supervision or Setup 2=Maximal Assistance 6=Modified [place] 3=Moderate Assistance 7=Complete [place] ADL-Treatment Pt requires assist to place sliding board for transfer. Pt takes increased time to transfer then during transfers will have muscle spasm and becomes retropulsive. Pt dresses lower body in bed after set up and completes upper body by self. Pt able to don/doff brace by self. Pt has difficulty with sliding across surfaces due to wounds on coccyx area. Pt completes bathing by self using shower bench, grabbar and hand held shower. Max A with SPT for shower transfer and transfer back to bed. Mod I for grooming. Pt takes increased time to complete all tasks. Therapy Code Descriptions/Definitions Functional [place] Measure: 0=Not Assessed/NA 4=Minimal Assistance 1=Total Assistance 5=Supervision or Setup 2=Maximal Assistance 6=Modified [place] 3=Moderate Assistance 7=Complete [place] Therapy Quality Codes: 6 Independent with activity with or without an assistive device 5 Patient requires set up or clean up by helper. Patient completes activity by themselves 4 Supervision or touching assist (CGA). [place] provide cues , steadying assist 3 The helper provides less than half the effort to complete the activity 2 The helper provides more than half the effort to complete the activity 1 Dependent. The helper does all the effort to complete an activity 7 Patient refused to complete or attempt activity 9 The patient did not perform the activity before the current illness or injury 88 Not attempted due to Medical conditions or safety concerns Other Treatment Maneuvered w/c to therapy gym to complete arm bike to increase arm strength and activity tolerance for daily functional tasks. After therapy, pt sitting in w/c with call light/phone in reach. All needs met. OT Short Term Goals Short Term Goals Eating(FIM): 6 Grooming(FIM): 5 Bathing(FIM): 5 Upper Body Dressing(FIM): 5 Lower Body Dressing(FIM): 5 Toileting(FIM): 5 Transfers (B,C,W/C) (FIM): 4 Toilet/Commode Transfer(FIM): 4 Tub Transfer(FIM): 4 Shower Transfer(FIM): 4 Additional Short Term Goals: 1-Demonstrate ADL Tasks, 2-Verbalize Understanding, 3-ImproveStrength/[place] 1=Demonstrate adherence to instructed precautions during ADL tasks. 2=Patient will verbalize/demonstrate understanding of assistive devices/modifications for ADL. 3=Patient will improve strength/tolerance for activity to enable patient to perform ADL's. OT Receiving Supervisor Goals Receiving Supervisor Goals Time Frame: Oct 11, 2018 Eating (FIM): 7 Eating (QC): 6 Groomin Oral Hygiene (QC): 6 Bathing(FIM): 6 Bathing Location: L Arm, R Arm, L Upper Leg, R Upper Leg, L Lower Leg (including foot), R Lower Leg (including foot), Chest, Abdomen, Buttocks, Perineal Area Shower/Bathe Self (QC): 6 Upper Body Dressing(FIM): 7 Upper Body Dressing (QC): 6 Lower Body Dressing(FIM): 6 Lower Body Dressing (QC): 6 On/Off Footwear (QC): 6 Toileting(FIM): 6 Toileting Hygiene (QC): 6 Transfers (B,C,W/C) (FIM): 6 Toilet/Commode Transfer(FIM): 6 Toilet/Commode Transfer (QC): 6 Tub Transfer(FIM): 6 Shower Transfer(FIM): 6 Additional Goals: 1-Demonstrate ADL Tasks, 2-Verbalize Understanding, 3-ImproveStrength/[place] 1=Demonstrate adherence to instructed precautions during ADL tasks. 2=Patient will verbalize/demonstrate understanding of assistive devices/modifications for ADL. 3=Patient will improve strength/tolerance for activity to enable patient to perform ADL's. OT Education/Plan Problem List/Assessment Assessment: Decreased Activ Tolerance, Impaired Self-Care Skills pt presents with functional limitations affecting areas of ADLs and functional transfers. pt would benefit from skilled OT Services to increase independence with ADLS/ functional transfers. Discharge Recommendations Plan/Recommendations: Continue POC Treatment Plan/Plan of Care Patient would benefit from OT for education, treatment and training to promote independence in ADL's, mobility, safety and/or upper extremity function for ADL's. Plan of Care: ADL Retraining, Caregiver Training, Concurrent Therapy, Functional Mobility, Group Exercise/Act as Ind, UE Funct Exercise/Act, W/C Management Training Treatment Duration: Oct 11, 2018 Frequency: At least 5 of 7 days/Wk (IRF) Estimated Hrs Per Day: 1 hour per day (60-90 minutes per day) Agreement: Yes Rehab Potential: Fair Time/GCodes Start Time: 08:15 Stop Time: 09:45 Total Time Billed (hr/min): 75 Billed Treatment Time 1 visit-ADL 4 (65 min) EX 1 (10 min) MACARIO BAUTISTA Sep 18, 2018 13:20
--- NOTE | 2018-09-18 14:07 | Physical Therapy Daily Note ---
PT Daily Note-Current Subjective Pt. agrees to exercise in bed. Spoke about the history of her spinal issue as well as her recent UC and its affects on her family Pain Location: No Pain Reported Mental Status Patient Orientation: Normal For Age Attachments: Cope Catheter Transfers Therapy Code Descriptions/Definitions Functional [place] Measure: 0=Not Assessed/NA 4=Minimal Assistance 1=Total Assistance 5=Supervision or Setup 2=Maximal Assistance 6=Modified [place] 3=Moderate Assistance 7=Complete [place] Therapy Quality Codes: 6 Independent with activity with or without an assistive device 5 Patient requires set up or clean up by helper. Patient completes activity by themselves 4 Supervision or touching assist (CGA). [place] provide cues , steadying assist 3 The helper provides less than half the effort to complete the activity 2 The helper provides more than half the effort to complete the activity 1 Dependent. The helper does all the effort to complete an activity 7 Patient refused to complete or attempt activity 9 The patient did not perform the activity before the current illness or injury 88 Not attempted due to Medical conditions or safety concerns rolling mod to min assist Weight Bearing Right Lower Extremity: Right Weight Bearing/Tolerated Left Lower Extremity: Left Weight Bearing/Tolerated Exercises Supine Ex: Ankle pumps (bilat HC stretches 4x20 s), Quad Set (R only), Rolling, Glut sets, Heel Slides (passive), Straight leg raise (passive), Hip abd/add (passive), Bicep Curls Supine Reps: 10 (x2) shoulder hugs abd , shoulder flexion , all 15 reps Treatments bilat heels in heel free protection Assessment Current Status: Good Progress PT Short Term Goals Short Term Goals Time Frame: Sep 20, 2018 Transfers (B,C,W/C) (FIM): 4 Wheelchair (FIM): 6 Wheelchair Distance: 150'x2 PT Long-Term Goals Long-Term Goals PT Boarder Hand Goals Time Frame: Oct 04, 2018 Transfers (B,C,W/C) (FIM): 5 Sit to Lying (QC): 4 Lying-Sitting on Side/Bed(QC): 4 Sit to Stand (QC): 4 Rollin Roll Left to Right (QC): 4 Chair/Oee-eb-Fqjcj Xfer(QC): 4 Car Transfer (QC): 3 Wheelchair (FIM): 6 Distance: 200' Wheelchair Level of Assist: 6 Wheel 50 feet with 2 turns (QC: 6 PT Plan Treatment/Plan Treatment Plan: Continue Plan of Care Treatment Plan: Bed Mobility, Concurrent Therapy, Education, Functional Activity [place], Functional Strength, Group Therapy, Gait, Safety, Therapeutic Exercise, Transfers Treatment Duration: Oct 04, 2018 Frequency: At least 5 of 7 days/Wk (IRF) Estimated Hrs Per Day: 1.5 hours per day Patient and/or Family Agrees t: Yes Safety Risks/Education Patient Education: Correct Positioning, Disease Process, Safety Issues Teaching Recipient: Patient Teaching Methods: Demonstration, Discussion Response to Teaching: Verbalize Understanding, Return Demonstration, Reinforcement Needed Time/GCodes Time In: 1330 Time Out: 1400 Total Billed Treatment Time: 30 Total Billed Treatment 1,EX30m G Codes Necessary: MARIANGEL Mcmahan CLERICAL AND ADMINISTRATIVE WORKERS Sep 18, 2018 14:07
[2018-09-18] MEDS ORDERED: ONDANSETRON 4 MG (ZOFRAN) ORAL DISSOLVE TAB PO PRN (15:30)
[2018-09-18 16:37] VITALS: BP_SYST 86; BP_SYST 94; BP_DIAS 42; BP_DIAS 44
--- NOTE | 2018-09-18 16:40 | NUR ---
TIRE REPAIR MECHANIC met with patient to review team conference summary. As patient is performing slideboard transfers with mod assist, wheelchair mobility at min assist, is in need of indwelling catheter removal and transition to self-catheterization and needs to achieve therapy goals without use of a leg immobilizer, team has recommended patient be reevaluated at next team conference on 710. Patient is agreeable to this plan,as she is hopeful to return to prior level. Patient does request a day pass on Sunday, 76 as this is her birthday. TIRE REPAIR MECHANIC reviewed requested Dr. Noriega, she has approved. TIRE REPAIR MECHANIC will continue to follow.
--- NOTE | 2018-09-18 16:57 | NUR ---
Notified Dr. Noriega of B/P
[2018-09-18] MEDS: warFARin 2 MG (COUMADIN) TAB PO SCH (17:07)
[2018-09-18] MEDS: warFARin 5 MG (COUMADIN) TAB PO SCH (17:07)
[2018-09-18 18:00] VITALS: BP 77/40
[2018-09-18 18:23] LABS: BILIRUBIN,URINE NEGATIVE (NEGATIVE); CLARITY,URINE CLEAR; COLOR,URINE YELLOW; GLUCOSE, URINE (UA) NEGATIVE (NEGATIVE); KETONES,URINE NEGATIVE (NEGATIVE); LEUKOCYTE ESTERASE ,URINE 2+ (NEGATIVE); NITRITE,URINE NEGATIVE (NEGATIVE); PH,URINE 8 (5-9); PROTEIN,URINE NEGATIVE (NEGATIVE); UROBILINOGEN,URINE NORMAL (NORMAL)
[2018-09-18 18:32] LABS: BACTERIA,URINE FEW /HPF
--- NOTE | 2018-09-18 19:20 | NUR ---
bedside report received from JOY MOORE, assume care of pt
--- NOTE | 2018-09-18 21:15 | NUR ---
assessments & intervention completed, see assessments & interventions
[2018-09-18] MEDS: SIMvastatin 20 MG (ZOCOR) TAB PO SCH (21:22)
--- NOTE | 2018-09-18 21:22 | NUR ---
refused miralax but took Colace for constipation tried to get pt to do bowel prep as we had male doctor's assistant to help with lifting but pt refused stating would do it tomorrow & let Colace help
[2018-09-18] MEDS: DOCUSATE SODIUM 100 MG (COLACE) CAP PO PRN (21:26)
[2018-09-19 05:07] VITALS: BP 97/52
[2018-09-19] MEDS: LEVOTHYROXINE 125 MCG (LEVOTHROID) TABLET PO SCH (06:22)
[2018-09-19] MEDS: LACTOBACILLUS ACIDOPHILUS (PROBIOTIC) CAPSULE PO SCH ×3 (06:22→17:42)
[2018-09-19] MEDS: PANTOPRAZOLE 40 MG (PROTONIX) TAB PO SCH (06:22)
[2018-09-19] MEDS: ONDANSETRON 4 MG (ZOFRAN) ORAL DISSOLVE TAB PO SCH (06:22)
[2018-09-19] MEDS: LEVOTHYROXINE 25 MCG (LEVOTHROID) TAB PO SCH (06:22)
[2018-09-19] MEDS: RT-ALBUTEROL/IPRATROPIUM 3 ML (DUONEB) VIAL INH SCH ×4 (06:50→20:14)
[2018-09-19] MEDS: aCETylcysteine 20% (MUCOMYST) 30ML SOLN VIAL INH SCH ×4 (06:50→20:14)
--- NOTE | 2018-09-19 07:29 | NUR ---
bedside report given to JULIENNE MOORE
--- NOTE | 2018-09-19 09:27 | Physical Therapy Daily Note ---
PT Daily Note-Current Subjective Pt agreeable to PT session. States she has no new c/o's. Reports no pain. States she is allowed to take R leg brace off when not transferring and also is allowed to perform ex's with RLE. Pain Numeric Pain Scale: 0-No Pain Appearance Upon arrival, pt sitting up in w/c awake and alert, just finished shower with OT. At end of session, pt sitting up in w/c looking at menu to order meal. Call light, phone and bedside table within reach Mental Status Patient Orientation: Person, Place, Time, Eyes Open, Situation Attachments: Oxygen (pt refused to wear during tx session, did maintain 95% and above SPO2), Cope Catheter RLE brace Transfers Therapy Code Descriptions/Definitions Functional [place] Measure: 0=Not Assessed/NA 4=Minimal Assistance 1=Total Assistance 5=Supervision or Setup 2=Maximal Assistance 6=Modified [place] 3=Moderate Assistance 7=Complete [place] Therapy Quality Codes: 6 Independent with activity with or without an assistive device 5 Patient requires set up or clean up by helper. Patient completes activity by themselves 4 Supervision or touching assist (CGA). [place] provide cues , steadying assist 3 The helper provides less than half the effort to complete the activity 2 The helper provides more than half the effort to complete the activity 1 Dependent. The helper does all the effort to complete an activity 7 Patient refused to complete or attempt activity 9 The patient did not perform the activity before the current illness or injury 88 Not attempted due to Medical conditions or safety concerns Transfers (B, C, W/C) (FIM): 2 Scootin (in w/c) Sit to/from Stand: 2 max A with sit to/from stand transfers. Worked on scooting buttocks while in w/c, fwd, bkwd and left and right Weight Bearing Right Lower Extremity: Right Weight Bearing/Tolerated Left Lower Extremity: Left Weight Bearing/Tolerated Wheelchair Training Does the Pt Use a Wheelchair?: Yes Wheelchair (FIM): 1 Wheelchair Distance: 1=up to 49 ft Distance: 15 x4 Wheelchair Level of Assist: 5 (in room and bathroom around obstacles with LLE on pedal and RLE on extended leg rest) Type of Wheelchair: Manual Exercises Seated Therapy Exercises: Biceps, Ankle pumps, Sit to stand (x2), Shoulder Flex, Long arc quads, Chair press-ups ((+) straight up, up and to the R, up and to the L), Shoulder Abd, Hip flexion, Kicking activity, Hamstring Curls, Reaching activity, Hip abd/add, Glut set, Tricep Seated Reps: 10 ((+) trunk flex, ext, rotation, R and L lateral flex. Attempted some with red tband for resistance.) muscles fatigue quickly, minimal motion, requires AAROM to PROM with some ex's BLE's Treatments sit to from stand w/c transfers, strengthening and ROM of LE's, UE's and trunk/core mm's, activity tolerance, donning/doffing RLE brace, safety, education, functional mobility, w/c mobility Assessment Pt is slow at performing activities, mm fatigue notable after 5-6 reps PT Short Term Goals Short Term Goals Time Frame: Sep 20, 2018 Transfers (B,C,W/C) (FIM): 4 Wheelchair (FIM): 6 Wheelchair Distance: 150'x2 PT Residential Goals Field Underwriter Goals PT Residential Goals Time Frame: Oct 04, 2018 Transfers (B,C,W/C) (FIM): 5 Sit to Lying (QC): 4 Lying-Sitting on Side/Bed(QC): 4 Sit to Stand (QC): 4 Rollin Roll Left to Right (QC): 4 Chair/Khe-ur-Qlbnh Xfer(QC): 4 Car Transfer (QC): 3 Wheelchair (FIM): 6 Distance: 200' Wheelchair Level of Assist: 6 Wheel 50 feet with 2 turns (QC: 6 PT Plan Treatment/Plan Treatment Plan: Continue Plan of Care Treatment Plan: Bed Mobility, Concurrent Therapy, Education, Functional Activity [place], Functional Strength, Group Therapy, Gait, Safety, Therapeutic Exercise, Transfers Treatment Duration: Oct 04, 2018 Frequency: At least 5 of 7 days/Wk (IRF) Estimated Hrs Per Day: 1.5 hours per day Patient and/or Family Agrees t: Yes Safety Risks/Education Patient Education: Transfer Techniques, Reviewed Precautions, Correct Positioning, W/C Management, Reviewed Don/Doff Brace, Safety Issues Teaching Recipient: Patient Teaching Methods: Discussion Response to Teaching: Verbalize Understanding, Return Demonstration, Reinforcement Needed Time/GCodes Time In: 900 Time Out: 1000 Total Billed Treatment Time: 60 Total Billed Treatment 1 visit, FA x1 unit, EX x3 units WILFRED CRISTOBAL PTA Sep 19, 2018 09:27
[2018-09-19] MEDS: predniSONE 10 MG TAB PO SCH (10:16)
[2018-09-19] MEDS: ENOXAPARIN 40 MG/0.4 ML (LOVENOX) SYR SC SCH ×2 (10:16→22:27)
[2018-09-19] MEDS: SERTRALINE 100 MG (ZOLOFT) TAB PO SCH (10:16)
[2018-09-19] MEDS: risperiDONE 1 MG (RisperDAL) TAB PO SCH ×2 (10:16→22:33)
[2018-09-19] MEDS: fluCOnazole (DIFLUCAN) 100 MG TAB PO SCH (10:16)
[2018-09-19] MEDS: guaiFENesin (MUCINEX) 600 MG TAB PO SCH ×2 (10:16→22:34)
[2018-09-19] MEDS: NICOTINE 21 MG (NICODERM) PATCH TD SCH (10:17)
[2018-09-19] MEDS: NICOTINE PATCH REMOVAL TP SCH (10:17)
[2018-09-19] MEDS: BACLOFEN 10 MG (LIORESAL) TAB PO SCH ×2 (10:18→22:32)
[2018-09-19] MEDS: A & D OINT 113 GM TUBE TOP SCH (10:18)
[2018-09-19] MEDS: POLYETHYLENE GLYCOL 17 GM (MIRALAX) PACK PO SCH ×2 (10:19→22:27)
[2018-09-19] MEDS: ZINC OXIDE 16% OINT (BUTT PASTE) 113 GM TUBE TOP SCH ×3 (10:19→22:20)
[2018-09-19 10:57] VITALS: BP 97/52
--- NOTE | 2018-09-19 11:13 | Occupational Ther Daily Note ---
OT Current Status-Daily Note Subjective Pt alert, lying in bed. Pt agrees to therapy. No c/o pain at this time. Mental Status/Objective Patient Orientation: Person, Place, Time, Situation Therapy Code Descriptions/Definitions Functional [place] Measure: 0=Not Assessed/NA 4=Minimal Assistance 1=Total Assistance 5=Supervision or Setup 2=Maximal Assistance 6=Modified [place] 3=Moderate Assistance 7=Complete [place] Attachments: IV ADL-Treatment Pt takes increased time to complete all ADLS tasks. Pt agrees to shower. Pt takes increased time to complete surface to surface transfers, difficulty with lifting self up enough to clear buttocks from bed or w/c wheel. Pt able to don/doff brace and socks by self. Tub bench transfer to <--> from w/c with max A x1. Pt Pt able to complete all areas except L lower leg and foot. Pt donned/doffed shirt by self. Pt donned lower body clothing sitting in w/c then assist to stand while assist to hike pants over hips. Completed grooming mod I. After therapy, pt sitting up in bed with call light/phone in reach. All needs met in room. Therapy Code Descriptions/Definitions Functional [place] Measure: 0=Not Assessed/NA 4=Minimal Assistance 1=Total Assistance 5=Supervision or Setup 2=Maximal Assistance 6=Modified [place] 3=Moderate Assistance 7=Complete [place] Therapy Quality Codes: 6 Independent with activity with or without an assistive device 5 Patient requires set up or clean up by helper. Patient completes activity by themselves 4 Supervision or touching assist (CGA). [place] provide cues , steadying assist 3 The helper provides less than half the effort to complete the activity 2 The helper provides more than half the effort to complete the activity 1 Dependent. The helper does all the effort to complete an activity 7 Patient refused to complete or attempt activity 9 The patient did not perform the activity before the current illness or injury 88 Not attempted due to Medical conditions or safety concerns Grooming (FIM): 6 Oral Hygiene (QC): 6 Bathing (FIM): 4 Bathing Location: L Arm, R Arm, L Upper Leg, R Upper Leg, R Lower Leg (including foot), Chest, Abdomen, Buttocks, Perineal Area Shower/Bathe Self (QC): 3 Upper Body (FIM): 6 Upper Body Dressing (QC): 6 Lower Body Dressing (FIM): 1 Lower Body Dressing (QC): 1 On/Off Footwear (QC): 6 OT Short Term Goals Short Term Goals Eating(FIM): 6 Grooming(FIM): 5 Bathing(FIM): 5 Upper Body Dressing(FIM): 5 Lower Body Dressing(FIM): 5 Toileting(FIM): 5 Transfers (B,C,W/C) (FIM): 4 Toilet/Commode Transfer(FIM): 4 Tub Transfer(FIM): 4 Shower Transfer(FIM): 4 Additional Short Term Goals: 1-Demonstrate ADL Tasks, 2-Verbalize Understanding, 3-ImproveStrength/[place] 1=Demonstrate adherence to instructed precautions during ADL tasks. 2=Patient will verbalize/demonstrate understanding of assistive devices/modifications for ADL. 3=Patient will improve strength/tolerance for activity to enable patient to perform ADL's. OT Jail Goals Jail Goals Time Frame: Oct 11, 2018 Eating (FIM): 7 Eating (QC): 6 Groomin Oral Hygiene (QC): 6 Bathing(FIM): 6 Bathing Location: L Arm, R Arm, L Upper Leg, R Upper Leg, L Lower Leg (including foot), R Lower Leg (including foot), Chest, Abdomen, Buttocks, Perineal Area Shower/Bathe Self (QC): 6 Upper Body Dressing(FIM): 7 Upper Body Dressing (QC): 6 Lower Body Dressing(FIM): 6 Lower Body Dressing (QC): 6 On/Off Footwear (QC): 6 Toileting(FIM): 6 Toileting Hygiene (QC): 6 Transfers (B,C,W/C) (FIM): 6 Toilet/Commode Transfer(FIM): 6 Toilet/Commode Transfer (QC): 6 Tub Transfer(FIM): 6 Shower Transfer(FIM): 6 Additional Goals: 1-Demonstrate ADL Tasks, 2-Verbalize Understanding, 3- ImproveStrength/[place] 1=Demonstrate adherence to instructed precautions during ADL tasks. 2=Patient will verbalize/demonstrate understanding of assistive devices/modifications for ADL. 3=Patient will improve strength/tolerance for activity to enable patient to perform ADL's. OT Education/Plan Problem List/Assessment Assessment: Impaired Self-Care Skills pt presents with functional limitations affecting areas of ADLs and functional transfers. pt would benefit from skilled OT Services to increase independence with ADLS/ functional transfers. Discharge Recommendations Plan/Recommendations: Continue POC Treatment Plan/Plan of Care Patient would benefit from OT for education, treatment and training to promote independence in ADL's, mobility, safety and/or upper extremity function for ADL's. Plan of Care: ADL Retraining, Caregiver Training, Concurrent Therapy, Functional Mobility, Group Exercise/Act as Ind, UE Funct Exercise/Act, W/C Management Training Treatment Duration: Oct 11, 2018 Frequency: At least 5 of 7 days/Wk (IRF) Estimated Hrs Per Day: 1 hour per day (60-90 minutes per day) Agreement: Yes Rehab Potential: Fair Time/GCodes Start Time: 07:45 Stop Time: 09:00 Total Time Billed (hr/min): 75 Billed Treatment Time 1 visit-ADL 5 (75 min) MACARIO BAUTISTA Sep 19, 2018 11:13
--- NOTE | 2018-09-19 11:50 | PM&R Progress Note ---
Subjective HPI/CC On Admission Date Seen by Provider: Sep 19, 2018 Time Seen by Provider: 10:00 Chief complaint: Debility from respiratory failure and ventilation History of present illness: This is a 57-year-old [facility] who was originally admitted last week for respiratory failure. She was maintained on ventilator support for several days and under Dr. Fenton's expertise she was able to be extubated without complication. 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 Her INR today is 4.2 so that will be held. Patient's does quite a bit for her at home and prior level of functioning required a great deal of help from him to transfer from wheelchair to bed and toilet and so forth. She is very weak having significant shortness of breath since COPD flare and recent ventilator support and will require inpatient rehab to optimize ADLs at home to lessen the burden on her . Pulmonology will be maintained due to high risk for respiratory insufficiency. Subjective/Events-last exam Wants to go on a day pass on Sunday because it is her birthday and I approved that Reviewed urinalysis which was only very subtly abnormal so will be hard pressed initiate treatment but will follow up on urine culture Restarting her bladder medication from home since she doesn't like the formulation here and then will restart in and out catheter likely next week when she goes home Restarted on Coumadin 7 mg daily and maintain on Lovenox injections Weaning oxygen off but maintain nighttime use which is chronic Nicotine patch is helping her Declines help most of the time 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 but avoiding sharing of the skin when she transfers Using incentive spirometer Needs a bowel movement but she wants a dietitian to come and talk to her about ulcerative colitis nutrition and recommendations to help her with that INR monitored Checked meds and labs Conferred with RN Reviewed therapy notes Review of Systems General: Fatigue Gastrointestinal: Constipation Objective Exam Vital Signs Vital Signs Date Time Temp Pulse Resp B/P (MAP) Pulse Ox O2 Delivery O2 Flow Rate FiO2 09/19/18 10:57 78 94 21 09/19/18 10:55 Room Air 09/19/18 06:50 3.00 09/19/18 05:07 99.0 18 97/52 (67) Capillary Refill : Less Than 3 Seconds General Appearance: No Apparent Distress, WD/WN, Chronically ill, Thin HEENT: PERRL/EOMI, Normal ENT Inspection, Pharynx Normal, Moist Mucous Membranes Neck: Full Range of Motion, Normal Inspection, Non Tender, Supple Respiratory: Chest Non Tender, Lungs Clear, No Accessory Muscle Use, No Respiratory Distress, Decreased Breath Sounds Cardiovascular: Regular Rate, Rhythm, No Edema, No Gallop, No JVD, No Murmur Gastrointestinal: Normal Bowel Sounds, No Organomegaly, No Pulsatile Mass, Non Tender, Soft Back: Normal Inspection, No CVA Tenderness, No Vertebral Tenderness Extremity: Normal Capillary Refill, Normal Inspection, No Pedal Edema, Other (parplegia) Neurologic/Psychiatric: Alert, Oriented x3, Normal Mood/Affect, sign writer hand II-XII Norm as Tested, Depressed Affect, Motor Weakness (paraplegia) Skin: Normal Color, Warm/Dry Lymphatic: No Adenopathy Results/Procedures Lab Patient resulted labs reviewed. FIM Transfers Therapy Code Descriptions/Definitions Functional [place] Measure: 0=Not Assessed/NA 4=Minimal Assistance 1=Total Assistance 5=Supervision or Setup 2=Maximal Assistance 6=Modified [place] 3=Moderate Assistance 7=Complete [place] Therapy Quality Codes: 6 Independent with activity with or without an assistive device 5 Patient requires set up or clean up by helper. Patient completes activity by themselves 4 Supervision or touching assist (CGA). [place] provide cues , steadying assist 3 The helper provides less than half the effort to complete the activity 2 The helper provides more than half the effort to complete the activity 1 Dependent. The helper does all the effort to complete an activity 7 Patient refused to complete or attempt activity 9 The patient did not perform the activity before the current illness or injury 88 Not attempted due to Medical conditions or safety concerns Transfers (B, C, W/C) (FIM): 2 Scootin (in w/c) Rollin Roll Left to Right (QC): 4 Supine to/from Sit: 3 Sit to/from Stand: 2 Sit to Lying (QC): 2 Chair/Wev-xy-Bdgcv Xfer(QC): 2 Bed to/from Chair: 3 Car Transfer (QC): 1 Gait Training Does the Patient Walk?: No and Walking Goal NOT indicated Wheelchair Training Does the Pt Use a Wheelchair?: Yes Wheelchair (FIM): 1 Wheelchair Distance: 1=up to 49 ft Distance: 15 x4 Wheelchair Level of Assist: 5 (in room and bathroom around obstacles with LLE on pedal and RLE on extended leg rest) Wheel 50 ft with 2 turns (QC): 4 Wheel 150 ft (QC): 4 Type of Wheelchair: Manual Mental Status/Objective Comprehension: 7 Expression: 7 Social Interaction: 7 Problem Solvin Memory: 7 ADL-Treatment Feedin (set up ) Eating (QC): 5 Groomin Oral Hygiene (QC): 6 Bathin Bathing Location: L Arm, R Arm, L Upper Leg, R Upper Leg, R Lower Leg (including foot), Chest, Abdomen, Buttocks, Perineal Area Shower/Bathe Self (QC): 3 Upper Extremity Dressin Upper Body Dressing (QC): 6 Lower Extremity Dressin Lower Body Dressing (QC): 1 On/Off Footwear (QC): 6 Toiletin (pt required assist to complete 3/3 toileting task. ) Toileting Hygiene (QC): 1 Toilet/Commode Transfer: 1 Toilet Transfer (QC): 1 Shower: 3 Assessment/Plan Assessment and Plan Assess & Plan/Chief Complaint Assessment: Severe debility from critical illness Status post ventilator dependent respiratory failure Exacerbation of COPD now on steroid taper Current smoker T4 paralysis from transverse myelitis in 1993 Indwelling Cope catheter for past 1 year so will transition to in/out caths to prevent infections and send UA for analysis Right femur fracture 1 year ago managed by [facility] in [place] will DC immobilizer in 3 weeks Bowel dysfunction requiring rectal stimulation for bowel movement Thin and frail status high risk for respiratory compromise 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 Yung consult for coccyx decubitus ulcer is appreciated Maintain Cope catheter and restart bladder medication then restart in and out catheters very soon Smoking cessation DC right leg immobilizer (1) Debility (2) Delirium Resolution Date/Time: 09/12/18 @ 14:16 (3) DVT prophylaxis (4) Paraplegia (5) Hypothyroidism (6) Tobacco abuse (7) Acute respiratory distress (8) Anticoagulant long-term use (9) Counseling regarding end of life decision making (10) Hyponatremia Resolution Date/Time: 09/11/18 @ 16:40 (11) Leukopenia Resolution Date/Time: 09/11/18 @ 16:40 CHEVY MARTINEZ DO Sep 19, 2018 11:50
--- NOTE | 2018-09-19 14:10 | Therapy Group Daily Note ---
Therapy Daily Group Note Patient Education Topic Other List Below (memory) Session Ratio (pt:therapist): 3:1 Goal of Session: Memory Strategies Goal Met for this Session: Yes Pt Benefit of Group: Contributions to Others, Increased Functional Strength, Improved Cognition, Recognition of Peers, Socialization Other/Notes Pt propelled w/c to OT/PT group in [facility] area. Group consisted of introductions (name, place living, favorite fireworks display), socialization, memory strategies, memory exercises and memory activity. Pt introduced self appropriately and actively listened to peers. Pt contributed to conversations and interacted with peers throughout group. Acknowledged understanding of group education topics by verbalizing own strategies and understanding. Pt able to complete memory activity accurately and assisted peers when help was needed. After group, pt lying in bed with call light/phone in reach. All needs met in room. Start Time: 12:30 Stop Time: 13:30 Total Billed Treatment Time: 60 Total Billed Treatment 1-GRP MACARIO BAUTISTA Sep 19, 2018 14:10
[2018-09-19] MEDS ORDERED: NON-FORMULARY MEDICATION 1 EA EA (Alendronate Sodium 70 MG) PO SCH (17:00)
[2018-09-19 17:30] VITALS: BP 94/54
[2018-09-19] MEDS: warFARin 2 MG (COUMADIN) TAB PO SCH (17:42)
[2018-09-19] MEDS: warFARin 5 MG (COUMADIN) TAB PO SCH (17:42)
[2018-09-19] MEDS: SIMvastatin 20 MG (ZOCOR) TAB PO SCH (22:26)
[2018-09-20] MEDS: ONDANSETRON 4 MG (ZOFRAN) ORAL DISSOLVE TAB PO SCH (06:26)
[2018-09-20] MEDS: PANTOPRAZOLE 40 MG (PROTONIX) TAB PO SCH (06:26)
[2018-09-20] MEDS: LEVOTHYROXINE 125 MCG (LEVOTHROID) TABLET PO SCH (06:26)
[2018-09-20] MEDS: LEVOTHYROXINE 25 MCG (LEVOTHROID) TAB PO SCH (06:26)
[2018-09-20 06:28] VITALS: BP 93/52
[2018-09-20 06:30] LABS: INR 2.2 (0.8-1.4); PROTHROMBIN TIME PATIENT 25.5 SEC (12.2-14.7)
[2018-09-20] MEDS: LACTOBACILLUS ACIDOPHILUS (PROBIOTIC) CAPSULE PO SCH ×3 (06:51→18:10)
[2018-09-20] MEDS: RT-ALBUTEROL/IPRATROPIUM 3 ML (DUONEB) VIAL INH SCH ×4 (07:27→19:45)
[2018-09-20] MEDS: aCETylcysteine 20% (MUCOMYST) 30ML SOLN VIAL INH SCH ×4 (07:27→19:45)
--- NOTE | 2018-09-20 07:35 | NUR ---
Patient was on 1 L NC satting 97% so RT placed patient on RA at this time; RT will continue to monitor patients O2 sat throughout the day; RT will pass on to maintenance technician 3rd shift RT that patient does use 3 L NC at NOC at home, so they will need to turn patients O2 up.
--- NOTE | 2018-09-20 08:02 | Pulmonary Progress Note ---
Subjective Time Seen by a Provider: 08:01 Subjective/Events-last exam Pt is doing better. No complications noted. Sepsis Event Evaluation Height, Weight, BMI Height: 5'6.00" Weight: 116lbs. 11.2oz. [id number]; 16.9 BMI Method:Stated Exam Exam Vital Signs Date Time Temp Pulse Resp B/P (MAP) Pulse Ox O2 Delivery O2 Flow Rate FiO2 09/20/18 07:28 97 Nasal Cannula 1.00 09/20/18 06:28 98.5 83 16 93/52 (66) 97 Nasal Cannula 1.00 09/19/18 21:00 Room Air 09/19/18 20:15 97 Nasal Cannula 1.00 09/19/18 17:30 98.2 81 16 94/54 (67) 100 Nasal Cannula 1.00 09/19/18 15:10 95 Room Air 09/19/18 10:57 78 94 21 09/19/18 10:55 94 Room Air 09/19/18 09:00 Room Air I & O 09/20/18 07:00 Intake Total 1560 ml Output Total 1225 ml Balance 335 ml Height & Weight Height: 5'6.00" Weight: 116lbs. 11.2oz. [id number]; 16.9 BMI Method:Stated General Appearance: No Apparent Distress, WD/WN, Chronically ill, Thin HEENT: PERRL/EOMI, Normal ENT Inspection, Pharynx Normal, Moist Mucous Memb ranes Neck: Full Range of Motion, Normal Inspection, Non Tender, Supple Respiratory: Chest Non Tender, Lungs Clear, No Accessory Muscle Use, No Respiratory Distress, Decreased Breath Sounds Cardiovascular: Regular Rate, Rhythm, No Edema, No Gallop, No JVD, No Murmur Gastrointestinal: normal bowel sounds, non tender, no organomegaly Extremity: Normal Capillary Refill, Normal Inspection, No Pedal Edema, Other (parplegia) Neurologic/Psychiatric: Alert, Oriented x3, Normal Mood/Affect, program architect II-XII Norm as Tested, Depressed Affect, Motor Weakness (paraplegia) Skin: Normal Color, Warm/Dry Lymphatic: No Adenopathy Assessment/Plan Assessment/Plan Acute on chronic respiratory failure COPDAE with PNA (Uses 3 liters of oxygen at home) with mucous plugs -Pt feels much improved after bronchoscopy - she states she can take a deeper breath. -Oxygen -Q4 Duonebs -ABG - C02 41 Tobacco use -Education Paraplegia secondary to hx of transverse myelitis (wheelchair bound) Hx of multiple DVTs -chronic anticoagulation hx hypothyroid JAYLA CUELLAR DO Sep 20, 2018 08:02
[2018-09-20] MEDS: fluCOnazole (DIFLUCAN) 100 MG TAB PO SCH (08:18)
[2018-09-20] MEDS: BACLOFEN 10 MG (LIORESAL) TAB PO SCH ×2 (08:18→21:59)
[2018-09-20] MEDS: guaiFENesin (MUCINEX) 600 MG TAB PO SCH ×2 (08:18→21:59)
[2018-09-20] MEDS: SERTRALINE 100 MG (ZOLOFT) TAB PO SCH (08:18)
[2018-09-20] MEDS: risperiDONE 1 MG (RisperDAL) TAB PO SCH ×2 (08:18→21:59)
[2018-09-20] MEDS: predniSONE 10 MG TAB PO SCH (08:18)
[2018-09-20] MEDS: A & D OINT 113 GM TUBE TOP SCH (08:19)
[2018-09-20] MEDS: ZINC OXIDE 16% OINT (BUTT PASTE) 113 GM TUBE TOP SCH ×3 (08:19→22:00)
[2018-09-20] MEDS: NICOTINE 21 MG (NICODERM) PATCH TD SCH (08:19)
[2018-09-20] MEDS: OXYBUTYNIN 10 MG PO SCH (08:19)
[2018-09-20] MEDS: NICOTINE PATCH REMOVAL TP SCH (08:20)
[2018-09-20] MEDS: POLYETHYLENE GLYCOL 17 GM (MIRALAX) PACK PO SCH ×2 (08:24→21:59)
--- NOTE | 2018-09-20 09:59 | Physical Therapy Daily Note ---
PT Daily Note-Current Subjective Patient in bed pre tx, agrees to PT, has no complaints of pain, needs to get dressed upper and lower. Patient puts on shirt with mod I, puts on shorts with mod I (she was able to get her shorts on all the way without assist which she was not able to do before) Appearance Patient in wheelchair at bedside post tx with nurse call, phone, tray, all needs met. Mental Status Patient Orientation: Person, Place, Situation, Normal For Age leg brace Transfers Therapy Code Descriptions/Definitions Functional [place] Measure: 0=Not Assessed/NA 4=Minimal Assistance 1=Total Assistance 5=Supervision or Setup 2=Maximal Assistance 6=Modified [place] 3=Moderate Assistance 7=Complete [place] Therapy Quality Codes: 6 Independent with activity with or without an assistive device 5 Patient requires set up or clean up by helper. Patient completes activity by themselves 4 Supervision or touching assist (CGA). [place] provide cues , steadying assist 3 The helper provides less than half the effort to complete the activity 2 The helper provides more than half the effort to complete the activity 1 Dependent. The helper does all the effort to complete an activity 7 Patient refused to complete or attempt activity 9 The patient did not perform the activity before the current illness or injury 88 Not attempted due to Medical conditions or safety concerns Transfers (B, C, W/C) (FIM): 3 Scootin Rollin Supine to/from Sit: 5 Bed to/from Chair: 3 sliding board transfer, mod assist Weight Bearing Right Lower Extremity: Right Weight Bearing/Tolerated Left Lower Extremity: Left Weight Bearing/Tolerated Wheelchair Training Does the Pt Use a Wheelchair?: Yes Wheelchair (FIM): 6 Distance: 150'x2 Type of Wheelchair: Manual Exercises Supine Ex: Quad Set Supine Reps: 15 (in WC with leg elevated) Seated Therapy Exercises: Ankle pumps, Long arc quads Seated Reps: 15 WC pushups 2 sets of 10, UE ex with 3# weights x20 (bicep curls, vertical press) Treatments bed mobility and transfers, dressing, UE and LE exercise, patient had a ROM knee brace brought in for comfort and it was adjusted to her leg as well as it could be, it is too big for her leg overall Assessment Current Status: Fair Progress steadier sitting balance PT Short Term Goals Short Term Goals Time Frame: Sep 20, 2018 Transfers (B,C,W/C) (FIM): 4 Wheelchair (FIM): 6 Wheelchair Distance: 15 x4 PT Assisted Goals Assisted Goals PT Assisted Goals Time Frame: Oct 04, 2018 Transfers (B,C,W/C) (FIM): 5 Sit to Lying (QC): 4 Lying-Sitting on Side/Bed(QC): 4 Sit to Stand (QC): 4 Rollin Roll Left to Right (QC): 4 Chair/Nzf-mq-Fpuit Xfer(QC): 4 Car Transfer (QC): 3 Wheelchair (FIM): 6 Distance: 200' Wheelchair Level of Assist: 6 Wheel 50 feet with 2 turns (QC: 6 PT Plan Problem List Problem List: Activity Tolerance, Functional Strength, Safety, Balance, Gait, Transfer, Bed Mobility, ROM Treatment/Plan Treatment Plan: Continue Plan of Care Treatment Plan: Bed Mobility, Concurrent Therapy, Education, Functional Activity Chevy, Functional Strength, Group Therapy, Gait, Safety, Therapeutic Exercise, Transfers Treatment Duration: Oct 04, 2018 Frequency: At least 5 of 7 days/Wk (IRF) Estimated Hrs Per Day: 1.5 hours per day Patient and/or Family Agrees t: Yes Safety Risks/Education Patient Education: Transfer Techniques, Correct Positioning, W/C Management, Reviewed Don/Doff Brace, Safety Issues Teaching Recipient: Patient Teaching Methods: Demonstration, Discussion Response to Teaching: Reinforcement Needed Time/GCodes Time In: 0900 Time Out: 1000 Total Billed Treatment Time: 60 Total Billed Treatment 1 visit EX 20' FA 40' ANA M MCGUIRE PT Sep 20, 2018 09:59
--- NOTE | 2018-09-20 11:00 | Occupational Ther Daily Note ---
OT Current Status-Daily Note Subjective Pt alert, sitting in w/c. Pt agrees to therapy. No c/o pain at this time. Mental Status/Objective Patient Orientation: Person, Place, Time, Situation Therapy Code Descriptions/Definitions Functional [place] Measure: 0=Not Assessed/NA 4=Minimal Assistance 1=Total Assistance 5=Supervision or Setup 2=Maximal Assistance 6=Modified [place] 3=Moderate Assistance 7=Complete [place] Attachments: IV ADL-Treatment Pt declines shower. Pt dressed by self prior to OT session. Pt has tub/shower at home with a tub bench that is clamped onto tub ledge. Pt states that she positions w/c at an angle to the tub and places one foot into tub then maneuvers self onto bench with husbands help. Pt also states that comes home at lunch to get her out of her w/c then goes back to work. Per pt, pt and do not like to use a wood sliding board due to friction it causes on skin. ENRIQUEZ discusses options of using towel when clothing is not on to reduce friction. Pt is noncommittal about if she will use sliding board at home. Per pt, typically lifts her to surface to surface. Did not complete tub bench transfer due to not being set up like pt's at home. Discussed with pt about being independent when using sliding board. Therapy Code Descriptions/Definitions Functional [place] Measure: 0=Not Assessed/NA 4=Minimal Assistance 1=Total Assistance 5=Supervision or Setup 2=Maximal Assistance 6=Modified [place] 3=Moderate Assistance 7=Complete [place] Therapy Quality Codes: 6 Independent with activity with or without an assistive device 5 Patient requires set up or clean up by helper. Patient completes activity by themselves 4 Supervision or touching assist (CGA). [place] provide cues , steadying assist 3 The helper provides less than half the effort to complete the activity 2 The helper provides more than half the effort to complete the activity 1 Dependent. The helper does all the effort to complete an activity 7 Patient refused to complete or attempt activity 9 The patient did not perform the activity before the current illness or injury 88 Not attempted due to Medical conditions or safety concerns Other Treatment Pt completed arm bike for 15 min at 20 davis resistance to increase UE strength and activity tolerance for daily functional tasks. After therapy, pt sitting in w/c with call light/phone in reach. All needs met in room. OT Short Term Goals Short Term Goals Eating(FIM): 6 Grooming(FIM): 5 Bathing(FIM): 5 Upper Body Dressing(FIM): 5 Lower Body Dressing(FIM): 5 Toileting(FIM): 5 Transfers (B,C,W/C) (FIM): 4 Toilet/Commode Transfer(FIM): 4 Tub Transfer(FIM): 4 Shower Transfer(FIM): 4 Additional Short Term Goals: 1-Demonstrate ADL Tasks, 2-Verbalize Understanding, 3-ImproveStrength/Chevy 1=Demonstrate adherence to instructed precautions during ADL tasks. 2=Patient will verbalize/demonstrate understanding of assistive devices/modifications for ADL. 3=Patient will improve strength/tolerance for activity to enable patient to perform ADL's. OT Senior Living Goals Senior Living Goals Time Frame: Oct 11, 2018 Eating (FIM): 7 Eating (QC): 6 Groomin Oral Hygiene (QC): 6 Bathing(FIM): 6 Bathing Location: L Arm, R Arm, L Upper Leg, R Upper Leg, L Lower Leg (including foot), R Lower Leg (including foot), Chest, Abdomen, Buttocks, Perineal Area Shower/Bathe Self (QC): 6 Upper Body Dressing(FIM): 7 Upper Body Dressing (QC): 6 Lower Body Dressing(FIM): 6 Lower Body Dressing (QC): 6 On/Off Footwear (QC): 6 Toileting(FIM): 6 Toileting Hygiene (QC): 6 Transfers (B,C,W/C) (FIM): 6 Toilet/Commode Transfer(FIM): 6 Toilet/Commode Transfer (QC): 6 Tub Transfer(FIM): 6 Shower Transfer(FIM): 6 Additional Goals: 1-Demonstrate ADL Tasks, 2-Verbalize Understanding, 3- ImproveStrength/Chevy 1=Demonstrate adherence to instructed precautions during ADL tasks. 2=Patient will verbalize/demonstrate understanding of assistive devices/modifications for ADL. 3=Patient will improve strength/tolerance for activity to enable patient to perform ADL's. OT Education/Plan Problem List/Assessment pt presents with functional limitations affecting areas of ADLs and functional transfers. pt would benefit from skilled OT Services to increase independence with ADLS/ functional transfers. Discharge Recommendations Plan/Recommendations: Continue POC Treatment Plan/Plan of Care Patient would benefit from OT for education, treatment and training to promote independence in ADL's, mobility, safety and/or upper extremity function for ADL's. Plan of Care: ADL Retraining, Caregiver Training, Concurrent Therapy, Functional Mobility, Group Exercise/Act as Ind, UE Funct Exercise/Act, W/C Management Training Treatment Duration: Oct 11, 2018 Frequency: At least 5 of 7 days/Wk (IRF) Estimated Hrs Per Day: 1 hour per day (60-90 minutes per day) Agreement: Yes Rehab Potential: Fair Time/GCodes Start Time: 10:00 Stop Time: 11:00 Total Time Billed (hr/min): 60 Billed Treatment Time 1 visit, FA 3 (45 min) EX 1 (15 min) MACARIO BAUTISTA Sep 20, 2018 11:00
--- NOTE | 2018-09-20 11:32 | PM&R Progress Note ---
Subjective HPI/CC On Admission Date Seen by Provider: Sep 20, 2018 Time Seen by Provider: 09:00 Chief complaint: Debility from respiratory failure and ventilation History of present illness: This is a 57-year-old white female of [facility] who was originally admitted last week for respiratory failure. She was maintained on ventilator support for several days and under Dr. Fenton's expertise she was able to be extubated without complication. 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 Her INR today is 4.2 so that will be held. Patient's does quite a bit for her at home and prior level of functioning required a great deal of help from him to transfer from wheelchair to bed and toilet and so forth. She is very weak having significant shortness of breath since COPD flare and recent ventilator support and will require inpatient rehab to optimize ADLs at home to lessen the burden on her . Pulmonology will be maintained due to high risk for respiratory insufficiency. Subjective/Events-last exam Still planning on going on a day pass on Sunday because it is her birthday and I approved that Reviewed urinalysis which only reveals 30k colonies so will not treat this Restarted her bladder medication from home since she doesn't like the formulation here and then will restart in and out catheter likely next week when she goes home Restarted on Coumadin 7 mg daily and DC Lovenox since INR 2.2 today Weaning oxygen off but maintain nighttime use which is chronic Nicotine patch is helping her Declines help most of the time from the nurses and therapists 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 but avoiding sharing of the skin when she transfers Using incentive spirometer regularly Having small BM's INR monitored prn Checked meds and labs Conferred with RN Reviewed therapy notes Review of Systems General: Fatigue Pulmonary: Dyspnea Objective Exam Vital Signs Vital Signs Date Time Temp Pulse Resp B/P (MAP) Pulse Ox O2 Delivery O2 Flow Rate FiO2 09/20/18 15:23 96 Room Air 09/20/18 12:05 1.00 09/20/18 06:28 98.5 83 16 93/52 (66) 09/19/18 10:57 21 Capillary Refill : Less Than 3 Seconds General Appearance: No Apparent Distress, WD/WN, Chronically ill, Thin HEENT: PERRL/EOMI, Normal ENT Inspection, Pharynx Normal, Moist Mucous Membranes Neck: Full Range of Motion, Normal Inspection, Non Tender, Supple Respiratory: Chest Non Tender, No Accessory Muscle Use, No Respiratory Dist ress, Crackles, Decreased Breath Sounds Cardiovascular: Regular Rate, Rhythm, No Edema, No Gallop, No JVD, No Murmur Gastrointestinal: Normal Bowel Sounds, No Organomegaly, No Pulsatile Mass, Non Tender, Soft Back: Normal Inspection, No CVA Tenderness, No Vertebral Tenderness Extremity: Normal Capillary Refill, Normal Inspection, No Pedal Edema, Other (parplegia) Neurologic/Psychiatric: Alert, Oriented x3, Normal Mood/Affect, cycle manager II-XII Norm as Tested, Depressed Affect, Motor Weakness (paraplegia) Skin: Normal Color, Warm/Dry Lymphatic: No Adenopathy Results/Procedures Lab Patient resulted labs reviewed. FIM Transfers Therapy Code Descriptions/Definitions Functional [place] Measure: 0=Not Assessed/NA 4=Minimal Assistance 1=Total Assistance 5=Supervision or Setup 2=Maximal Assistance 6=Modified [place] 3=Moderate Assistance 7=Complete [place] Therapy Quality Codes: 6 Independent with activity with or without an assistive device 5 Patient requires set up or clean up by helper. Patient completes activity by themselves 4 Supervision or touching assist (CGA). [place] provide cues , steadying assist 3 The helper provides less than half the effort to complete the activity 2 The helper provides more than half the effort to complete the activity 1 Dependent. The helper does all the effort to complete an activity 7 Patient refused to complete or attempt activity 9 The patient did not perform the activity before the current illness or injury 88 Not attempted due to Medical conditions or safety concerns Transfers (B, C, W/C) (FIM): 3 Scootin Rollin Roll Left to Right (QC): 4 Supine to/from Sit: 5 Sit to/from Stand: 2 Sit to Lying (QC): 2 Chair/[id number]-[id number] Xfer(QC): 2 Bed to/from Chair: 3 Car Transfer (QC): 1 Gait Training Does the Patient Walk?: No and Walking Goal NOT indicated Wheelchair Training Does the Pt Use a Wheelchair?: Yes Wheelchair (FIM): 6 Wheelchair Distance: 1=up to 49 ft Distance: 150'x2 Wheelchair Level of Assist: 5 (in room and bathroom around obstacles with LLE on pedal and RLE on extended leg rest) Wheel 50 ft with 2 turns (QC): 4 Wheel 150 ft (QC): 4 Type of Wheelchair: Manual Mental Status/Objective Comprehension: 7 Expression: 7 Social Interaction: 7 Problem Solvin Memory: 7 ADL-Treatment Feedin (set up ) Eating (QC): 5 Groomin Oral Hygiene (QC): 6 Bathin Bathing Location: L Arm, R Arm, L Upper Leg, R Upper Leg, R Lower Leg (including foot), Chest, Abdomen, Buttocks, Perineal Area Shower/Bathe Self (QC): 3 Upper Extremity Dressin Upper Body Dressing (QC): 6 Lower Extremity Dressin Lower Body Dressing (QC): 1 On/Off Footwear (QC): 6 Toiletin (pt required assist to complete 3/3 toileting task. ) Toileting Hygiene (QC): 1 Toilet/Commode Transfer: 1 Toilet Transfer (QC): 1 Shower: 3 Assessment/Plan Assessment and Plan Assess & Plan/Chief Complaint Assessment: Severe debility from critical illness Status post ventilator dependent respiratory failure Exacerbation of COPD now on steroid taper Current smoker T4 paralysis from transverse myelitis in 1993 Indwelling Cope catheter for past 1 year so will transition to in/out caths to prevent infections and send UA for analysis Right femur fracture 1 year ago managed by [facility] in [place] will DC immobilizer in 3 weeks Bowel dysfunction requiring rectal stimulation for bowel movement Thin and frail status high risk for respiratory compromise 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 Yung consult for coccyx decubitus ulcer is appreciated Maintain Cope catheter and restart bladder medication then restart in and out catheters very soon Smoking cessation DC right leg immobilizer (1) Debility (2) Delirium Resolution Date/Time: 09/12/18 @ 14:16 (3) DVT prophylaxis (4) Paraplegia (5) Hypothyroidism (6) Tobacco abuse (7) Acute respiratory distress (8) Anticoagulant long-term use (9) Counseling regarding end of life decision making (10) Hyponatremia Resolution Date/Time: 09/11/18 @ 16:40 (11) Leukopenia Resolution Date/Time: 09/11/18 @ 16:40 CHEVY MARTINEZ DO Sep 20, 2018 11:32
--- NOTE | 2018-09-20 14:34 | Therapy Group Daily Note ---
Therapy Daily Group Note Exercises Fine Motor, UE Exercise Session Ratio (pt:therapist): 4:1 Goal of Session: Memory Strategies Goal Met for this Session: Yes Pt Benefit of Group: Contributions to Others, Improved Cognition, Recognition of Peers, Socialization Other/Notes Pt propelled self in w/c to OT/PT group in [facility]. Group consisted of introductions, remembering 5 words from previous group, activities that incorporated cognition, socialization, UE AROM and fine motor dexterity. Pt interacted well with peers and assisted peers when needed. Pt demonstrated good UE ROM and fine motor dexterity during activities. Pt was able to sequence and show good cognitive skills during activities. After therapy, pt lying in be d with call light/phone in reach. All needs met in room. Start Time: 13:00 Stop Time: 14:10 Total Billed Treatment Time: 70 Total Billed Treatment 1-GRP MACARIO BAUTISTA Sep 20, 2018 14:34
[2018-09-20 18:00] VITALS: BP 104/52
[2018-09-20] MEDS: warFARin 5 MG (COUMADIN) TAB PO SCH (18:10)
[2018-09-20] MEDS: warFARin 2 MG (COUMADIN) TAB PO SCH (18:10)
--- NOTE | 2018-09-20 21:42 | Wound Care Assessment ---
Wound Care Assessment Date Seen by Provider: Sep 20, 2018 Time Seen by Provider: 20:40 Chief Complaint Sacral and L calf ulcers. HPI The patient is a 57 year old female with paraplegia secondary to T4 transverse myelitis, a sacral pressure, and a neuropathic injury to L calf. The ulcer on the sacrum has been present for a year and the ulcer on the calf has been present for 3 months, per patient. She relates a 60# weight loss over the last 10 months, which she attributes to her ulcerative colitis. She has COPD and continues to smoke. Recommended to stop. Off-loads as she is able. Lesion on L calf began as a purple area, possibly traumatic. 09/20/18 -- Interval note: the patient was again noted to be sitting in her wheel chair, not off-loading the sacral pressure ulcer. The nursing staff note that the patient does not comply with recommendations to off-load the ulcer area. She is again reminded that the pressure ulcer will not heal if it is not off- loaded. She has had this ulcer for a year. She is told that she probably will have it for another year, if she continues to sit on it. She is cautioned regarding infection of the wound, deepening ulceration, and sepsis. At this time my visits appear to be having little effect on her behavior. I will sign off. Past Medical History: Admits Deep Vein Thrombosis (On anticoagulation.) Smoking Status: Current Everyday Smoker (has COPD) Recreational Drug Use: No Alcohol Use: Denies Use Review of Systems Pulmonary: No Dyspnea Cardiovascular: No: Chest Pain Exam Vital Signs Date Time Temp Pulse Resp B/P (MAP) Pulse Ox O2 Delivery O2 Flow Rate FiO2 09/20/18 19:45 98 Room Air 09/20/18 18:00 98.4 79 16 104/52 (69) 1.00 09/19/18 10:57 21 Capillary Refill : Less Than 3 Seconds General Appearance: no apparent distress HEENT: normal ENT inspection Neck: normal inspection Back: other (Sacral area reported no change.) Results Laboratory Tests 09/20/18 05:12: Prothrombin Time 25.5H, INR Comment 2.2H Microbiology 09/18/18 Urine Culture - Preliminary, Resulted Stenotrophomonas Maltophilia Assessment/Plan/Dx 1. Pressure ulcer, sacrum, unstageable, present on admission. 2. L calf ulcer, chronic, neuropathic. 3. Paraplegia, T4 incomplete, due to transverse myelitis. 4. Cachexia, with 60# weight loss. 5. Tobacco abuse, with wound healing complication. Plan: Urged to quit smoking, off-load, and increase protein intake. Will sign off. HARJINDER MAGUIRE MD Sep 20, 2018 21:42
[2018-09-20] MEDS: SIMvastatin 20 MG (ZOCOR) TAB PO SCH (21:59)
[2018-09-21 05:50] VITALS: BP 92/51
[2018-09-21] MEDS: PANTOPRAZOLE 40 MG (PROTONIX) TAB PO SCH (06:47)
[2018-09-21] MEDS: LEVOTHYROXINE 25 MCG (LEVOTHROID) TAB PO SCH (06:47)
[2018-09-21] MEDS: LACTOBACILLUS ACIDOPHILUS (PROBIOTIC) CAPSULE PO SCH ×3 (06:47→17:38)
[2018-09-21] MEDS: ONDANSETRON 4 MG (ZOFRAN) ORAL DISSOLVE TAB PO SCH (06:48)
[2018-09-21] MEDS: LEVOTHYROXINE 125 MCG (LEVOTHROID) TABLET PO SCH (06:48)
[2018-09-21] MEDS: aCETylcysteine 20% (MUCOMYST) 30ML SOLN VIAL INH SCH ×4 (07:37→19:47)
[2018-09-21] MEDS: RT-ALBUTEROL/IPRATROPIUM 3 ML (DUONEB) VIAL INH SCH ×4 (07:37→19:47)
[2018-09-21] MEDS: guaiFENesin (MUCINEX) 600 MG TAB PO SCH ×2 (09:55→21:16)
[2018-09-21] MEDS: SERTRALINE 100 MG (ZOLOFT) TAB PO SCH (09:55)
[2018-09-21] MEDS: predniSONE 10 MG TAB PO SCH (09:55)
[2018-09-21] MEDS: BACLOFEN 10 MG (LIORESAL) TAB PO SCH ×2 (09:55→21:16)
[2018-09-21] MEDS: risperiDONE 1 MG (RisperDAL) TAB PO SCH ×2 (09:55→21:16)
[2018-09-21] MEDS: OXYBUTYNIN 10 MG PO SCH (09:57)
[2018-09-21] MEDS: ZINC OXIDE 16% OINT (BUTT PASTE) 113 GM TUBE TOP SCH ×3 (09:59→21:17)
[2018-09-21] MEDS: NICOTINE PATCH REMOVAL TP SCH (09:59)
[2018-09-21] MEDS: NICOTINE 21 MG (NICODERM) PATCH TD SCH (09:59)
[2018-09-21] MEDS: A & D OINT 113 GM TUBE TOP SCH (09:59)
[2018-09-21] MEDS: POLYETHYLENE GLYCOL 17 GM (MIRALAX) PACK PO SCH ×2 (10:09→21:18)
--- NOTE | 2018-09-21 11:31 | Physical Therapy Daily Note ---
PT Daily Note-Current Subjective Pt. in bed and is so very tired stating she didnt sleep well last night because she didnt get into the new bed til midnight. States she had some discussion with Dr Yung who "fired her" and told her she is not to be up on her bottom. Mental Status Patient Orientation: Normal For Age Attachments: Other-See Comments (immoblizer) Transfers Therapy Code Descriptions/Definitions Functional [place] Measure: 0=Not Assessed/NA 4=Minimal Assistance 1=Total Assistance 5=Supervision or Setup 2=Maximal Assistance 6=Modified [place] 3=Moderate Assistance 7=Complete [place] Therapy Quality Codes: 6 Independent with activity with or without an assistive device 5 Patient requires set up or clean up by helper. Patient completes activity by themselves 4 Supervision or touching assist (CGA). [place] provide cues , steadying assist 3 The helper provides less than half the effort to complete the activity 2 The helper provides more than half the effort to complete the activity 1 Dependent. The helper does all the effort to complete an activity 7 Patient refused to complete or attempt activity 9 The patient did not perform the activity before the current illness or injury 88 Not attempted due to Medical conditions or safety concerns Transfers (B, C, W/C) (FIM): 3 Scootin Rollin Supine to/from Sit: 4 slide brd TRFs x 3 in out bed to whch using slide brd mod to min assist for stabilizing board and assisting with LEs Weight Bearing Right Lower Extremity: Right Weight Bearing/Tolerated Left Lower Extremity: Left Weight Bearing/Tolerated Wheelchair Training Does the Pt Use a Wheelchair?: Yes Type of Wheelchair: Manual 50 ft in tight areas Exercises Supine Ex: Rolling, Heel Slides, Straight leg raise, Hip abd/add Supine Reps: 12 (with assist) Treatments sitting and sliding kept to minimum as pt. has significant break down on ischial tub area and coccyx Pt. plans to stay in bed most of weekend so she can work on healing as well as get caught up on rest Assessment Current Status: Fair Progress PT Short Term Goals Short Term Goals Time Frame: Sep 20, 2018 Transfers (B,C,W/C) (FIM): 4 Wheelchair (FIM): 6 Wheelchair Distance: 150'x2 PT Detention Goals Detention Goals PT Detention Goals Time Frame: Oct 04, 2018 Transfers (B,C,W/C) (FIM): 5 Sit to Lying (QC): 4 Lying-Sitting on Side/Bed(QC): 4 Sit to Stand (QC): 4 Rollin Roll Left to Right (QC): 4 Chair/[id number]-Kwtbq Xfer(QC): 4 Car Transfer (QC): 3 Wheelchair (FIM): 6 Distance: 200' Wheelchair Level of Assist: 6 Wheel 50 feet with 2 turns (QC: 6 PT Plan Treatment/Plan Treatment Plan: Continue Plan of Care Treatment Plan: Bed Mobility, Concurrent Therapy, Education, Functional Activity Chevy, Functional Strength, Group Therapy, Gait, Safety, Therapeutic Exercise, Transfers Treatment Duration: Oct 04, 2018 Frequency: At least 5 of 7 days/Wk (IRF) Estimated Hrs Per Day: 1.5 hours per day Patient and/or Family Agrees t: Yes Safety Risks/Education Patient Education: Transfer Techniques, Correct Positioning, Disease Process, Safety Issues Teaching Recipient: Patient Teaching Methods: Demonstration, Discussion Response to Teaching: Verbalize Understanding, Return Demonstration, Reinforcement Needed Time/GCodes Time In: 940 Time Out: 1010 Total Billed Treatment Time: 30 Total Billed Treatment 1,EX10m,FA20m G Codes Necessary: MARIANGEL Mcmahan CYCLE REPAIRER Sep 21, 2018 11:31
--- NOTE | 2018-09-21 12:58 | PM&R Progress Note ---
Subjective HPI/CC On Admission Date Seen by Provider: Sep 21, 2018 Time Seen by Provider: 11:30 Chief complaint: Debility from respiratory failure and ventilation History of present illness: This is a 57-year-old white female of [facility] who was originally admitted last week for respiratory failure. She was maintained on ventilator support for several days and under Dr. Fenton's expertise she was able to be extubated without complication. 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 Her INR today is 4.2 so that will be held. Patient's does quite a bit for her at home and prior level of functioning required a great deal of help from him to transfer from wheelchair to bed and toilet and so forth. She is very weak having significant shortness of breath since COPD flare and recent ventilator support and will require inpatient rehab to optimize ADLs at home to lessen the burden on her . Pulmonology will be maintained due to high risk for respiratory insufficiency. Subjective/Events-last exam Still planning on going on a day pass on Sunday because it is her birthday and I approved that and she is looking forward to it Reviewed urinalysis which only reveals 30k colonies so will not treat this and it seems to be a significant resistant bacteria and since no fever and no indication that treatment is required Restarted her bladder medication from home since she doesn't like the formulation here and then will restart in and out catheter likely next week when she goes home Restarted on Coumadin 7 mg daily and DC Lovenox since INR 2.2 yesterday and will recheck tomorrow Weaning oxygen off but maintain nighttime use which is chronic Nicotine patch is helping her and she would like Rx of those when she DC Declines help most of the time from the nurses and therapists 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 but avoiding sharing of the skin when she transfers and Dr Yung terminated her care with him last evening since she was non-compliant Using incentive spirometer regularly Having small BM's last was 09/17/18 but she refuse all laxatives INR monitored prn Checked meds and labs Conferred with RN Reviewed therapy notes Objective Exam Vital Signs Vital Signs Date Time Temp Pulse Resp B/P (MAP) Pulse Ox O2 Delivery O2 Flow Rate FiO2 09/21/18 16:20 97.6 83 16 97/56 (70) 96 Room Air 09/21/18 07:37 3.00 09/19/18 10:57 21 Capillary Refill : Less Than 3 Seconds General Appearance: No Apparent Distress, WD/WN, Chronically ill, Thin HEENT: PERRL/EOMI, Normal ENT Inspection, Pharynx Normal, Moist Mucous Membranes Neck: Full Range of Motion, Normal Inspection, Non Tender, Supple Respiratory: Chest Non Tender, Lungs Clear, Normal Breath Sounds, No Accessory Muscle Use, No Respiratory Distress, Decreased Breath Sounds Cardiovascular: Regular Rate, Rhythm, No Edema, No Gallop, No JVD, No Murmur Gastrointestinal: Normal Bowel Sounds, No Organomegaly, No Pulsatile Mass, Non Tender, Soft Back: Normal Inspection, No CVA Tenderness, No Vertebral Tenderness Extremity: Normal Capillary Refill, Normal Inspection, No Pedal Edema, Other (parplegia) Neurologic/Psychiatric: Alert, Oriented x3, Normal Mood/Affect, call center 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 FIM Transfers Therapy Code Descriptions/Definitions Functional [place] Measure: 0=Not Assessed/NA 4=Minimal Assistance 1=Total Assistance 5=Supervision or Setup 2=Maximal Assistance 6=Modified [place] 3=Moderate Assistance 7=Complete [place] Therapy Quality Codes: 6 Independent with activity with or without an assistive device 5 Patient requires set up or clean up by helper. Patient completes activity by themselves 4 Supervision or touching assist (CGA). [place] provide cues , steadying assist 3 The helper provides less than half the effort to complete the activity 2 The helper provides more than half the effort to complete the activity 1 Dependent. The helper does all the effort to complete an activity 7 Patient refused to complete or attempt activity 9 The patient did not perform the activity before the current illness or injury 88 Not attempted due to Medical conditions or safety concerns Transfers (B, C, W/C) (FIM): 3 Scootin Rollin Roll Left to Right (QC): 4 Supine to/from Sit: 4 Sit to/from Stand: 2 Sit to Lying (QC): 2 Chair/[id number]-om-Wxkmx Xfer(QC): 2 Bed to/from Chair: 3 Car Transfer (QC): 1 Gait Training Does the Patient Walk?: No and Walking Goal NOT indicated Wheelchair Training Does the Pt Use a Wheelchair?: Yes Wheelchair (FIM): 6 Wheelchair Distance: 1=up to 49 ft Distance: 150'x2 Wheelchair Level of Assist: 5 (in room and bathroom around obstacles with LLE on pedal and RLE on extended leg rest) Wheel 50 ft with 2 turns (QC): 4 Wheel 150 ft (QC): 4 Type of Wheelchair: Manual Mental Status/Objective Comprehension: 7 Expression: 7 Social Interaction: 7 Problem Solvin Memory: 7 ADL-Treatment Feedin (set up ) Eating (QC): 5 Groomin Oral Hygiene (QC): 6 Bathin Bathing Location: L Arm, R Arm, L Upper Leg, R Upper Leg, R Lower Leg (including foot), Chest, Abdomen, Buttocks, Perineal Area Shower/Bathe Self (QC): 3 Upper Extremity Dressin Upper Body Dressing (QC): 6 Lower Extremity Dressin Lower Body Dressing (QC): 1 On/Off Footwear (QC): 6 Toiletin (pt required assist to complete 3/3 toileting task. ) Toileting Hygiene (QC): 1 Toilet/Commode Transfer: 1 Toilet Transfer (QC): 1 Shower: 3 Assessment/Plan Assessment and Plan Assess & Plan/Chief Complaint Assessment: Severe debility from critical illness Status post ventilator dependent respiratory failure Exacerbation of COPD now on steroid taper Current smoker T4 paralysis from transverse myelitis in 1993 Indwelling Cope catheter for past 1 year so will transition to in/out caths to prevent infections and send UA for analysis Right femur fracture 1 year ago managed by [facility] in [facility] DC immobilizer in 3 weeks Bowel dysfunction requiring rectal stimulation for bowel movement Thin and frail status high risk for respiratory compromise Bilateral DVTs history maintained on Coumadin Warfarin coagulopathy INR 3.6 2 days ago so held Coumadin and yesterday INR 2.2 so DC Lovenox bridge Plan: Inpatient rehab protocol Restarted home dose of Coumadin and DC Lovenox bridge and check INR prn Reviewed meds from transfer from [facility] Pulmonology consult appreciated Air mattress for coccyx decubitus Dr. Yung consult for coccyx decubitus ulcer is appreciated but he terminated his care due to non-compliance Maintain Cope catheter and restart bladder medication then restart in and out catheters very soon Smoking cessation DC right leg immobilizer (1) Debility (2) Delirium Resolution Date/Time: 09/12/18 @ 14:16 (3) DVT prophylaxis (4) Paraplegia (5) Hypothyroidism (6) Tobacco abuse (7) Acute respiratory distress (8) Anticoagulant long-term use (9) Counseling regarding end of life decision making (10) Hyponatremia Resolution Date/Time: 09/11/18 @ 16:40 (11) Leukopenia Resolution Date/Time: 09/11/18 @ 16:40 CHEVY MARTINEZ DO Sep 21, 2018 12:58
[2018-09-21 16:20] VITALS: BP 97/56
--- NOTE | 2018-09-21 17:02 | NUR ---
Urine culture received. 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 Multi-drug resistant, therefore, patient ordered to contact isolation. Results reported to Dr. Noriega. No antibiotic treatment at this time.
[2018-09-21] MEDS: warFARin 2 MG (COUMADIN) TAB PO SCH (17:38)
[2018-09-21] MEDS: warFARin 5 MG (COUMADIN) TAB PO SCH (17:38)
[2018-09-21] MEDS: SIMvastatin 20 MG (ZOCOR) TAB PO SCH (21:16)
[2018-09-22 05:50] VITALS: BP 95/55
[2018-09-22] MEDS: ONDANSETRON 4 MG (ZOFRAN) ORAL DISSOLVE TAB PO SCH (06:30)
[2018-09-22] MEDS: LEVOTHYROXINE 25 MCG (LEVOTHROID) TAB PO SCH (06:30)
[2018-09-22] MEDS: PANTOPRAZOLE 40 MG (PROTONIX) TAB PO SCH (06:30)
[2018-09-22] MEDS: LEVOTHYROXINE 125 MCG (LEVOTHROID) TABLET PO SCH (06:30)
[2018-09-22] MEDS: LACTOBACILLUS ACIDOPHILUS (PROBIOTIC) CAPSULE PO SCH ×3 (06:31→18:24)
[2018-09-22] MEDS: RT-ALBUTEROL/IPRATROPIUM 3 ML (DUONEB) VIAL INH SCH ×4 (07:03→19:05)
[2018-09-22 07:04] VITALS: BP 95/55
[2018-09-22] MEDS: aCETylcysteine 20% (MUCOMYST) 30ML SOLN VIAL INH SCH (07:04)
--- NOTE | 2018-09-22 07:10 | NUR ---
Patient was on 3 L and was satting 99% and she was awake so RT removed O2 at this time. Patient stated that she is not coughing anything up at this time. Patient was given her Duoneb SVN Breathing tx via mp with Aerobika inline with Mucomyst given at the same time as the Duoneb. Patient has been on Mucomyst for more than 7 days.
[2018-09-22] MEDS: ZINC OXIDE 16% OINT (BUTT PASTE) 113 GM TUBE TOP SCH ×3 (09:00→21:14)
[2018-09-22] MEDS: NICOTINE PATCH REMOVAL TP SCH (09:00)
[2018-09-22] MEDS: POLYETHYLENE GLYCOL 17 GM (MIRALAX) PACK PO SCH ×2 (09:00→23:43)
[2018-09-22] MEDS: A & D OINT 113 GM TUBE TOP SCH (09:00)
[2018-09-22] MEDS: SERTRALINE 100 MG (ZOLOFT) TAB PO SCH (10:01)
[2018-09-22] MEDS: predniSONE 10 MG TAB PO SCH (10:01)
[2018-09-22] MEDS: risperiDONE 1 MG (RisperDAL) TAB PO SCH ×2 (10:01→21:13)
[2018-09-22] MEDS: NICOTINE 21 MG (NICODERM) PATCH TD SCH (10:02)
[2018-09-22] MEDS: BACLOFEN 10 MG (LIORESAL) TAB PO SCH ×2 (10:02→21:13)
[2018-09-22] MEDS: guaiFENesin (MUCINEX) 600 MG TAB PO SCH ×2 (10:02→21:13)
[2018-09-22] MEDS: OXYBUTYNIN 10 MG PO SCH (10:02)
--- NOTE | 2018-09-22 13:44 | PM&R Progress Note ---
Subjective HPI/CC On Admission Date Seen by Provider: Sep 22, 2018 Time Seen by Provider: 13:00 Chief complaint: Debility from respiratory failure and ventilation History of present illness: This is a 57-year-old white female of [facility] who was originally admitted last week for respiratory failure. She was maintained on ventilator support for several days and under Dr. Fenton's expertise she was able to be extubated without complication. 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 Her INR today is 4.2 so that will be held. Patient's does quite a bit for her at home and prior level of functioning required a great deal of help from him to transfer from wheelchair to bed and toilet and so forth. She is very weak having significant shortness of breath since COPD flare and recent ventilator support and will require inpatient rehab to optimize ADLs at home to lessen the burden on her . Pulmonology will be maintained due to high risk for respiratory insufficiency. Subjective/Events-last exam Not going on her day pass tomorrow on her bday because her sister is not in town as planned Updated patient on the urinalysis which only reveals 30k colonies so will not treat this and it seems to be a significant resistant bacteria and since no fever and no indication that treatment is required Restarted her bladder medication from home since she doesn't like the formulation here and then will restart in and out catheter likely this week when she goes home Restarted on Coumadin 7 mg daily home dose and will recheck INR tomorrow Weaning oxygen off but maintain nighttime use which is chronic Nicotine patch is helping her and she would like Rx of those when she DC Coccyx decubitus is still present but she is now more off of her coccyx to help that heal since she now has a bed that enables her to move around more Using incentive spirometer regularly Had BM 09/21/18 finally INR monitored prn Checked meds and labs Conferred with RN Reviewed therapy notes Review of Systems General: Fatigue Objective Exam Vital Signs Vital Signs Date Time Temp Pulse Resp B/P (MAP) Pulse Ox O2 Delivery O2 Flow Rate FiO2 09/22/18 19:05 95 Room Air 09/22/18 16:09 97.6 85 16 94/56 (69) 09/22/18 07:04 3.00 09/22/18 07:04 21 Capillary Refill : Less Than 3 Seconds General Appearance: No Apparent Distress, WD/WN, Chronically ill, Thin HEENT: PERRL/EOMI, Normal ENT Inspection, Pharynx Normal, Moist Mucous Membranes Neck: Full Range of Motion, Normal Inspection, Non Tender, Supple Respiratory: Chest Non Tender, Lungs Clear, Normal Breath Sounds, No Accessory Muscle Use, No Respiratory Distress, Decreased Breath Sounds Cardiovascular: Regular Rate, Rhythm, No Edema, No Gallop, No JVD, No Murmur Gastrointestinal: Normal Bowel Sounds, No Organomegaly, No Pulsatile Mass, Non Tender, Soft Back: Normal Inspection, No CVA Tenderness, No Vertebral Tenderness Extremity: Normal Capillary Refill, Normal Inspection, No Pedal Edema, Other (parplegia) Neurologic/Psychiatric: Alert, Oriented x3, Normal Mood/Affect, scalloper II-XII Norm as Tested, Depressed Affect, Motor Weakness (paraplegia) Skin: Normal Color, Warm/Dry Lymphatic: No Adenopathy Results/Procedures Lab Patient resulted labs reviewed. FIM Transfers Therapy Code Descriptions/Definitions Functional [place] Measure: 0=Not Assessed/NA 4=Minimal Assistance 1=Total Assistance 5=Supervision or Setup 2=Maximal Assistance 6=Modified [place] 3=Moderate Assistance 7=Complete [place] Therapy Quality Codes: 6 Independent with activity with or without an assistive device 5 Patient requires set up or clean up by helper. Patient completes activity by themselves 4 Supervision or touching assist (CGA). [place] provide cues , steadying assist 3 The helper provides less than half the effort to complete the activity 2 The helper provides more than half the effort to complete the activity 1 Dependent. The helper does all the effort to complete an activity 7 Patient refused to complete or attempt activity 9 The patient did not perform the activity before the current illness or injury 88 Not attempted due to Medical conditions or safety concerns Transfers (B, C, W/C) (FIM): 3 Scootin Rollin Roll Left to Right (QC): 4 Supine to/from Sit: 4 Sit to/from Stand: 2 Sit to Lying (QC): 2 Chair/Mhe-nj-Uzjzi Xfer(QC): 2 Bed to/from Chair: 3 Car Transfer (QC): 1 Gait Training Does the Patient Walk?: No and Walking Goal NOT indicated Wheelchair Training Does the Pt Use a Wheelchair?: Yes Wheelchair (FIM): 6 Wheelchair Distance: 1=up to 49 ft Distance: 150'x2 Wheelchair Level of Assist: 5 (in room and bathroom around obstacles with LLE on pedal and RLE on extended leg rest) Wheel 50 ft with 2 turns (QC): 4 Wheel 150 ft (QC): 4 Type of Wheelchair: Manual Mental Status/Objective Comprehension: 7 Expression: 7 Social Interaction: 7 Problem Solvin Memory: 7 ADL-Treatment Feedin (set up ) Eating (QC): 5 Groomin Oral Hygiene (QC): 6 Bathin Bathing Location: L Arm, R Arm, L Upper Leg, R Upper Leg, R Lower Leg (including foot), Chest, Abdomen, Buttocks, Perineal Area Shower/Bathe Self (QC): 3 Upper Extremity Dressin Upper Body Dressing (QC): 6 Lower Extremity Dressin Lower Body Dressing (QC): 1 On/Off Footwear (QC): 6 Toiletin (pt required assist to complete 3/3 toileting task. ) Toileting Hygiene (QC): 1 Toilet/Commode Transfer: 1 Toilet Transfer (QC): 1 Shower: 3 Assessment/Plan Assessment and Plan Assess & Plan/Chief Complaint Assessment: Severe debility from critical illness Status post ventilator dependent respiratory failure Exacerbation of COPD now on steroid taper Current smoker T4 paralysis from transverse myelitis in 1993 Indwelling Cope catheter for past 1 year so will transition to in/out caths to prevent infections and send UA for analysis Right femur fracture 1 year ago managed by [facility] orthopedics in [facility] DC immobilizer in 3 weeks Bowel dysfunction requiring rectal stimulation for bowel movement Thin and frail status high risk for respiratory compromise Bilateral DVTs history maintained on Coumadin Warfarin coagulopathy hx Plan: Inpatient rehab protocol Restarted home dose of Coumadin and checking INR tomorrow since 2.2 3 days ago Reviewed meds from transfer from [facility] Pulmonology consult appreciated Air mattress for coccyx decubitus Dr. Yung consult for coccyx decubitus ulcer is appreciated but he terminated his care due to non-compliance Maintain Cope catheter and restart bladder medication then restart in and out catheters very soon Smoking cessation DC right leg immobilizer (1) Debility (2) Delirium Resolution Date/Time: 09/12/18 @ 14:16 (3) DVT prophylaxis (4) Paraplegia (5) Hypothyroidism (6) Tobacco abuse (7) Acute respiratory distress (8) Anticoagulant long-term use (9) Counseling regarding end of life decision making (10) Hyponatremia Resolution Date/Time: 09/11/18 @ 16:40 (11) Leukopenia Resolution Date/Time: 09/11/18 @ 16:40 CHEVY MARTINEZ DO Sep 22, 2018 13:44
[2018-09-22 16:09] VITALS: BP 94/56
[2018-09-22] MEDS: warFARin 5 MG (COUMADIN) TAB PO SCH (18:24)
[2018-09-22] MEDS: warFARin 2 MG (COUMADIN) TAB PO SCH (18:24)
[2018-09-22] MEDS: SIMvastatin 20 MG (ZOCOR) TAB PO SCH (21:13)
[2018-09-23 05:30] VITALS: BP 92/57
[2018-09-23 06:15] LABS: BASOPHILS % (AUTO) 0 % (0-10); EOSINOPHILS # (AUTO) 0.1 10^3/uL (0.0-0.3); EOSINOPHILS % (AUTO) 1 % (0-10); HEMATOCRIT 30 % (35-52); HEMOGLOBIN 9.9 G/DL (11.5-16.0); LYMPHOCYTES # (AUTO) 2.1 X 10^3 (1.0-4.0); LYMPHOCYTES % (AUTO) 29 % (12-44); MEAN CORPUSCULAR HEMOGLOBIN 31 PG (25-34); MEAN CORPUSCULAR HGB CONC 33 G/DL (32-36); MEAN CORPUSCULAR VOLUME 94 FL (80-99); MEAN PLATELET VOLUME 9.6 FL (7.4-10.4); MONOCYTES # (AUTO) 0.4 X 10^3 (0.0-1.0); MONOCYTES % (AUTO) 5 % (0-12); NEUTROPHILS # (AUTO) 4.7 X 10^3 (1.8-7.8); NEUTROPHILS % (AUTO) 64 % (42-75); PLATELET COUNT 190 10^3/uL (130-400); RED CELL DISTRIBUTION WIDTH 15.1 % (10.0-14.5); WHITE BLOOD COUNT 7.3 10^3/uL (4.3-11.0)
[2018-09-23] MEDS: RT-ALBUTEROL/IPRATROPIUM 3 ML (DUONEB) VIAL INH SCH ×4 (06:20→19:28)
[2018-09-23 06:25] LABS: INR 2.9 (0.8-1.4)
[2018-09-23 06:35] LABS: ALANINE AMINOTRANSFERASE 29 U/L (0-55); ALBUMIN 2.8 GM/DL (3.2-4.5); ALKALINE PHOSPHATASE 39 U/L (40-136); BILIRUBIN,TOTAL 0.3 MG/DL (0.1-1.0); BUN/CREATININE RATIO 21; CARBON DIOXIDE 26 MMOL/L (21-32); CHLORIDE 101 MMOL/L (98-107); CREATININE SERUM 0.57 MG/DL (0.60-1.30); GFR ESTIMATED > 60; GLUCOSE 83 MG/DL (70-105); SODIUM 134 MMOL/L (135-145); TOTAL PROTEIN 4.8 GM/DL (6.4-8.2)
[2018-09-23] MEDS: LEVOTHYROXINE 125 MCG (LEVOTHROID) TABLET PO SCH (06:47)
[2018-09-23] MEDS: PANTOPRAZOLE 40 MG (PROTONIX) TAB PO SCH (06:47)
[2018-09-23] MEDS: LEVOTHYROXINE 25 MCG (LEVOTHROID) TAB PO SCH (06:47)
[2018-09-23] MEDS: LACTOBACILLUS ACIDOPHILUS (PROBIOTIC) CAPSULE PO SCH ×3 (06:48→18:18)
[2018-09-23] MEDS: ONDANSETRON 4 MG (ZOFRAN) ORAL DISSOLVE TAB PO SCH (06:48)
--- NOTE | 2018-09-23 08:14 | Physical Therapy Daily Note ---
PT Daily Note-Current Subjective Pt reports she is feeling very tired and worn out this morning. States she only slept about 30 minutes total last night. States she stayed in bed all day yesterday. Pain Numeric Pain Scale: 5-Moderate Pain Comment: tailbone from the sore Appearance Upon arrival pt laying in bed awake and alert. At end of session, pt side lying with pillows for positioning in bed with bedside table a, nurse call light and phone within reach Mental Status Patient Orientation: Person, Place, Time, Eyes Open, Situation Attachments: Cope Catheter Transfers Therapy Code Descriptions/Definitions Functional [place] Measure: 0=Not Assessed/NA 4=Minimal Assistance 1=Total Assistance 5=Supervision or Setup 2=Maximal Assistance 6=Modified [place] 3=Moderate Assistance 7=Complete [place] Therapy Quality Codes: 6 Independent with activity with or without an assistive device 5 Patient requires set up or clean up by helper. Patient completes activity by themselves 4 Supervision or touching assist (CGA). [place] provide cues , steadying assist 3 The helper provides less than half the effort to complete the activity 2 The helper provides more than half the effort to complete the activity 1 Dependent. The helper does all the effort to complete an activity 7 Patient refused to complete or attempt activity 9 The patient did not perform the activity before the current illness or injury 88 Not attempted due to Medical conditions or safety concerns Weight Bearing Right Lower Extremity: Right Weight Bearing/Tolerated Left Lower Extremity: Left Weight Bearing/Tolerated Exercises Supine Ex: Ankle pumps ((+) toe curls), Quad Set, Rolling, Glut sets, Lower trunk rotation, Heel Slides, Scooting, Straight leg raise, Hip abd/add Supine Reps: 10 (AROM, PROM and AAROM performed/required with some ex's. (+) scooting up in bed) some physical A requiring with some ex's Treatments bed mobility, strength, ROM, activity tolerance, functional mobility, balance, don/doff brace, education, instruction Assessment Current Status: Good Progress PT Short Term Goals Short Term Goals Time Frame: Sep 20, 2018 Transfers (B,C,W/C) (FIM): 4 Wheelchair (FIM): 6 Wheelchair Distance: 150'x2 PT Prison Goals Veneer Sorter Goals PT Veneer Sorter Goals Time Frame: Oct 04, 2018 Transfers (B,C,W/C) (FIM): 5 Sit to Lying (QC): 4 Lying-Sitting on Side/Bed(QC): 4 Sit to Stand (QC): 4 Rollin Roll Left to Right (QC): 4 Chair/Ppd-by-Oxnhe Xfer(QC): 4 Car Transfer (QC): 3 Wheelchair (FIM): 6 Distance: 200' Wheelchair Level of Assist: 6 Wheel 50 feet with 2 turns (QC: 6 PT Plan Treatment/Plan Treatment Plan: Continue Plan of Care Treatment Plan: Bed Mobility, Concurrent Therapy, Education, Functional Activity [place], Functional Strength, Group Therapy, Gait, Safety, Therapeutic Exercise, Transfers Treatment Duration: Oct 04, 2018 Frequency: At least 5 of 7 days/Wk (IRF) Estimated Hrs Per Day: 1.5 hours per day Patient and/or Family Agrees t: Yes Safety Risks/Education Patient Education: Reviewed Precautions, Correct Positioning, Reviewed Don/Doff Brace, Safety Issues Teaching Recipient: Patient Teaching Methods: Demonstration, Discussion Response to Teaching: Verbalize Understanding, Return Demonstration Time/GCodes Time In: 800 Time Out: 900 Total Billed Treatment Time: 60 Total Billed Treatment 1 visit, FA x1 unit, EX x3 units WILFRED CRISTOBAL PTA Sep 23, 2018 08:13
--- NOTE | 2018-09-23 09:04 | PM&R Progress Note ---
Subjective HPI/CC On Admission Date Seen by Provider: Sep 23, 2018 Time Seen by Provider: 09:00 Chief complaint: Debility from respiratory failure and ventilation History of present illness: This is a 57-year-old white female of [facility] who was originally admitted last week for respiratory failure. She was maintained on ventilator support for several days and under Dr. Fenton's expertise she was able to be extubated without complication. 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 Her INR today is 4.2 so that will be held. Patient's does quite a bit for her at home and prior level of functioning required a great deal of help from him to transfer from wheelchair to bed and toilet and so forth. She is very weak having significant shortness of breath since COPD flare and recent ventilator support and will require inpatient rehab to optimize ADLs at home to lessen the burden on her . Pulmonology will be maintained due to high risk for respiratory in sufficiency. Subjective/Events-last exam Pt taking a shower currently. Discharge planned at the end of the week. Coccyx decubitus is actually improved. Has a regular bed and is able to navigate better than the air mattress. Room air during the day, O2 at night. Last BM was 09/21/18. INR is 2.9 she takes Coumadin at 6 Mg Sunday, Sunday, Sunday and 7 Mg the other days. Hgb 9.9. Conferred with RN. Reviewed therapy notes. INR monitored prn Checked meds and labs Conferred with RN Reviewed therapy notes Review of Systems General: Fatigue Pulmonary: Dyspnea Objective Exam Vital Signs Vital Signs Date Time Temp Pulse Resp B/P (MAP) Pulse Ox O2 Delivery O2 Flow Rate FiO2 09/23/18 10:35 Room Air 09/23/18 06:25 99 3.00 09/23/18 05:30 98.1 74 16 92/57 (69) 09/22/18 07:04 21 Capillary Refill : Less Than 3 Seconds General Appearance: No Apparent Distress, WD/WN, Chronically ill, Thin HEENT: PERRL/EOMI, Normal ENT Inspection, Pharynx Normal, Moist Mucous Membranes Neck: Full Range of Motion, Normal Inspection, Non Tender, Supple Respiratory: Chest Non Tender, Lungs Clear, Normal Breath Sounds, No Accessory Muscle Use, No Respiratory Distress, Decreased Breath Sounds Cardiovascular: Regular Rate, Rhythm, No Edema, No Gallop, No JVD, No Murmur Gastrointestinal: Normal Bowel Sounds, No Organomegaly, No Pulsatile Mass, Non Tender, Soft Back: Normal Inspection, No CVA Tenderness, No Vertebral Tenderness Extremity: Normal Capillary Refill, Normal Inspection, No Pedal Edema, Other (parplegia) Neurologic/Psychiatric: Alert, Oriented x3, Normal Mood/Affect, roll icer II-XII Norm as Tested, Depressed Affect, Motor Weakness (paraplegia) Skin: Normal Color, Warm/Dry Lymphatic: No Adenopathy Results/Procedures Lab Laboratory Tests 09/23/18 05:40 Patient resulted labs reviewed. FIM Transfers Therapy Code Descriptions/Definitions Functional [place] Measure: 0=Not Assessed/NA 4=Minimal Assistance 1=Total Assistance 5=Supervision or Setup 2=Maximal Assistance 6=Modified [place] 3=Moderate Assistance 7=Complete [place] Therapy Quality Codes: 6 Independent with activity with or without an assistive device 5 Patient requires set up or clean up by helper. Patient completes activity by themselves 4 Supervision or touching assist (CGA). [place] provide cues , steadying assist 3 The helper provides less than half the effort to complete the activity 2 The helper provides more than half the effort to complete the activity 1 Dependent. The helper does all the effort to complete an activity 7 Patient refused to complete or attempt activity 9 The patient did not perform the activity before the current illness or injury 88 Not attempted due to Medical conditions or safety concerns Transfers (B, C, W/C) (FIM): 3 Scootin Rollin Roll Left to Right (QC): 4 Supine to/from Sit: 4 Sit to/from Stand: 2 Sit to Lying (QC): 2 Chair/Pbt-bw-Yezli Xfer(QC): 2 Bed to/from Chair: 3 Car Transfer (QC): 1 Gait Training Does the Patient Walk?: No and Walking Goal NOT indicated Wheelchair Training Does the Pt Use a Wheelchair?: Yes Wheelchair (FIM): 6 Wheelchair Distance: 1=up to 49 ft Distance: 150'x2 Wheelchair Level of Assist: 5 (in room and bathroom around obstacles with LLE on pedal and RLE on extended leg rest) Wheel 50 ft with 2 turns (QC): 4 Wheel 150 ft (QC): 4 Type of Wheelchair: Manual Mental Status/Objective Comprehension: 7 Expression: 7 Social Interaction: 7 Problem Solvin Memory: 7 ADL-Treatment Feedin (set up ) Eating (QC): 5 Groomin Oral Hygiene (QC): 6 Bathin Bathing Location: L Arm, R Arm, L Upper Leg, R Upper Leg, R Lower Leg (including foot), Chest, Abdomen, Buttocks, Perineal Area Shower/Bathe Self (QC): 3 Upper Extremity Dressin Upper Body Dressing (QC): 6 Lower Extremity Dressin Lower Body Dressing (QC): 1 On/Off Footwear (QC): 6 Toiletin (pt required assist to complete 3/3 toileting task. ) Toileting Hygiene (QC): 1 Toilet/Commode Transfer: 1 Toilet Transfer (QC): 1 Shower: 3 Assessment/Plan Assessment and Plan Assess & Plan/Chief Complaint Assessment: Severe debility from critical illness Status post ventilator dependent respiratory failure Exacerbation of COPD now on steroid taper Current smoker T4 paralysis from transverse myelitis in 1993 Indwelling Cope catheter for past 1 year so will transition to in/out caths to prevent infections and send UA for analysis Right femur fracture 1 year ago managed by [facility] in [place] will DC immobilizer in 3 weeks Bowel dysfunction requiring rectal stimulation for bowel movement Thin and frail status high risk for respiratory compromise 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 Yung consult for coccyx decubitus ulcer is appreciated but he terminated his care due to non-compliance Maintain Cope catheter and restart bladder medication then restart in and out catheters very soon Smoking cessation DC right leg immobilizer if she is comfortable (1) Debility (2) Delirium Resolution Date/Time: 09/12/18 @ 14:16 (3) DVT prophylaxis (4) Paraplegia (5) Hypothyroidism (6) Tobacco abuse (7) Acute respiratory distress (8) Anticoagulant long-term use (9) Counseling regarding end of life decision making (10) Hyponatremia Resolution Date/Time: 09/11/18 @ 16:40 (11) Leukopenia Resolution Date/Time: 09/11/18 @ 16:40 CHEVY MARTINEZ DO Sep 23, 2018 09:04
--- NOTE | 2018-09-23 09:21 | Occupational Ther Daily Note ---
OT Current Status-Daily Note Subjective Pt alert, lying in bed. Pt agrees to therapy. No c/o pain at this time. Mental Status/Objective Patient Orientation: Person, Place, Time, Situation Therapy Code Descriptions/Definitions Functional [place] Measure: 0=Not Assessed/NA 4=Minimal Assistance 1=Total Assistance 5=Supervision or Setup 2=Maximal Assistance 6=Modified [place] 3=Moderate Assistance 7=Complete [place] Attachments: Cope Catheter, IV ADL-Treatment Pt agrees to shower. Max A in all functional SPT. Pt anxious about using sliding board due to wound on coccyx. All ADLs completed at w/c level. Grooming sitting at sink, mod I. Shower using long handle sponge, grabbar, show er bench and hand held shower, mod I. Donning/doffing clothing at w/c level, assist to hike over hips in standing though able to complete in supine while rolling side to side. Pt takes increased time to complete all functional tasks. After therapy, pt sitting in recliner with call light/phone in reach. All needs met in room. Therapy Code Descriptions/Definitions Functional [place] Measure: 0=Not Assessed/NA 4=Minimal Assistance 1=Total Assistance 5=Supervision or Setup 2=Maximal Assistance 6=Modified [place] 3=Moderate Assistance 7=Complete [place] Therapy Quality Codes: 6 Independent with activity with or without an assistive device 5 Patient requires set up or clean up by helper. Patient completes activity by themselves 4 Supervision or touching assist (CGA). [place] provide cues , steadying assist 3 The helper provides less than half the effort to complete the activity 2 The helper provides more than half the effort to complete the activity 1 Dependent. The helper does all the effort to complete an activity 7 Patient refused to complete or attempt activity 9 The patient did not perform the activity before the current illness or injury 88 Not attempted due to Medical conditions or safety concerns Grooming (FIM): 6 Oral Hygiene (QC): 6 Bathing (FIM): 6 Bathing Location: L Arm, R Arm, L Upper Leg, R Upper Leg, L Lower Leg (including foot), R Lower Leg (including foot), Chest, Abdomen, Buttocks, Perineal Area Shower/Bathe Self (QC): 6 Upper Body (FIM): 6 Upper Body Dressing (QC): 6 Lower Body Dressing (FIM): 2 Lower Body Dressing (QC): 2 Shower Transfer(FIM): 2 OT Short Term Goals Short Term Goals Eating(FIM): 6 Grooming(FIM): 5 Bathing(FIM): 5 Upper Body Dressing(FIM): 5 Lower Body Dressing(FIM): 5 Toileting(FIM): 5 Transfers (B,C,W/C) (FIM): 4 Toilet/Commode Transfer(FIM): 4 Tub Transfer(FIM): 4 Shower Transfer(FIM): 4 Additional Short Term Goals: 1-Demonstrate ADL Tasks, 2-Verbalize Understanding, 3-ImproveStrength/[place] 1=Demonstrate adherence to instructed precautions during ADL tasks. 2=Patient will verbalize/demonstrate understanding of assistive devices/modifications for ADL. 3=Patient will improve strength/tolerance for activity to enable patient to perform ADL's. OT Pantograph Machine Set Up Operator Goals Pantograph Machine Set Up Operator Goals Time Frame: Oct 11, 2018 Eating (FIM): 7 Eating (QC): 6 Groomin Oral Hygiene (QC): 6 Bathing(FIM): 6 Bathing Location: L Arm, R Arm, L Upper Leg, R Upper Leg, L Lower Leg (including foot), R Lower Leg (including foot), Chest, Abdomen, Buttocks, Perineal Area Shower/Bathe Self (QC): 6 Upper Body Dressing(FIM): 7 Upper Body Dressing (QC): 6 Lower Body Dressing(FIM): 6 Lower Body Dressing (QC): 6 On/Off Footwear (QC): 6 Toileting(FIM): 6 Toileting Hygiene (QC): 6 Transfers (B,C,W/C) (FIM): 6 Toilet/Commode Transfer(FIM): 6 Toilet/Commode Transfer (QC): 6 Tub Transfer(FIM): 6 Shower Transfer(FIM): 6 Additional Goals: 1-Demonstrate ADL Tasks, 2-Verbalize Understanding, 3- ImproveStrength/[place] 1=Demonstrate adherence to instructed precautions during ADL tasks. 2=Patient will verbalize/demonstrate understanding of assistive dev ices/modifications for ADL. 3=Patient will improve strength/tolerance for activity to enable patient to perform ADL's. OT Education/Plan Problem List/Assessment Assessment: Decreased UE Strength, Impaired Funct Balance, Impaired Self-Care Skills pt presents with functional limitations affecting areas of ADLs and functional transfers. pt would benefit from skilled OT Services to increase independence with ADLS/ functional transfers. Discharge Recommendations Plan/Recommendations: Continue POC Treatment Plan/Plan of Care Patient would benefit from OT for education, treatment and training to promote independence in ADL's, mobility, safety and/or upper extremity function for ADL's. Plan of Care: ADL Retraining, Caregiver Training, Concurrent Therapy, Functional Mobility, Group Exercise/Act as Ind, UE Funct Exercise/Act, W/C Management Training Treatment Duration: Oct 11, 2018 Frequency: At least 5 of 7 days/Wk (IRF) Estimated Hrs Per Day: 1 hour per day (60-90 minutes per day) Agreement: Yes Rehab Potential: Fair Time/GCodes Start Time: 09:00 Stop Time: 10:40 Total Time Billed (hr/min): 100 Billed Treatment Time 1 visit-ADL 7 (100 min) MACARIO BAUTISTA Sep 23, 2018 09:21
[2018-09-23] MEDS: NICOTINE 21 MG (NICODERM) PATCH TD SCH (10:13)
[2018-09-23] MEDS: NICOTINE PATCH REMOVAL TP SCH (10:13)
[2018-09-23] MEDS: guaiFENesin (MUCINEX) 600 MG TAB PO SCH ×2 (10:13→22:48)
[2018-09-23] MEDS: BACLOFEN 10 MG (LIORESAL) TAB PO SCH ×2 (10:14→22:49)
[2018-09-23] MEDS: predniSONE 10 MG TAB PO SCH (10:14)
[2018-09-23] MEDS: risperiDONE 1 MG (RisperDAL) TAB PO SCH ×2 (10:14→22:49)
[2018-09-23] MEDS: SERTRALINE 100 MG (ZOLOFT) TAB PO SCH (10:14)
[2018-09-23] MEDS: OXYBUTYNIN 10 MG PO SCH (10:47)
[2018-09-23] MEDS: ZINC OXIDE 16% OINT (BUTT PASTE) 113 GM TUBE TOP SCH ×3 (10:48→22:51)
[2018-09-23] MEDS: POLYETHYLENE GLYCOL 17 GM (MIRALAX) PACK PO SCH ×2 (10:48→22:50)
[2018-09-23] MEDS: A & D OINT 113 GM TUBE TOP SCH (10:48)
--- NOTE | 2018-09-23 14:30 | Therapy Group Daily Note ---
Therapy Daily Group Note Patient Education Topic Exercises Exercises LE Seated Exercise, Sit to/from Stand, UE Exercise Session Ratio (pt:therapist): 4:1 Goal of Session: UE/LE Strengthing Goal Met for this Session: Yes Pt Benefit of Group: Contributions to Others, Increased Functional Strength, Improved Cognition, Recognition of Peers, Socialization Other/Notes Pt propelled w/c to OT/PT group in [facility]. Group consisted of introductions, pt lead UE/LE seated exercises, education on benefits of exercise and sit to stands. Pt introduced self appropriately and actively listened to peers. Pt was given an exercise card and rolled large dice for amount of reps then led exercises. Pt able to complete exercises appropriately with skilled instruction for correct technique. Pt able to push up with arms to complete w/c pushups. After therapy, pt sitting in w/c in room. All needs met in room. Start Time: 12:50 Stop Time: 14:00 Total Billed Treatment Time: 70 Total Billed Treatment 1-GRP MACARIO BAUTISTA Sep 23, 2018 14:30
[2018-09-23 17:23] VITALS: BP 89/52
--- NOTE | 2018-09-23 17:25 | Pulmonary Progress Note ---
Subjective Time Seen by a Provider: 08:27 Subjective/Events-last exam No complications noted. Sepsis Event Evaluation Height, Weight, BMI Height: 5'6.00" Weight: 121lbs. 1.6oz. 54.922453us; 16.9 BMI Method:Stated Exam Exam Vital Signs Date Time Temp Pulse Resp B/P (MAP) Pulse Ox O2 Delivery O2 Flow Rate FiO2 09/23/18 17:23 99.0 79 14 89/52 (64) 98 Room Air 09/23/18 10:35 Room Air 09/23/18 06:25 99 High Flow N/C 3.00 09/23/18 05:30 98.1 74 16 92/57 (69) 100 Nasal Cannula 1.00 09/22/18 20:50 Room Air 09/22/18 19:05 95 Room Air I & O 09/23/18 07:00 Intake Total 1400 ml Output Total 2200 ml Balance -800 ml Height & Weight Height: 5'6.00" Weight: 121lbs. 1.6oz. 54.878809mp; 16.9 BMI Method:Stated General Appearance: No Apparent Distress, WD/WN, Chronically ill, Thin HEENT: PERRL/EOMI, Normal ENT Inspection, Pharynx Normal, Moist Mucous Membranes Neck: Full Range of Motion, Normal Inspection, Non Tender, Supple Respiratory: Chest Non Tender, Lungs Clear, Normal Breath Sounds, No Accessory Muscle Use, No Respiratory Distress, Decreased Breath Sounds Cardiovascular: Regular Rate, Rhythm, No Edema, No Gallop, No JVD, No Murmur Gastrointestinal: normal bowel sounds, non tender, no organomegaly Extremity: Normal Capillary Refill, Normal Inspection, No Pedal Edema, Other (parplegia) Neurologic/Psychiatric: Alert, Oriented x3, Normal Mood/Affect, clinical faculty II-XII Norm as Tested, Depressed Affect, Motor Weakness (paraplegia) Skin: Normal Color, Warm/Dry Lymphatic: No Adenopathy Results Lab Laboratory Tests 09/23/18 05:40 Assessment/Plan Assessment/Plan COPDAE with PNA (Uses 3 liters of oxygen at home) with mucous plugs -Pt feels much improved after bronchoscopy - she states she can take a deeper breath. -Oxygen -Q4 Duonebs -ABG - C02 41 Tobacco use -Education Paraplegia secondary to hx of transverse myelitis (wheelchair bound) Hx of multiple DVTs -chronic anticoagulation hx hypothyroid JAYLA CUELLAR DO Sep 23, 2018 17:25
[2018-09-23] MEDS ORDERED: warFARin 2 MG (COUMADIN) TAB PO SCH ×2 (17:30)
[2018-09-23] MEDS: warFARin 2 MG (COUMADIN) TAB PO SCH (18:50)
--- NOTE | 2018-09-23 19:35 | NUR ---
bedside report received from JOY MOORE, assume care of pt
--- NOTE | 2018-09-23 21:45 | NUR ---
assessments & interventions completed, see assessments & interventions, pt refused miralax stated did bowel prep & had good stool
[2018-09-23] MEDS: SIMvastatin 20 MG (ZOCOR) TAB PO SCH (22:48)
[2018-09-24 05:39] VITALS: BP 107/64
[2018-09-24] MEDS: LACTOBACILLUS ACIDOPHILUS (PROBIOTIC) CAPSULE PO SCH ×3 (06:47→16:58)
[2018-09-24] MEDS: PANTOPRAZOLE 40 MG (PROTONIX) TAB PO SCH (06:48)
[2018-09-24] MEDS: LEVOTHYROXINE 25 MCG (LEVOTHROID) TAB PO SCH (06:48)
[2018-09-24] MEDS: LEVOTHYROXINE 125 MCG (LEVOTHROID) TABLET PO SCH (06:48)
[2018-09-24] MEDS: ONDANSETRON 4 MG (ZOFRAN) ORAL DISSOLVE TAB PO SCH (06:49)
--- NOTE | 2018-09-24 07:28 | NUR ---
bedside report given to JULIENNE MOORE Addendum: 09/24/18 at 0750 by TAMI STAPLES RN bedside report given to JOY MOORE
[2018-09-24] MEDS: RT-ALBUTEROL/IPRATROPIUM 3 ML (DUONEB) VIAL INH SCH ×4 (08:35→15:10)
--- NOTE | 2018-09-24 08:41 | NUR ---
PATIENT DID NOT GET HER 0700 SVN BREATHING TX DUE TO RT BEING IN CSECTION AND THEN NURSERY WITH BAD BABY.
--- NOTE | 2018-09-24 09:17 | Occupational Ther Daily Note ---
OT Current Status-Daily Note Subjective Pt alert, lying in bed. Pt agrees to therapy. No c/o pain at this time. Pt c/o of heaviness in chest, took O2 sat levels (94-96%), reported to nrsg and placed pt on 2L O2. Mental Status/Objective Patient Orientation: Person, Place, Time, Situation Therapy Code Descriptions/Definitions Functional [place] Measure: 0=Not Assessed/NA 4=Minimal Assistance 1=Total Assistance 5=Supervision or Setup 2=Maximal Assistance 6=Modified [place] 3=Moderate Assistance 7=Complete [place] ADL-Treatment Pt declined shower today. Pt takes increased time to complete all activities. Pt chose clothing from bag and donned in bed by self. Mod I for bed mobility. Pt prefers SPT, blocking L knee to allow minimal wt bearing on LE, pt unable to initiate pivot, max A for transfers. Pt completed grooming at w/c level, mod I. Therapy Code Descriptions/Definitions Functional [place] Measure: 0=Not Assessed/NA 4=Minimal Assistance 1=Total Assistance 5=Supervision or Setup 2=Maximal Assistance 6=Modified [place] 3=Moderate Assistance 7=Complete [place] Therapy Quality Codes: 6 Independent with activity with or without an assistive device 5 Patient requires set up or clean up by helper. Patient completes activity by themselves 4 Supervision or touching assist (CGA). [place] provide cues , steadying as sist 3 The helper provides less than half the effort to complete the activity 2 The helper provides more than half the effort to complete the activity 1 Dependent. The helper does all the effort to complete an activity 7 Patient refused to complete or attempt activity 9 The patient did not perform the activity before the current illness or injury 88 Not attempted due to Medical conditions or safety concerns Grooming (FIM): 6 Oral Hygiene (QC): 6 Upper Body (FIM): 6 Upper Body Dressing (QC): 6 Lower Body Dressing (FIM): 6 Lower Body Dressing (QC): 6 On/Off Footwear (QC): 6 Other Treatment Pt propelled w/c to therapy gym independently. Pt completed arm bike at 20 davis resistance and took multiple recovery breaks due to heaviness in chest, monitored O2 levels and reported to physician. Arm bike completed to increase strength and activity tolerance for daily functional tasks. After therapy, pt sitting in w/c in room with call light/phone in reach. All needs met in room. OT Short Term Goals Short Term Goals Eating(FIM): 6 Grooming(FIM): 5 Bathing(FIM): 5 Upper Body Dressing(FIM): 5 Lower Body Dressing(FIM): 5 Toileting(FIM): 5 Transfers (B,C,W/C) (FIM): 4 Toilet/Commode Transfer(FIM): 4 Tub Transfer(FIM): 4 Shower Transfer(FIM): 4 Additional Short Term Goals: 1-Demonstrate ADL Tasks, 2-Verbalize Understanding, 3-ImproveStrength/[place] 1=Demonstrate adherence to instructed precautions during ADL tasks. 2=Patient will verbalize/demonstrate understanding of assistive devices/modifications for ADL. 3=Patient will improve strength/tolerance for activity to enable patient to perform ADL's. OT Group Home Goals Group Home Goals Time Frame: Oct 11, 2018 Eating (FIM): 7 Eating (QC): 6 Groomin Oral Hygiene (QC): 6 Bathing(FIM): 6 Bathing Location: L Arm, R Arm, L Upper Leg, R Upper Leg, L Lower Leg (including foot), R Lower Leg (including foot), Chest, Abdomen, Buttocks, Perineal Area Shower/Bathe Self (QC): 6 Upper Body Dressing(FIM): 7 Upper Body Dressing (QC): 6 Lower Body Dressing(FIM): 6 Lower Body Dressing (QC): 6 On/Off Footwear (QC): 6 Toileting(FIM): 6 Toileting Hygiene (QC): 6 Transfers (B,C,W/C) (FIM): 6 Toilet/Commode Transfer(FIM): 6 Toilet/Commode Transfer (QC): 6 Tub Transfer(FIM): 6 Shower Transfer(FIM): 6 Additional Goals: 1-Demonstrate ADL Tasks, 2-Verbalize Understanding, 3- ImproveStrength/[place] 1=Demonstrate adherence to instructed precautions during ADL tasks. 2=Patient will verbalize/demonstrate understanding of assistive devices/modifications for ADL. 3=Patient will improve strength/tolerance for activity to enable patient to perform ADL's. OT Education/Plan Problem List/Assessment Assessment: Decreased Activ Tolerance, Dependent Transfers pt presents with functional limitations affecting areas of ADLs and functional transfers. pt would benefit from skilled OT Services to increase independence with ADLS/ functional transfers. Discharge Recommendations Plan/Recommendations: Continue POC Treatment Plan/Plan of Care Patient would benefit from OT for education, treatment and training to promote independence in ADL's, mobility, safety and/or upper extremity function for ADL's. Plan of Care: ADL Retraining, Caregiver Training, Concurrent Therapy, Functional Mobility, Group Exercise/Act as Ind, UE Funct Exercise/Act, W/C Management Training Treatment Duration: Oct 11, 2018 Frequency: At least 5 of 7 days/Wk (IRF) Estimated Hrs Per Day: 1 hour per day (60-90 minutes per day) Agreement: Yes Rehab Potential: Fair Time/GCodes Start Time: 08:30 Stop Time: 10:00 Total Time Billed (hr/min): 90 Billed Treatment Time 1 visit-ADL 5 (70 min) EX 1 (20 min) MACARIO BAUTISTA Sep 24, 2018 09:17
[2018-09-24] MEDS: NICOTINE PATCH REMOVAL TP SCH (09:33)
[2018-09-24] MEDS: NICOTINE 21 MG (NICODERM) PATCH TD SCH (09:33)
[2018-09-24] MEDS: risperiDONE 1 MG (RisperDAL) TAB PO SCH ×2 (09:34→21:53)
[2018-09-24] MEDS: SERTRALINE 100 MG (ZOLOFT) TAB PO SCH (09:34)
[2018-09-24] MEDS: BACLOFEN 10 MG (LIORESAL) TAB PO SCH ×2 (09:34→21:53)
[2018-09-24] MEDS: guaiFENesin (MUCINEX) 600 MG TAB PO SCH ×2 (09:34→21:53)
[2018-09-24] MEDS: OXYBUTYNIN 10 MG PO SCH (09:35)
--- NOTE | 2018-09-24 09:51 | PM&R Progress Note ---
Subjective HPI/CC On Admission Date Seen by Provider: Sep 24, 2018 Time Seen by Provider: 09:15 Chief complaint: Debility from respiratory failure and ventilation History of present illness: This is a 57-[facility]-old [facility] who was originally admitted last week for respiratory failure. She was maintained on ventilator support for several days and under Dr. Fenton's expertise she was able to be extubated without complication. 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 Her INR today is 4.2 so that will be held. Patient's does quite a bit for her at home and prior level of functioning required a great deal of help from him to transfer from wheelchair to bed and toilet and so forth. She is very weak having significant shortness of breath since COPD flare and recent ventilator support and will require inpatient rehab to optimize ADLs at home to lessen the burden on her . Pulmonology will be maintained due to high risk for respiratory insufficiency. Subjective/Events-last exam Pt doing very well Had a BM last night with the help of her because of the paraplegia and digital stimulation that is required. O2 at 3 liters at night maintains and she is using oxygen a little bit this morning because of hypoxia. She usually was on room air during the day since that was weened off since critical illness and intubation. Denies any pain. Wants discharge later this week. INR monitored prn Checked meds and labs Conferred with RN Reviewed therapy notes Review of Systems General: Fatigue Pulmonary: Dyspnea Objective Exam Vital Signs Vital Signs Date Time Temp Pulse Resp B/P (MAP) Pulse Ox O2 Delivery O2 Flow Rate FiO2 09/24/18 17:00 86 20 99 Room Air 09/24/18 16:28 98.2 103/61 (75) 09/23/18 21:45 3.00 09/22/18 07:04 21 Capillary Refill : Less Than 3 Seconds General Appearance: No Apparent Distress, WD/WN, Chronically ill, Thin HEENT: PERRL/EOMI, Normal ENT Inspection, Pharynx Normal, Moist Mucous Membranes Neck: Full Range of Motion, Normal Inspection, Non Tender, Supple Respiratory: Chest Non Tender, Lungs Clear, Normal Breath Sounds, No Accessory Muscle Use, No Respiratory Distress, Decreased Breath Sounds Cardiovascular: Regular Rate, Rhythm, No Edema, No Gallop, No JVD, No Murmur Gastrointestinal: Normal Bowel Sounds, No Organomegaly, No Pulsatile Mass, Non Tender, Soft Back: Normal Inspection, No CVA Tenderness, No Vertebral Tenderness Extremity: Normal Capillary Refill, Normal Inspection, No Pedal Edema, Other (parplegia) Neurologic/Psychiatric: Alert, Oriented x3, Normal 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 FIM Transfers Therapy Code Descriptions/Definitions Functional [place] Measure: 0=Not Assessed/NA 4=Minimal Assistance 1=Total Assistance 5=Supervision or Setup 2=Maximal Assistance 6=Modified [place] 3=Moderate Assistance 7=Complete [place] Therapy Quality Codes: 6 Independent with activity with or without an assistive device 5 Patient requires set up or clean up by helper. Patient completes activity by themselves 4 Supervision or touching assist (CGA). [place] provide cues , steadying assist 3 The helper provides less than half the effort to complete the activity 2 The helper provides more than half the effort to complete the activity 1 Dependent. The helper does all the effort to complete an activity 7 Patient refused to complete or attempt activity 9 The patient did not perform the activity before the current illness or injury 88 Not attempted due to Medical conditions or safety concerns Transfers (B, C, W/C) (FIM): 3 Scootin Rollin Roll Left to Right (QC): 4 Supine to/from Sit: 4 Sit to/from Stand: 2 Sit to Lying (QC): 2 Chair/Fmi-it-Symbs Xfer(QC): 2 Bed to/from Chair: 3 Car Transfer (QC): 1 Gait Training Does the Patient Walk?: No and Walking Goal NOT indicated Wheelchair Training Does the Pt Use a Wheelchair?: Yes Wheelchair (FIM): 6 Wheelchair Distance: 1=up to 49 ft Distance: 150'x2 Wheelchair Level of Assist: 5 (in room and bathroom around obstacles with LLE on pedal and RLE on extended leg rest) Wheel 50 ft with 2 turns (QC): 4 Wheel 150 ft (QC): 4 Type of Wheelchair: Manual Mental Status/Objective Comprehension: 7 Expression: 7 Social Interaction: 7 Problem Solvin Memory: 7 ADL-Treatment Feedin (set up ) Eating (QC): 5 Groomin Oral Hygiene (QC): 6 Bathin Bathing Location: L Arm, R Arm, L Upper Leg, R Upper Leg, L Lower Leg (including foot), R Lower Leg (including foot), Chest, Abdomen, Buttocks, Perineal Area Shower/Bathe Self (QC): 6 Upper Extremity Dressin Upper Body Dressing (QC): 6 Lower Extremity Dressin Lower Body Dressing (QC): 2 On/Off Footwear (QC): 6 Toiletin (pt required assist to complete 3/3 toileting task. ) Toileting Hygiene (QC): 1 Toilet/Commode Transfer: 1 Toilet Transfer (QC): 1 Shower: 2 Assessment/Plan Assessment and Plan Assess & Plan/Chief Complaint Assessment: Severe debility from critical illness Status post ventilator dependent respiratory failure Exacerbation of COPD now completed steroid taper Current smoker T4 paralysis from transverse myelitis in 1993 Indwelling Cope catheter for past 1 year so will transition to in/out caths to prevent infections once she is DC and gets home Right femur fracture 1 year ago managed by [facility] orthopedics in [place] will DC immobilizer Bowel dysfunction requiring rectal stimulation for bowel movement Thin and frail status high risk for respiratory compromise 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 Yung consult for coccyx decubitus ulcer is appreciated but he terminated his care due to non-compliance Maintain Cope catheter and restart bladder medication then restart in and out catheters very soon Smoking cessation DC right leg immobilizer if she is comfortable (1) Debility (2) Delirium Resolution Date/Time: 09/12/18 @ 14:16 (3) DVT prophylaxis (4) Paraplegia (5) Hypothyroidism (6) Tobacco abuse (7) Acute respiratory distress (8) Anticoagulant long-term use (9) Counseling regarding end of life decision making (10) Hyponatremia Resolution Date/Time: 09/11/18 @ 16:40 (11) Leukopenia Resolution Date/Time: 09/11/18 @ 16:40 CHEVY MARTINEZ DO Sep 24, 2018 09:51
[2018-09-24] MEDS: ZINC OXIDE 16% OINT (BUTT PASTE) 113 GM TUBE TOP SCH ×3 (09:57→21:53)
[2018-09-24] MEDS: A & D OINT 113 GM TUBE TOP SCH (09:57)
[2018-09-24] MEDS: POLYETHYLENE GLYCOL 17 GM (MIRALAX) PACK PO SCH ×2 (11:17→21:51)
--- NOTE | 2018-09-24 11:18 | Physical Therapy Daily Note ---
PT Daily Note-Current Subjective Pt agreeable to PT session. States she had some spasms in her legs last night, but ok now Pain Numeric Pain Scale: 0-No Pain Appearance Pt sitting up in w/c awake and alert upon arrival. Mental Status Patient Orientation: Person, Place, Time, Eyes Open, Situation Attachments: Cope Catheter L knee brace Transfers Therapy Code Descriptions/Definitions Functional [place] Measure: 0=Not Assessed/NA 4=Minimal Assistance 1=Total Assistance 5=Supervision or Setup 2=Maximal Assistance 6=Modified [place] 3=Moderate Assistance 7=Complete [place] Therapy Quality Codes: 6 Independent with activity with or without an assistive device 5 Patient requires set up or clean up by helper. Patient completes activity by themselves 4 Supervision or touching assist (CGA). [place] provide cues , steadying assist 3 The helper provides less than half the effort to complete the activity 2 The helper provides more than half the effort to complete the activity 1 Dependent. The helper does all the effort to complete an activity 7 Patient refused to complete or attempt activity 9 The patient did not perform the activity before the current illness or injury 88 Not attempted due to Medical conditions or safety concerns Transfers (B, C, W/C) (FIM): 4 Scootin Rollin Supine to/from Sit: 5 surface to surface sliding transfer, pt refusing use of transfer board Weight Bearing Right Lower Extremity: Right Weight Bearing/Tolerated Left Lower Extremity: Left Weight Bearing/Tolerated Wheelchair Training Does the Pt Use a Wheelchair?: Yes Wheelchair (FIM): 5 Wheelchair Distance: 3=150 ft Type of Wheelchair: Manual Exercises Supine Ex: Quad Set Supine Reps: 20 (decreased ROM, PROM LLE, AROM-AAROM RLE) Seated Therapy Exercises: Ankle pumps ((+) toe curls), Long arc quads, Chair press-ups, Hip flexion, Hamstring Curls, Reaching activity (sitting balance, trunk and core ex's flex, ext, rotation, lateral bending), Hip abd/add Seated Reps: 20 (decreased ROM, PROM LLE, AROM-AAROM RLE) Treatments LE strength, ROM, sitting balance unsupported, trunk/core strengthening, w/c mobility, education Assessment inconsistent with demonstrating ability to perform different activities at times. Weakness in trunk/core mm's, heavily relies on UE's. PT Short Term Goals Short Term Goals Time Frame: Sep 20, 2018 Transfers (B,C,W/C) (FIM): 4 Wheelchair (FIM): 6 Wheelchair Distance: 150'x2 PT Intermediate Goals Intermediate Goals PT Carbon Dioxide Operator Goals Time Frame: Oct 04, 2018 Transfers (B,C,W/C) (FIM): 5 Sit to Lying (QC): 4 Lying-Sitting on Side/Bed(QC): 4 Sit to Stand (QC): 4 Rollin Roll Left to Right (QC): 4 Chair/Azs-rb-Zkwtk Xfer(QC): 4 Car Transfer (QC): 3 Wheelchair (FIM): 6 Distance: 200' Wheelchair Level of Assist: 6 Wheel 50 feet with 2 turns (QC: 6 PT Plan Treatment/Plan Treatment Plan: Continue Plan of Care Treatment Plan: Bed Mobility, Concurrent Therapy, Education, Functional Activity [place], Functional Strength, Group Therapy, Gait, Safety, Therapeutic Exercise, Transfers Treatment Duration: Oct 04, 2018 Frequency: At least 5 of 7 days/Wk (IRF) Estimated Hrs Per Day: 1.5 hours per day Patient and/or Family Agrees t: Yes Safety Risks/Education Patient Education: Transfer Techniques, W/C Management, Reviewed Don/Doff Brace, Safety Issues Teaching Recipient: Patient Teaching Methods: Discussion Response to Teaching: Verbalize Understanding Time/GCodes Time In: 1100 Time Out: 1200 Total Billed Treatment Time: 0 Total Billed Treatment 1 visit, EX x3, FA x1 WILFRED CRISTOBAL PRINTING BINDERY ASSISTANT Sep 24, 2018 11:18
--- NOTE | 2018-09-24 12:04 | NUR ---
RT WITH PHONE NUMBER [phone] WAS TEXT THAT THIS PATIENT NEEDED HER SVN BREATHING TX; 8 MINS AFTER TEXT WAS SENT, RT SEEN MESSAGE AND MESSAGED BACK THAT SAID: I'M IN ED CAN THE NURSE GIVE IT TO HER. RT GOT NO RESPONSE. WHEN RT GOT DONE IN THE ED, SHE WENT TO CHECK TO SEE IF THE PATIENT HAD GOTTEN THE SVN BREATHING TX YET. RT WENT TO THE MED ROOM AND A PHONE WAS LAYING ON THE COUNTER AND SO RT HIT THE SIDE BUTTON AND IT SHOWED RT'S MESSAGE THAT WAS NEVER LOOKED EVEN LOOKED AT. AFTER RT WAS DONE GIVING PATIENT HER SVN BREATHING TX AND SHE WAS TYPING THIS NOTE, RN'S ASKED HER WHO RT WHO SHE WAS HERE TO SEE AND RT INFORMED THEM THAT SHE HAD ALREADY GIVEN THE PATIENT HER SVN BREATHING TX. RN'S HAD JUST SEEN THE MESSAGE RT HAD SENT TO THE ABOVE PHONE NUMBER
--- NOTE | 2018-09-24 15:12 | NUR ---
PATIENT IS WORKING WITH OCCUPATIONAL THERAPY AT THIS TIME
--- NOTE | 2018-09-24 16:04 | Physical Therapy Daily Note ---
PT Daily Note-Current Subjective Patient in bed pre tx, agrees to PT, has no complaints of pain at rest. Appearance Patient in bed post tx with nurse call, phone, tray, all needs met. Mental Status Patient Orientation: Normal For Age has right knee immobilizer for comfort. Transfers Therapy Code Descriptions/Definitions Functional [place] Measure: 0=Not Assessed/NA 4=Minimal Assistance 1=Total Assistance 5=Supervision or Setup 2=Maximal Assistance 6=Modified [place] 3=Moderate Assistance 7=Complete [place] Therapy Quality Codes: 6 Independent with activity with or without an assistive device 5 Patient requires set up or clean up by helper. Patient completes activity by themselves 4 Supervision or touching assist (CGA). [place] provide cues , steadying assist 3 The helper provides less than half the effort to complete the activity 2 The helper provides more than half the effort to complete the activity 1 Dependent. The helper does all the effort to complete an activity 7 Patient refused to complete or attempt activity 9 The patient did not perform the activity before the current illness or injury 88 Not attempted due to Medical conditions or safety concerns Weight Bearing Right Lower Extremity: Right Weight Bearing/Tolerated Left Lower Extremity: Left Weight Bearing/Tolerated Exercises Supine Ex: Ankle pumps, Quad Set, Heel Slides, Short Arc Quads, Straight leg raise, Hip abd/add Supine Reps: 15 (AAROM for most of them except for AP and QS. Only done with right leg.) PROM/stretching in BLE, especially to stretch dorsiflexion. Right knee gentle stretching performed into flexion and she was able to get to approx 70 degrees. Treatments LE ex and stretching Assessment Current Status: Fair Progress improving right knee ROM PT Short Term Goals Short Term Goals Time Frame: Sep 20, 2018 Transfers (B,C,W/C) (FIM): 4 Wheelchair (FIM): 6 Wheelchair Distance: 150'x2 PT Long-Term Goals Long-Term Goals PT Long-Term Goals Time Frame: Oct 04, 2018 Transfers (B,C,W/C) (FIM): 5 Sit to Lying (QC): 4 Lying-Sitting on Side/Bed(QC): 4 Sit to Stand (QC): 4 Rollin Roll Left to Right (QC): 4 Chair/Ksb-gj-Zpbmd Xfer(QC): 4 Car Transfer (QC): 3 Wheelchair (FIM): 6 Distance: 200' Wheelchair Level of Assist: 6 Wheel 50 feet with 2 turns (QC: 6 PT Plan Problem List Problem List: Activity Tolerance, Functional Strength, Safety, Balance, Gait, Transfer, Bed Mobility, ROM Treatment/Plan Treatment Plan: Continue Plan of Care Treatment Plan: Bed Mobility, Concurrent Therapy, Education, Functional Activity [place], Functional Strength, Group Therapy, Gait, Safety, Therapeutic Exercise, Transfers Treatment Duration: Oct 04, 2018 Frequency: At least 5 of 7 days/Wk (IRF) Estimated Hrs Per Day: 1.5 hours per day Patient and/or Family Agrees t: Yes Safety Risks/Education Patient Education: Correct Positioning, Safety Issues Teaching Recipient: Patient Teaching Methods: Demonstration, Discussion Response to Teaching: Reinforcement Needed Time/GCodes Time In: 1500 Time Out: 1530 Total Billed Treatment Time: 30 Total Billed Treatment 1 visit EX 30' ANA M MCGUIRE PT Sep 24, 2018 16:04
[2018-09-24 16:28] VITALS: BP 103/61
[2018-09-24] MEDS: warFARin 2 MG (COUMADIN) TAB PO SCH (16:58)
[2018-09-24] MEDS ORDERED: warFARin 2 MG (COUMADIN) TAB PO SCH (18:00)
[2018-09-24] MEDS: SIMvastatin 20 MG (ZOCOR) TAB PO SCH (21:53)
[2018-09-24] MEDS: ACETAMINOPHEN 500 MG TAB (TYLENOL) PO PRN (21:56)
[2018-09-25 05:49] VITALS: BP 93/61
[2018-09-25] MEDS: LEVOTHYROXINE 125 MCG (LEVOTHROID) TABLET PO SCH (06:12)
[2018-09-25] MEDS: LACTOBACILLUS ACIDOPHILUS (PROBIOTIC) CAPSULE PO SCH ×3 (06:12→17:22)
[2018-09-25] MEDS: ONDANSETRON 4 MG (ZOFRAN) ORAL DISSOLVE TAB PO SCH (06:12)
[2018-09-25] MEDS: PANTOPRAZOLE 40 MG (PROTONIX) TAB PO SCH (06:12)
[2018-09-25] MEDS: LEVOTHYROXINE 25 MCG (LEVOTHROID) TAB PO SCH (06:12)
[2018-09-25 06:35] VITALS: BP 93/61
[2018-09-25] MEDS: RT-ALBUTEROL/IPRATROPIUM 3 ML (DUONEB) VIAL INH SCH ×2 (06:35→20:03)
[2018-09-25] MEDS: BACLOFEN 10 MG (LIORESAL) TAB PO SCH ×2 (08:33→21:07)
[2018-09-25] MEDS: SERTRALINE 100 MG (ZOLOFT) TAB PO SCH (08:33)
[2018-09-25] MEDS: NICOTINE PATCH REMOVAL TP SCH (08:33)
[2018-09-25] MEDS: risperiDONE 1 MG (RisperDAL) TAB PO SCH ×2 (08:33→21:07)
[2018-09-25] MEDS: guaiFENesin (MUCINEX) 600 MG TAB PO SCH ×2 (08:33→21:07)
[2018-09-25] MEDS: NICOTINE 21 MG (NICODERM) PATCH TD SCH (08:33)
[2018-09-25] MEDS: OXYBUTYNIN 10 MG PO SCH (08:34)
[2018-09-25] MEDS: A & D OINT 113 GM TUBE TOP SCH (09:00)
[2018-09-25] MEDS: ZINC OXIDE 16% OINT (BUTT PASTE) 113 GM TUBE TOP SCH ×3 (09:00→21:07)
[2018-09-25] MEDS: POLYETHYLENE GLYCOL 17 GM (MIRALAX) PACK PO SCH ×2 (09:00→21:08)
--- NOTE | 2018-09-25 09:26 | PM&R Progress Note ---
Subjective HPI/CC On Admission Date Seen by Provider: Sep 25, 2018 Time Seen by Provider: 09:15 Chief complaint: Debility from respiratory failure and ventilation History of present illness: This is a 57-year-old white female of [facility] who was originally admitted last week for respiratory failure. She was maintained on ventilator support for several days and under Dr. Fenton's expertise she was able to be extubated without complication. 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 Her INR today is 4.2 so that will be held. Patient's does quite a bit for her at home and prior level of functioning required a great deal of help from him to transfer from wheelchair to bed and toilet and so forth. She is very weak having significant shortness of breath since COPD flare and recent ventilator support and will require inpatient rehab to optimize ADLs at home to lessen the burden on her . Pulmonology will be maintained due to high risk for respiratory insufficiency. Subjective/Events-last exam INR will be checked in the morning. Lasix 20 Mg two times a week prn edema will be ordered like she has at home. Still uses her brace. In and out cath will be started after catheter is removed. Discharge is planned on 09/26/18. Overall feeling much more confident and bowels are moving an overall having no new issues. Breathing well and off oxygen during the day. INR monitored prn Checked meds and labs Conferred with RN Reviewed therapy notes Review of Systems General: Fatigue Objective Exam Vital Signs Vital Signs Date Time Temp Pulse Resp B/P (MAP) Pulse Ox O2 Delivery O2 Flow Rate FiO2 09/25/18 18:20 99.8 09/25/18 17:14 89 16 102/62 (75) 99 Room Air 09/25/18 06:35 3.00 09/22/18 07:04 21 Capillary Refill : Less Than 3 Seconds General Appearance: No Apparent Distress, WD/WN, Chronically ill, Thin HEENT: PERRL/EOMI, Normal ENT Inspection, Pharynx Normal, Moist Mucous Membranes Neck: Full Range of Motion, Normal Inspection, Non Tender, Supple Respiratory: Chest Non Tender, Lungs Clear, Normal Breath Sounds, No Accessory Muscle Use, No Respiratory Distress, Decreased Breath Sounds Cardiovascular: Regular Rate, Rhythm, No Edema, No Gallop, No JVD, No Murmur Gastrointestinal: Normal Bowel Sounds, No Organomegaly, No Pulsatile Mass, Non Tender, Soft Back: Normal Inspection, No CVA Tenderness, No Vertebral Tenderness Extremity: Normal Capillary Refill, Normal Inspection, No Pedal Edema, Other (parplegia) Neurologic/Psychiatric: Alert, Oriented x3, Normal Mood/Affect, 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 FIM Transfers Therapy Code Descriptions/Definitions Functional [place] Measure: 0=Not Assessed/NA 4=Minimal Assistance 1=Total Assistance 5=Supervision or Setup 2=Maximal Assistance 6=Modified [place] 3=Moderate Assistance 7=Complete [place] Therapy Quality Codes: 6 Independent with activity with or without an assistive device 5 Patient requires set up or clean up by helper. Patient completes activity by themselves 4 Supervision or touching assist (CGA). [place] provide cues , steadying assist 3 The helper provides less than half the effort to complete the activity 2 The helper provides more than half the effort to complete the activity 1 Dependent. The helper does all the effort to complete an activity 7 Patient refused to complete or attempt activity 9 The patient did not perform the activity before the current illness or injury 88 Not attempted due to Medical conditions or safety concerns Transfers (B, C, W/C) (FIM): 4 Scootin Rollin Roll Left to Right (QC): 4 Supine to/from Sit: 5 Sit to/from Stand: 2 Sit to Lying (QC): 2 Chair/Via-au-Umvkk Xfer(QC): 2 Bed to/from Chair: 3 Car Transfer (QC): 1 Gait Training Does the Patient Walk?: No and Walking Goal NOT indicated Wheelchair Training Does the Pt Use a Wheelchair?: Yes Wheelchair (FIM): 5 Wheelchair Distance: 3=150 ft Distance: 150'x2 Wheelchair Level of Assist: 5 (in room and bathroom around obstacles with LLE on pedal and RLE on extended leg rest) Wheel 50 ft with 2 turns (QC): 4 Wheel 150 ft (QC): 4 Type of Wheelchair: Manual Mental Status/Objective Comprehension: 7 Expression: 7 Social Interaction: 7 Problem Solvin Memory: 7 ADL-Treatment Feedin (set up ) Eating (QC): 5 Groomin Oral Hygiene (QC): 6 Bathin Bathing Location: L Arm, R Arm, L Upper Leg, R Upper Leg, L Lower Leg (including foot), R Lower Leg (including foot), Chest, Abdomen, Buttocks, Perineal Area Shower/Bathe Self (QC): 6 Upper Extremity Dressin Upper Body Dressing (QC): 6 Lower Extremity Dressin Lower Body Dressing (QC): 6 On/Off Footwear (QC): 6 Toiletin (pt required assist to complete 3/3 toileting task. ) Toileting Hygiene (QC): 1 Toilet/Commode Transfer: 1 Toilet Transfer (QC): 1 Shower: 2 Assessment/Plan Assessment and Plan Assess & Plan/Chief Complaint Assessment: Severe debility from critical illness Status post ventilator dependent respiratory failure Exacerbation of COPD now completed steroid taper Current smoker T4 paralysis from transverse myelitis in 1993 Indwelling Cope catheter for past 1 year so will transition to in/out caths to prevent infections once she is DC and gets home Right femur fracture 1 year ago managed by [facility] orthopedics in [place] will DC immobilizer Bowel dysfunction requiring rectal stimulation for bowel movement Thin and frail status high risk for respiratory compromise 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 Yung consult for coccyx decubitus ulcer is appreciated but he terminated his care due to non-compliance Maintain Cope catheter and restart bladder medication then restart in and out catheters very soon Smoking cessation DC tomorrow on Check INR tomorrow (1) Debility (2) Delirium Resolution Date/Time: 09/12/18 @ 14:16 (3) DVT prophylaxis (4) Paraplegia (5) Hypothyroidism (6) Tobacco abuse (7) Acute respiratory distress (8) Anticoagulant long-term use (9) Counseling regarding end of life decision making (10) Hyponatremia Resolution Date/Time: 09/11/18 @ 16:40 (11) Leukopenia Resolution Date/Time: 09/11/18 @ 16:40 CHEVY MARTINEZ DO Sep 25, 2018 09:26
--- NOTE | 2018-09-25 10:14 | Occupational Ther Daily Note ---
OT Current Status-Daily Note Subjective Pt alert, lying in bed. Pt agrees to therapy. No c/o pain at this time. Pt wants to go home tomorrow. Mental Status/Objective Patient Orientation: Person, Place, Time, Situation Therapy Code Descriptions/Definitions Functional [place] Measure: 0=Not Assessed/NA 4=Minimal Assistance 1=Total Assistance 5=Supervision or Setup 2=Maximal Assistance 6=Modified [place] 3=Moderate Assistance 7=Complete [place] ADL-Treatment Pt agrees to shower. Mod I for bed mobility using bed rails. Pt propelled w/c to large shower room for shower. Pt gathered own supplies at w/c level. Pt refuses to use sliding board transfer due to friction on skin/wound. Pt prefers to use a SPT though requires more assistance. To transfer to shower bench from w/c, pt used UE to lift body up and scoot self onto bench with CGA then due to slight height difference between w/c and bench pt required min A to get back onto w/c. Pt completed own bathing using shower bench, long handle sponge and hand held shower. In w/c, pt completed upper body dressing and donned lower body clothing, pulling clothing to upper thighs to finish hiking pants over hips in bed. Pt completes grooming by self at w/c level. Pt takes increased time to complete all functional tasks and transfer. After therapy, pt lying in bed with call light/phone in reach. All needs met in room. Therapy Code Descriptions/Definitions Functional [place] Measure: 0=Not Assessed/NA 4=Minimal Assistance 1=Total Assistance 5=Supervision or Setup 2=Maximal Assistance 6=Modified [place] 3=Moderate Assistance 7=Complete [place] Therapy Quality Codes: 6 Independent with activity with or without an assistive device 5 Patient requires set up or clean up by helper. Patient completes activity by themselves 4 Supervision or touching assist (CGA). [place] provide cues , steadying assist 3 The helper provides less than half the effort to complete the activity 2 The helper provides more than half the effort to complete the activity 1 Dependent. The helper does all the effort to complete an activity 7 Patient refused to complete or attempt activity 9 The patient did not perform the activity before the current illness or inju ry 88 Not attempted due to Medical conditions or safety concerns Eating (FIM): 7 (Pt demonstrates ability to complete own set up and use regular utensils to eat.) Eating (QC): 6 Grooming (FIM): 6 Oral Hygiene (QC): 6 Bathing (FIM): 6 Bathing Location: L Arm, R Arm, L Upper Leg, R Upper Leg, L Lower Leg (including foot), R Lower Leg (including foot), Chest, Abdomen, Buttocks, P erineal Area Shower/Bathe Self (QC): 6 Upper Body (FIM): 6 Upper Body Dressing (QC): 6 Lower Body Dressing (FIM): 6 Lower Body Dressing (QC): 6 On/Off Footwear (QC): 6 Toileting (FIM): 5 (Pt has conteh catheter, completes own bowel program. Manipulates clothing in sitting.) Toileting Hygiene (QC): 4 Transfers (B, C, W/C) (FIM): 4 Toilet/Commode Transfer (FIM): 2 (SPT with support to R knee with wt bearing.) Toilet Transfer (QC): 2 Shower Transfer(FIM): 4 OT Short Term Goals Short Term Goals Eating(FIM): 6 Grooming(FIM): 5 Bathing(FIM): 5 Upper Body Dressing(FIM): 5 Lower Body Dressing(FIM): 5 Toileting(FIM): 5 Transfers (B,C,W/C) (FIM): 4 Toilet/Commode Transfer(FIM): 4 Tub Transfer(FIM): 4 Shower Transfer(FIM): 4 Additional Short Term Goals: 1-Demonstrate ADL Tasks, 2-Verbalize Understanding, 3-ImproveStrength/Chevy 1=Demonstrate adherence to instructed precautions during ADL tasks. 2=Patient will verbalize/demonstrate understanding of assistive devices/modifications for ADL. 3=Patient will improve strength/tolerance for activity to enable patient to perform ADL's. OT [place] Worker Goals Long-Term Goals Time Frame: Oct 11, 2018 Eating (FIM): 7 (met-09/25/18) Eating (QC): 6 (met-09/25/18) Groomin (not met) Oral Hygiene (QC): 6 (met-09/25/18) Bathing(FIM): 6 (met-09/25/18) Bathing Location: L Arm, R Arm, L Upper Leg, R Upper Leg, L Lower Leg (including foot), R Lower Leg (including foot), Chest, Abdomen, Buttocks, Perineal Area Shower/Bathe Self (QC): 6 (met-09/25/18\) Upper Body Dressing(FIM): 7 (not met) Upper Body Dressing (QC): 6 (met-09/25/18) Lower Body Dressing(FIM): 6 (met-09/25/18) Lower Body Dressing (QC): 6 (met-09/25/18) On/Off Footwear (QC): 6 (met-09/25/18) Toileting(FIM): 6 (not met) Toileting Hygiene (QC): 6 (not met) Transfers (B,C,W/C) (FIM): 6 (not met) Toilet/Commode Transfer(FIM): 6 (not met) Toilet/Commode Transfer (QC): 6 (not me) Tub Transfer(FIM): 6 (not met) Shower Transfer(FIM): 6 (not met) Additional Goals: 1-Demonstrate ADL Tasks, 2-Verbalize Understanding, 3- ImproveStrength/Chevy 1=Demonstrate adherence to instructed precautions during ADL tasks. 2=Patient will verbalize/demonstrate understanding of assistive devices/modifications for ADL. 3=Patient will improve strength/tolerance for activity to enable patient to perform ADL's. OT Education/Plan Problem List/Assessment pt presents with functional limitations affecting areas of ADLs and functional transfers. pt would benefit from skilled OT Services to increase independence with ADLS/ functional transfers. Discharge Recommendations Plan/Recommendations: Continue POC Treatment Plan/Plan of Care Patient would benefit from OT for education, treatment and training to promote independence in ADL's, mobility, safety and/or upper extremity function for ADL's. Plan of Care: ADL Retraining, Caregiver Training, Concurrent Therapy, Functional Mobility, Group Exercise/Act as Ind, UE Funct Exercise/Act, W/C Management Training Treatment Duration: Oct 11, 2018 Frequency: At least 5 of 7 days/Wk (IRF) Estimated Hrs Per Day: 1 hour per day (60-90 minutes per day) Agreement: Yes Rehab Potential: Fair Time/GCodes Start Time: 08:30 Stop Time: 10:29 Total Time Billed (hr/min): 129 Billed Treatment Time 1 visit-ADL 9 (129 min) MACARIO BAUTISTA Sep 25, 2018 10:14
--- NOTE | 2018-09-25 12:38 | Physical Therapy Daily Note ---
PT Daily Note-Current Subjective Pt agreeable to PT session, states she is a little worn out from OT this morning. States she would really like to go home tomorrow with HH PT, OT and wound care services. States that is very capable with helping her and that she feels she has gotten strong enough to be doing some things at home. Pain Numeric Pain Scale: 0-No Pain Appearance Pt in bed upon arrival. Awake and alert. At end of session, pt sitting up in w/c with call light, phone and bedside table within reach Mental Status Patient Orientation: Person, Place, Time, Eyes Open, Situation R knee brace/immobilizer Transfers Therapy Code Descriptions/Definitions Functional [place] Measure: 0=Not Assessed/NA 4=Minimal Assistance 1=Total Assistance 5=Supervision or Setup 2=Maximal Assistance 6=Modified [place] 3=Moderate Assistance 7=Complete [place] Therapy Quality Codes: 6 Independent with activity with or without an assistive device 5 Patient requires set up or clean up by helper. Patient completes activity by themselves 4 Supervision or touching assist (CGA). [place] provide cues , steadying as sist 3 The helper provides less than half the effort to complete the activity 2 The helper provides more than half the effort to complete the activity 1 Dependent. The helper does all the effort to complete an activity 7 Patient refused to complete or attempt activity 9 The patient did not perform the activity before the current illness or injury 88 Not attempted due to Medical conditions or safety concerns Transfers (B, C, W/C) (FIM): 4 Scootin Rollin Roll Left to Right (QC): 6 Supine to/from Sit: 6 Sit to Lying (QC): 4 (at beginning of session, pt able to perform with SBA, at end of session required min A with LLE into bed due to increased fatigue) Chair/Kvm-xn-Deted Xfer(QC): 4 (CGA to SBA with sliding transfers at equal height surfaces, Min A from low to higher surfaces) Bed to/from Chair: 4 Car Transfer (QC): 3 (Pt unable to perform sliding transfers as seat distances are too far apart and pt refuses to use sliding board, therefore requiring min to mod A SPT) Weight Bearing Right Lower Extremity: Right Weight Bearing/Tolerated Left Lower Extremity: Left Weight Bearing/Tolerated Gait Training Does the Patient Walk?: No and Walking Goal NOT indicated Wheelchair Training Does the Pt Use a Wheelchair?: Yes Wheelchair (FIM): 6 Wheelchair Distance: 3=150 ft Distance: 400 Wheelchair Level of Assist: 6 Wheel 50 ft with 2 turns (QC): 6 Wheel 150 ft (QC): 6 Type of Wheelchair: Manual Pt demonstrate good and safe techniques maneuvering w/c, demonstrates good safety with locking and unlocking brakes, is able to don/doff foot pedals without assist, able to maneuver around several objects with w/c without running into them Treatments transfers, safety, w/c mobility, FIM scoring, bed mobility without bed rails and with bed flat, functional activity, activity tolerance Assessment Current Status: Good Progress PT Short Term Goals Short Term Goals Time Frame: Sep 20, 2018 Transfers (B,C,W/C) (FIM): 4 Wheelchair (FIM): 6 Wheelchair Distance: 150'x2 PT Martial Arts Instructor Goals Nursing Home Goals PT Nursing Home Goals Time Frame: Oct 04, 2018 Transfers (B,C,W/C) (FIM): 5 Sit to Lying (QC): 4 Lying-Sitting on Side/Bed(QC): 4 Sit to Stand (QC): 4 Rollin Roll Left to Right (QC): 4 Chair/Mqv-wb-Mqvqc Xfer(QC): 4 Car Transfer (QC): 3 Wheelchair (FIM): 6 Distance: 200' Wheelchair Level of Assist: 6 Wheel 50 feet with 2 turns (QC: 6 PT Plan Treatment/Plan Treatment Plan: Continue Plan of Care Treatment Plan: Bed Mobility, Concurrent Therapy, Education, Functional Activity Che[place], Functional Strength, Group Therapy, Gait, Safety, Therapeutic Exercise, Transfers Treatment Duration: Oct 04, 2018 Frequency: At least 5 of 7 days/Wk (IRF) Estimated Hrs Per Day: 1.5 hours per day Patient and/or Family Agrees t: Yes Safety Risks/Education Patient Education: Transfer Techniques, Correct Positioning, W/C Management, Reviewed Don/Doff Brace, Safety Issues Teaching Recipient: Patient Teaching Methods: Demonstration, Discussion Response to Teaching: Verbalize Understanding, Return Demonstration Time/GCodes Time In: 1100 Time Out: 1200 Total Billed Treatment Time: 60 Total Billed Treatment 1 visit, [facility] x1 unit, FA x3 units WILFRED CRISTOBAL PTA Sep 25, 2018 12:38
[2018-09-25] MEDS ORDERED: FUROSEMIDE 20 MG (LASIX) TAB PO PRN (14:45)
--- NOTE | 2018-09-25 14:51 | Therapy Group Daily Note ---
Therapy Daily Group Note Patient Education Topic Fall Prevention, Home Safety Exercises LE Seated Exercise, UE Exercise Session Ratio (pt:therapist): 4:1 Goal of Session: Home Safety Strategies, UE/LE Strengthing, Safety with Transfers, Use of Adaptive Equipment Goal Met for this Session: Yes Pt Benefit of Group: Contributions to Others, F/U Use of Strategies @Home, Increased Functional Safety, Increased Functional Strength, Improved Cognition, Recognition of Peers, Socialization Other/Notes Pt was propelled in W/C to PT/OT Group. Group consisted of Introduction (Name, Where are you from), Socialization, UE/LE Strengthening, Home Safety Techniques in the form of Questions answered by Pts. Pt actively participated in Group by completing exercises as well as giving appropriate answers to questions about Home Safety. Pt returned to room via W/C to rest with all needs met. Start Time: 13:00 Stop Time: 14:05 Total Billed Treatment Time: 65 Total Billed Treatment 1, GRP MAITE FINN SEMICONDUCTOR DEVELOPMENT TECHNICIAN Sep 25, 2018 14:51
--- NOTE | 2018-09-25 16:17 | NUR ---
GLOBAL MANAGER met with patient to review team conference summary. As patient is eager to return and performing transfers with min assist, as this is her baseline, team has recommended patient proceed with discharge tomorrow. Patient and spouse have established routine where he provides assistance as needed. Patient was previously active with [facility] and would like to use this provider at discharge. Patient has requested both PT and OT services, and RN is recommended for education on straight cath, as Dr. Noriega would like her to begin this process. Patient intends to speak with PCP regarding order for hospital bed as all future orders will be provided through him. As patient requested, GLOBAL MANAGER did locate a new tub/shower transfer bench with the features she requested. GLOBAL MANAGER sent information to patient's spouse. Patient expresses no concerns with discharge plans for tomorrow. Patient would like to leave at 930a. GLOBAL MANAGER notified Dr. Noriega.
[2018-09-25 17:14] VITALS: BP 102/62
[2018-09-25] MEDS: warFARin 2 MG (COUMADIN) TAB PO SCH (17:22)
[2018-09-25] MEDS: ACETAMINOPHEN 500 MG TAB (TYLENOL) PO PRN (17:22)
--- NOTE | 2018-09-25 20:00 | D/C HH Face to Face Order ---
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 Patient Data-Allergies,Ht & Wt Patient Allergies: Coded Allergies: latex (Verified Allergy, Unknown, hives, 09/04/18) tetracycline (Verified Allergy, Unknown, hives, 09/04/18) Height (Feet): 5 Height (Inches): 6.00 Weight (Pounds): 120 Weight (Ounces): 12.8 Home Health Need/Face to Face Date of Face to Face: Sep 25, 2018 Clinical Findings: Generalized weakness and fatigue, Instability, Muscle weakness, Non or partial weight bearing, Pain with ambulation, Shortness of breath, Wound infection I have seen Pt [id number]: Yes Discharged To: Home Diagnosis/Conditions: Sevre debility COPD Smoker 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 Pt req the following assistanc: Wheelchair Home Health Nursing Orders Home Health Services Order: Nursing Services, Clinical Mental Health Counselor-Evaluate & Treat, Physical Therapy-Evaluate & Treat Certify Stmt I certify that this patient is under my care and that I, a nurse practitioner or a physician; a farm assistant working with me, had a face to face encounter that - meets the physician face to face encounter requirements with this patient as dated. CHEVY MARTINEZ DO Sep 25, 2018 20:00
[2018-09-25] MEDS: SIMvastatin 20 MG (ZOCOR) TAB PO SCH (21:07)
[2018-09-26 05:33] VITALS: BP 104/52
[2018-09-26] MEDS: LEVOTHYROXINE 125 MCG (LEVOTHROID) TABLET PO SCH (06:32)
[2018-09-26] MEDS: LACTOBACILLUS ACIDOPHILUS (PROBIOTIC) CAPSULE PO SCH ×3 (06:33→18:03)
[2018-09-26] MEDS: PANTOPRAZOLE 40 MG (PROTONIX) TAB PO SCH (06:33)
[2018-09-26] MEDS: LEVOTHYROXINE 25 MCG (LEVOTHROID) TAB PO SCH (06:33)
[2018-09-26] MEDS: ACETAMINOPHEN 500 MG TAB (TYLENOL) PO PRN ×2 (06:33→20:58)
[2018-09-26] MEDS: ONDANSETRON 4 MG (ZOFRAN) ORAL DISSOLVE TAB PO SCH (06:33)
[2018-09-26 07:19] LABS: INR 2.5 (0.8-1.4)
[2018-09-26] MEDS: RT-ALBUTEROL/IPRATROPIUM 3 ML (DUONEB) VIAL INH SCH ×2 (07:25→20:34)
[2018-09-26 08:42] LABS: BASOPHILS % (AUTO) 0 % (0-10); EOSINOPHILS # (AUTO) 0.2 10^3/uL (0.0-0.3); EOSINOPHILS % (AUTO) 2 % (0-10); HEMATOCRIT 29 % (35-52); HEMOGLOBIN 9.9 G/DL (11.5-16.0); LYMPHOCYTES # (AUTO) 0.5 X 10^3 (1.0-4.0); LYMPHOCYTES % (AUTO) 6 % (12-44); MEAN CORPUSCULAR HEMOGLOBIN 32 PG (25-34); MEAN CORPUSCULAR HGB CONC 34 G/DL (32-36); MEAN CORPUSCULAR VOLUME 93 FL (80-99); MEAN PLATELET VOLUME 9.8 FL (7.4-10.4); MONOCYTES # (AUTO) 0.3 X 10^3 (0.0-1.0); MONOCYTES % (AUTO) 3 % (0-12); NEUTROPHILS # (AUTO) 7.1 X 10^3 (1.8-7.8); NEUTROPHILS % (AUTO) 88 % (42-75); PLATELET COUNT 180 10^3/uL (130-400); RED CELL DISTRIBUTION WIDTH 15.2 % (10.0-14.5)
--- NOTE | 2018-09-26 08:45 | PM&R Progress Note ---
Subjective HPI/CC On Admission Date Seen by Provider: Sep 26, 2018 Time Seen by Provider: 08:45 Chief complaint: Debility from respiratory failure and ventilation History of present illness: This is a 57-year-old white female of [facility] who was originally admitted last week for respiratory failure. She was maintained on ventilator support for several days and under Dr. Fenton's expertise she was able to be extubated without complication. She was found to have exacerbation of COPD and has become very debilitated considering her T4 paralysis from transverse myelitis since 1993 requiring indwelling Conteh catheter for the past 1 year since she fractured her good leg on the right. 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 Her INR today is 4.2 so that will be held. Patient's does quite a bit for her at home and prior level of functioning required a great deal of help from him to transfer from wheelchair to bed and toilet and so forth. She is very weak having significant shortness of breath since COPD flare and recent ventilator support and will require inpatient rehab to optimize ADLs at home to lessen the burden on her . Pulmonology will be maintained due to high risk for respiratory i nsufficiency. Subjective/Events-last exam Discharge was canceled today due to fever and will get in-and-out cath but considering her previous culture I will start her on Bactrim. She insisted on having the conteh catheter put back in and refused to do the in-and-out caths and was crying to have that placed back in, so will initiate that to help her emotional status. Will check labs. Likely will plan on discharge tomorrow if she is afebrile and I have a good handle on the source of the fever because lungs remain clear. Bowels moving as long as she maintains adequate fiber intake. INR monitored prn Checked meds and labs Conferred with RN Reviewed therapy notes Review of Systems General: Fatigue, Other (fevre) Objective Exam Vital Signs Vital Signs Date Time Temp Pulse Resp B/P (MAP) Pulse Ox O2 Delivery O2 Flow Rate FiO2 09/26/18 20:30 92 Room Air 09/26/18 15:56 98.5 102 16 94/59 (71) 09/25/18 06:35 3.00 09/22/18 07:04 21 Capillary Refill : Less Than 3 Seconds General Appearance: No Apparent Distress, WD/WN, Chronically ill, Thin HEENT: PERRL/EOMI, Normal ENT Inspection, Pharynx Normal, Moist Mucous Membranes Neck: Full Range of Motion, Normal Inspection, Non Tender, Supple Respiratory: Chest Non Tender, Lungs Clear, Normal Breath Sounds, No Accessory Muscle Use, No Respiratory Distress, Decreased Breath Sounds Cardiovascular: Regular Rate, Rhythm, No Edema, No Gallop, No JVD, No Murmur Gastrointestinal: Normal Bowel Sounds, No Organomegaly, No Pulsatile Mass, Non Tender, Soft Back: Normal Inspection, No CVA Tenderness, No Vertebral Tenderness Extremity: Normal Capillary Refill, Normal Inspection, No Pedal Edema, Other (parplegia) Neurologic/Psychiatric: Alert, Oriented x3, Normal Mood/Affect, gate supervisor II-XII Norm as Tested, Depressed Affect, Motor Weakness (paraplegia) Skin: Normal Color, Warm/Dry Lymphatic: No Adenopathy Results/Procedures Lab Laboratory Tests 09/26/18 06:04 Patient resulted labs reviewed. FIM Transfers Therapy Code Descriptions/Definitions Functional [place] Measure: 0=Not Assessed/NA 4=Minimal Assistance 1=Total Assistance 5=Supervision or Setup 2=Maximal Assistance 6=Modified [place] 3=Moderate Assistance 7=Complete [place] Therapy Quality Codes: 6 Independent with activity with or without an assistive device 5 Patient requires set up or clean up by helper. Patient completes activity by themselves 4 Supervision or touching assist (CGA). [place] provide cues , steadying assist 3 The helper provides less than half the effort to complete the activity 2 The helper provides more than half the effort to complete the activity 1 Dependent. The helper does all the effort to complete an activity 7 Patient refused to complete or attempt activity 9 The patient did not perform the activity before the current illness or injury 88 Not attempted due to Medical conditions or safety concerns Transfers (B, C, W/C) (FIM): 4 Scootin Rollin Roll Left to Right (QC): 6 Supine to/from Sit: 6 Sit to/from Stand: 2 Sit to Lying (QC): 4 (at beginning of session, pt able to perform with SBA, at end of session required min A with LLE into bed due to increased fatigue) Chair/Ywr-hc-Kqbgu Xfer(QC): 4 (CGA to SBA with sliding transfers at equal height surfaces, Min A from low to higher surfaces) Bed to/from Chair: 4 Car Transfer (QC): 3 (Pt unable to perform sliding transfers as seat distances are too far apart and pt refuses to use sliding board, therefore requiring min to mod A SPT) Gait Training Does the Patient Walk?: No and Walking Goal NOT indicated Wheelchair Training Does the Pt Use a Wheelchair?: Yes Wheelchair (FIM): 6 Wheelchair Distance: 3=150 ft Distance: 400 Wheelchair Level of Assist: 6 Wheel 50 ft with 2 turns (QC): 6 Wheel 150 ft (QC): 6 Type of Wheelchair: Manual Mental Status/Objective Comprehension: 7 Expression: 7 Social Interaction: 7 Problem Solvin Memory: 7 ADL-Treatment Feedin (Pt demonstrates ability to complete own set up and use regular utensils to eat.) Eating (QC): 6 Groomin Oral Hygiene (QC): 6 Bathin Bathing Location: L Arm, R Arm, L Upper Leg, R Upper Leg, L Lower Leg (including foot), R Lower Leg (including foot), Chest, Abdomen, Buttocks, Perineal Area Shower/Bathe Self (QC): 6 Upper Extremity Dressin Upper Body Dressing (QC): 6 Lower Extremity Dressin Lower Body Dressing (QC): 6 On/Off Footwear (QC): 6 Toiletin (Pt has conteh catheter, completes own bowel program. Manipulates clothing in sitting.) Toileting Hygiene (QC): 4 Toilet/Commode Transfer: 2 (SPT with support to R knee with wt bearing.) Toilet Transfer (QC): 2 Shower: 4 Assessment/Plan Assessment and Plan Assess & Plan/Chief Complaint Assessment: Severe debility from critical illness Status post ventilator dependent respiratory failure Exacerbation of COPD now completed steroid taper Current smoker T4 paralysis from transverse myelitis in 1993 Indwelling Conteh catheter for past 1 year so will transition to in/out caths to prevent infections once she is DC and gets home Right femur fracture 1 year ago managed by [facility] in [place] will DC immobilizer Bowel dysfunction requiring rectal stimulation for bowel movement Thin and frail status high risk for respiratory compromise 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 Yung consult for coccyx decubitus ulcer is appreciated but he terminated his care due to non-compliance Maintain Conteh catheter and restart bladder medication then restart in and out catheters very soon Smoking cessation DC tomorrow on HH? Check INR prn Bactrim based on UCx past (1) Debility (2) Delirium Resolution Date/Time: 09/12/18 @ 14:16 (3) DVT prophylaxis (4) Paraplegia (5) Hypothyroidism (6) Tobacco abuse (7) Acute respiratory distress (8) Anticoagulant long-term use (9) Counseling regarding end of life decision making (10) Hyponatremia Resolution Date/Time: 09/11/18 @ 16:40 (11) Leukopenia Resolution Date/Time: 09/11/18 @ 16:40 (12) UTI (urinary tract infection) CHEVY MARTINEZ DO Sep 26, 2018 08:45
[2018-09-26 08:56] LABS: ALANINE AMINOTRANSFERASE 20 U/L (0-55); ALBUMIN 2.7 GM/DL (3.2-4.5); ALKALINE PHOSPHATASE 61 U/L (40-136); BILIRUBIN,TOTAL 0.3 MG/DL (0.1-1.0); BUN/CREATININE RATIO 27; CALCIUM 8.2 MG/DL (8.5-10.1); CARBON DIOXIDE 25 MMOL/L (21-32); CHLORIDE 98 MMOL/L (98-107); CREATININE SERUM 0.63 MG/DL (0.60-1.30); GFR ESTIMATED > 60; GLUCOSE 107 MG/DL (70-105); POTASSIUM 3.8 MMOL/L (3.6-5.0); SODIUM 131 MMOL/L (135-145); TOTAL PROTEIN 4.9 GM/DL (6.4-8.2)
[2018-09-26 09:08] LABS: BAND NEUTROPHILS 2 %; BASOPHILS % (MANUAL) 0 %; EOSINOPHILS % (MANUAL) 5 %; LYMPHOCYTES % (MANUAL) 5 %; MONOCYTES % (MANUAL) 2 %; NEUTROPHILS % (MANUAL) 86 %
[2018-09-26 09:09] LABS: RBC MORPH NORMAL
--- NOTE | 2018-09-26 09:11 | NUR ---
Per Dr. Noriega, discharge will be held today due to a temperature spike. Patient is disappointed by this, but understands. Dr. Noriega is hopeful to proceed with discharge tomorrow. PORTER SAMPLE CASE reviewed IMM and Patient Choice Letter for [facility], as this is the provider she utilized prior to hospitalization. Patient understand that IMM is valid for 48hours. Patient expresses no concerns and is hopeful to return home tomorrow. PORTER SAMPLE CASE will send updated clinical information and HHC orders to [facility].
[2018-09-26] MEDS: guaiFENesin (MUCINEX) 600 MG TAB PO SCH ×2 (09:24→20:47)
[2018-09-26] MEDS: BACLOFEN 10 MG (LIORESAL) TAB PO SCH ×2 (09:24→20:47)
[2018-09-26] MEDS: POLYETHYLENE GLYCOL 17 GM (MIRALAX) PACK PO SCH ×2 (09:24→20:48)
[2018-09-26] MEDS: NICOTINE 21 MG (NICODERM) PATCH TD SCH (09:24)
[2018-09-26] MEDS: risperiDONE 1 MG (RisperDAL) TAB PO SCH ×2 (09:24→20:47)
[2018-09-26] MEDS: NICOTINE PATCH REMOVAL TP SCH (09:24)
[2018-09-26] MEDS: SERTRALINE 100 MG (ZOLOFT) TAB PO SCH (09:24)
[2018-09-26] MEDS: OXYBUTYNIN 10 MG PO SCH (09:37)
[2018-09-26] MEDS: ZINC OXIDE 16% OINT (BUTT PASTE) 113 GM TUBE TOP SCH ×3 (09:38→20:48)
[2018-09-26] MEDS: A & D OINT 113 GM TUBE TOP SCH (09:38)
[2018-09-26 10:33] LABS: BILIRUBIN,URINE NEGATIVE (NEGATIVE); CLARITY,URINE CLEAR; COLOR,URINE YELLOW; GLUCOSE, URINE (UA) NEGATIVE (NEGATIVE); KETONES,URINE NEGATIVE (NEGATIVE); LEUKOCYTE ESTERASE ,URINE 3+ (NEGATIVE); NITRITE,URINE NEGATIVE (NEGATIVE); PH,URINE 7 (5-9); PROTEIN,URINE 1+ (NEGATIVE); UROBILINOGEN,URINE NORMAL (NORMAL)
[2018-09-26 10:41] LABS: BACTERIA,URINE NEGATIVE /HPF; RBC,URINE 25-50 /HPF; SQUAMOUS EPITHELIAL CELL,UR 0-2 /HPF; WBC,URINE 25-50 /HPF
--- NOTE | 2018-09-26 11:11 | Occupational Ther Daily Note ---
OT Current Status-Daily Note Subjective Pt alert, lying in bed. Pt visibly upset stating that this is because she was not going home today and the doctor pulled the catheter to start bladder program today. Pt feels that she will be more successful at home with this. Pt was to discharge today and due to fever discharge put on hold. Mental Status/Objective Patient Orientation: Person, Place, Time, Situation Therapy Code Descriptions/Definitions Functional [place] Measure: 0=Not Assessed/NA 4=Minimal Assistance 1=Total Assistance 5=Supervision or Setup 2=Maximal Assistance 6=Modified [place] 3=Moderate Assistance 7=Complete [place] ADL-Treatment Supine to EOB mod I. CGA for transfer from bed to w/c, pt using UE's to lift self and scoot. Pt attempted scooting transfer to toilet. Pt stated that if she was at home it would only take 2 min to transfer with their set up. Assist needed to transfer to/from toilet. Pt completed toileting hygiene by self. Pt requested to wait on toilet until nrsg came to do bladder program or bring her supplies to complete self catheterization. Reported to nrsg, nrsg contacted doctor, doctor ordered to place catheter back in. Pt completes grooming sitting in w/c by self. Pt requests to sit up in w/c until nrsg is ready to place catheter back in. After therapy, pt lying in bed with call light/phone in reach. Nrsg and V/STOL LANDING SIGNAL OFFICER in room. All needs met in room. Therapy Code Descriptions/Definitions Functional [place] Measure: 0=Not Assessed/NA 4=Minimal Assistance 1=Total Assistance 5=Supervision or Setup 2=Maximal Assistance 6=Modified [place] 3=Moderate Assistance 7=Complete [place] Therapy Quality Codes: 6 Independent with activity with or without an assistive device 5 Patient requires set up or clean up by helper. Patient completes activity by themselves 4 Supervision or touching assist (CGA). [place] provide cues , steadying assist 3 The helper provides less than half the effort to complete the activity 2 The helper provides more than half the effort to complete the activity 1 Dependent. The helper does all the effort to complete an activity 7 Patient refused to complete or attempt activity 9 The patient did not perform the activity before the current illness or injury 88 Not attempted due to Medical conditions or safety concerns OT Short Term Goals Short Term Goals Eating(FIM): 6 Grooming(FIM): 5 Bathing(FIM): 5 Upper Body Dressing(FIM): 5 Lower Body Dressing(FIM): 5 Toileting(FIM): 5 Transfers (B,C,W/C) (FIM): 4 Toilet/Commode Transfer(FIM): 4 Tub Transfer(FIM): 4 Shower Transfer(FIM): 4 Additional Short Term Goals: 1-Demonstrate ADL Tasks, 2-Verbalize Understanding, 3-ImproveStrength/[place]vy 1=Demonstrate adherence to instructed precautions during ADL tasks. 2=Patient will verbalize/demonstrate understanding of assistive devices/modifications for ADL. 3=Patient will improve strength/tolerance for activity to enable patient to perform ADL's. OT Air Hole Driller Goals Retirement Goals Time Frame: Oct 11, 2018 Eating (FIM): 7 (met-09/25/18) Eating (QC): 6 (met-09/25/18) Groomin (not met) Oral Hygiene (QC): 6 (met-09/25/18) Bathing(FIM): 6 (met-09/25/18) Bathing Location: L Arm, R Arm, L Upper Leg, R Upper Leg, L Lower Leg (including foot), R Lower Leg (including foot), Chest, Abdomen, Buttocks, Perineal Area Shower/Bathe Self (QC): 6 (met-09/25/18\) Upper Body Dressing(FIM): 7 (not met) Upper Body Dressing (QC): 6 (met-09/25/18) Lower Body Dressing(FIM): 6 (met-09/25/18) Lower Body Dressing (QC): 6 (met-09/25/18) On/Off Footwear (QC): 6 (met-09/25/18) Toileting(FIM): 6 (not met) Toileting Hygiene (QC): 6 (not met) Transfers (B,C,W/C) (FIM): 6 (not met) Toilet/Commode Transfer(FIM): 6 (not met) Toilet/Commode Transfer (QC): 6 (not me) Tub Transfer(FIM): 6 (not met) Shower Transfer(FIM): 6 (not met) Additional Goals: 1-Demonstrate ADL Tasks, 2-Verbalize Understanding, 3- ImproveStrength/Chevy 1=Demonstrate adherence to instructed precautions during ADL tasks. 2=Patient will verbalize/demonstrate understanding of assistive devices/mo difications for ADL. 3=Patient will improve strength/tolerance for activity to enable patient to perform ADL's. OT Education/Plan Problem List/Assessment pt presents with functional limitations affecting areas of ADLs and functional transfers. pt would benefit from skilled OT Services to increase independence with ADLS/ functional transfers. Discharge Recommendations Plan/Recommendations: Continue POC Treatment Plan/Plan of Care Patient would benefit from OT for education, treatment and training to promote independence in ADL's, mobility, safety and/or upper extremity function for ADL's. Plan of Care: ADL Retraining, Caregiver Training, Concurrent Therapy, Functional Mobility, Group Exercise/Act as Ind, UE Funct Exercise/Act, W/C Management Training Treatment Duration: Oct 11, 2018 Frequency: At least 5 of 7 days/Wk (IRF) Estimated Hrs Per Day: 1 hour per day (60-90 minutes per day) Agreement: Yes Rehab Potential: Fair Time/GCodes Start Time: 10:00 Stop Time: 11:15 Total Time Billed (hr/min): 75 Billed Treatment Time 1 visit-ADL 5 (75 min) MACARIO BAUTISTA Sep 26, 2018 11:11
--- NOTE | 2018-09-26 12:15 | Physical Therapy Daily Note ---
PT Daily Note-Current Subjective Pt laying Supine in bed upon arrival. Pt agrees to PT. OT finishing upon arrival. Pain Location: No Pain Reported Mental Status Patient Orientation: Person, Place, Time, Situation Attachments: Cope Catheter, Other-See Comments (R knee immobilizer) Transfers Therapy Code Descriptions/Definitions Functional [place] Measure: 0=Not Assessed/NA 4=Minimal Assistance 1=Total Assistance 5=Supervision or Setup 2=Maximal Assistance 6=Modified [place] 3=Moderate Assistance 7=Complete [place] Therapy Quality Codes: 6 Independent with activity with or without an assistive device 5 Patient requires set up or clean up by helper. Patient completes activity by themselves 4 Supervision or touching assist (CGA). [employer] provide cues , steadying assist 3 The helper provides less than half the effort to complete the activity 2 The helper provides more than half the effort to complete the activity 1 Dependent. The helper does all the effort to complete an activity 7 Patient refused to complete or attempt activity 9 The patient did not perform the activity before the current illness or injury 88 Not attempted due to Medical conditions or safety concerns Scootin Rollin Weight Bearing Right Lower Extremity: Right Weight Bearing/Tolerated Left Lower Extremity: Left Weight Bearing/Tolerated Exercises Supine Ex: Ankle pumps, Quad Set, Rolling, Glut sets, Heel Slides, Scooting, Hip abd/add Supine Reps: 20 (2 sets) Treatments Pt completes 2 sets of Supine EX in bed with RB as needed. Pt also has Cope reinserted during tx. Pt asks SENIOR STOCK PLAN ADMINISTRATOR some questions in regards to when she might D/C since she is running a temperature, progress she has made and what she can continue doing to improve at home. Pt resting at end of tx, all needs met & call light in hand. Assessment Current Status: Good Progress Pt reports not feeling well at this time but continues to gain strength for D/C. PT Short Term Goals Short Term Goals Time Frame: Sep 20, 2018 Transfers (B,C,W/C) (FIM): 4 Wheelchair (FIM): 6 Wheelchair Distance: 400 PT Snf Goals Snf Goals PT Boiler Cleaner Goals Time Frame: Oct 04, 2018 Transfers (B,C,W/C) (FIM): 5 Sit to Lying (QC): 4 Lying-Sitting on Side/Bed(QC): 4 Sit to Stand (QC): 4 Rollin Roll Left to Right (QC): 4 Chair/Wyv-ad-Xjpjl Xfer(QC): 4 Car Transfer (QC): 3 Wheelchair (FIM): 6 Distance: 200' Wheelchair Level of Assist: 6 Wheel 50 feet with 2 turns (QC: 6 PT Plan Problem List Problem List: Activity Tolerance, Functional Strength, Transfer Treatment/Plan Treatment Plan: Continue Plan of Care Treatment Plan: Bed Mobility, Concurrent Therapy, Education, Functional Activity Che[place], Functional Strength, Group Therapy, Gait, Safety, Therapeutic Exercise, Transfers Treatment Duration: Oct 04, 2018 Frequency: At least 5 of 7 days/Wk (IRF) Estimated Hrs Per Day: 1.5 hours per day Patient and/or Family Agrees t: Yes Safety Risks/Education Patient Education: Transfer Techniques, Correct Positioning, Safety Issues Teaching Recipient: Patient Teaching Methods: Discussion Response to Teaching: Verbalize Understanding Time/GCodes Time In: 1115 Time Out: 1215 Total Billed Treatment Time: 60 Total Billed Treatment 1, FA x2 (25m) & EX x2 (35m) G Codes Necessary: MAITE Philip PTA Sep 26, 2018 12:15
[2018-09-26] MEDS ORDERED: TRIM/SULFAMETH 160/800 (SEPTRA DS) TAB PO NR (13:00)
--- NOTE | 2018-09-26 13:13 | Occupational Ther Daily Note ---
OT Current Status-Daily Note Subjective Pt alert, lying in bed. Pt's present in room. Pt agrees to therapy. No c/o pain at this time. Mental Status/Objective Patient Orientation: Person, Place, Time, Situation Therapy Code Descriptions/Definitions Functional [place] Measure: 0=Not Assessed/NA 4=Minimal Assistance 1=Total Assistance 5=Supervision or Setup 2=Maximal Assistance 6=Modified [place] 3=Moderate Assistance 7=Complete [place] ADL-Treatment Therapy Code Descriptions/Definitions Functional [place] Measure: 0=Not Assessed/NA 4=Minimal Assistance 1=Total Assistance 5=Supervision or Setup 2=Maximal Assistance 6=Modified [place] 3=Moderate Assistance 7=Complete [place] Therapy Quality Codes: 6 Independent with activity with or without an assistive device 5 Patient requires set up or clean up by helper. Patient completes activity by themselves 4 Supervision or touching assist (CGA). [place] provide cues , steadying assist 3 The helper provides less than half the effort to complete the activity 2 The helper provides more than half the effort to complete the activity 1 Dependent. The helper does all the effort to complete an activity 7 Patient refused to complete or attempt activity 9 The patient did not perform the activity before the current illness or injury 88 Not attempted due to Medical conditions or safety concerns Other Treatment Medium resistance theraband exercises completed, skills of therapist needed for correct techniques. Pt completed 4 exercises 1 set 10 reps of each. Tolerated well, recommended to continue completing exercises throughout day to increase strength and activity tolerance. After therapy, pt lying in bed with call light /phone in reach. All needs met in room. OT Short Term Goals Short Term Goals Eating(FIM): 6 Grooming(FIM): 5 Bathing(FIM): 5 Upper Body Dressing(FIM): 5 Lower Body Dressing(FIM): 5 Toileting(FIM): 5 Transfers (B,C,W/C) (FIM): 4 Toilet/Commode Transfer(FIM): 4 Tub Transfer(FIM): 4 Shower Transfer(FIM): 4 Additional Short Term Goals: 1-Demonstrate ADL Tasks, 2-Verbalize Un derstanding, 3-ImproveStrength/[place] 1=Demonstrate adherence to instructed precautions during ADL tasks. 2=Patient will verbalize/demonstrate understanding of assistive devices/modifications for ADL. 3=Patient will improve strength/tolerance for activity to enable patient to perform ADL's. OT Sewer Pipe Cleaner Goals Sewer Pipe Cleaner Goals Time Frame: Oct 11, 2018 Eating (FIM): 7 (met-09/25/18) Eating (QC): 6 (met-09/25/18) Groomin (not met) Oral Hygiene (QC): 6 (met-09/25/18) Bathing(FIM): 6 (met-09/25/18) Bathing Location: L Arm, R Arm, L Upper Leg, R Upper Leg, L Lower Leg (including foot), R Lower Leg (including foot), Chest, Abdomen, Buttocks, Perineal Area Shower/Bathe Self (QC): 6 (met-09/25/18\) Upper Body Dressing(FIM): 7 (not met) Upper Body Dressing (QC): 6 (met-09/25/18) Lower Body Dressing(FIM): 6 (met-09/25/18) Lower Body Dressing (QC): 6 (met-09/25/18) On/Off Footwear (QC): 6 (met-09/25/18) Toileting(FIM): 6 (not met) Toileting Hygiene (QC): 6 (not met) Transfers (B,C,W/C) (FIM): 6 (not met) Toilet/Commode Transfer(FIM): 6 (not met) Toilet/Commode Transfer (QC): 6 (not me) Tub Transfer(FIM): 6 (not met) Shower Transfer(FIM): 6 (not met) Additional Goals: 1-Demonstrate ADL Tasks, 2-Verbalize Understanding, 3- ImproveStrength/[place] 1=Demonstrate adherence to instructed precautions during ADL tasks. 2=Patient will verbalize/demonstrate understanding of assistive devices/modifications for ADL. 3=Patient will improve strength/tolerance for activity to enable patient to perform ADL's. OT Education/Plan Problem List/Assessment Assessment: Decreased Activ Tolerance, Decreased UE Strength pt presents with functional limitations affecting areas of ADLs and functional transfers. pt would benefit from skilled OT Services to increase independence with ADLS/ functional transfers. Discharge Recommendations Plan/Recommendations: Continue POC Treatment Plan/Plan of Care Patient would benefit from OT for education, treatment and training to promote independence in ADL's, mobility, safety and/or upper extremity function for ADL's. Plan of Care: ADL Retraining, Caregiver Training, Concurrent Therapy, Functional Mobility, Group Exercise/Act as Ind, UE Funct Exercise/Act, W/C Management Training Treatment Duration: Oct 11, 2018 Frequency: At least 5 of 7 days/Wk (IRF) Estimated Hrs Per Day: 1 hour per day (60-90 minutes per day) Agreement: Yes Rehab Potential: Fair Time/GCodes Start Time: 12:45 Stop Time: 13:00 Total Time Billed (hr/min): 15 Billed Treatment Time 1 visit-EX 1 (15 min) MACARIO BAUTISTA Sep 26, 2018 13:13
--- NOTE | 2018-09-26 15:21 | Physical Therapy Daily Note ---
PT Daily Note-Current Subjective Pt laying Supine in bed upon arrival. Pt agrees to PT. Mental Status Patient Orientation: Person, Place, Time, Situation Attachments: Cope Catheter Transfers Therapy Code Descriptions/Definitions Functional [place] Measure: 0=Not Assessed/NA 4=Minimal Assistance 1=Total Assistance 5=Supervision or Setup 2=Maximal Assistance 6=Modified [place] 3=Moderate Assistance 7=Complete [place] Therapy Quality Codes: 6 Independent with activity with or without an assistive device 5 Patient requires set up or clean up by helper. Patient completes activity by themselves 4 Supervision or touching assist (CGA). [place] provide cues , steadying assist 3 The helper provides less than half the effort to complete the activity 2 The helper provides more than half the effort to complete the activity 1 Dependent. The helper does all the effort to complete an activity 7 Patient refused to complete or attempt activity 9 The patient did not perform the activity before the current illness or injury 88 Not attempted due to Medical conditions or safety concerns Scootin Weight Bearing Right Lower Extremity: Right Weight Bearing/Tolerated Left Lower Extremity: Left Weight Bearing/Tolerated Exercises Supine Ex: Ankle pumps, Quad Set, Glut sets, Heel Slides, Straight leg raise, Hip abd/add Supine Reps: 20 Treatments TANK TRUCK ENGINE MECHANIC & pt discuss HEP as well as what measures pt can take to improve health at home. Pt completes Supine EX in bed. Pt resting at end of tx, all needs met & call light next to pt. Assessment Current Status: Good Progress Pt is optimistic that she will D/C and will continue to work at home to improve strength and mobility through HH for Nursing & PT. PT Short Term Goals Short Term Goals Time Frame: Sep 20, 2018 Transfers (B,C,W/C) (FIM): 4 Wheelchair (FIM): 6 Wheelchair Distance: 400 PT Intermediate Goals Intermediate Goals PT Intermediate Goals Time Frame: Oct 04, 2018 Transfers (B,C,W/C) (FIM): 5 Sit to Lying (QC): 4 Lying-Sitting on Side/Bed(QC): 4 Sit to Stand (QC): 4 Rollin Roll Left to Right (QC): 4 Chair/Neh-hy-Njdhm Xfer(QC): 4 Car Transfer (QC): 3 Wheelchair (FIM): 6 Distance: 200' Wheelchair Level of Assist: 6 Wheel 50 feet with 2 turns (QC: 6 PT Plan Problem List Problem List: Activity Tolerance, Functional Strength Treatment/Plan Treatment Plan: Continue Plan of Care Treatment Plan: Bed Mobility, Concurrent Therapy, Education, Functional Activity [place], Functional Strength, Group Therapy, Gait, Safety, Therapeutic Exercise, Transfers Treatment Duration: Oct 04, 2018 Frequency: At least 5 of 7 days/Wk (IRF) Estimated Hrs Per Day: 1.5 hours per day Patient and/or Family Agrees t: Yes Safety Risks/Education Patient Education: Correct Positioning, Safety Issues Time/GCodes Time In: 1400 Time Out: 1430 Total Billed Treatment Time: 30 Total Billed Treatment 1, FA x2 (30m) G Codes Necessary: MAITE Philip TANK TRUCK ENGINE MECHANIC Sep 26, 2018 15:21
[2018-09-26 15:56] VITALS: BP 94/59
[2018-09-26] MEDS: warFARin 2 MG (COUMADIN) TAB PO SCH (18:06)
[2018-09-26] MEDS: SIMvastatin 20 MG (ZOCOR) TAB PO SCH (20:47)
[2018-09-26] MEDS: TRIM/SULFAMETH 160/800 (SEPTRA DS) TAB PO SCH (20:47)
[2018-09-26] MEDS ORDERED: IBUPROFEN TABLET 200 MG TAB PO PRN (21:30)
[2018-09-27] MEDS: ACETAMINOPHEN 500 MG TAB (TYLENOL) PO PRN (01:27)
[2018-09-27 04:58] LABS: BASOPHILS % (AUTO) 0 % (0-10); EOSINOPHILS # (AUTO) 0.2 10^3/uL (0.0-0.3); EOSINOPHILS % (AUTO) 2 % (0-10); HEMATOCRIT 28 % (35-52); HEMOGLOBIN 9.6 G/DL (11.5-16.0); LYMPHOCYTES # (AUTO) 0.6 X 10^3 (1.0-4.0); LYMPHOCYTES % (AUTO) 9 % (12-44); MEAN CORPUSCULAR HGB CONC 34 G/DL (32-36); MEAN CORPUSCULAR VOLUME 93 FL (80-99); MEAN PLATELET VOLUME 9.3 FL (7.4-10.4); MONOCYTES # (AUTO) 0.3 X 10^3 (0.0-1.0); MONOCYTES % (AUTO) 4 % (0-12); NEUTROPHILS # (AUTO) 6.2 X 10^3 (1.8-7.8); NEUTROPHILS % (AUTO) 85 % (42-75); PLATELET COUNT 194 10^3/uL (130-400); RED CELL DISTRIBUTION WIDTH 15.4 % (10.0-14.5); WHITE BLOOD COUNT 7.3 10^3/uL (4.3-11.0)
[2018-09-27 04:59] LABS: MEAN CORPUSCULAR HEMOGLOBIN 31 PG (25-34)
[2018-09-27 05:10] LABS: INR 2.4 (0.8-1.4); PROTHROMBIN TIME PATIENT 26.9 SEC (12.2-14.7)
[2018-09-27 05:17] VITALS: BP 95/59
[2018-09-27 05:18] LABS: ALANINE AMINOTRANSFERASE 17 U/L (0-55); ALBUMIN 2.5 GM/DL (3.2-4.5); ALKALINE PHOSPHATASE 60 U/L (40-136); BILIRUBIN,TOTAL 0.3 MG/DL (0.1-1.0); BUN/CREATININE RATIO 21; CALCIUM 7.9 MG/DL (8.5-10.1); CARBON DIOXIDE 22 MMOL/L (21-32); CHLORIDE 102 MMOL/L (98-107); CREATININE SERUM 0.72 MG/DL (0.60-1.30); GFR ESTIMATED > 60; GLUCOSE 107 MG/DL (70-105); POTASSIUM 3.6 MMOL/L (3.6-5.0); SODIUM 134 MMOL/L (135-145); TOTAL PROTEIN 4.6 GM/DL (6.4-8.2)
[2018-09-27] MEDS: PANTOPRAZOLE 40 MG (PROTONIX) TAB PO SCH (06:21)
[2018-09-27] MEDS: LEVOTHYROXINE 25 MCG (LEVOTHROID) TAB PO SCH (06:21)
[2018-09-27] MEDS: LACTOBACILLUS ACIDOPHILUS (PROBIOTIC) CAPSULE PO SCH ×2 (06:21→12:02)
[2018-09-27] MEDS: TRIM/SULFAMETH 160/800 (SEPTRA DS) TAB PO SCH (06:21)
[2018-09-27] MEDS: LEVOTHYROXINE 125 MCG (LEVOTHROID) TABLET PO SCH (06:21)
[2018-09-27] MEDS: ONDANSETRON 4 MG (ZOFRAN) ORAL DISSOLVE TAB PO SCH (06:21)
[2018-09-27] MEDS: RT-ALBUTEROL/IPRATROPIUM 3 ML (DUONEB) VIAL INH SCH (06:41)
--- NOTE | 2018-09-27 08:04 | Physical Therapy Daily Note ---
PT Daily Note-Current Subjective Pt agreeable to PT session this am. States she is supposed to be going home today if her fever stays down. Voicing he opinion on not wanting to do all the testing before she leaves today because it is going to wear her out and that she just did it yesterday. Physician also explained to pt reasoning for testing. Pain Numeric Pain Scale: 0-No Pain Appearance Upon arrival, pt in bed awake and alert. At end of session pt sitting up in w/c, call light, phone, bedside table within reach. Throughout tx session pt was visited by 2 physicians, nsg x3 episodes. Mental Status Patient Orientation: Person, Place, Time, Eyes Open, Situation Attachments: Cope Catheter R knee brace Transfers Therapy Code Descriptions/Definitions Functional [place] Measure: 0=Not Assessed/NA 4=Minimal Assistance 1=Total Assistance 5=Supervision or Setup 2=Maximal Assistance 6=Modified [place] 3=Moderate Assistance 7=Complete [place] Therapy Quality Codes: 6 Independent with activity with or without an assistive device 5 Patient requires set up or clean up by helper. Patient completes activity by themselves 4 Supervision or touching assist (CGA). [place] provide cues , steadying assist 3 The helper provides less than half the effort to complete the activity 2 The helper provides more than half the effort to complete the activity 1 Dependent. The helper does all the effort to complete an activity 7 Patient refused to complete or attempt activity 9 The patient did not perform the activity before the current illness or injury 88 Not attempted due to Medical conditions or safety concerns Transfers (B, C, W/C) (FIM): 4 Scootin (in bed) Rollin Roll Left to Right (QC): 6 Supine to/from Sit: 6 Sit to Lying (QC): 6 Chair/Kqb-he-Pwkig Xfer(QC): 4 (scooting transfers surface to surface, most assist required going to higher level surfaces, SBA to supervision provided across level surfaces and toward lower surfaces) Bed to/from Chair: 4 (scooting transfers surface to surface, most assist required going to higher level surfaces, SBA to supervision provided across level surfaces and toward lower surfaces) Car Transfer (QC): 3 (per FIM scores 09/25/18. Pt states she has a good technique that she performs with her into and out of the backseat of car so she can keep RLE straight) Weight Bearing Right Lower Extremity: Right Weight Bearing/Tolerated Left Lower Extremity: Left Weight Bearing/Tolerated Gait Training Does the Patient Walk?: No and Walking Goal NOT indicated Wheelchair Training Does the Pt Use a Wheelchair?: Yes Wheelchair (FIM): 6 Wheelchair Distance: 3=150 ft per FIM scoring 09/25/18 Balance Picking up an Object (QC): 6 (sitting in w/c, use of engineer third assistant without d ifficulty) Treatments transfers, balance, strength, functional mobility, FIM scoring, activity tolerance Assessment Pt is ready to discharge home PT Short Term Goals Short Term Goals Time Frame: Sep 20, 2018 Transfers (B,C,W/C) (FIM): 4 Wheelchair (FIM): 6 Wheelchair Distance: 400 PT Electronic Health Records Specialist Goals Half-Way Goals PT Half-Way Goals Time Frame: Oct 04, 2018 Transfers (B,C,W/C) (FIM): 5 Sit to Lying (QC): 4 Lying-Sitting on Side/Bed(QC): 4 Sit to Stand (QC): 4 Rollin Roll Left to Right (QC): 4 Chair/Bdp-fq-Yfsuj Xfer(QC): 4 Car Transfer (QC): 3 Wheelchair (FIM): 6 Distance: 200' Wheelchair Level of Assist: 6 Wheel 50 feet with 2 turns (QC: 6 PT Plan Treatment/Plan Treatment Plan: Continue Plan of Care Treatment Plan: Bed Mobility, Concurrent Therapy, Education, Functional Activity [place], Functional Strength, Group Therapy, Gait, Safety, Therapeutic Exercise, Transfers Treatment Duration: Oct 04, 2018 Frequency: At least 5 of 7 days/Wk (IRF) Estimated Hrs Per Day: 1.5 hours per day Patient and/or Family Agrees t: Yes Safety Risks/Education Patient Education: Transfer Techniques, W/C Management, Reviewed Deng/Ada Conley e, Safety Issues Teaching Recipient: Patient Discharge Recommendations Therapy D/C Recommendations: Home w/ Family Support, Occupational Therapy Home Care, Physical Therapy Home Care, Homemaker Support, Intermittent Supervision Equpiment Recommendations-D/C: Hospital Bed Time/GCodes Time In: 800 Time Out: 900 Total Billed Treatment Time: 60 Total Billed Treatment 1 visit, FA x4 units WILFRED CRISTOBAL HAND CANDY MOLDER Sep 27, 2018 08:04
--- NOTE | 2018-09-27 08:27 | Pulmonary Progress Note ---
Standard Progress Note Progress Notes Time Seen by Provider: 08:27 Pt doing well. No complications noted. Assessment & Plan COPDAE with PNA (Uses 3 liters of oxygen at home) with mucous plugs -Pt feels much improved after bronchoscopy - she states she can take a deeper breath. -Oxygen -Q4 Duonebs -ABG - C02 41 Tobacco use -Education Paraplegia secondary to hx of transverse myelitis (wheelchair bound) Hx of multiple DVTs -chronic anticoagulation hx hypothyroid Focused Exam Lactate Level 09/27/18 04:39: Lactic Acid Level 0.61 Lactic Acid Level Laboratory Tests Test 09/27/18 04:39 Lactic Acid Level 0.61 MMOL/L (0.50-2.00) JAYLA CUELLAR DO Sep 27, 2018 08:27
--- NOTE | 2018-09-27 08:30 | NUR ---
AFEBRILE THIS AM. DR. MARTINEZ HERE TO SEE PATIENT AND OKAY'D TO LEAVE [place] CAT[facility] IN UPON DISCHARGE PER PATIENT REQUEST BECAUSE SHE IS GOING SHOPPING. WILL DC IT AT HOME AND BEGIN STRAIGHT CATHING AGAIN.
[2018-09-27] MEDS ORDERED: NICO-588 TD (08:32)
[2018-09-27] MEDS ORDERED: SULF1TAB35 PO (08:32)
--- NOTE | 2018-09-27 08:34 | Discharge Summary ---
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 Indwelling Cope catheter for past 1 year so will transition to in/out caths to prevent infections once she is DC and gets home Right femur fracture 1 year ago managed by [facility] in [place] will DC immobilizer Bowel dysfunction requiring rectal stimulation for bowel movement Thin and frail status high risk for respiratory compromise 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 Yung consult for coccyx decubitus ulcer is appreciated but he terminated his care due to non-compliance Maintain Cope catheter and restart bladder medication then restart in and out catheters very soon Smoking cessation DC tomorrow on HH? Check INR prn Bactrim based on UCx past (1) Debility (2) Delirium Resolution Date/Time: 09/12/18 @ 14:16 (3) DVT prophylaxis (4) Paraplegia (5) Hypothyroidism (6) Tobacco abuse (7) Acute respiratory distress (8) Anticoagulant long-term use (9) Counseling regarding end of life decision making (10) Hyponatremia Resolution Date/Time: 09/11/18 @ 16:40 (11) Leukopenia Resolution Date/Time: 09/11/18 @ 16:40 (12) UTI (urinary tract infection) Discharge Summary Discharge Physical Examination Allergies: Coded Allergies: latex (Verified Allergy, Unknown, hives, 09/04/18) tetracycline (Verified Allergy, Unknown, hives, 09/04/18) Vitals & I&Os Vital Signs Date Time Temp Pulse Resp B/P (MAP) Pulse Ox O2 Delivery O2 Flow Rate FiO2 09/27/18 09:00 Room Air 09/27/18 06:41 98 3.00 09/27/18 05:17 99.1 93 18 95/59 (71) 09/22/18 07:04 21 General Appearance: Alert, Oriented X3, Cooperative Respiratory: Clear to Auscultation, Normal Air Movement Neuro: Normal Speech, Strength at 5/5 X4 Ext (Upper extremities only due to paraplegia lower extremities), Normal Tone, Sensation Intact, Cranial Nerves 3- 12 NL Hospital Course Was the Problem List Reviewed?: Yes Hospital course: Patient had a mostly uneventful hospital course for 14 days in inpatient rehabilitation after suffering a critical illness and ventilator dependent status. She had a history of chronic paraplegia from transverse myelitis in 1993 and was well-equipped at home with a good workflow with her is supportive in between his work schedule. Dr. Yung wound care was consulted but due to lack of compliance with keeping weight off coccyx to paper processing machine helper in the healing of the decubitus ulcer he terminated his care provided to the patient. Air mattress was attempted but she didn't care for that since it did not allow her to move about in bed due to chronic paraplegia. Cope catheter remained at she had in place for the past year due to right femur fracture maintain an immobilizer but we did receive approval from Shane Urbina nurse practitioner with Dr. Myles that could be discontinued. She remained with a different type of immobilizer because she was more comfortable with that. She thought she had a UTI so UA was obtained only showing a few white cells with a resistant bacteria of only 30,000 colony count and since she was asymptomatic and no fever and no leukocytosis that was not treated at the day prior to discharge she was found to have a fever 102 patient was empirically placed on Bactrim after repeat urine obtained and all labs remained stable so she will be maintained on Bactrim for an additional 5 days to complete that treatment. INR was monitored closely due to his supratherapeutic level at time of admission and once that was therapeutic with Lovenox bridge after return back to subtherapeutic level she was maintain on her home dose of 6 mg on Sunday and Sunday and 7 mg the other days and will continue on that regimen with close follow-up with Dr. Mayer for [facility] in [place]. Overall she benefited immensely from inpatient rehabilitation and participated in all therapies and we were able to wean off daytime oxygen maintain at 3 L at night since she has been on a chronic basis. Labs (last 24 hrs) Laboratory Tests 09/13/18 13:30: Lab Scanned Report Referred Lab Report 09/13/18 17:42: Glucometer 108 09/14/18 00:09: Glucometer 108 09/14/18 05:12: Glucometer 107 09/14/18 05:43: White Blood Count 9.9, Red Blood Count 4.36, Hemoglobin 13.7, Hematocrit 39, Mean Corpuscular Volume 90, Mean Corpuscular Hemoglobin 31, Mean Corpuscular Hemoglobin Concent 35, Red Cell Distribution Width 14.2, Platelet Count 149, Mean Platelet Volume 9.7, Neutrophils (%) (Auto) 73, Lymphocytes (%) (Auto) 20, Monocytes (%) (Auto) 7, Eosinophils (%) (Auto) 1, Basophils (%) (Auto) 0, Neutrophils # (Auto) 7.2, Lymphocytes # (Auto) 2.0, Monocytes # (Auto) 0.7, Eosinophils # (Auto) 0.1, Basophils # (Auto) 0.0, Prothrombin Time 37.9H, INR Comment 3.6H, Sodium Level 134L, Potassium Level 4.1, Chloride Level 98, Carbon Dioxide Level 26, Anion Gap 10, Blood Urea Nitrogen 11, Creatinine 0.55L, Estimat Glomerular Filtration Rate > 60, BUN/Creatinine Ratio 20, Glucose Level 73, Calcium Level 8.7, Corrected Calcium 9.3, Total Bilirubin 0.5, Aspartate Amino Transf (AST/SGOT) 20, Alanine Aminotransferase (ALT/SGPT) 25, Alkaline Phosphatase 39L, Total Protein 5.6L, Albumin 3.2 09/16/18 05:25: Sodium Level 133L, Potassium Level 4.1, Chloride Level 98, Carbon Dioxide Level 27, Anion Gap 8, Blood Urea Nitrogen 13, Creatinine 0.61, Estimat Glomerular Jan tration Rate > 60, BUN/Creatinine Ratio 21, Glucose Level 87, Calcium Level 8.0L , Corrected Calcium 8.8, Total Bilirubin 0.4, Aspartate Amino Transf (AST/SGOT) 13, Alanine Aminotransferase (ALT/SGPT) 23, Alkaline Phosphatase 44, Total Protein 5.2L, Albumin 3.0L 09/16/18 05:35: White Blood Count 6.5, Red Blood Count 4.00L, Hemoglobin 12.4, Hematocrit 37, Mean Corpuscular Volume 92, Mean Corpuscular Hemoglobin 31, Mean Corpuscular Hemoglobin Concent 34, Red Cell Distribution Width 14.3, Platelet Count 164, Mean Platelet Volume 9.9, Neutrophils (%) (Auto) 69, Lymphocytes (%) (Auto) 24, Monocytes (%) (Auto) 7, Eosinophils (%) (Auto) 1, Basophils (%) (Auto) 0, Neutrophils # (Auto) 4.5, Lymphocytes # (Auto) 1.5, Monocytes # (Auto) 0.5, Eosinophils # (Auto) 0.0, Basophils # (Auto) 0.0, Prothrombin Time 17.3H, INR Comment 1.4 09/18/18 07:00: Prothrombin Time 17.7H, INR Comment 1.4 09/18/18 18:10: Urine Color YELLOW, Urine Clarity CLEAR, Urine pH 8, Urine Specific [place] 1.010L, Urine Protein NEGATIVE, Urine Glucose (UA) NEGATIVE, Urine Ketones NEGATIVE, Urine Nitrite NEGATIVE, Urine Bilirubin NEGATIVE, Urine Urobilinogen NORMAL, Urine Leukocyte Esterase 2+H, Urine RBC (Auto) 2+H, Urine RBC NONE, Urine WBC 5-10H, Urine Squamous Epithelial Cells NONE, Urine Crystals NONE, Urine Bacteria FEWH, Urine Casts NONE, Urine Mucus NEGATIVE, Urine Culture Indicated YES 09/20/18 05:12: Prothrombin Time 25.5H, INR Comment 2.2H 09/23/18 05:40: Prothrombin Time 32.0H, INR Comment 2.9H, White Blood Count 7.3, Red Blood Count 3.22L, Hemoglobin 9.9L, Hematocrit 30L, Mean Corpuscular Volume 94, Mean Corpuscular Hemoglobin 31, Mean Corpuscular Hemoglobin Concent 33, Red Cell Distribution Width 15.1H, Platelet Count 190, Mean Platelet Volume 9.6, Neutrophils (%) (Auto) 64, Lymphocytes (%) (Auto) 29, Monocytes (%) (Auto) 5, Eosinophils (%) (Auto) 1, Basophils (%) (Auto) 0, Neutrophils # (Auto) 4.7, Lymphocytes # (Auto) 2.1, Monocytes # (Auto) 0.4, Eosinophils # (Auto) 0.1, Basophils # (Auto) 0.0, Sodium Level 134L, Potassium Level 4.0, Chloride Level 101, Carbon Dioxide Level 26, Anion Gap 7, Blood Urea Nitrogen 12, Creatinine 0.57L, Estimat Glomerular Filtration Rate > 60, BUN/Creatinine Ratio 21, Glucose Level 83, Calcium Level 8.0L, Corrected Calcium 9.0, Total Bilirubin 0.3, Aspartate Amino Transf (AST/SGOT) 13, Alanine Aminotransferase (ALT/SGPT) 29, Alkaline Phosphatase 39L, Total Protein 4.8L, Albumin 2.8L 09/26/18 06:04: Prothrombin Time 28.0H, INR Comment 2.5H, White Blood Count 8.0, Red Blood Count 3.14L, Hemoglobin 9.9L, Hematocrit 29L, Mean Corpuscular Volume 93, Mean Corpuscular Hemoglobin 32, Mean Corpuscular Hemoglobin Concent 34, Red Cell Distribution Width 15.2H, Platelet Count 180, Mean Platelet Volume 9.8, Neutrophils (%) (Auto) 88H, Lymphocytes (%) (Auto) 6L, Monocytes (%) (Auto) 3, Eosinophils (%) (Auto) 2, Basophils (%) (Auto) 0, Neutrophils # (Auto) 7.1, Lymphocytes # (Auto) 0.5L, Monocytes # (Auto) 0.3, Eosinophils # (Auto) 0.2, Basophils # (Auto) 0.0, Sodium Level 131L, Potassium Level 3.8, Chloride Level 98, Carbon Dioxide Level 25, Anion Gap 8, Blood Urea Nitrogen 17, Creatinine 0.63, Estimat Glomerular Filtration Rate > 60, BUN/Creatinine Ratio 27, Glucose Level 107H, Calcium Level 8.2L, Corrected Calcium 9.2, Total Bilirubin 0.3, Aspartate Amino Transf (AST/SGOT) 13, Alanine Aminotransferase (ALT/SGPT) 20, Alkaline Phosphatase 61, Total Protein 4.9L, Albumin 2.7L, Neutrophils % (Manual) 86, Lymphocytes % (Manual) 5, Monocytes % (Manual) 2, Eosinophils % (Manual) 5, Basophils % (Manual) 0, Band Neutrophils 2, Blood Morphology Comment NORMAL 09/26/18 09:55: Urine Color YELLOW, Urine Clarity CLEAR, Urine pH 7, Urine Specific [place] 1.010L, Urine Protein 1+H, Urine Glucose (UA) NEGATIVE, Urine Ketones NEGATIVE, Urine Nitrite NEGATIVE, Urine Bilirubin NEGATIVE, Urine Urobilinogen NORMAL, Urine Leukocyte Esterase 3+H, Urine RBC (Auto) 5+H, Urine RBC 25-50H, Urine WBC 25-50H, Urine Squamous Epithelial Cells 0-2, Urine Crystals NONE, Urine Bacteria NEGATIVE, Urine Casts NONE, Urine Mucus NEGATIVE, Urine Culture Indicated YES 09/27/18 04:39: White Blood Count 7.3, Red Blood Count 3.05L, Hemoglobin 9.6L, Hematocrit 28L, Mean Corpuscular Volume 93, Mean Corpuscular Hemoglobin 31, Mean Corpuscular Hemoglobin Concent 34, Red Cell Distribution Width 15.4H, Platelet Count 194, Mean Platelet Volume 9.3, Neutrophils (%) (Auto) 85H, Lymphocytes (%) (Auto) 9L, Monocytes (%) (Auto) 4, Eosinophils (%) (Auto) 2, Basophils (%) (Auto) 0, Neutrophils # (Auto) 6.2, Lymphocytes # (Auto) 0.6L, Monocytes # (Auto) 0.3, Eosinophils # (Auto) 0.2, Basophils # (Auto) 0.0, Prothrombin Time 26.9H, INR Comment 2.4H, Sodium Level 134L, Potassium Level 3.6, Chloride Level 102, Carbon Dioxide Level 22, Anion Gap 10, Blood Urea Nitrogen 15, Creatinine 0.72, Estimat Glomerular Filtration Rate > 60, BUN/Creatinine Ratio 21, Glucose Level 107H, Lactic Acid Level 0.61, Calcium Level 7.9L, Corrected Calcium 9.1, Total Bilirubin 0.3, Aspartate Amino Transf (AST/SGOT) 9, Alanine Aminotransferase (ALT/SGPT) 17, Alkaline Phosphatase 60, Total Protein 4.6L, Albumin 2.5L Microbiology 09/18/18 Urine Culture - Final, Complete Stenotrophomonas Maltophilia Pending Labs Microbiology Date/Time Source Procedure Growth Status 09/18/18 18:10 Urine Straight Cath, In/Out Urine Culture - Final Stenotrophomonas Maltophilia Complete Laboratory Tests 09/13/18 13:30: Lab Scanned Report Referred Lab Report 09/13/18 17:42: Glucometer 108 09/14/18 00:09: Glucometer 108 09/14/18 05:12: Glucometer 107 09/14/18 05:43: White Blood Count 9.9, Red Blood Count 4.36, Hemoglobin 13.7, Hematocrit 39, Mean Corpuscular Volume 90, Mean Corpuscular Hemoglobin 31, Mean Corpuscular Hemoglobin Concent 35, Red Cell Distribution Width 14.2, Platelet Count 149, Mean Platelet Volume 9.7, Neutrophils (%) (Auto) 73, Lymphocytes (%) (Auto) 20, Monocytes (%) (Auto) 7, Eosinophils (%) (Auto) 1, Basophils (%) (Auto) 0, Neutrophils # (Auto) 7.2, Lymphocytes # (Auto) 2.0, Monocytes # (Auto) 0.7, Eosinophils # (Auto) 0.1, Basophils # (Auto) 0.0, Prothrombin Time 37.9, INR Comment 3.6, Sodium Level 134, Potassium Level 4.1, Chloride Level 98, Carbon Dioxide Level 26, Anion Gap 10, Blood Urea Nitrogen 11, Creatinine 0.55, Estimat Glomerular Filtration Rate > 60, BUN/Creatinine Ratio 20, Glucose Level 73, Calcium Level 8.7, Corrected Calcium 9.3, Total Bilirubin 0.5, Aspartate Amino Transf (AST/SGOT) 20, Alanine Aminotransferase (ALT/SGPT) 25, Alkaline Phosphatase 39, Total Protein 5.6, Albumin 3.2 09/16/18 05:25: Sodium Level 133, Potassium Level 4.1, Chloride Level 98, Carbon Dioxide Level 27, Anion Gap 8, Blood Urea Nitrogen 13, Creatinine 0.61, Estimat Glomerular Filtration Rate > 60, BUN/Creatinine Ratio 21, Glucose Level 87, Calcium Level 8.0, Corrected Calcium 8.8, Total Bilirubin 0.4, Aspartate Amino Transf (AST/SGOT) 13, Alanine Aminotransferase (ALT/SGPT) 23, Alkaline Phosphatase 44, Total Protein 5.2, Albumin 3.0 09/16/18 05:35: White Blood Count 6.5, Red Blood Count 4.00, Hemoglobin 12.4, Hematocrit 37, Mean Corpuscular Volume 92, Mean Corpuscular Hemoglobin 31, Mean Corpuscular Hemoglobin Concent 34, Red Cell Distribution Width 14.3, Platelet Count 164, Mean Platelet Volume 9.9, Neutrophils (%) (Auto) 69, Lymphocytes (%) (Auto) 24, Monocytes (%) (Auto) 7, Eosinophils (%) (Auto) 1, Basophils (%) (Auto) 0, Ne utrophils # (Auto) 4.5, Lymphocytes # (Auto) 1.5, Monocytes # (Auto) 0.5, Eosinophils # (Auto) 0.0, Basophils # (Auto) 0.0, Prothrombin Time 17.3, INR Comment 1.4 09/18/18 07:00: Prothrombin Time 17.7, INR Comment 1.4 09/18/18 18:10: Urine Color YELLOW, Urine Clarity CLEAR, Urine pH 8, Urine Specific [place] 1.010, Urine Protein NEGATIVE, Urine Glucose (UA) NEGATIVE, Urine Ketones NEGATIVE, Urine Nitrite NEGATIVE, Urine Bilirubin NEGATIVE, Urine Urobilinogen NORMAL, Urine Leukocyte Esterase 2+, Urine RBC (Auto) 2+, Urine RBC NONE, Urine WBC 5-10, Urine Squamous Epithelial Cells NONE, Urine Crystals NONE, Urine Bacteria FEW, Urine Casts NONE, Urine Mucus NEGATIVE, Urine Culture Indicated YES 09/20/18 05:12: Prothrombin Time 25.5, INR Comment 2.2 09/23/18 05:40: Prothrombin Time 32.0, INR Comment 2.9, White Blood Count 7.3, Red Blood Count 3.22, Hemoglobin 9.9, Hematocrit 30, Mean Corpuscular Volume 94, Mean Corpuscular Hemoglobin 31, Mean Corpuscular Hemoglobin Concent 33, Red Cell Distribution Width 15.1, Platelet Count 190, Mean Platelet Volume 9.6, Neutr ophils (%) (Auto) 64, Lymphocytes (%) (Auto) 29, Monocytes (%) (Auto) 5, Eosinophils (%) (Auto) 1, Basophils (%) (Auto) 0, Neutrophils # (Auto) 4.7, Lymphocytes # (Auto) 2.1, Monocytes # (Auto) 0.4, Eosinophils # (Auto) 0.1, Basophils # (Auto) 0.0, Sodium Level 134, Potassium Level 4.0, Chloride Level 101, Carbon Dioxide Level 26, Anion Gap 7, Blood Urea Nitrogen 12, Creatinine 0.57, Estimat Glomerular Filtration Rate > 60, BUN/Creatinine Ratio 21, Glucose Level 83, Calcium Level 8.0, Corrected Calcium 9.0, Total Bilirubin 0.3, Aspartate Amino Transf (AST/SGOT) 13, Alanine Aminotransferase (ALT/SGPT) 29, Alkaline Phosphatase 39, Total Protein 4.8, Albumin 2.8 09/26/18 06:04: Prothrombin Time 28.0, INR Comment 2.5, White Blood Count 8.0, Red Blood Count 3.14, Hemoglobin 9.9, Hematocrit 29, Mean Corpuscular Volume 93, Mean Corpuscular Hemoglobin 32, Mean Corpuscular Hemoglobin Concent 34, Red Cell Distribution Width 15.2, Platelet Count 180, Mean Platelet Volume 9.8, Neutrophils (%) (Auto) 88, Lymphocytes (%) (Auto) 6, Monocytes (%) (Auto) 3, Eosinophils (%) (Auto) 2, Basophils (%) (Auto) 0, Neutrophils # (Auto) 7.1, Lymphocytes # (Auto) 0.5, Monocytes # (Auto) 0.3, Eosinophils # (Auto) 0.2, Basophils # (Auto) 0.0, Sodium Level 131, Potassium Level 3.8, Chloride Level 98, Carbon Dioxide Level 25, Anion Gap 8, Blood Urea Nitrogen 17, Creatinine 0.63, Estimat Glomerular Filtration Rate > 60, BUN/Creatinine Ratio 27, Glucose Level 107, Calcium Level 8.2, Corrected Calcium 9.2, Total Bilirubin 0.3, Aspartate Amino Transf (AST/SGOT) 13, Alanine Aminotransferase (ALT/SGPT) 20, Alkaline Phosphatase 61, Total Protein 4.9, Albumin 2.7, Neutrophils % (Manual) 86, Lymphocytes % (Manual) 5, Monocytes % (Manual) 2, Eosinophils % (Manual) 5, Basophils % (Manual) 0, Band Neutrophils 2, Blood Morphology Comment NORMAL 09/26/18 09:55: Urine Color YELLOW, Urine Clarity CLEAR, Urine pH 7, Urine Specific [place] 1.010, Urine Protein 1+, Urine Glucose (UA) NEGATIVE, Urine Ketones NEGATIVE, Urine Nitrite NEGATIVE, Urine Bilirubin NEGATIVE, Urine Urobilinogen NORMAL, Urine Leukocyte Esterase 3+, Urine RBC (Auto) 5+, Urine RBC 25-50, Urine WBC 25- 50, Urine Squamous Epithelial Cells 0-2, Urine Crystals NONE, Urine Bacteria NEGATIVE, Urine Casts NONE, Urine Mucus NEGATIVE, Urine Culture Indicated YES 09/27/18 04:39: White Blood Count 7.3, Red Blood Count 3.05, Hemoglobin 9.6, Hematocrit 28, Mean Corpuscular Volume 93, Mean Corpuscular Hemoglobin 31, Mean Corpuscular Hemoglobin Concent 34, Red Cell Distribution Width 15.4, Platelet Count 194, Mean Platelet Volume 9.3, Neutrophils (%) (Auto) 85, Lymphocytes (%) (Auto) 9, Monocytes (%) (Auto) 4, Eosinophils (%) (Auto) 2, Basophils (%) (Auto) 0, Neutrophils # (Auto) 6.2, Lymphocytes # (Auto) 0.6, Monocytes # (Auto) 0.3, Eosinophils # (Auto) 0.2, Basophils # (Auto) 0.0, Prothrombin Time 26.9, INR Comment 2.4, Sodium Level 134, Potassium Level 3.6, Chloride Level 102, Carbon Dioxide Level 22, Anion Gap 10, Blood Urea Nitrogen 15, Creatinine 0.72, Estimat Glomerular Filtration Rate > 60, BUN/Creatinine Ratio 21, Glucose Level 107, Lactic Acid Level 0.61, Calcium Level 7.9, Corrected Calcium 9.1, Total Bilirubin 0.3, Aspartate Amino Transf (AST/SGOT) 9, Alanine Aminotransferase (ALT/SGPT) 17, Alkaline Phosphatase 60, Total Protein 4.6, Albumin 2.5 Discharge Home Medications: Active Scripts Active Bactrim Ds Tablet (Sulfamethoxazole/Trimethoprim) 1 Each Tablet 1 Each PO BID Nicotine Patch (Nicotine) 1 Each Patch.td24 21 Mg TD DAILY@0900 Reported Warfarin Sodium 6 Mg Tablet 6 Mg PO MOWEFR Warfarin Sodium 2 Mg Tablet 7 Mg [facility] Albuterol Sulfate 2.5 Mg/3 Ml Vial.neb 2.5 Mg NEB Q8H Ventolin Hfa (Albuterol Sulfate) 1 Puff Puff 2 Puff INH Q4H PRN 1 PUFF = 90 MCG Baclofen 10 Mg Tablet 10 Mg PO HS PRN Baclofen 10 Mg Tablet 10 Mg PO 1200 Alendronate Sodium 70 Mg Tablet 70 Mg PO TH Levothyroxine Sodium 25 Mcg Tablet 25 Mcg PO DAILY TAKES 25MCG ALONG WITH THE 125MCG TO EQUAL WITH 150MCG DOSE Sertraline HCl 100 Mg Tablet 100 Mg PO DAILY Omeprazole 20 Mg Capsule.dr 20 Mg PO DAILY PRN Ditropan Xl (Oxybutynin Chloride) 10 Mg Tab.er.24 10 Mg PO DAILY Simvastatin 20 Mg Tablet 20 Mg PO DAILY Levothyroxine Sodium 125 Mcg Tablet 125 Mcg PO DAILY TAKES 25MCG ALONG WITH THE 125MCG TO EQUAL WITH 150MCG DOSE Instructions to patient/family Please see electronic discharge instructions given to patient. Diagnosis/Problems Diagnosis/Problems (1) Debility Status: Acute (2) Delirium Status: Resolved Resolution Date/Time: 09/12/18 @ 14:16 (3) DVT prophylaxis (4) Paraplegia Status: Chronic (5) Hypothyroidism Status: Chronic (6) Tobacco abuse Status: Chronic (7) Acute respiratory distress Status: Acute (8) Anticoagulant long-term use Status: Chronic (9) Counseling regarding end of life decision making Status: Acute (10) Hyponatremia Status: Resolved Resolution Date/Time: 09/11/18 @ 16:40 (11) Leukopenia Status: Resolved Resolution Date/Time: 09/11/18 @ 16:40 (12) UTI (urinary tract infection) Clinical Quality Measures DVT/VTE Risk/Contraindication: Risk Factor Score Per Nursin RFS Level Per Nursing on Admit: 4+=Very High CHEVY MARTINEZ DO Sep 27, 2018 08:34
[2018-09-27] MEDS: risperiDONE 1 MG (RisperDAL) TAB PO SCH (08:48)
[2018-09-27] MEDS: NICOTINE PATCH REMOVAL TP SCH (08:48)
[2018-09-27] MEDS: SERTRALINE 100 MG (ZOLOFT) TAB PO SCH (08:48)
[2018-09-27] MEDS: BACLOFEN 10 MG (LIORESAL) TAB PO SCH (08:48)
[2018-09-27] MEDS: guaiFENesin (MUCINEX) 600 MG TAB PO SCH (08:48)
[2018-09-27] MEDS: NICOTINE 21 MG (NICODERM) PATCH TD SCH (08:48)
[2018-09-27] MEDS: POLYETHYLENE GLYCOL 17 GM (MIRALAX) PACK PO SCH (08:49)
[2018-09-27] MEDS: OXYBUTYNIN 10 MG PO SCH (08:50)
[2018-09-27] MEDS: ZINC OXIDE 16% OINT (BUTT PASTE) 113 GM TUBE TOP SCH ×2 (09:00→12:02)
--- NOTE | 2018-09-27 09:00 | NUR ---
LARGE AMOUNT OF DRAINAGE FROM SACRAL DECUB. DR. MARTINEZ AWARE. PATIENT REFUSED BUTT CREAM AND REQUESTED ALLEVYN BE PUT ON INSTEAD SINCE PUTTING ON CLOTHES TO BE DISCHARGED TODAY. [place] [facility] WILL BE LEFT IN PER PATIENT REQUEST AND OKAY'D BY DR. MARTINEZ.
[2018-09-27] MEDS: A & D OINT 113 GM TUBE TOP SCH (10:50)
--- NOTE | 2018-09-27 10:52 | Occupational Ther Daily Note ---
OT Current Status-Daily Note Subjective Pt alert, sitting in w/c. Pt to discharge today. Mental Status/Objective Patient Orientation: Person, Place, Time, Situation Therapy Code Descriptions/Definitions Functional Preston Measure: 0=Not Assessed/NA 4=Minimal Assistance 1=Total Assistance 5=Supervision or Setup 2=Maximal Assistance 6=Modified Preston 3=Moderate Assistance 7=Complete Preston ADL-Treatment Pt declines shower or sponge bath stating that she has already completed grooming and cleaning up at w/c level. Stating that she is going home today by noon. Pt did agree to complete dressing after nrsg applies bandage to wound on coccyx. CGA to go from w/c to bed. Then mod I for bed mobility. Pt retrieved clothing prior to OT session at w/c level. Pt able to don clothing in bed by self. Nrsg in room after therapy completing discharge instructions. All needs met in room. Therapy Code Descriptions/Definitions Functional Preston Measure: 0=Not Assessed/NA 4=Minimal Assistance 1=Total Assistance 5=Supervision or Setup 2=Maximal Assistance 6=Modified Preston 3=Moderate Assistance 7=Complete Preston Therapy Quality Codes: 6 Independent with activity with or without an assistive device 5 Patient requires set up or clean up by helper. Patient completes activity by themselves 4 Supervision or touching assist (CGA). [place] provide cues , steadying assist 3 The helper provides less than half the effort to complete the activity 2 The helper provides more than half the effort to complete the activity 1 Dependent. The helper does all the effort to complete an activity 7 Patient refused to complete or attempt activity 9 The patient did not perform the activity before the current illness or injury 88 Not attempted due to Medical conditions or safety concerns OT Short Term Goals Short Term Goals Eating(FIM): 6 Grooming(FIM): 5 Bathing(FIM): 5 Upper Body Dressing(FIM): 5 Lower Body Dressing(FIM): 5 Toileting(FIM): 5 Transfers (B,C,W/C) (FIM): 4 Toilet/Commode Transfer(FIM): 4 Tub Transfer(FIM): 4 Shower Transfer(FIM): 4 Additional Short Term Goals: 1-Demonstrate ADL Tasks, 2-Verbalize Understanding, 3-ImproveStrength/Cehvy 1=Demonstrate adherence to instructed precautions during ADL tasks. 2=Patient will verbalize/demonstrate understanding of assistive devices/modifications for ADL. 3=Patient will improve strength/tolerance for activity to enable patient to perform ADL's. OT Chcf Goals Airport Operations Manager Goals Time Frame: Oct 11, 2018 Eating (FIM): 7 (met-09/25/18) Eating (QC): 6 (met-09/25/18) Groomin (not met) Oral Hygiene (QC): 6 (met-09/25/18) Bathing(FIM): 6 (met-09/25/18) Bathing Location: L Arm, R Arm, L Upper Leg, R Upper Leg, L Lower Leg (including foot), R Lower Leg (including foot), Chest, Abdomen, Buttocks, Perineal Area Shower/Bathe Self (QC): 6 (met-09/25/18\) Upper Body Dressing(FIM): 7 (not met) Upper Body Dressing (QC): 6 (met-09/25/18) Lower Body Dressing(FIM): 6 (met-09/25/18) Lower Body Dressing (QC): 6 (met-09/25/18) On/Off Footwear (QC): 6 (met-09/25/18) Toileting(FIM): 6 (not met) Toileting Hygiene (QC): 6 (not met) Transfers (B,C,W/C) (FIM): 6 (not met) Toilet/Commode Transfer(FIM): 6 (not met) Toilet/Commode Transfer (QC): 6 (not me) Tub Transfer(FIM): 6 (not met) Shower Transfer(FIM): 6 (not met) Additional Goals: 1-Demonstrate ADL Tasks, 2-Verbalize Understanding, 3- ImproveStrength/Chevy 1=Demonstrate adherence to instructed precautions during ADL tasks. 2=Patient will verbalize/demonstrate understanding of assistive devices/modifica tions for ADL. 3=Patient will improve strength/tolerance for activity to enable patient to perform ADL's. OT Education/Plan Problem List/Assessment pt presents with functional limitations affecting areas of ADLs and functional transfers. pt would benefit from skilled OT Services to increase independence with ADLS/ functional transfers. Discharge Recommendations Plan/Recommendations: Discharge/Goals Met (Pt discharging to home 09/27/18) Treatment Plan/Plan of Care Patient would benefit from OT for education, treatment and training to promote independence in ADL's, mobility, safety and/or upper extremity function for ADL's. Plan of Care: ADL Retraining, Caregiver Training, Concurrent Therapy, Functional Mobility, Group Exercise/Act as Ind, UE Funct Exercise/Act, W/C Management Training Treatment Duration: Oct 11, 2018 Frequency: At least 5 of 7 days/Wk (IRF) Estimated Hrs Per Day: 1 hour per day (60-90 minutes per day) Agreement: Yes Rehab Potential: Fair Time/GCodes Start Time: 10:30 Stop Time: 11:00 Total Time Billed (hr/min): 30 Billed Treatment Time 1 visit-ADL 2 (30 min) MACARIO BAUTISTA Sep 27, 2018 10:52
--- NOTE | 2018-09-27 12:02 | NUR ---
Dr. Noriega states patient is afebrile today and intends to proceed with discharge. SUGAR SAMPLER sent clinical information to [facility] to resume services. Please see discharge summary for further information.
[2018-09-27 15:01] VITALS: BP 90/47
--- NOTE | 2018-09-27 15:05 | Therapy Team Discharge Summary ---
Therapy Discharge Summary Discharge Recommendations Date of Discharge Therapy D/C Recommendations: Home w/ Family Support, Occupational Therapy Home Care, Physical Therapy Home Care, Homemaker Support, Intermittent Supervision Physical Therapy Patient came to rehab with paraplegia. Upon evaluation patient performs bed mobility with SBA/CGA, supine <-> sit with mod assist, scooting transfer (without sliding board) with mod assist, dependent for car transfer, and propelled a manual wheelchair 150' with SBA. Patient has been performing bed mobility and transfer training, balance and endurance training, functional strengthening, stretching, wheelchair mobility training, and education. Patient has made fair progress and has met her residential goals. Now, patient performs bed mobility with mod I, supine <-> sit with mod I, transfers with CGA, car transfers min assist, can propel a manual wheelchair 150' with mod I. Patient has been discharged from this facility today and will be discharged from PT at this time. Occupational Therapy Decreased Activ Tolerance, Decreased UE Strength PT Senior Care Goals Senior Care Goals PT Cad Engineer Goals Time Frame: Oct 04, 2018 Transfers (B,C,W/C) (FIM): 5 Roll Left to Right (QC): 4 Sit to Lying (QC): 4 Lying-Sitting on Side/Bed(QC): 4 Sit to Stand (QC): 4 Chair/Pvx-uq-Jpkzk Xfer(QC): 4 Car Transfer (QC): 3 Wheelchair (FIM): 6 Distance: 200' Wheelchair Level of Assist: 6 Wheel 50 feet with 2 turns (QC: 6 OT Senior Care Goals Cad Engineer Goals Time Frame: Oct 11, 2018 Eating (FIM): 7 (met-09/25/18) Eating (QC): 6 (met-09/25/18) Oral Hygiene (QC): 6 (met-09/25/18) Grooming(FIM): 7 (not met) Bathing(FIM): 6 (met-09/25/18) Bathing Location: L Arm, R Arm, L Upper Leg, R Upper Leg, L Lower Leg (including foot), R Lower Leg (including foot), Chest, Abdomen, Buttocks, Perineal Area Shower/Bathe Self (QC): 6 (met-09/25/18\) Upper Body Dressing(FIM): 7 (not met) Upper Body Dressing (QC): 6 (met-09/25/18) Lower Body Dressing(FIM): 6 (met-09/25/18) Lower Body Dressing (QC): 6 (met-09/25/18) On/Off Footwear (QC): 6 (met-09/25/18) Toileting(FIM): 6 (not met) Toileting Hygiene (QC): 6 (not met) Transfers (B,C,W/C) (FIM): 6 (not met) Toilet/Commode Transfer(FIM): 6 (not met) Toilet/Commode Transfer (QC): 6 (not me) Tub Transfer(FIM): 6 (not met) Shower Transfer(FIM): 6 (not met) Additional Goals: 1-Demonstrate ADL Tasks, 2-Verbalize Understanding, 3- ImproveStrength/Chevy 1=Demonstrate adherence to instructed precautions during ADL tasks. 2=Patient will verbalize/demonstrate understanding of assistive devices/modifications for ADL. 3=Patient will improve strength/tolerance for activity to enable patient to perform ADL's. ANA M MCGUIRE PT Sep 27, 2018 15:04
[2018-09-27 15:13] VITALS: BP 90/47
--- NOTE | 2018-09-30 11:49 | Therapy Team Discharge Summary ---
Therapy Discharge Summary Discharge Recommendations Date of Discharge Sep 27, 2018 at 14:00 Therapy D/C Recommendations: Home w/ Family Support, Occupational Therapy Home Care, Physical Therapy Home Care, Homemaker Support, Intermittent Supervision Occupational Therapy pt has made good progress while in inpt rehab. pt was very motivate to participate in TX session. OT has focused on increasing independence with ADLs, functional transfers, UE strength, use of AE./ DME, and overall safety with functional tasks. at time of d/c pt was able to complete the following task MOD I: grooming, bathing, UB dressing, and LB dressing. pt was bale to perform toileting with SBA, toilet transfers with MAX A and shower transfers with MIN A. pt d/c from inpt rehab back to home with . recommended the following AE: tub transfer bench, SB, size roller operator, GB in bathroom. recommend continue OT services with OT HH to continue addressing above mention deficits and for safe transition to home. Decreased Activ Tolerance, Decreased UE Strength PT Chcf Goals Chcf Goals PT Chcf Goals Time Frame: Oct 04, 2018 Transfers (B,C,W/C) (FIM): 5 Roll Left to Right (QC): 4 Sit to Lying (QC): 4 Lying-Sitting on Side/Bed(QC): 4 Sit to Stand (QC): 4 Chair/Clt-um-Llpso Xfer(QC): 4 Car Transfer (QC): 3 Wheelchair (FIM): 6 Distance: 200' Wheelchair Level of Assist: 6 Wheel 50 feet with 2 turns (QC: 6 OT Chcf Goals Delivery Merchandiser Goals Time Frame: Oct 11, 2018 Eating (FIM): 7 (met-09/25/18) Eating (QC): 6 (met-09/25/18) Oral Hygiene (QC): 6 (met-09/25/18) Grooming(FIM): 7 (not met) Bathing(FIM): 6 (met-09/25/18) Bathing Location: L Arm, R Arm, L Upper Leg, R Upper Leg, L Lower Leg (including foot), R Lower Leg (including foot), Chest, Abdomen, Buttocks, Pe rineal Area Shower/Bathe Self (QC): 6 (met-09/25/18\) Upper Body Dressing(FIM): 7 (not met) Upper Body Dressing (QC): 6 (met-09/25/18) Lower Body Dressing(FIM): 6 (met-09/25/18) Lower Body Dressing (QC): 6 (met-09/25/18) On/Off Footwear (QC): 6 (met-09/25/18) Toileting(FIM): 6 (not met) Toileting Hygiene (QC): 6 (not met) Transfers (B,C,W/C) (FIM): 6 (not met) Toilet/Commode Transfer(FIM): 6 (not met) Toilet/Commode Transfer (QC): 6 (not me) Tub Transfer(FIM): 6 (not met) Shower Transfer(FIM): 6 (not met) Additional Goals: 1-Demonstrate ADL Tasks, 2-Verbalize Understanding, 3-ImproveStrength/Chevy 1=Demonstrate adherence to instructed precautions during ADL tasks. 2=Patient will verbalize/demonstrate understanding of assistive devices/modifications for ADL. 3=Patient will improve strength/tolerance for activity to enable patient to perform ADL's. MACK GREEN OT Sep 30, 2018 11:49
--- NOTE | 2018-09-30 15:12 | Physician Query Clarification ---
PQ-Further Specificity Admission/Discharge Admission Date: Sep 13, 2018 at 13:30 Discharge Date: Sep 27, 2018 at 14:00 The medical record reflects the following clinical scenario: History/Risk Factors: s/p respiratory failure/mechanical ventilation, T4 paralysis Clinical Findings: Debility/weakness Treatment: IP rehab Question: Can you further specify debility from critical illness per the clinical indicators above? Please document a response in the Progress Notes or Discharge Summary. 1. Critical illness myopathy 2. Weakness d/t critical illness 3. Other, with explanation of the clinical findings. 4. Clinically undetermined, no explanation for the clinical findings. PHYSICIAN RESPONSE Can you specify per above: 1 Please remember a lack of response to the above will prompt a phone page by CDI/Coding staff. In responding to this query, please exercise your independent professional judgment. The purpose of this communication is to more accurately reflect the complexity of your patients condition. The fact that a question is asked does not imply that any particular answer is desired or expected. Thank you for your timely response to this clarification. Requestors name: Сергей THIS PHYSICIAN QUERY FORM IS A PERMANENT PART OF THE MEDICAL RECORD СЕРГЕЙ BARKER Sep 30, 2018 15:12 CHEVY MARTINEZ DO Sep 30, 2018 20:37
== END 2018-09-27 14:00 | disposition home health service (06) | DRG 92 ==
PROVIDERS: ADMIT Internal Medicine; ATTEND Internal Medicine
DX: G72.81 Critical illness myopathy (principal); G82.22 Paraplegia, incomplete; E87.1 Hypo-osmolality and hyponatremia; K51.90 Ulcerative colitis, unspecified, without complications; L97.229 Non-pressure chronic ulcer of left calf with unspecified severity; R64 Cachexia; N39.0 Urinary tract infection, site not specified; F17.210 Nicotine dependence, cigarettes, uncomplicated; F41.9 Anxiety disorder, unspecified; F32.9 Major depressive disorder, single episode, unspecified; E03.9 Hypothyroidism, unspecified; L89.150 Pressure ulcer of sacral region, unstageable; Z91.19 Patient's noncompliance with other medical treatment and regimen
CPT/HCPCS: 36415; 80053; 81000; 82962; 83605; 85007; 85025; 85027; 85610; 87077; 87088; 87186; 94640; 94664; 94760

== ENCOUNTER → 2018-10-07 | Outpatient (CLI) | payer MEDICARE ==
[~2018-10-07] MED LIST changes: +NICO-588 TD; +SULF1TAB35 PO; +WARF6TAB49 PO
--- NOTE | 2018-10-07 10:35 | Diagnostic Imaging Report ---
INDICATION: Femur fracture. Comparison made with prior examination 07/08/2018. FINDINGS: Bones are osteopenic. There is a subacute fracture of the distal femoral diaphysis. The alignment is essentially unchanged compared to prior examination. There is moderate callus formation. There is no other acute fracture or dislocation. IMPRESSION: Stable alignment of the subacute fracture of distal right femur as described. Dictated by: Dictated on workstation # [id number]
== END ==
LOC: RAD FS 10:04
PROVIDERS: ATTEND Nurse Practitioner
DX: S72.454A Nondisplaced supracondylar fracture without intracondylar extension of lower end of right femur, initial encounter for closed fracture (principal)
CPT/HCPCS: 73562

== ENCOUNTER → 2018-10-10 | Outpatient (CLI) | payer MEDICARE | LOC: HH 17:06 | PROVIDERS: ATTEND Family Medicine | DX: S31.000A Unspecified open wound of lower back and pelvis without penetration into retroperitoneum, initial encounter (principal) | CPT/HCPCS: 87070; 87077; 87186; 87205 ==

== ENCOUNTER 2018-10-29 11:23 | Emergency (ER) | payer MEDICARE ==
[~2018-10-29] VITALS: Ht 167.6 cm; Wt 54.5 kg
[~2018-10-29 11:23] MED LIST changes: -OMEP20CA12 PO; +OMEP20CA13 PO
[2018-10-29 12:11] LABS: HEMATOCRIT 31 % (35-52); HEMOGLOBIN 10.3 G/DL (11.5-16.0); MEAN CORPUSCULAR HEMOGLOBIN 29 PG (25-34); MEAN CORPUSCULAR HGB CONC 33 G/DL (32-36); MEAN CORPUSCULAR VOLUME 88 FL (80-99); PLATELET COUNT 405 10^3/uL (130-400); WHITE BLOOD COUNT 20.9 10^3/uL (4.3-11.0)
[2018-10-29 12:12] LABS: BASOPHILS % (AUTO) 0 % (0-10); EOSINOPHILS # (AUTO) 0.1 10^3/uL (0.0-0.3); EOSINOPHILS % (AUTO) 0 % (0-10); LYMPHOCYTES # (AUTO) 1.3 X 10^3 (1.0-4.0); LYMPHOCYTES % (AUTO) 6 % (12-44); MEAN PLATELET VOLUME 8.8 FL (7.4-10.4); MONOCYTES # (AUTO) 0.6 X 10^3 (0.0-1.0); MONOCYTES % (AUTO) 2 % (0-12); NEUTROPHILS # (AUTO) 18.7 X 10^3 (1.8-7.8); NEUTROPHILS % (AUTO) 90 % (42-75); RED CELL DISTRIBUTION WIDTH 41.6 % (10.0-14.5)
[2018-10-29 12:28] LABS: BILIRUBIN,URINE NEGATIVE (NEGATIVE); CLARITY,URINE SL CLOUDY; COLOR,URINE BROWN; GLUCOSE, URINE (UA) NEGATIVE (NEGATIVE); KETONES,URINE NEGATIVE (NEGATIVE); LEUKOCYTE ESTERASE ,URINE TRACE (NEGATIVE); NITRITE,URINE NEGATIVE (NEGATIVE); PH,URINE 65 (5-9); PROTEIN,URINE 2+ (NEGATIVE); RBC,URINE >100 /HPF; UROBILINOGEN,URINE 0.2 MG/DL (NORMAL)
[2018-10-29 12:30] LABS: ALANINE AMINOTRANSFERASE 26 U/L (0-55); ALKALINE PHOSPHATASE 171 U/L (40-136); BILIRUBIN,TOTAL 0.3 MG/DL (0.1-1.0); BUN/CREATININE RATIO 35; CARBON DIOXIDE 23 MMOL/L (21-32); CHLORIDE 85 MMOL/L (98-107); CREATININE SERUM 0.52 MG/DL (0.60-1.30); GFR ESTIMATED > 60; GLUCOSE 108 MG/DL (70-105); POTASSIUM 3.6 MMOL/L (3.6-5.0); SODIUM 123 MMOL/L (135-145); TOTAL PROTEIN 5.3 GM/DL (6.4-8.2)
[2018-10-29 12:31] LABS: ALBUMIN 2.5 GM/DL (3.2-4.5); BAND NEUTROPHILS 11 %; BASOPHILS % (MANUAL) 0 %; EOSINOPHILS % (MANUAL) 0 %; LYMPHOCYTES % (MANUAL) 4 %; MONOCYTES % (MANUAL) 1 %; NEUTROPHILS % (MANUAL) 84 %; RBC MORPH NORMAL
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
[2018-10-29] MEDS ORDERED: PIPERACILLIN/TAZO 4.5 GM VIAL (ZOSYN) IV ONE (12:36)
[2018-10-29] MEDS ORDERED: NS (IVPB) 100 ML ONE (12:37)
--- NOTE | 2018-10-29 12:41 | NUR ---
Leola social research assistant also stated that the patient had pressure ulcer on sacral for 1 year prior to admission and the pressure ulcer on her calf for 3 months prior to admission. Dr. Yung was the wound care physician that signed off while patient was at [place] [facility] for the patient not being compliant.
--- NOTE | 2018-10-29 12:41 | NUR ---
Leola with outreach and education social worker called back. This RN was informed about the patient being in inpatient rehab unit at [facility] form 09/13-09/27 (for 11 days). This RN was informed that the doctor taking care of the patient signed off early (about 09/20), because the patient was not being compliant. Leola suggested to call [facility] and ask about how the care of plan had been going with the patient, how often they had been going and about the complaincy of the patient.
[2018-10-29] MEDS ORDERED: NS IV 1000 ML 1,000 ML IV SCH (12:45)
[2018-10-29] MEDS ORDERED: PIPERACILLIN/TAZOBACTAM (BULK) 4.5 GM in NS (IVPB) 100 ML IV ONE (12:45)
[2018-10-29] MEDS ORDERED: metroNIDAZOLE 500MG/100ML IVPB 100 ML IV ONE (12:45)
--- NOTE | 2018-10-29 12:45 | NUR ---
[facility] was contacted at this time. This RN was transferred several times and got the voicemail of the embedded case manager for the patient and the case workers name is Adelaide Talavera. A voicemail was left on Adelaide's phone to give me a call back to discuss a patients plan of care. ER phone number was given.
--- NOTE | 2018-10-29 13:04 | Diagnostic Imaging Report ---
INDICATION: Wounds, infection, recent difficulty breathing. COMPARISON: 09/13/2018 TECHNIQUE: Single frontal radiograph of chest dated 10/29/2018. FINDINGS: The cardiac silhouette is within normal limits in size. No significant pulmonary vascular congestion. Background chronic obstructive pulmonary disease with associated interstitial lung disease is again identified. Previously noted left basilar opacities appear improved. No new focal pulmonary opacity. No pleural effusion. No pneumothorax. No acute osseous abnormality. IMPRESSION: Background chronic obstructive pulmonary disease without superimposed acute cardiopulmonary abnormality. Dictated by: Dictated on workstation # [id number]
--- NOTE | 2018-10-29 13:08 | ED Integumentary General ---
General Chief Complaint: Skin/Wound Problems Stated Complaint: WOUND CARE Nursing Triage Note: Patient brought in via EMS from home with c/o wound infection. EMS reports that patient was being seen by home health and the nurse called due to the wound being necrotic. Patient has two wounds to her buttocks and one wound to her left foot. Patient has recently been hospitalized for respiratory failure and was released from the hospital from 3 weeks ago and had exsisting wound upon discharge. She was scheduled to see wound care in [place] yesterday but missed her appointment. Source: patient Exam Limitations: no limitations History of Present Illness Date Seen by Provider: Oct 29, 2018 Time Seen by Provider: 11:45 Initial Comments Patient is a 58-year-old paraplegic who presents with concerns for infection of decubitus ulcers and altered mental status. Patient has 2 large sacral decubitus ulcers over her left buttocks and 1 wound to her left foot. Patient receives home health care per wound care nurses and states that her wounds have gradually doubled in size over the past 2-3 weeks. She was scheduled to be evaluated by [facility] wound care team yesterday but Mr. appointment. Patient denies fever chills, nausea vomiting and sweats. Patient also reports increased confusion with impaired memory. She is alert and oriented to person place and time but has confusion regarding sequence of events and and recalling specific information. Is unclear if this is a new process has gradually worsened the past several days. Timing/Duration: getting worse Severity: moderate Location: torso, extremities Allergies and Home Medications Allergies Coded Allergies: latex (Verified Allergy, Unknown, hives, 09/04/18) tetracycline (Verified Allergy, Unknown, hives, 09/04/18) Home Medications Albuterol Sulfate 1 Puff Puff, 2 PUFF INH Q4H PRN for SHORTNESS OF BREATH, (Reported) 1 PUFF = 90 MCG Albuterol Sulfate 2.5 Mg/3 Ml Vial.neb, 2.5 MG NEB Q8H, (Reported) Alendronate Sodium 70 Mg Tablet, 70 MG PO Th, (Reported) Baclofen 10 Mg Tablet, 10 MG PO 1200, (Reported) Baclofen 10 Mg Tablet, 10 MG PO HS PRN for MUSCLE SPASMS, (Reported) Levothyroxine Sodium 125 Mcg Tablet, 125 MCG PO DAILY, (Reported) TAKES 25MCG ALONG WITH THE 125MCG TO EQUAL WITH 150MCG DOSE Levothyroxine Sodium 25 Mcg Tablet, 25 MCG PO DAILY, (Reported) TAKES 25MCG ALONG WITH THE 125MCG TO EQUAL WITH 150MCG DOSE Nicotine 1 Each Patch.td24, 21 MG TD DAILY@0900 Prescribed by: CHEVY MARTINEZ on 09/27/18 0832 Omeprazole 20 Mg Capsule.dr, 20 MG PO DAILY PRN for HEARTBURN, (Reported) Oxybutynin Chloride 10 Mg Tab.er.24, 10 MG PO DAILY, (Reported) Sertraline HCl 100 Mg Tablet, 100 MG PO DAILY, (Reported) Simvastatin 20 Mg Tablet, 20 MG PO DAILY, (Reported) Sulfamethoxazole/Trimethoprim 1 Each Tablet, 1 EACH PO BID Prescribed by: CHEVY MARTINEZ on 09/27/18 0832 Warfarin Sodium 2 Mg Tablet, 7 MG PO SuTuThSa, (Reported) Warfarin Sodium 6 Mg Tablet, 6 MG PO MoWeFr, (Reported) Patient Home Medication List Home Medication List Reviewed: Yes Review of Systems Review of Systems Constitutional: see HPI EENTM: see HPI Respiratory: see HPI Cardiovascular: see HPI Gastrointestinal: see HPI Genitourinary: see HPI Musculoskeletal: see HPI Psychiatric/Neurological: See HPI Endocrine: No Symptoms Reported Hematologic/Lymphatic: No Symptoms Reported Past Pxhjtkw-Hhhtos-Xsezti Hx Past Med/Social Hx: Reviewed Nursing Past Med/Soc Hx Patient Social History Alcohol Use: Denies Use Recreational Drug Use: No Smoking Status: Current Everyday Smoker Type Used: Cigarettes 2nd Hand Smoke Exposure: Yes Recent Foreign Travel: No Contact w/Someone Who Travel: No Recent Infectious Disease Expo: No Recent Hopitalizations: No Physical Abuse: No Sexual Abuse: No Fear: No Immunizations Up To Date Tetanus Booster (TDap): Unknown Date of Pneumonia Vaccine: Jan 04, 2018 Date of Influenza Vaccine: Jan 14, 2018 Seasonal Allergies Seasonal Allergies: No Past Medical History Surgeries: Yes Appendectomy, Hysterectomy, Tonsillectomy Respiratory: Yes COPD Currently Using CPAP: No Currently Using BIPAP: No Cardiac: Yes Deep Vein Thrombosis, High Cholesterol Neurological: Yes (Transverse myelitis, 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) Spinal Cord Injury Genitourinary: Yes (conteh catheter at home) Gastrointestinal: Yes (Ulcerative colitis) Musculoskeletal: Yes (Right femur fracture) Foot Drop Endocrine: Yes (Hyponatremia) HEENT: No Cancer: No Psychosocial: No Integumentary: Yes (pressure ulcer on sacrum/coccyx, wound to left foot) Blood Disorders: Yes (Bilateral leg DVTs) Family Medical History Diabetes mellitus 19 FATHER G8 BROTHER Dysphasia 19 MOTHER FH: esophageal cancer Physical Exam Vital Signs Vital Signs - First Documented 10/29/18 11:30 Temp 98.7 Pulse 102 Resp 18 B/P (MAP) 118/99 (105) Pulse Ox 97 O2 Delivery Room Air Capillary Refill : Less Than 3 Seconds General Appearance: WD/WN, no apparent distress HEENT: PERRL/EOMI Neck: supple Cardiovascular: normal peripheral pulses, regular rate, rhythm Respiratory: chest non-tender, lungs clear Gastrointestinal: non tender, soft Back: normal inspection Extremities: other (patient with pressure bruits bilateral lower extremities,) Neurologic/Psychiatric: no motor/sensory deficits Skin: other (two decubitus ulcers to left buttocks with purulent drainage and surrounding erythema) Skin Problem Location: other Skin Problem Character: abscess Procedures/Interventions Date of ETT Placement: Sep 07, 2018 Time of ETT Placement: 638 Progress/Results/Core Measures Results/Orders Lab Results Laboratory Tests Test 10/29/18 11:40 10/29/18 11:43 Range/Units Urine Color BROWN H Urine Clarity SL CLOUDY Urine pH 65 5-9 Urine Specific [place] 1.020 1.016-1.022 Urine Protein 2+ H NEGATIVE Urine Glucose (UA) NEGATIVE NEGATIVE Urine Ketones NEGATIVE NEGATIVE Urine Nitrite NEGATIVE NEGATIVE Urine Bilirubin NEGATIVE NEGATIVE Urine Urobilinogen 0.2 NORMAL MG/DL Urine Leukocyte Esterase TRACE NEGATIVE Urine RBC (Auto) 3+ H NEGATIVE Urine RBC >100 H /HPF Urine WBC 2-5 /HPF Urine Squamous Epithelial Cells 2-5 /HPF Urine Crystals NONE /LPF Urine Bacteria NONE /HPF Urine Casts NONE /LPF Urine Mucus NEGATIVE /LPF Urine Culture Indicated NO White Blood Count 20.9 H 4.3-11.0 10^3/uL Red Blood Count 3.52 L 4.35-5.85 10^6/uL Hemoglobin 10.3 L 11.5-16.0 G/DL Hematocrit 31 L 35-52 % Mean Corpuscular Volume 88 80-99 FL Mean Corpuscular Hemoglobin 29 25-34 PG Mean Corpuscular Hemoglobin Concent 33 32-36 G/DL Red Cell Distribution Width 41.6 H 10.0-14.5 % Platelet Count 405 H 130-400 10^3/uL Mean Platelet Volume 8.8 7.4-10.4 FL Neutrophils (%) (Auto) 90 H 42-75 % Lymphocytes (%) (Auto) 6 L 12-44 % Monocytes (%) (Auto) 2 0-12 % Eosinophils (%) (Auto) 0 0-10 % Basophils (%) (Auto) 0 0-10 % Neutrophils # (Auto) 18.7 H 1.8-7.8 X 10^3 Lymphocytes # (Auto) 1.3 1.0-4.0 X 10^3 Monocytes # (Auto) 0.6 0.0-1.0 X 10^3 Eosinophils # (Auto) 0.1 0.0-0.3 10^3/uL Basophils # (Auto) 0.0 0.0-0.1 10^3/uL Neutrophils % (Manual) 84 % Lymphocytes % (Manual) 4 % Monocytes % (Manual) 1 % Eosinophils % (Manual) 0 % Basophils % (Manual) 0 % Band Neutrophils 11 % Blood Morphology Comment NORMAL Sodium Level 123 *L 135-145 MMOL/L Potassium Level 3.6 3.6-5.0 MMOL/L Chloride Level 85 L 98-107 MMOL/L Carbon Dioxide Level 23 21-32 MMOL/L Anion Gap 15 H 5-14 MMOL/L Blood Urea Nitrogen 18 7-18 MG/DL Creatinine 0.52 L 0.60-1.30 MG/DL Estimat Glomerular Filtration Rate > 60 BUN/Creatinine Ratio 35 Glucose Level 108 H 70-105 MG/DL Lactic Acid Level 0.96 0.50-2.00 MMOL/L Calcium Level 8.0 L 8.5-10.1 MG/DL Corrected Calcium 9.2 8.5-10.1 MG/DL Total Bilirubin 0.3 0.1-1.0 MG/DL Aspartate Amino Transf (AST/SGOT) 43 H 5-34 U/L Alanine Aminotransferase (ALT/SGPT) 26 0-55 U/L Alkaline Phosphatase 171 H 40-136 U/L Total Protein 5.3 L 6.4-8.2 GM/DL Albumin 2.5 L 3.2-4.5 GM/DL My Orders Orders - RHETT GARCIA DO Cbc With Automated Diff (10/29/18 11:43) Comprehensive Metabolic Panel (10/29/18 11:43) Lactic Acid Analyzer (10/29/18 11:43) Blood Culture (10/29/18 11:43) Manual Differential (10/29/18 11:43) Urinalysis (10/29/18 12:14) Chest 1 View Ap/Pa Only (10/29/18 12:32) Ns Iv 1000 Ml (Sodium Chloride 0.9%) (10/29/18 12:45) Piperacillin/Tazobactam (Bulk) (Zosyn In (10/29/18 12:45) Metronidazole 500mg/100ml Ivpb (Flagyl 5 (10/29/18 12:45) Blood Culture (10/29/18 12:40) Piperacillin Sodium/Tazobactam (Zosyn Vi (10/29/18 12:36) Ns (Ivpb) (Sodium Chloride 0.9% Ivpb Bag (10/29/18 12:37) Blood Culture (10/29/18 11:53) Medications Given in ED Current Medications Medications Dose Ordered Sig/Nadir Route Start Time Stop Time Status Last Admin Dose Admin Piperacillin Sod/ Tazobactam Sod 4.5 gm/Sodium Chloride 120 ml @ 240 mls/hr ONCE ONCE IV 10/29/18 12:45 10/29/18 13:14 10/29/18 12:57 240 MLS/HR Vital Signs/I&O 10/29/18 11:30 Temp 98.7 Pulse 102 Resp 18 B/P (MAP) 118/99 (105) Pulse Ox 97 O2 Delivery Room Air Blood Pressure Mean: 105 Departure Communication (Admissions) Mental status changes with hyponatremia. Elevated white blood cell count with infected decubitus ulcers. Lactic acid normal. IV antibiotics, fluids given. Patient accepted to [facility] by Dr. Pappas. Pseudomonal Risk: Other Impression Primary Impression: Hyponatremia Additional Impression: Infected decubitus ulcer Disposition: XFER SHT-TRM HOSP Condition: Improved Transfer Time Spoke to Accepting Phy: 13:00 Transfer Progress Notes Patient accepted by Dr. Pappas Method of Transfer: EMS Departure-Patient Inst. Referrals: SELF,ANDRÉS HE (PCP/Family) Primary Care Physician RHETT GARCIA DO Oct 29, 2018 13:08
[2018-10-29 14:10] VITALS: BP 105/68
--- NOTE | 2018-10-29 15:35 | NUR ---
Adelaide Talavera, Care worker called at this time. She notified this RN that the patient is non-compliant. They will lay patient off the ulcers and patient will end up laying on them again. She said she understood that she was a paraplegic, but she was informed that she needed to stay off of them. Adelaide stated the patient is being taken care of daily and seen daily. She said that if they needed to provide documentation, they would. She said Shannon is the wound care nurse and has been packing it and taking care of it. Adelaide stated that she had called Dr. Mayer's office several weeks ago to get an order for wound care and just got her an appointment for [facility]. She stated the patient decided to stay in the bathroom yesterday for 3 hours and not go to her appointment. Today, Adelaide stated that the patient's wanted the patient to go to the emergency room, so they called 911. She stated they were worried she would refuse to go to the ER. She stated, "She was seen at [facility] in [place] for pneumonia and did not have those ulcers before."
== END 2018-10-29 14:10 | disposition short-term general hospital (02) ==
LOC: EDUNIT# 11:23 → ER FS 11:31
DX: L89.159 Pressure ulcer of sacral region, unspecified stage (principal); L89.329 Pressure ulcer of left buttock, unspecified stage; S91.302A Unspecified open wound, left foot, initial encounter; L08.9 Local infection of the skin and subcutaneous tissue, unspecified; E87.1 Hypo-osmolality and hyponatremia; J44.9 Chronic obstructive pulmonary disease, unspecified; E78.00 Pure hypercholesterolemia, unspecified; F17.210 Nicotine dependence, cigarettes, uncomplicated; Z86.718 Personal history of other venous thrombosis and embolism; Z88.1 Allergy status to other antibiotic agents; Z79.01 Long term (current) use of anticoagulants; Z90.49 Acquired absence of other specified parts of digestive tract; Z90.89 Acquired absence of other organs; Z80.0 Family history of malignant neoplasm of digestive organs
CPT/HCPCS: 36415; 71045; 80053; 81000; 83605; 85007; 85027; 87040

== ENCOUNTER → 2019-05-07 | Outpatient (CLI) | payer MEDICARE ==
[~2019-05-07] MED LIST changes: +OMEP-280 PO; -OMEP20CA13 PO; +SIMV20TA26 PO; -SIMV20TA3 PO
[2019-05-07 11:34] LABS: INR 1.4 (0.8-1.4); PROTHROMBIN TIME PATIENT 17.5 SEC (12.2-14.7)
== END ==
LOC: LAB FS 10:37
PROVIDERS: ATTEND Family Medicine
DX: Z51.81 Encounter for therapeutic drug level monitoring (principal); Z79.899 Other long term (current) drug therapy
CPT/HCPCS: 36415; 85610

== ENCOUNTER → 2019-05-12 | Outpatient (CLI) | payer MEDICARE ==
[~2019-05-12] MED LIST changes: -OMEP-280 PO; +OMEP20CA18 PO
[2019-05-12 12:34] LABS: INR 1.5 (0.8-1.4); PROTHROMBIN TIME PATIENT 18.8 SEC (12.2-14.7)
== END ==
LOC: LAB FS 11:32
PROVIDERS: ATTEND Family Medicine
DX: Z79.899 Other long term (current) drug therapy (principal)
CPT/HCPCS: 36415; 85610

== ENCOUNTER → 2019-05-20 | Outpatient (CLI) | payer MEDICARE | LOC: WOUNDCARE 12:57 | PROVIDERS: ATTEND Surgery | DX: L89.154 Pressure ulcer of sacral region, stage 4 (principal); L89.324 Pressure ulcer of left buttock, stage 4; L89.893 Pressure ulcer of other site, stage 3; L89.623 Pressure ulcer of left heel, stage 3; G82.21 Paraplegia, complete; E44.0 Moderate protein-calorie malnutrition; J44.9 Chronic obstructive pulmonary disease, unspecified; T65.222A Toxic effect of tobacco cigarettes, intentional self-harm, initial encounter; F17.218 Nicotine dependence, cigarettes, with other nicotine-induced disorders | CPT/HCPCS: 99215 ==

== ENCOUNTER → 2019-05-21 | Outpatient (CLI) | payer MEDICARE ==
--- NOTE | 2019-05-21 13:19 | Diagnostic Imaging Report ---
INDICATION: History of COPD, acute exacerbation. TECHNIQUE: Two view chest 12:24 p.m. CORRELATION STUDY: 10/29/2018 FINDINGS: The heart size, mediastinal configuration and pulmonary vasculature are within normal limits. Lung yadav are hyperinflated with flattening of the diaphragm and increase in the retrosternal dimension. There is rather prominent, coarse interstitial markings throughout both lung yadav again demonstrated. There is however no suggestion for acute superimposed infiltrate. Scoliotic curvature of the visualized thoracolumbar spine. IMPRESSION: 1. Negative for acute abnormality of the chest. Findings compatible with a coarse, chronic interstitial lung disease. Dictated by: Dictated on workstation # [id number]
== END ==
LOC: RAD FS 12:09
PROVIDERS: ATTEND Family Medicine
DX: J84.9 Interstitial pulmonary disease, unspecified (principal); Z87.09 Personal history of other diseases of the respiratory system
CPT/HCPCS: 71046

== ENCOUNTER → 2019-05-23 | Outpatient (CLI) | payer MEDICARE ==
[2019-05-23 14:42] LABS: INR 1.4 (0.8-1.4); PROTHROMBIN TIME PATIENT 17.4 SEC (12.2-14.7)
== END ==
LOC: LAB FS 14:07
PROVIDERS: ATTEND Family Medicine
DX: Z79.01 Long term (current) use of anticoagulants (principal)
CPT/HCPCS: 36415; 85610

== ENCOUNTER 2019-05-25 11:37 | Emergency (ER) | payer MEDICARE ==
[2019-05-25] MEDS ORDERED: NS IV 1000 ML 1,000 ML ONE (11:51)
[2019-05-25] MEDS ORDERED: NS IV 1000 ML 1,000 ML IV SCH (12:00)
[2019-05-25] MEDS ORDERED: RT-ALBUTEROL/IPRATROPIUM 3 ML (DUONEB) VIAL INH ONE (12:00)
--- NOTE | 2019-05-25 12:08 | ED Respiratory ---
General Chief Complaint: Respiratory Problems Stated Complaint: SOB Nursing Triage Note: Brought in by EMS for shortness of breath. Has had cough and fever x 2 days. Had CXR done and was told it was clear. Family stated she has been more lethargic for the past two days. Is not answering questions for EMS. O2 sats prior to arrival were 100% on 4L oxygen. Source: patient, family, EMS, RN notes reviewed, EMS notes reviewed, long-term records History of Present Illness Date Seen by Provider: May 25, 2019 Time Seen by Provider: 12:03 Initial Comments This patient is a 14-year-old female with history of a colostomy in the right lower quadrant presents to the emergency department via EMS for complaints of shortness of breath and fever for the past 2 days. Patient reportedly had chest x-ray done just a few days ago and was told it was normal. The patient is reportedly low bit more stuporous over the past 2 days. And not answering questions via EMS however the patient speaks her name but states it's hard to answer questions short of breath. O2 sats on arrival 100%. We'll do a medical evaluation previously. Patient was placed on 4 L by oxygen nasal cannula per EMS. Timing/Duration: yesterday, changing over time Severity: severe Prior Episodes/Possible Cause: unknown cause Modifying Factors: Improves With Activity, Improves With Albuterol Inhaler, Improves With Albuterol Nebulizer, Improves With Antibiotics, Improves With Coughing, Improves With Lying Down, Improves With Oxygen, Improves With Rest, Improves With Other Associated Symptoms: fever/chills, shortness of breath, wheezing Allergies and Home Medications Allergies Coded Allergies: latex (Verified Allergy, Unknown, hives, 09/04/18) tetracycline (Verified Allergy, Unknown, hives, 09/04/18) Home Medications Albuterol Sulfate 1 Puff Puff, 2 PUFF INH Q4H PRN for SHORTNESS OF BREATH, (Reported) 1 PUFF = 90 MCG Albuterol Sulfate 2.5 Mg/3 Ml Vial.neb, 2.5 MG NEB Q8H, (Reported) Alendronate Sodium 70 Mg Tablet, 70 MG PO Th, (Reported) Baclofen 10 Mg Tablet, 10 MG PO 1200, (Reported) Baclofen 10 Mg Tablet, 10 MG PO HS PRN for MUSCLE SPASMS, (Reported) Levothyroxine Sodium 125 Mcg Tablet, 125 MCG PO DAILY, (Reported) TAKES 25MCG ALONG WITH THE 125MCG TO EQUAL WITH 150MCG DOSE Levothyroxine Sodium 25 Mcg Tablet, 25 MCG PO DAILY, (Reported) TAKES 25MCG ALONG WITH THE 125MCG TO EQUAL WITH 150MCG DOSE Nicotine 1 Each Patch.td24, 21 MG TD DAILY@0900 Prescribed by: CHEVY MARTINEZ on 09/27/18 0832 Omeprazole 20 Mg Capsule.dr, 20 MG PO DAILY PRN for HEARTBURN, (Reported) Oxybutynin Chloride 10 Mg Tab.er.24, 10 MG PO DAILY, (Reported) Sertraline HCl 100 Mg Tablet, 100 MG PO DAILY, (Reported) Simvastatin 20 Mg Tablet, 20 MG PO DAILY, (Reported) Sulfamethoxazole/Trimethoprim 1 Each Tablet, 1 EACH PO BID Prescribed by: CHEVY MARTINEZ on 09/27/18 0832 Warfarin Sodium 2 Mg Tablet, 7 MG PO SuTuThSa, (Reported) Warfarin Sodium 6 Mg Tablet, 6 MG PO MoWeFr, (Reported) Patient Home Medication List Home Medication List Reviewed: Yes Review of Systems Review of Systems Constitutional: no symptoms reported, see HPI; No chills, No diaphoresis, No dizziness; fever; No malaise; weakness; No weight gain, No weight loss, No other EENTM: see HPI, no symptoms reported; No ear discharge, No hearing loss, No ear pain, No blurred vision, No double vision, No eye pain, No tearing, No vision loss, No dental problems, No hoarseness, No mouth pain, No mouth swelling, No epistaxis, No nose congestion, No nose pain, No throat pain, No throat swelling, No other Respiratory: no symptoms reported; No see HPI; cough, dyspnea on exertion; No hemoptysis; orthopnea; No phlegm; short of breath; No stridor, No wheezing, No other Cardiovascular: no symptoms reported, see HPI; No chest pain, No edema, No Hx of Intervention, No palpitations, No syncope, No vascular heart diseas, No other Gastrointestinal: No RUQ, No LUQ, No RLQ, No LLQ; no symptoms reported; No see HPI, No abdominal pain, No constipation, No diarrhea, No dysphagia, No hematemesis, No heartburn, No jaundice, No loss of appetite, No melena, No nausea, No vomiting, No other Genitourinary: no symptoms reported; No see HPI, No decreased output, No discharge, No dysuria, No frequency, No hematuria, No hesitancy, No incontinence, No nocturia, No pain, No other Musculoskeletal: no symptoms reported, see HPI; No back pain, No gout, No joint pain, No joint swelling, No muscle pain, No muscle stiffness, No muscle cramps, No muscle twitching, No muscle weakness, No neck pain, No other Skin: no symptoms reported, see HPI; No change in color, No change in hair/nails, No dryness, No hx of skin cancer, No lesions, No lumps, No pruritus, No rash, No other Past Swmdwch-Haheyz-Ctzdew Hx Past Med/Social Hx: Reviewed Nursing Past Med/Soc Hx, Reviewed and Corrections made Patient Social History Alcohol Use: Denies Use Recreational Drug Use: No Smoking Status: Current Everyday Smoker Type Used: Cigarettes 2nd Hand Smoke Exposure: Yes Recent Foreign Travel: No Contact w/Someone Who Travel: No Recent Infectious Disease Expo: No Recent Hopitalizations: No Immunizations Up To Date Tetanus Booster (TDap): Unknown Date of Pneumonia Vaccine: Jan 04, 2018 Date of Influenza Vaccine: Jan 14, 2018 Seasonal Allergies Seasonal Allergies: No Past Medical History Surgeries: Yes Appendectomy, Hysterectomy, Tonsillectomy Respiratory: Yes COPD Currently Using CPAP: No Currently Using BIPAP: No Cardiac: Yes Deep Vein Thrombosis, High Cholesterol Neurological: Yes (Transverse myelitis, 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) Spinal Cord Injury Genitourinary: Yes (conteh catheter at home) Gastrointestinal: Yes (Ulcerative colitis) Musculoskeletal: Yes (Right femur fracture) Foot Drop Endocrine: Yes (Hyponatremia) HEENT: No Cancer: No Psychosocial: No Integumentary: Yes (pressure ulcer on sacrum/coccyx, wound to left foot) Blood Disorders: Yes (Bilateral leg DVTs) Family Medical History Diabetes mellitus 19 FATHER G8 BROTHER Dysphasia 19 MOTHER FH: esophageal cancer Physical Exam Vital Signs - First Documented 05/25/19 05/25/19 11:45 11:47 Temp 35.9 Pulse 102 Resp 22 B/P (MAP) 109/59 (76) Pulse Ox 100 O2 Delivery Nasal Cannula O2 Flow Rate 4.00 Capillary Refill : Less Than 3 Seconds Height: 5'6.00" Weight: 120lbs. 1.6oz. 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 tested, no motor/sensory deficits, alert Skin: pallor Lymphatic: no adenopathy, axilla node tender (R), axilla node tender (L), inguinal node tender (R), inguinal node tender (L) Focused Exam Lactate Level 05/25/19 11:45: Lactic Acid Level 0.76 Lactic Acid Level Laboratory Tests Test 05/25/19 11:45 Lactic Acid Level 0.76 MMOL/L (0.50-2.00) Procedures/Interventions Date of ETT Placement: Sep 07, 2018 Time of ETT Placement: 0639 Progress/Results/Core Measures Suspected Sepsis Recent Fever Within 48 Hours: Yes Infection Criteria Present: Suspected New Infection New/Unexplained Altered Menta: Yes Sepsis Screen: Possible Severe Sepsis Risk SIRS Temperature: Pulse: 102 Respiratory Rate: 22 Laboratory Tests 05/25/19 11:45: White Blood Count 11.5H Blood Pressure 109 /59 Mean: 76 05/25/19 11:45: Lactic Acid Level 0.76 Laboratory Tests 05/25/19 11:45: Creatinine 0.29L, INR Comment 1.1, Platelet Count 580H, Total Bilirubin 0.2 Results/Orders Lab Results Laboratory Tests Test 05/25/19 11:45 05/25/19 12:00 05/25/19 12:11 Range/Units White Blood Count 11.5 H 4.3-11.0 10^3/uL Red Blood Count 3.65 L 4.35-5.85 10^6/uL Hemoglobin 9.3 L 11.5-16.0 G/DL Hematocrit 31 L 35-52 % Mean Corpuscular Volume 84 80-99 FL Mean Corpuscular Hemoglobin 25 25-34 PG Mean Corpuscular Hemoglobin Concent 30 L 32-36 G/DL Red Cell Distribution Width 15.7 H 10.0-14.5 % Platelet Count 580 H 130-400 10^3/uL Mean Platelet Volume 8.7 7.4-10.4 FL Neutrophils (%) (Auto) 79 H 42-75 % Lymphocytes (%) (Auto) 8 L 12-44 % Monocytes (%) (Auto) 6 0-12 % Eosinophils (%) (Auto) 7 0-10 % Basophils (%) (Auto) 1 0-10 % Neutrophils # (Auto) 9.0 H 1.8-7.8 X 10^3 Lymphocytes # (Auto) 0.9 L 1.0-4.0 X 10^3 Monocytes # (Auto) 0.7 0.0-1.0 X 10^3 Eosinophils # (Auto) 0.8 H 0.0-0.3 10^3/uL Basophils # (Auto) 0.1 0.0-0.1 10^3/uL Neutrophils % (Manual) 78 % Lymphocytes % (Manual) 10 % Monocytes % (Manual) 3 % Eosinophils % (Manual) 3 % Basophils % (Manual) 0 % Band Neutrophils 6 % Anisocytosis SLIGHT Prothrombin Time 14.7 12.2-14.7 SEC INR Comment 1.1 0.8-1.4 Activated Partial Thromboplast Time 37 H 24-35 SEC D-Dimer 1.10 H 0.00-0.49 UG/ML Sodium Level 134 L 135-145 MMOL/L Potassium Level 4.2 3.6-5.0 MMOL/L Chloride Level 96 L 98-107 MMOL/L Carbon Dioxide Level 27 21-32 MMOL/L Anion Gap 11 5-14 MMOL/L Blood Urea Nitrogen 10 7-18 MG/DL Creatinine 0.29 L 0.60-1.30 MG/DL Estimat Glomerular Filtration Rate > 60 BUN/Creatinine Ratio 34 Glucose Level 130 H 70-105 MG/DL Lactic Acid Level 0.76 0.50-2.00 MMOL/L Calcium Level 9.0 8.5-10.1 MG/DL Corrected Calcium 10.0 8.5-10.1 MG/DL Magnesium Level 2.2 1.6-2.4 MG/DL Total Bilirubin 0.2 0.1-1.0 MG/DL Aspartate Amino Transf (AST/SGOT) 18 5-34 U/L Alanine Aminotransferase (ALT/SGPT) 14 0-55 U/L Alkaline Phosphatase 109 40-136 U/L Troponin I 0.30 <0.30 NG/ML Pro-B-Type Natriuretic Peptide 590.0 H <75.0 PG/ML Total Protein 6.1 L 6.4-8.2 GM/DL Albumin 2.7 L 3.2-4.5 GM/DL Urine Color YELLOW Urine Clarity CLOUDY Urine pH 5.5 5-9 Urine Specific [place] >1.030 1.016-1.022 Urine Protein NEGATIVE NEGATIVE Urine Glucose (UA) 1+ H NEGATIVE Urine Ketones NEGATIVE NEGATIVE Urine Nitrite NEGATIVE NEGATIVE Urine Bilirubin NEGATIVE NEGATIVE Urine Urobilinogen 0.2 < = 1.0 MG/DL Urine Leukocyte Esterase 1+ H NEGATIVE Urine RBC (Auto) NEGATIVE NEGATIVE Urine RBC 5-10 H /HPF Urine WBC 50-100 H /HPF Urine Crystals NONE /LPF Urine Bacteria LARGE H /HPF Urine Casts NONE /LPF Urine Mucus NEGATIVE /LPF Urine Culture Indicated YES Blood Gas Puncture Site RT RAD Blood Gas Patient Temperature 35.9 Arterial Blood pH 7.25 *L 7.37-7.43 Arterial Blood Partial Pressure CO2 75 *H 35-45 MMHG Arterial Blood Partial Pressure O2 216 H 79-93 MMHG Arterial Blood HCO3 33 H 23-27 MMOL/L Arterial Blood Total CO2 35.0 H 21.0-31.0 MMOL/L Arterial Blood Oxygen Saturation 100 94-100 % Arterial Blood Base Excess 3.5 H -2.5-2.5 MMOL/L Kamari Test YES-POS Blood Gas Ventilator Setting NO Blood Gas Inspired Oxygen 4L Micro Results Microbiology 05/25/19 Influenza Types A,B Antigen ([facility]) - Final, Complete My Orders Orders - ESTER RIDDLE MD Lactic Acid Analyzer (05/25/19 11:48) Cbc And Manual Diff (05/25/19 11:48) Comprehensive Metabolic Panel (05/25/19 11:48) Ua Culture If Indicated (05/25/19 11:48) Blood Culture (05/25/19 11:48) Ns Iv 1000 Ml (Sodium Chloride 0.9%) (05/25/19 12:00) Chest 1 View Ap/Pa Only (05/25/19 11:48) Influenza A And B Antigens (05/25/19 11:48) Albuterol/Ipra Inhalation Soln (Duoneb I (05/25/19 12:00) Svn Small Volume Nebulizer (05/25/19 11:48) Continuous Ekg Monitoring (05/25/19 11:48) Ekg Tracing (05/25/19 11:48) Ns Iv 1000 Ml (Sodium Chloride 0.9%) (05/25/19 11:51) Magnesium (05/25/19 12:00) Ekg Tracing (05/25/19 12:00) Protime With Inr (05/25/19 12:00) Partial Thromboplastin Time (05/25/19 12:00) O2 (05/25/19 12:00) Monitor-Rhythm Ecg Trace Only (05/25/19 12:00) Ed Iv/Invasive Line Start (05/25/19 12:00) Creatine Kinase Mb (05/25/19 12:00) Troponin I Fs (05/25/19 12:00) Probnp Fs (05/25/19 12:00) Arterial Blood Gas (05/25/19 12:09) Methylprednisolone Sod Succ (Solu-Medrol (05/25/19 12:15) Albuterol Pre-Mix Nebs (Rt) (Proventil (05/25/19 12:15) Svn Small Volume Nebulizer (05/25/19 12:15) Fibrin Degradation Products (05/25/19 12:15) Urine Culture (05/25/19 12:00) Blood Culture (05/25/19 12:20) Ceftriaxone For Iv Use (Rocephin For I (05/25/19 13:00) Medications Given in ED Current Medications Medications Dose Ordered Sig/Nadir Route Start Time Stop Time Status Last Admin Dose Admin Albuterol Sulfate 2.5 mg ONCE ONCE INH 05/25/19 12:15 05/25/19 12:20 DC 05/25/19 12:44 2.5 MG Albuterol/ Ipratropium 3 ml ONCE ONCE INH 05/25/19 12:00 05/25/19 12:01 DC 05/25/19 12:04 3 ML Methylprednisolone Sodium Succinate 125 mg ONCE ONCE IVP 05/25/19 12:15 05/25/19 12:20 DC 05/25/19 12:44 125 MG Vital Signs/I&O 05/25/19 05/25/19 11:45 11:47 Temp 35.9 Pulse 102 Resp 22 B/P (MAP) 109/59 (76) Pulse Ox 100 96 O2 Delivery Nasal Cannula O2 Flow Rate 4.00 4.00 Capillary Refill : Less Than 3 Seconds Blood Pressure Mean: 76 ECG Initial ECG Impression Date: May 25, 2019 Initial ECG Impression Time: 13:34 Initial ECG Rate: 97 Initial ECG Rhythm: S.Tach Initial ECG Intervals: Normal Initial ECG Impression: Nonspecific Changes Departure Communication (Admissions) Dr. Lentz at [facility]. We discussed at length about the patient's history and present symptoms. Patient is on a BiPAP we did remove all patient's labs and medication treatment. He is accepted this patient be transferred to the ICU at [facility]. Patient is improved. Patient is on a BiPAP. Patient receiving Rocephin and Cipro Medrol. Patient be transferred to [facility]. Impression Primary Impression: UTI (urinary tract infection) Additional Impressions: Acute respiratory failure COPD exacerbation Disposition: XF [facility] Condition: Improved Transfer Transfer Reason: Exceeds level of care Transfer Progress Notes Dr Lentz Transfer Time: 13:37 Transfer Facility: [facility] Method of Transfer: EMS Departure-Patient Inst. Referrals: ANDRÉS RAMOS MD (PCP/Family) Primary Care Physician ESTER RIDDLE MD May 25, 2019 12:08
[2019-05-25 12:15] LABS: ANISOCYTOSIS SLIGHT; BAND NEUTROPHILS 6 %; BASOPHILS # (AUTO) 0.1 10^3/uL (0.0-0.1); BASOPHILS % (AUTO) 1 % (0-10); BASOPHILS % (MANUAL) 0 %; EOSINOPHILS # (AUTO) 0.8 10^3/uL (0.0-0.3); EOSINOPHILS % (AUTO) 7 % (0-10); EOSINOPHILS % (MANUAL) 3 %; HEMATOCRIT 31 % (35-52); HEMOGLOBIN 9.3 G/DL (11.5-16.0); LYMPHOCYTES # (AUTO) 0.9 X 10^3 (1.0-4.0); LYMPHOCYTES % (AUTO) 8 % (12-44); LYMPHOCYTES % (MANUAL) 10 %; MEAN CORPUSCULAR HEMOGLOBIN 25 PG (25-34); MEAN CORPUSCULAR HGB CONC 30 G/DL (32-36); MEAN CORPUSCULAR VOLUME 84 FL (80-99); MEAN PLATELET VOLUME 8.7 FL (7.4-10.4); MONOCYTES # (AUTO) 0.7 X 10^3 (0.0-1.0); MONOCYTES % (AUTO) 6 % (0-12); MONOCYTES % (MANUAL) 3 %; NEUTROPHILS % (AUTO) 79 % (42-75); NEUTROPHILS % (MANUAL) 78 %; PLATELET COUNT 580 10^3/uL (130-400); RED CELL DISTRIBUTION WIDTH 15.7 % (10.0-14.5); WHITE BLOOD COUNT 11.5 10^3/uL (4.3-11.0)
[2019-05-25] MEDS ORDERED: methylPREDNISolone 125 MG (Solu-MEDROL) VIAL IVP ONE (12:15)
[2019-05-25] MEDS ORDERED: RT-ALBUTEROL SULF 2.5 MG/3 ML PRE-MIX VIAL INH ONE (12:15)
[2019-05-25 12:25] LABS: ABG BASE EXCESS 3.5 MMOL/L (-2.5-2.5); ABG OXYGEN SATURATION 100 % (94-100); ABG PCO2 75 MMHG (35-45); ABG PH 7.25 (7.37-7.43); ABG PO2 216 MMHG (79-93)
[2019-05-25 12:26] LABS: ALLENS TEST YES-POS; INSPIRED O2 4L; PATIENT TEMP 35.9; VENTILATOR NO
[2019-05-25 12:27] LABS: INR 1.1 (0.8-1.4); PROTHROMBIN TIME PATIENT 14.7 SEC (12.2-14.7)
[2019-05-25 12:36] LABS: BACTERIA,URINE LARGE /HPF; BILIRUBIN,URINE NEGATIVE (NEGATIVE); CLARITY,URINE CLOUDY; COLOR,URINE YELLOW; GLUCOSE, URINE (UA) 1+ (NEGATIVE); KETONES,URINE NEGATIVE (NEGATIVE); LEUKOCYTE ESTERASE ,URINE 1+ (NEGATIVE); NITRITE,URINE NEGATIVE (NEGATIVE); PH,URINE 5.5 (5-9); PROTEIN,URINE NEGATIVE (NEGATIVE); WBC,URINE 50-100 /HPF
[2019-05-25 12:41] LABS: BUN/CREATININE RATIO 34; CARBON DIOXIDE 27 MMOL/L (21-32); CHLORIDE 96 MMOL/L (98-107); CREATININE SERUM 0.29 MG/DL (0.60-1.30); GFR ESTIMATED > 60; MAGNESIUM 2.2 MG/DL (1.6-2.4); POTASSIUM 4.2 MMOL/L (3.6-5.0); SODIUM 134 MMOL/L (135-145)
--- NOTE | 2019-05-25 12:41 | Diagnostic Imaging Report ---
INDICATION: Respiratory distress. COMPARISON: Comparison is made to prior study from May 21, 2019. FINDINGS: Background features of underlying interstitial lung disease and COPD are present. There are no new regions of focal infiltrate or consolidation. There is no effusion. Heart size is stable without evidence of failure. There is no suspicious osseous abnormality. There is a stable thoracic levoscoliosis. IMPRESSION: Background features of COPD without radiographic evidence of a new acute superimposed cardiopulmonary process. Dictated by: Dictated on workstation # [id number]
[2019-05-25 12:42] LABS: ALANINE AMINOTRANSFERASE 14 U/L (0-55); ALBUMIN 2.7 GM/DL (3.2-4.5); ALKALINE PHOSPHATASE 109 U/L (40-136); BILIRUBIN,TOTAL 0.2 MG/DL (0.1-1.0); GLUCOSE 130 MG/DL (70-105); TOTAL PROTEIN 6.1 GM/DL (6.4-8.2)
[2019-05-25] MEDS ORDERED: cefTRIAXone FOR IV USE 1,000 MG in WATER (STERILE) FOR INJECTION 10 ML IV ONE (13:00)
[2019-05-25] MEDS ORDERED: cefTRIAXone 1,000 MG IV (ROCEPHIN) VIAL ONE (13:36)
[2019-05-25 15:20] LABS: ABG BASE EXCESS 3.2 MMOL/L (-2.5-2.5); ABG OXYGEN SATURATION 99 % (94-100); ABG PCO2 56 MMHG (35-45); ABG PH 7.34 (7.37-7.43); ABG PO2 137 MMHG (79-93); ABG TCO2 31.9 MMOL/L (21.0-31.0); ALLENS TEST YES-POS; INSPIRED O2 30%; PATIENT TEMP 35.7; VENTILATOR YES
[2019-05-25 16:35] VITALS: BP 103/56
--- OUTSIDE RECORDS SUMMARY | 2019-05-28 08:46 | XMS REPORT | Continuity of Care Document ---
Author Organization Unknown Address Unknown Phone Unavailable Allergies Active Description Code Type Severity Reaction Onset Reported/Identified Relationship to Patient Clinical Status Yes latex [id number] Drug Allergy Unknown hives 09/04/2018 Yes No Known Drug Allergies [id number] Drug Allergy Unknown N/A 09/04/2018 Yes tetracycline [id number] Drug Allergy Unknown hives 09/04/2018 Medications There is no data. 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, STAGE 3 07/10/2018 ANDRÉS RAMOS MD, Ot T81.9X XA UNSPECIFIED COMPLICATION OF PROCEDURE, I 07/10/2018 ANDRÉS RAMOS MD Ot 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, STAGE 3 07/10/2018 ANDRÉS RAMOS MD, Ot T81.9X XA UNSPECIFIED COMPLICATION OF PROCEDURE, I 07/11/2018 JOHANN THORNTON Ot S72.401D UNSP FX LOWER END OF R FEMUR, SUBS FOR C 07/11/2018 ANDRÉS RAMOS MD, Ot E03.9 HYPOTHYROIDISM, UNSPECIFIED 07/11/2018 ANDRÉS RAMOS MD, Ot Z79.01 JAIL (CURRENT) USE OF ANTICOAGULANT 07/11/2018 SELF MD, ANDRÉS Ot E03.9 HYPOTHYROIDISM, UNSPECIFIED 07/11/2018 ANDRÉS RAMOS MD Ot Z79.01 JAIL (CURRENT) USE OF ANTICOAGULANT 07/12/2018 ANDRÉS RAMOS MD Ot Z79.01 DIRECTOR DRUG (CURRENT) USE OF ANTICOAGULANT 07/15/2018 SELF ANDÉRS HE Ot 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, STAGE 3 07/15/2018 ANDRÉS RAMOS MD, Ot T81.9X XA UNSPECIFIED COMPLICATION OF PROCEDURE, I 07/16/2018 ANDRÉS RAMOS MD, Ot L98.9 DISORDER OF THE SKIN AND SUBCUTANEOUS TI 07/26/2018 ANDRÉS RAMOS MD, Ot Z79.01 JAIL (CURRENT) USE OF ANTICOAGULANT 07/30/2018 JOHANN THORNTON COLOR CORRECTOR Ot S72.401D UNSP FX LOWER END OF R FEMUR, SUBS FOR C 07/30/2018 ANDRÉS RAMOS MD, Ot L98.9 DISORDER OF THE SKIN AND SUBCUTANEOUS TI 07/30/2018 ANDRÉS RAMOS MD Ot E03.9 HYPOTHYROIDISM, UNSPECIFIED 07/30/2018 ANDRÉS RAMOS MD, Ot Z79.01 DIRECTOR DRUG (CURRENT) USE OF ANTICOAGULANT 08/05/2018 ANDRÉS RAMOS MD Ot 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, STAGE 3 08/05/2018 ANDRÉS RAMOS MD, Ot T81.9X XA UNSPECIFIED COMPLICATION OF PROCEDURE, I 09/06/2018 LB SHAFFER MD Ot E03 .9 HYPOTHYROIDISM, UNSPECIFIED 09/06/2018 LB SHAFFER MD Ot E78.00 PURE HYPERCHOLESTEROLEMIA, UNSPECIFIED 09/06/2018 LB SHAFFER MD Ot E87 .1 HYPO-OSMOLALITY AND HYPONATREMIA 09/06/2018 LB SHAFFER MD Ot F17.210 NICOTINE DEPENDENCE, CIGARETTES, UNCOMPL 09/06/2018 LB SHAFFER MD Ot G82.20 PARAPLEGIA, UNSPECIFIED 09/06/2018 LB SHAFFER MD Ot J44 .1 CHRONIC OBSTRUCTIVE PULMONARY DISEASE W 09/06/2018 LB SHAFFER MD Ot K51.90 ULCERATIVE COLITIS, UNSPECIFIED, WITHOUT 09/06/2018 LB SHAFFER MD Ot L89.159 PRESSURE ULCER OF SACRAL REGION, UNSPECI 09/06/2018 LB SHAFFER MD Ot M21.379 FOOT DROP, UNSPECIFIED FOOT 09/06/2018 LB SHAFFER MD Ot R06.03 ACUTE RESPIRATORY DISTRESS 09/06/2018 LB SHAFFER MD Ot R09.02 HYPOXEMIA 09/06/2018 LB SHAFFER MD Ot Z86.61 PERSONAL HISTORY OF INFECTIONS OF THE CE 09/06/2018 LB SHAFFER MD Ot Z86.718 PERSONAL HISTORY OF OTHER VENOUS THROMBO 09/07/2018 LB SHAFFER MD Ot E03 .9 HYPOTHYROIDISM, UNSPECIFIED 09/07/2018 LB SHAFFER MD Ot E78.00 PURE HYPERCHOLESTEROLEMIA, UNSPECIFIED 09/07/2018 LB SHAFFER MD Ot E87 .1 HYPO-OSMOLALITY AND HYPONATREMIA 09/07/2018 LB SHAFFER MD Ot F17.210 NICOTINE DEPENDENCE, CIGARETTES, UNCOMPL 09/07/2018 LB SHAFFER MD Ot G82.20 PARAPLEGIA, UNSPECIFIED 09/07/2018 LB SHAFFER MD Ot J44 .1 CHRONIC OBSTRUCTIVE PULMONARY DISEASE W 09/07/2018 LB SHAFFER MD Ot K51.90 ULCERATIVE COLITIS, UNSPECIFIED, WITHOUT 09/07/2018 LB SHAFFER MD Ot L89.159 PRESSURE ULCER OF SACRAL REGION, UNSPECI 09/07/2018 LB SHAFFER MD Ot M21.379 FOOT DROP, UNSPECIFIED FOOT 09/07/2018 LB SHAFFER MD Ot R06.03 ACUTE RESPIRATORY DISTRESS 09/07/2018 LB SHAFFER MD Ot R09.02 HYPOXEMIA 09/07/2018 LB SHAFFER MD Ot Z86.61 PERSONAL HISTORY OF INFECTIONS OF THE CE 09/07/2018 LB SHAFFER MD Ot Z86.718 PERSONAL HISTORY OF OTHER VENOUS THROMBO 09/07/2018 LB SHAFFER MD Ot E03 .9 HYPOTHYROIDISM, UNSPECIFIED 09/07/2018 LB SHAFFER MD Ot E78.00 PURE HYPERCHOLESTEROLEMIA, UNSPECIFIED 09/07/2018 LB SHAFFER MD Ot E87 .1 HYPO-OSMOLALITY AND HYPONATREMIA 09/07/2018 LB SHAFFER MD Ot F17.210 NICOTINE DEPENDENCE, CIGARETTES, UNCOMPL 09/07/2018 LB SHAFFER MD Ot G82.20 PARAPLEGIA, UNSPECIFIED 09/07/2018 LB SHAFFER MD, Ot J44 .1 CHRONIC OBSTRUCTIVE PULMONARY DISEASE W 09/07/2018 LB SHAFFER MD Ot K51.90 ULCERATIVE COLITIS, UNSPECIFIED, WITHOUT 09/07/2018 LB SHAFFER MD Ot L89.159 PRESSURE ULCER OF SACRAL REGION, UNSPECI 09/07/2018 BL SHAFFER MD Ot M21.379 FOOT DROP, UNSPECIFIED FOOT 09/07/2018 LB SHAFFER MD Ot R06.03 ACUTE RESPIRATORY DISTRESS 09/07/2018 LB SHAFFER MD Ot R09.02 HYPOXEMIA 09/07/2018 LB SHAFFER MD Ot Z86.61 PERSONAL HISTORY OF INFECTIONS OF THE CE 09/07/2018 LB SHAFFER MD Ot Z86.718 PERSONAL HISTORY OF OTHER VENOUS THROMBO 09/09/2018 LB SHAFFER MD Ot E03 .9 HYPOTHYROIDISM, UNSPECIFIED 09/09/2018 LB SHAFFER MD Ot E78.00 PURE HYPERCHOLESTEROLEMIA, UNSPECIFIED 09/09/2018 LB SHAFFER MD Ot E87 .1 HYPO-OSMOLALITY AND HYPONATREMIA 09/09/2018 LB SHAFFER MD Ot F17.210 NICOTINE DEPENDENCE, CIGARETTES, UNCOMPL 09/09/2018 LB SHAFFER MD Ot G82.20 PARAPLEGIA, UNSPECIFIED 09/09/2018 LB SHAFFER MD, Ot J44 .1 CHRONIC OBSTRUCTIVE PULMONARY DISEASE W 09/09/2018 LB SHAFFER MD Ot K51.90 ULCERATIVE COLITIS, UNSPECIFIED, WITHOUT 09/09/2018 LB SHAFFER MD Ot L89.159 PRESSURE ULCER OF SACRAL REGION, UNSPECI 09/09/2018 LB SHAFFER MD Ot M21.379 FOOT DROP, UNSPECIFIED FOOT 09/09/2018 LB SHAFFER MD Ot R06.03 ACUTE RESPIRATORY DISTRESS 09/09/2018 LB SHAFFER MD Ot R09.02 HYPOXEMIA 09/09/2018 LB SHAFFER MD Ot Z86.61 PERSONAL HISTORY OF INFECTIONS OF THE CE 09/09/2018 LB SHAFFER MD Ot Z86.718 PERSONAL HISTORY OF OTHER VENOUS THROMBO 09/11/2018 LB SHAFFER MD Ot E03 .9 HYPOTHYROIDISM, UNSPECIFIED 09/11/2018 LB SHAFFER MD Ot E78.00 PURE HYPERCHOLESTEROLEMIA, UNSPECIFIED 09/11/2018 LB SHAFFER MD Ot E87 .1 HYPO-OSMOLALITY AND HYPONATREMIA 09/11/2018 LB SHAFFER MD Ot F17.210 NICOTINE DEPENDENCE, CIGARETTES, UNCOMPL 09/11/2018 LB SHAFFER MD Ot G82.20 PARAPLEGIA, UNSPECIFIED 09/11/2018 LB SHAFFER MD Ot J44 .1 CHRONIC OBSTRUCTIVE PULMONARY DISEASE W 09/11/2018 LB SHAFFER MD Ot K51.90 ULCERATIVE COLITIS, UNSPECIFIED, WITHOUT 09/11/2018 LB SHAFFER MD Ot L89.159 PRESSURE ULCER OF SACRAL REGION, UNSPECI 09/11/2018 LB SHAFFER MD Ot M21.379 FOOT DROP, UNSPECIFIED FOOT 09/11/2018 LB SHAFFER MD Ot R06.03 ACUTE RESPIRATORY DISTRESS 09/11/2018 LB SHAFFER MD Ot R09.02 HYPOXEMIA 09/11/2018 LB SHAFFER MD Ot Z86.61 PERSONAL HISTORY OF INFECTIONS OF THE CE 09/11/2018 LB SHAFFER MD Ot Z86.718 PERSONAL HISTORY OF OTHER VENOUS THROMBO 09/12/2018 LB SHAFFER MD Ot E03 .9 HYPOTHYROIDISM, UNSPECIFIED 09/12/2018 LB SHAFFER MD Ot E78.00 PURE HYPERCHOLESTEROLEMIA, UNSPECIFIED 09/12/2018 LB SHAFFER MD Ot E87 .1 HYPO-OSMOLALITY AND HYPONATREMIA 09/12/2018 LB SHAFFER MD Ot F17.210 NICOTINE DEPENDENCE, CIGARETTES, UNCOMPL 09/12/2018 LB SHAFFER MD Ot G82.20 PARAPLEGIA, UNSPECIFIED 09/12/2018 LB SHAFFER MD Ot J44 .1 CHRONIC OBSTRUCTIVE PULMONARY DISEASE W 09/12/2018 LB SHAFFER MD Ot K51.90 ULCERATIVE COLITIS, UNSPECIFIED, WITHOUT 09/12/2018 LB SHAFFER MD Ot L89.159 PRESSURE ULCER OF SACRAL REGION, UNSPECI 09/12/2018 LB SHAFFER MD Ot M21.379 FOOT DROP, UNSPECIFIED FOOT 09/12/2018 LB SHAFFER MD Ot R06.03 ACUTE RESPIRATORY DISTRESS 09/12/2018 LB SHAFFER MD Ot R09.02 HYPOXEMIA 09/12/2018 LB SHAFFER MD Ot Z86.61 PERSONAL HISTORY OF INFECTIONS OF THE CE 09/12/2018 LB SHAFFER MD, Ot Z86.718 PERSONAL HISTORY OF OTHER VENOUS THROMBO 09/13/2018 LB SHAFFER MD Ot B37 .1 PULMONARY CANDIDIASIS 09/13/2018 LB SHAFFER MD Ot E03 .9 HYPOTHYROIDISM, UNSPECIFIED 09/13/2018 LB SHAFFER MD Ot E78.00 PURE HYPERCHOLESTEROLEMIA, UNSPECIFIED 09/13/2018 LB SHAFFER MD Ot E87 .1 HYPO-OSMOLALITY AND HYPONATREMIA 09/13/2018 LB SHAFFER MD Ot F17.210 NICOTINE DEPENDENCE, CIGARETTES, UNCOMPL 09/13/2018 LB SHAFFER MD Ot G82.20 PARAPLEGIA, UNSPECIFIED 09/13/2018 LB SHAFFER MD Ot I95 .9 HYPOTENSION, UNSPECIFIED 09/13/2018 LB SHAFFER MD Ot J18 .9 PNEUMONIA, UNSPECIFIED ORGANISM 09/13/2018 LB SHAFFER MD Ot J44 .0 CHRONIC OBSTRUCTIVE PULMON DISEASE W ACU 09/13/2018 LB SHAFFER MD, Ot J44 .1 CHRONIC OBSTRUCTIVE PULMONARY DISEASE W 09/13/2018 LB SHAFFER MD Ot J96.21 ACUTE AND CHRONIC RESPIRATORY FAILURE [place] 09/13/2018 LB SHAFFER MD Ot J98.09 OTHER DISEASES OF BRONCHUS, NOT ELSEWHER 09/13/2018 LB SHAFFER MD Ot K51.90 ULCERATIVE COLITIS, UNSPECIFIED, WITHOUT 09/13/2018 LB SHAFFER MD Ot L89.159 PRESSURE ULCER OF SACRAL REGION, UNSPECI 09/13/2018 LB SHAFFER MD Ot M21.379 FOOT DROP, UNSPECIFIED FOOT 09/13/2018 LB SHAFFER MD Ot R06.03 ACUTE RESPIRATORY DISTRESS 09/13/2018 LB SHAFFER MD, Ot R09.02 HYPOXEMIA 09/13/2018 LB SHAFFER MD, Ot R41 .0 DISORIENTATION, UNSPECIFIED 09/13/2018 LB SHAFFER MD, Ot Z79.01 DIRECTOR DRUG (CURRENT) USE OF ANTICOAGULANT 09/13/2018 LB SHAFFER MD, Ot Z86.61 PERSONAL HISTORY OF INFECTIONS OF THE CE 09/13/2018 LB SHAFFER MD, Ot Z86.718 PERSONAL HISTORY OF OTHER VENOUS THROMBO 09/13/2018 LB SHAFFER MD, Ot Z99 .3 DEPENDENCE ON WHEELCHAIR 09/17/2018 ANDRÉS RAMOS MD, Ot 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, STAGE 3 09/17/2018 ANDRÉS RAMOS MD Ot T81.9X XA UNSPECIFIED COMPLICATION OF PROCEDURE, I 09/27/2018 JUAN PERDUE CHEVY Ot E03.9 HYPOTHYROIDISM, UNSPECIFIED 09/27/2018 JUAN PERDUE CHEVY Ot E87.1 HYPO-OSMOLALITY AND HYPONATREMIA 09/27/2018 JUAN PERDUE CHEVY Ot F17.21 0 NICOTINE DEPENDENCE, CIGARETTES, UNCOMPL 09/27/2018 JUAN PERDUE CHEVY Ot F32.9 MAJOR DEPRESSIVE DISORDER, SINGLE EPISOD 09/27/2018 JUAN PERDUE CHEVY Ot F41.9 ANXIETY DISORDER, UNSPECIFIED 09/27/2018 JUAN PERDUE CHEVY Ot G72.81 CRITICAL ILLNESS MYOPATHY 09/27/2018 JUAN PERDUE CHEVY Ot G82.22 PARAPLEGIA, INCOMPLETE 09/27/2018 JUAN PERDUE CHEVY Ot K51.90 ULCERATIVE COLITIS, UNSPECIFIED, WITHOUT 09/27/2018 JUAN PERDUE CHEVY Ot L89.15 0 PRESSURE ULCER OF SACRAL REGION, UNSTAGE 09/27/2018 JUAN PERDUE CHEVY Ot 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 09/27/2018 JUAN PERDUE CHEVY Ot N39.0 URINARY TRACT INFECTION, SITE NOT SPECIF 09/27/2018 JUAN PERDUE CHEVY Ot R64 CACHEXIA 09/27/2018 JUAN PERDUE CHEVY Ot Z91.19 PATIENT'S NONCOMPLIANCE W OT MEDICAL TR 10/29/2018 RHETT GARCIA DO, Ot E78.00 PURE HYPERCHOLESTEROLEMIA, UNSPECIFIED 10/29/2018 GARCIA DO, RHETT Ot E87.1 HYPO- OSMOLALITY AND HYPONATREMIA 10/29/2018 RALEIGH DO, RHETT Ot F17.210 NICOTINE DEPENDENCE, CIGARETTES, UNCOMPL 10/29/2018 RALEIGH DO, RHETT Ot J44.9 CHRONIC OBSTRUCTIVE PULMONARY DISEASE, U 10/29/2018 RALEIGH DO, RHETT Ot L08.9 LOCAL INFECTION OF THE SKIN AND SUBCUTAN 10/29/2018 RALEIGH DO, RHETT Ot L89.159 PRESSURE ULCER OF SACRAL REGION, UNSPECI 10/29/2018 RALEIGH DO, RHETT Ot L89.329 PRESSURE ULCER OF LEFT BUTTOCK, UNSPECIF 10/29/2018 RALEIGH DO, RHETT Ot S91.302A UNSPECIFIED OPEN WOUND, LEFT FOOT, INITI 10/29/2018 RALEIGH DO, RHETT Ot Z79.01 DIRECTOR DRUG (CURRENT) USE OF ANTICOAGULANT 10/29/2018 RALEIGH DO, RHETT Ot Z80.0 FAMILY HISTORY OF MALIGNANT NEOPLASM OF 10/29/2018 [facility], RHETT Ot Z86.718 PERSONAL HISTORY OF OTHER VENOUS THROMBO 10/29/2018 [facility], RHETT Ot Z88.1 ALLERGY STATUS TO OTHER ANTIBIOTIC AGENT 10/29/2018 RALEIGH DO, RHETT Ot Z90.49 ACQUIRED ABSENCE OF OTHER SPECIFIED PART 10/29/2018 RALEIGH DO, RHETT Ot Z90.89 ACQUIRED ABSENCE OF OTHER ORGANS 11/01/2018 RALEIGH DO, RHETT Ot E78.00 PURE HYPERCHOLESTEROLEMIA, UNSPECIFIED 11/01/2018 RALEIGH DO, RHETT Ot E87.1 HYPO- OSMOLALITY AND HYPONATREMIA 11/01/2018 RALEIGH DO, RHETT Ot F17.210 NICOTINE DEPENDENCE, CIGARETTES, UNCOMPL 11/01/2018 RALEIGH DO, RHETT Ot J44.9 CHRONIC OBSTRUCTIVE PULMONARY DISEASE, U 11/01/2018 RALEIGH DO, RHETT Ot L08.9 LOCAL INFECTION OF THE SKIN AND SUBCUTAN 11/01/2018 RALEIGH DO, RHETT Ot L89.159 PRESSURE ULCER OF SACRAL REGION, UNSPECI 11/01/2018 RALEIGH DO, RHETT Ot L89.329 PRESSURE ULCER OF LEFT BUTTOCK, UNSPECIF 11/01/2018 RALEIGH DO, RHETT Ot S91.302A UNSPECIFIED OPEN WOUND, LEFT FOOT, INITI 11/01/2018 RALEIGH DO, RHETT Ot Z79.01 DIRECTOR DRUG (CURRENT) USE OF ANTICOAGULANT 11/01/2018 RALEIGH DO, RHETT Ot Z80.0 FAMILY HISTORY OF MALIGNANT NEOPLASM OF 11/01/2018 RALEIGH DO, RHETT Ot Z86.718 PERSONAL HISTORY OF OTHER VENOUS THROMBO 11/01/2018 RHETT GARCIA DO Ot Z88.1 ALLERGY STATUS TO OTHER ANTIBIOTIC AGENT 11/01/2018 RHETT GARCIA DO Ot Z90.49 ACQUIRED ABSENCE OF OTHER SPECIFIED PART 11/01/2018 RHETT GARCIA DO Ot Z90.89 ACQUIRED ABSENCE OF OTHER ORGANS 11/01/2018 Ot S72.454A N ONDISP SUPRCNDL FX W/O INTRCNDL EXTN LO 11/04/2018 SELF ANDRÉS HE Ot S31.00 0A UNSP OPN WND LOW BACK AND PELV W/O PENET 11/06/2018 Ot S72.454A N ONDISP SUPRCNDL FX W/O INTRCNDL EXTN LO 11/15/2018 SELF ANDRÉS HE Ot E03.9 HYPOTHYROIDISM, UNSPECIFIED 11/15/2018 SELF ANDRÉS HE Ot Z79.01 JAIL (CURRENT) USE OF ANTICOAGULANT 05/09/2019 SELF ANDRÉS EH Ot Z51.81 ENCOUNTER FOR THERAPEUTIC DRUG LEVEL MON 05/09/2019 SELF ANDRÉS HE Ot Z79.89 9 OTHER DIRECTOR DRUG (CURRENT) DRUG THERAPY 05/13/2019 SELF ANDRÉS HE Ot 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, STAGE 3 05/13/2019 SELF ANDRÉS HE Ot T81.9X XA UNSPECIFIED COMPLICATION OF PROCEDURE, I 05/13/2019 SELF ANDRÉS HE Ot E03.9 HYPOTHYROIDISM, UNSPECIFIED 05/13/2019 SELF ANDRÉS HE Ot Z79.01 DIRECTOR DRUG (CURRENT) USE OF ANTICOAGULANT 05/13/2019 SELF ANDRÉS HE Ot Z79.01 DIRECTOR DRUG (CURRENT) USE OF ANTICOAGULANT 05/13/2019 Ot S72.454A N ONDISP SUPRCNDL FX W/O INTRCNDL EXTN LO 05/13/2019 SELF ANDRÉS HE Ot S31.00 0A UNSP OPN WND LOW BACK AND PELV W/O PENET 05/13/2019 SELF ANDRÉS HE Ot Z51.81 ENCOUNTER FOR THERAPEUTIC DRUG LEVEL MON 05/13/2019 SELF ANDRÉS HE Ot Z79.89 9 OTHER JAIL (CURRENT) DRUG THERAPY 05/13/2019 SELF ANDRÉS HE Ot Z79.01 JAIL (CURRENT) USE OF ANTICOAGULANT 05/23/2019 SELF ANDRÉS HE Ot J84.9 INTERSTITIAL PULMONARY DISEASE, UNSPECIF 05/23/2019 SELF ANDRÉS HE Ot Z87.09 PERSONAL HISTORY OF OTHER DISEASES OF TH Procedures Code Description Performed By Per formed On [id number] EX TIRPATION OF MATTER FROM RIGHT MAIN BR 09/07/2018 [id number] EX TIRPATION OF MATTER FROM LEFT MAIN BRO 09/07/2018 [id number] IN SERTION OF ENDOTRACHEAL AIRWAY INTO TR 09/07/2018 [id number] RE SPIRATORY VENTILATION, 24- 96 CONSECUTI 09/07/[id number] SINGLETON OF LEFT LOWER LUNG LOBE, ENDO, 09/09/2018 [id number] EX TIRPATION OF MATTER FROM RIGHT MAIN BR 09/09/2018 [id number] EX TIRPATION OF MATTER FROM LEFT MAIN BRO 09/09/2018 Results Test Result Range PT panel in platelet poor plasma by coag ulation assay - 06/21/18 00:00 Prothrombin time (PT) in platelet poor plasma by coagu lation assay 26.2 s 12.2-14.7 INR in platelet poor plasma or blood by coagulation as say 2.4 0.8-1.4 Gram stain microscopy - 07/08/18 17:20 Gram stain microscopy Many Gram positive cocci in clusters NRG Bacteria identification in wound by cult ure - 07/08/18 17:20 Bacteria identification in wound by culture [id number] NRG FREE TEXT EXTERNAL SUSCEPTIBILITY REPORTED 07/11/18 14:05 NRG QUANTITY OF GROWTH Many NRG FREE TEXT ENTRY 2 NO INDUCIBLE CLINDAMYIN RESISTAN CE NRG FREE TEXT ENTRY 3 DETECTED. NRG RML Sensitivity Panel - 07/08/18 17:20 Oxacillin susceptibility test by minimum inhibitory co ncentration 0.5 NRG Clindamycin susceptibility test by minimum inhibitory concentration <= NRG Erythromycin susceptibility test by minimum inhibitory concentration > NRG Trimethoprim/sulfamethoxazole susceptibi lity test by minimum inhibitoryconcentration <= NRG Vancomycin susceptibility test by minimum inhibitory c oncentration 1 NRG Levofloxacin susceptibility test by minimum inhibitory concentration <= NRG Rifampin susceptibility test by minimum inhibitory con centration <= NRG Cefazolin susceptibility test by minimum inhibitory co ncentration <= NRG Linezolid susceptibility test by minimum inhibitory co ncentration 2 NRG Penicillin G susceptibility test by minimum inhibitory concentration > NRG Moxifloxacin susceptibility test by minimum inhibitory concentration <= NRG Minocycline susc NYASIA <= NRG Bacteria identification in isolate by an aerobe culture - 07/09/18 14:53 FREE TEXT EXTERNAL BETA LACTAMASE POSITIVE NRG QUANTITY OF GROWTH . NRG Bacteria identification in isolate by anaerobe culture SEE COMMEN NRG Gram stain microscopy - 07/09/18 14:53 Gram stain microscopy Many gram positive cocci in clusters NRG Bacteria identification in wound by cult ure - 07/09/18 14:53 Bacteria identification in wound by culture [id number] NRG FREE TEXT EXTERNAL SUSCEPTIBILITY REPORTED 07/13/18 12:05 NRG QUANTITY OF GROWTH Many NRG FREE TEXT ENTRY 2 METHICILLIN-SENSITIVITE STAPH AU REUS NRG FREE TEXT ENTRY 3 NO INDUCIBLE CLINDAMYCIN RESISTA NCE NRG RML Sensitivity Panel - 07/09/18 14:53 Oxacillin susceptibility test by minimum inhibitory co ncentration 0.5 NRG Clindamycin susceptibility test by minimum inhibitory concentration <= NRG Erythromycin susceptibility test by minimum inhibitory concentration > NRG Trimethoprim/sulfamethoxazole susceptibi lity test by minimum inhibitoryconcentration <= NRG Vancomycin susceptibility test by minimum inhibitory c oncentration 1 NRG Levofloxacin susceptibility test by minimum inhibitory concentration <= NRG Rifampin susceptibility test by minimum inhibitory con centration <= NRG Cefazolin susceptibility test by minimum inhibitory co ncentration <= NRG Linezolid susceptibility test by minimum inhibitory co ncentration 2 NRG Penicillin G susceptibility test by minimum inhibitory concentration > NRG Moxifloxacin susceptibility test by minimum inhibitory concentration <= NRG Minocycline susc NYASIA <= NRG Complete blood count (CBC) with automate d white blood cell (WBC) differential - 07/10/18 13:00 Blood leukocytes automated count (number/volume) 6.0 10*3/uL 4.3-11.0 Blood erythrocytes automated count (number/volume) 4.27 10*6/uL 4.35-5.85 Venous blood hemoglobin measurement (mass/volume) 13.5 g/dL 11.5-16.0 Blood hematocrit (volume fraction) 40 % 35-52 Automated erythrocyte mean corpuscular volume 93 [ foz_us] 80-99 Automated erythrocyte mean corpuscular h emoglobin (mass per erythrocyte) 32 pg 25-34 Automated erythrocyte mean corpuscular h emoglobin concentration measurement (mass/volume) 34 g/dL 32-36 Automated erythrocyte distribution width ratio 14. 0 % 10.0- 14.5 Automated blood platelet count [...] 10*3 1.0-4.0 Blood monocytes automated count (number/volume) 0. 3 10*3 0.0-1.0 Automated eosinophil count 0.1 10*3/uL 0 .0-0.3 Automated blood basophil count (count/volume) 0.0 10*3/uL 0.0-0.1 THYROID STIMULATING HORMONE - 07/10/18 1 3:00 THYROID STIMULATING HORMONE 2.23 u[iU]/mL 0.35-4.94 Bacteria identification in isolate by an aerobe culture - 07/10/18 14:54 Bacteria identification in isolate by anaerobe culture NOANA NRG Gram stain microscopy - 07/10/18 14:54 Gram stain microscopy No bacteria seen NRG Bacteria identification in wound by cult ure - 07/10/18 14:54 Bacteria identification in wound by culture NSF NRG FREE TEXT EXTERNAL NO SUSCEPTIBILITIES SET UP NRG QUANTITY OF GROWTH Moderate NRG FREE TEXT ENTRY 2 NO BETA STREP, STAPH AUREUS, OR NRG FREE TEXT ENTRY 3 PSEUDMONAS ISOLATED N RG PT panel in platelet poor plasma by coag ulation assay - 07/23/18 00:00 Prothrombin time (PT) in platelet poor plasma by coagu lation assay 23.7 s 12.2-14.7 INR in platelet poor plasma or blood by coagulation as say 2.0 0.8-1.4 Complete blood count (CBC) with automate d white blood cell (WBC) differential - 09/04/18 17:30 Blood leukocytes automated count (number/volume) 5.8 10*3/uL 4.3-11.0 Blood erythrocytes automated count (number/volume) 4.77 10*6/uL 4.35-5.85 Venous blood hemoglobin measurement (mass/volume) 14.9 g/dL 11.5-16.0 Blood hematocrit (volume fraction) 44 % 35-52 Automated erythrocyte mean corpuscular volume 91 [ foz_us] 80-99 Automated erythrocyte mean corpuscular h emoglobin (mass per erythrocyte) 31 pg 25-34 Automated erythrocyte mean corpuscular h emoglobin concentration measurement (mass/volume) 34 g/dL 32-36 Automated erythrocyte distribution width ratio 13. 2 % 10.0- 14.5 Automated blood platelet count [...] 10*3 1.0-4.0 Blood monocytes automated count (number/volume) 0. 3 10*3 0.0-1.0 Automated eosinophil count 0.5 10*3/uL 0 .0-0.3 Automated blood basophil count (count/volume) 0.1 10*3/uL 0.0-0.1 Blood lactic acid measurement (moles/vol ume) - 09/04/18 17:30 Blood lactic acid measurement (moles/volume) 1.08 mmol/L 0.50-2.00 PT panel in platelet poor plasma by coag ulation assay - 09/04/18 17:30 Prothrombin time (PT) in platelet poor plasma by coagu lation assay 40.6 s 12.2-14.7 INR in platelet poor plasma or blood by coagulation as say 4.0 0.8-1.4 Activated partial thromboplastin time (a PTT) in platelet poor plasma bycoagulation assay - 09/04/18 17:30 Activated partial thromboplastin time (a PTT) in platelet poor plasma bycoagulation assay 65 s 24-35 Comprehensive metabolic panel - 09/04/18 17:30 Serum or plasma sodium measurement (moles/volume) 128 mmol/L 135-145 Serum or plasma potassium measurement (moles/volume) 4.2 mmol/L 3.6-5.0 Serum or plasma chloride measurement (moles/volume) 89 mmol/L 98-107 Carbon dioxide 25 mmol/L 21-32 Serum or plasma anion gap determination (moles/volume) 14 mmol/L 5-14 Serum or plasma urea nitrogen measurement (mass/volume ) 4 mg/dL 7-18 Serum or plasma creatinine measurement (mass/volume) 0.37 mg/dL 0.60-1.30 Serum or plasma urea nitrogen/creatinine mass ratio 11 NRG Serum or plasma creatinine measurement w ith calculation of estimated glomerular filtration rate > NRG Serum or plasma glucose measurement (mass/volume) 101 mg/dL 70-105 Serum or plasma calcium measurement (mass/volume) 8.9 mg/dL 8.5-10.1 Serum or plasma total bilirubin measurement (mass/volu me) 0.4 mg/dL 0.1-1.0 Serum or plasma alkaline phosphatase lucero surement (enzymatic activity/volume) 67 U/L 40-136 Serum or plasma aspartate aminotransfera se measurement (enzymatic activity/volume) 20 U/L 5-34 Serum [...] 09/04/18 17:30 PROBNP FS 190.1 pg/mL <75.0 Bacterial blood culture - 09/04/18 17:30 Bacterial blood culture NG NRG Bacterial blood culture - 09/04/18 17:50 Bacterial blood culture NG NRG Complete blood count (CBC) with automate d white blood cell (WBC) differential - 09/05/18 05:45 Blood leukocytes automated count (number/volume) 2.5 10*3/uL 4.3-11.0 Blood erythrocytes automated count (number/volume) 4.50 10*6/uL 4.35-5.85 Venous blood hemoglobin measurement (mass/volume) 13.8 g/dL 11.5-16.0 Blood hematocrit (volume fraction) 40 % 35-52 Automated erythrocyte mean corpuscular volume 88 [ foz_us] 80-99 Automated erythrocyte mean corpuscular h emoglobin (mass per erythrocyte) 31 pg 25-34 Automated erythrocyte mean corpuscular h emoglobin concentration measurement (mass/volume) 35 g/dL 32-36 Automated erythrocyte distribution width ratio 13. 7 % 10.0- 14.5 Automated blood platelet count (count/volume) 250 10*3/uL 130-400 Automated blood platelet mean volume measurement 9.5 [foz_us] 7.4-10.4 Automated blood neutrophils/100 leukocytes 64 % 42-75 Automated blood lymphocytes/100 leukocytes 31 % 12-44 Blood monocytes/100 leukocytes 4 % 0-12 Automated blood eosinophils/100 leukocytes 0 % 0-10 Automated blood basophils/100 leukocytes 0 % 0-10 Blood neutrophils automated count (number/volume) 1.6 10*3 1.8-7.8 Blood lymphocytes automated count (number/volume) 0.8 10*3 1.0-4.0 Blood monocytes automated count (number/volume) 0. 1 10*3 0.0-1.0 Automated eosinophil count 0.0 10*3/uL 0 .0-0.3 Automated blood basophil count (count/volume) 0.0 10*3/uL 0.0-0.1 Comprehensive metabolic panel - 09/05/18 05:45 Serum or plasma sodium measurement (moles/volume) 126 mmol/L 135-145 Serum or plasma potassium measurement (moles/volume) 4.5 mmol/L 3.6-5.0 Serum or plasma chloride measurement (moles/volume) 95 mmol/L 98-107 Carbon dioxide 22 mmol/L 21-32 Serum or plasma anion gap determination (moles/volume) 9 mmol/L 5-14 Serum or plasma urea nitrogen measurement (mass/volume ) 6 mg/dL 7-18 Serum or plasma creatinine measurement (mass/volume) 0.61 mg/dL 0.60-1.30 Serum or plasma urea nitrogen/creatinine mass ratio 10 NRG Serum or plasma creatinine measurement w ith calculation of estimated glomerular filtration rate > NRG Serum or plasma glucose measurement (mass/volume) 121 mg/dL 70-105 Serum or plasma calcium measurement (mass/volume) 8.9 mg/dL 8.5-10.1 Serum or plasma total bilirubin measurement (mass/volu me) 0.3 mg/dL 0.1-1.0 Serum or plasma alkaline phosphatase lucero surement (enzymatic activity/volume) 59 U/L 40-136 Serum or plasma aspartate aminotransfera se measurement (enzymatic activity/volume) 17 U/L 5-34 Serum or plasma alanine aminotransferase measurement (enzymatic activity/volume) 15 U/L 0-55 Serum or plasma protein measurement (mass/volume) 6.1 g/dL 6.4-8.2 Serum or plasma albumin measurement (mass/volume) 3.5 g/dL 3.2-4.5 CALCIUM CORRECTED 9.3 mg/dL 8.5-10.1 Arterial blood gas measurement - 9 11:13 Blood pCO2 41 mm[Hg] 35-45 Blood pO2 69 mm[Hg] 79-93 Arterial blood bicarbonate measurement (moles/volume) 25 mmol/L 23-27 Arterial blood base excess by calculation 1.2 mmol /L -2.5-2.5 Arterial blood oxygen saturation measurement 94 % 94-100 * Inhaled oxygen flow rate 3 NRG Arterial blood pH measurement with patient temperature correction 7.41 7.37-7.43 Arterial blood carbon dioxide, total measurement (mole s/volume) 26.5 mmol/L 21.0-31.0 Body site R RAD NRG Assessment of wrist artery patency prior to arterial p uncture YES-POS NRG Setting of ventilation mode NA NR G Measurement of body temperature 99.6 NRG Blood lactic acid measurement (moles/vol ume) - 09/05/18 11:47 Blood lactic acid measurement (moles/volume) 1.16 mmol/L 0.50-2.00 Sputum Gram stain - 09/05/18 14:25 Sputum Gram stain RELEVANT, INTERPRET WITH CAUTION . NRG Bacterial sputum culture - 09/05/18 14:2 5 QUANTITY OF GROWTH FEW NRG Bacterial sputum culture [id number] NRG Methicillin resistant Staphylococcus aur eus (MRSA) screening culture - 09/05/18 18:14 Methicillin resistant Staphylococcus aureus (MRSA) scr eening culture NEG NRG Complete blood count (CBC) with automate d white blood cell (WBC) differential - 09/06/18 11:24 Blood leukocytes automated count (number/volume) 6.9 10*3/uL 4.3-11.0 Blood erythrocytes automated count (number/volume) 4.42 10*6/uL 4.35-5.85 Venous blood hemoglobin measurement (mass/volume) 13.9 g/dL 11.5-16.0 Blood hematocrit (volume fraction) 40 % 35-52 Automated erythrocyte mean corpuscular volume 90 [ foz_us] 80-99 Automated erythrocyte mean corpuscular h emoglobin (mass per erythrocyte) 31 pg 25-34 Automated erythrocyte mean corpuscular h emoglobin concentration measurement (mass/volume) 35 g/dL 32-36 Automated erythrocyte distribution width ratio 13. 8 % 10.0- 14.5 Automated blood platelet count (count/volume) 249 10*3/uL 130-400 Automated blood platelet mean volume measurement 9.6 [foz_us] 7.4-10.4 Automated blood neutrophils/100 leukocytes 88 % 42-75 Automated blood lymphocytes/100 leukocytes 8 % 12-44 Blood monocytes/100 leukocytes 3 % 0-12 Automated blood eosinophils/100 leukocytes 0 % 0-10 Automated blood basophils/100 leukocytes 0 % 0-10 Blood neutrophils automated count (number/volume) 6.1 10*3 1.8-7.8 Blood lymphocytes automated count (number/volume) 0.6 10*3 1.0-4.0 Blood monocytes automated count (number/volume) 0. 2 10*3 0.0-1.0 Automated eosinophil count 0.0 10*3/uL 0 .0-0.3 Automated blood basophil count (count/volume) 0.0 10*3/uL 0.0-0.1 Whole blood basic metabolic panel - 08/18 04/06 11:24 Serum or plasma sodium measurement (moles/volume) 129 mmol/L 135-145 Serum or plasma potassium measurement (moles/volume) 4.2 mmol/L 3.6-5.0 Serum or plasma chloride measurement (moles/volume) 94 mmol/L 98-107 Carbon dioxide 23 mmol/L 21-32 Serum or plasma anion gap determination (moles/volume) 12 mmol/L 5-14 Serum or plasma urea nitrogen measurement (mass/volume ) 10 mg/dL 7-18 Serum or plasma creatinine measurement (mass/volume) 0.75 mg/dL 0.60-1.30 Serum or plasma urea nitrogen/creatinine mass ratio 13 NRG Serum or plasma creatinine measurement w ith calculation of estimated glomerular filtration rate > NRG Serum or plasma glucose measurement (mass/volume) 90 mg/dL 70-105 Serum or plasma calcium measurement (mass/volume) 9.4 mg/dL 8.5-10.1 PT panel in platelet poor plasma by coag ulation assay - 09/06/18 11:24 Prothrombin time (PT) in platelet poor plasma by coagu lation assay 36.2 s 12.2-14.7 INR in platelet poor plasma or blood by coagulation as say 3.4 0.8-1.4 Manual absolute plasma cell count - 08/18 04/06 11:24 Blood monocytes/100 leukocytes 1 % NRG Manual blood segmented neutrophils/100 leukocytes 90 % NRG Blood band neutrophils/100 leukocytes 0 % NRG Manual blood lymphocytes/100 leukocytes 9 % NRG Manual eosinophils/100 leukocytes in nose 0 % NRG Manual blood basophils/100 leukocytes 0 % NRG Blood erythrocyte morphology finding identification NORMAL NR Complete blood count (CBC) with automate d white blood cell (WBC) differential - 09/07/18 05:29 Blood leukocytes automated count (number/volume) 6.6 10*3/uL 4.3-11.0 Blood erythrocytes automated count (number/volume) 4.29 10*6/uL 4.35-5.85 Venous blood hemoglobin measurement (mass/volume) 13.3 g/dL 11.5-16.0 Blood hematocrit (volume fraction) 38 % 35-52 Automated erythrocyte mean corpuscular volume 89 [ foz_us] 80-99 Automated erythrocyte mean corpuscular h emoglobin (mass per erythrocyte) 31 pg 25-34 Automated erythrocyte mean corpuscular h emoglobin concentration measurement (mass/volume) 35 g/dL 32-36 Automated erythrocyte distribution width ratio 13. 9 % 10.0- 14.5 Automated blood platelet count (count/volume) 232 10*3/uL 130-400 Automated blood platelet mean volume measurement 9.4 [foz_us] 7.4-10.4 Automated blood neutrophils/100 leukocytes 89 % 42-75 Automated blood lymphocytes/100 leukocytes 9 % 12-44 Blood monocytes/100 leukocytes 3 % 0-12 Automated blood eosinophils/100 leukocytes 0 % 0-10 Automated blood basophils/100 leukocytes 0 % 0-10 Blood neutrophils automated count (number/volume) 5.9 10*3 1.8-7.8 Blood lymphocytes automated count (number/volume) 0.6 10*3 1.0-4.0 Blood monocytes automated count (number/volume) 0. 2 10*3 0.0-1.0 Automated eosinophil count 0.0 10*3/uL 0 .0-0.3 Automated blood basophil count (count/volume) 0.0 10*3/uL 0.0-0.1 PT panel in platelet poor plasma by coag ulation assay - 09/07/18 05:29 Prothrombin time (PT) in platelet poor plasma by coagu lation assay 25.1 s 12.2-14.7 INR in platelet poor plasma or blood by coagulation as say 2.2 0.8-1.4 Whole blood basic metabolic panel - 08/18 05/07 05:29 Serum or plasma sodium measurement (moles/volume) 127 mmol/L 135-145 Serum or plasma potassium measurement (moles/volume) 3.9 mmol/L 3.6-5.0 Serum or plasma chloride measurement (moles/volume) 94 mmol/L 98-107 Carbon dioxide 21 mmol/L 21-32 Serum or plasma anion gap determination (moles/volume) 12 mmol/L 5-14 Serum or plasma urea nitrogen measurement (mass/volume ) 12 mg/dL 7-18 Serum or plasma creatinine measurement (mass/volume) 0.69 mg/dL 0.60-1.30 Serum or plasma urea nitrogen/creatinine mass ratio 17 NRG Serum or plasma creatinine measurement w ith calculation of estimated glomerular filtration rate > NRG Serum or plasma glucose measurement (mass/volume) 121 mg/dL 70-105 Serum or plasma calcium measurement (mass/volume) 8.7 mg/dL 8.5-10.1 Serum or plasma phosphate measurement (m ass/volume) - 09/07/18 05:29 Serum or plasma phosphate measurement (mass/volume) 4.0 mg/dL 2.3-4.7 Magnesium - 09/07/18 05:29 Magnesium 1.9 mg/dL 1.8-2.4 Serum or plasma triglyceride measurement (mass/volume) - 09/07/18 05:29 Serum or plasma triglyceride measurement (mass/volume) 79 mg/dL <150 Automated blood complete blood count (he mogram) panel - 09/07/18 07:45 Blood leukocytes automated count (number/volume) 6.2 10*3/uL 4.3-11.0 Blood erythrocytes automated count (number/volume) 4.10 10*6/uL 4.35-5.85 Venous blood hemoglobin measurement (mass/volume) 12.7 g/dL 11.5-16.0 Blood hematocrit (volume fraction) 37 % 35-52 Automated erythrocyte mean corpuscular volume 90 [ foz_us] 80-99 Automated erythrocyte mean corpuscular h emoglobin (mass per erythrocyte) 31 pg 25-34 Automated erythrocyte mean corpuscular h emoglobin concentration measurement (mass/volume) 35 g/dL 32-36 Automated erythrocyte distribution width ratio 13. 8 % 10.0- 14.5 Automated blood platelet count (count/volume) 231 10*3/uL 130-400 Automated blood platelet mean volume measurement 9.6 [foz_us] 7.4-10.4 Comprehensive metabolic panel - 09/07/18 07:45 Serum or plasma sodium measurement (moles/volume) 128 mmol/L 135-145 Serum or plasma potassium measurement (moles/volume) 3.9 mmol/L 3.6-5.0 Serum or plasma chloride measurement (moles/volume) 99 mmol/L 98-107 Carbon dioxide 20 mmol/L 21-32 Serum or plasma anion gap determination (moles/volume) 9 mmol/L 5-14 Serum or plasma urea nitrogen measurement (mass/volume ) 10 mg/dL 7-18 Serum or plasma creatinine measurement (mass/volume) 0.58 mg/dL 0.60-1.30 Serum or plasma urea nitrogen/creatinine mass ratio 17 NRG Serum or plasma creatinine measurement w ith calculation of estimated glomerular filtration rate > NRG Serum or plasma glucose measurement (mass/volume) 122 mg/dL 70-105 Serum or plasma calcium measurement (mass/volume) 7.9 mg/dL 8.5-10.1 Serum or plasma total bilirubin measurement (mass/volu me) 0.3 mg/dL 0.1-1.0 Serum or plasma alkaline phosphatase lucero surement (enzymatic activity/volume) 49 U/L 40-136 Serum or plasma aspartate aminotransfera se measurement (enzymatic activity/volume) 35 U/L 5-34 Serum or plasma alanine aminotransferase measurement (enzymatic activity/volume) 21 U/L 0-55 Serum or plasma protein measurement (mass/volume) 5.6 g/dL 6.4-8.2 Serum or plasma albumin measurement (mass/volume) 3.3 g/dL 3.2-4.5 CALCIUM CORRECTED 8.5 mg/dL 8.5-10.1 Serum or plasma phosphate measurement (m ass/volume) - 09/07/18 07:45 Serum or plasma phosphate measurement (mass/volume) 4.1 mg/dL 2.3-4.7 Magnesium - 09/07/18 07:45 Magnesium 1.9 mg/dL 1.8-2.4 Serum or plasma troponin i.cardiac measu rement (mass/volume) - 09/07/18 07:45 Serum or plasma troponin i.cardiac measurement (mass/v olume) < ng/mL <0.028 PT panel in platelet poor plasma by coag ulation assay - 09/07/18 07:45 Prothrombin time (PT) in platelet poor plasma by coagu lation assay 24.9 s 12.2-14.7 INR in platelet poor plasma or blood by coagulation as say 2.1 0.8-1.4 Activated partial thromboplastin time (a PTT) in platelet poor plasma bycoagulation assay - 09/07/18 07:45 Activated partial thromboplastin time (a PTT) in platelet poor plasma bycoagulation assay 36 s 24-35 Sputum Gram stain - 09/07/18 08:00 Sputum Gram stain No bacteria seen NRG Bacteria identification in bronchial spe cimen by aerobe culture - 09/07/18 08:00 QUANTITY OF GROWTH . NRG Bacteria identification in bronchial specimen by aerob e culture [id number] NRG FTX;REPORTABLE 100 CFU/ML NRG Mycobacterium species detection by organ ism specific culture - 09/07/18 08:00 DATE/TIME MICROSCOPIC 09/08/18 15:05 NRG MICROSCOPIC AFB SMEAR NEGATIVE NRG Fungus culture - 09/07/18 08:00 QUANTITY OF GROWTH Rare NRG Fungus culture [id number] NRG Arterial blood gas measurement - 9 08:30 Blood pCO2 48 mm[Hg] 35-45 Blood pO2 306 mm[Hg] 79-93 Arterial blood bicarbonate measurement (moles/volume) 23 mmol/L 23-27 Arterial blood base excess by calculation -2.7 mmo l/L -2.5-2.5 Arterial blood oxygen saturation measurement 100 % 94-100 * Inhaled oxygen flow rate 75% NRG Arterial blood pH measurement with patient temperature correction 7.30 7.37-7.43 Arterial blood carbon dioxide, total measurement (mole s/volume) 24.5 mmol/L 21.0-31.0 Body site LT RAD NRG Assessment of wrist artery patency prior to arterial p uncture YES-POS NRG Setting of ventilation mode YES NR G Measurement of body temperature 97.0 NRG Capillary blood glucose measurement by g lucometer (mass/volume) - 09/07/18 12:02 Capillary blood glucose measurement by glucometer (mas s/volume) 122 mg/dL 70-110 Capillary blood glucose measurement by g lucometer (mass/volume) - 09/07/18 18:13 Capillary blood glucose measurement by glucometer (mas s/volume) 161 mg/dL 70-110 Capillary blood glucose measurement by g lucometer (mass/volume) - 09/08/18 00:38 Capillary blood glucose measurement by glucometer (mas s/volume) 164 mg/dL 70-110 Complete blood count (CBC) with automate d white blood cell (WBC) differential - 09/08/18 03:45 Blood leukocytes automated count (number/volume) 2.7 10*3/uL 4.3-11.0 Blood erythrocytes automated count (number/volume) 4.18 10*6/uL 4.35-5.85 Venous blood hemoglobin measurement (mass/volume) 13.0 g/dL 11.5-16.0 Blood hematocrit (volume fraction) 38 % 35-52 Automated erythrocyte mean corpuscular volume 90 [ foz_us] 80-99 Automated erythrocyte mean corpuscular h emoglobin (mass per erythrocyte) 31 pg 25-34 Automated erythrocyte mean corpuscular h emoglobin concentration measurement (mass/volume) 34 g/dL 32-36 Automated erythrocyte distribution width ratio 13. 8 % 10.0- 14.5 Automated blood platelet count (count/volume) 149 10*3/uL 130-400 Automated blood platelet mean volume measurement 9.7 [foz_us] 7.4-10.4 Automated blood neutrophils/100 leukocytes 81 % 42-75 Automated blood lymphocytes/100 leukocytes 15 % 12-44 Blood monocytes/100 leukocytes 4 % 0-12 Automated blood eosinophils/100 leukocytes 0 % 0-10 Automated blood basophils/100 leukocytes 0 % 0-10 Blood neutrophils automated count (number/volume) 2.2 10*3 1.8-7.8 Blood lymphocytes automated count (number/volume) 0.4 10*3 1.0-4.0 Blood monocytes automated count (number/volume) 0. 1 10*3 0.0-1.0 Automated eosinophil count 0.0 10*3/uL 0 .0-0.3 Automated blood basophil count (count/volume) 0.0 10*3/uL 0.0-0.1 PT panel in platelet poor plasma by coag ulation assay - 09/08/18 03:45 Prothrombin time (PT) in platelet poor plasma by coagu lation assay 25.2 s 12.2-14.7 INR in platelet poor plasma or blood by coagulation as say 2.2 0.8-1.4 Whole blood basic metabolic panel - 08/18 06/04 03:45 Serum or plasma sodium measurement (moles/volume) 133 mmol/L 135-145 Serum or plasma potassium measurement (moles/volume) 3.5 mmol/L 3.6-5.0 Serum or plasma chloride measurement (moles/volume) 107 mmol/L 98-107 Carbon dioxide 17 mmol/L 21-32 Serum or plasma anion gap determination (moles/volume) 9 mmol/L 5-14 Serum or plasma urea nitrogen measurement (mass/volume ) 9 mg/dL 7-18 Serum or plasma creatinine measurement (mass/volume) 0.54 mg/dL 0.60-1.30 Serum or plasma urea nitrogen/creatinine mass ratio 17 NRG Serum or plasma creatinine measurement w ith calculation of estimated glomerular filtration rate > NRG Serum or plasma glucose measurement (mass/volume) 174 mg/dL 70-105 Serum or plasma calcium measurement (mass/volume) 7.2 mg/dL 8.5-10.1 Serum or plasma phosphate measurement (m ass/volume) - 09/08/18 03:45 Serum or plasma phosphate measurement (mass/volume) 3.2 mg/dL 2.3-4.7 Magnesium - 06/23/19 03:45 Magnesium 1.6 mg/dL 1.8-2.4 Arterial blood gas measurement - 9 04:00 Blood pCO2 39 mm[Hg] 35-45 Blood pO2 58 mm[Hg] 79-93 Arterial blood bicarbonate measurement (moles/volume) 19 mmol/L 23-27 Arterial blood base excess by calculation -6.0 mmo l/L -2.5-2.5 Arterial blood oxygen saturation measurement 91 % 94-100 * Inhaled oxygen flow rate 30% NRG Arterial blood pH measurement with patient temperature correction 7.31 7.37-7.43 Arterial blood carbon dioxide, total measurement (mole s/volume) 20.5 mmol/L 21.0-31.0 Body site LEFT RADIAL NRG Assessment of wrist artery patency prior to arterial p uncture POSITIVE NRG Setting of ventilation mode YES NR G Measurement of body temperature 96.9 NRG Blood lactic acid measurement (moles/vol ume) - 09/08/18 05:40 Blood lactic acid measurement (moles/volume) 1.39 mmol/L 0.50-2.00 Capillary blood glucose measurement by g lucometer (mass/volume) - 09/08/18 12:00 Capillary blood glucose measurement by glucometer (mas s/volume) 178 mg/dL 70-110 Capillary blood glucose measurement by g lucometer (mass/volume) - 09/08/18 17:20 Capillary blood glucose measurement by glucometer (mas s/volume) 142 mg/dL 70-110 Capillary blood glucose measurement by g lucometer (mass/volume) - 09/08/18 23:41 Capillary blood glucose measurement by glucometer (mas s/volume) 131 mg/dL 70-110 Complete blood count (CBC) with automate d white blood cell (WBC) differential - 09/09/18 03:30 Blood leukocytes automated count (number/volume) 3.4 10*3/uL 4.3-11.0 Blood erythrocytes automated count (number/volume) 4.17 10*6/uL 4.35-5.85 Venous blood hemoglobin measurement (mass/volume) 12.7 g/dL 11.5-16.0 Blood hematocrit (volume fraction) 37 % 35-52 Automated erythrocyte mean corpuscular volume 90 [ foz_us] 80-99 Automated erythrocyte mean corpuscular h emoglobin (mass per erythrocyte) 30 pg 25-34 Automated erythrocyte mean corpuscular h emoglobin concentration measurement (mass/volume) 34 g/dL 32-36 Automated erythrocyte distribution width ratio 14. 1 % 10.0- 14.5 Automated blood platelet count (count/volume) 161 10*3/uL 130-400 Automated blood platelet mean volume measurement 9.7 [foz_us] 7.4-10.4 Automated blood neutrophils/100 leukocytes 85 % 42-75 Automated blood lymphocytes/100 leukocytes 12 % 12-44 Blood monocytes/100 leukocytes 4 % 0-12 Automated blood eosinophils/100 leukocytes 0 % 0-10 Automated blood basophils/100 leukocytes 0 % 0-10 Blood neutrophils automated count (number/volume) 2.9 10*3 1.8-7.8 Blood lymphocytes automated count (number/volume) 0.4 10*3 1.0-4.0 Blood monocytes automated count (number/volume) 0. 1 10*3 0.0-1.0 Automated eosinophil count 0.0 10*3/uL 0 .0-0.3 Automated blood basophil count (count/volume) 0.0 10*3/uL 0.0-0.1 Arterial blood gas measurement - 9 03:30 Blood pCO2 36 mm[Hg] 35-45 Blood pO2 64 mm[Hg] 79-93 Arterial blood bicarbonate measurement (moles/volume) 20 mmol/L 23-27 Arterial blood base excess by calculation -5.0 mmo l/L -2.5-2.5 Arterial blood oxygen saturation measurement 95 % 94-100 * Inhaled oxygen flow rate 30% NRG Arterial blood pH measurement with patient temperature correction 7.36 7.37-7.43 Arterial blood carbon dioxide, total measurement (mole s/volume) 21.0 mmol/L 21.0-31.0 Body site LEFT RADIAL NRG Assessment of wrist artery patency prior to arterial p uncture POSITIVE NRG Setting of ventilation mode YES NR G Measurement of body temperature 96 NRG PT panel in platelet poor plasma by coag ulation assay - 09/09/18 03:30 Prothrombin time (PT) in platelet poor plasma by coagu lation assay 34.1 s 12.2-14.7 INR in platelet poor plasma or blood by coagulation as say 3.2 0.8-1.4 Serum or plasma phosphate measurement (m ass/volume) - 09/09/18 03:30 Serum or plasma phosphate measurement (mass/volume) 2.3 mg/dL 2.3-4.7 Serum or plasma triglyceride measurement (mass/volume) - 09/09/18 03:30 Serum or plasma triglyceride measurement (mass/volume) 62 mg/dL <150 Whole blood basic metabolic panel - 08/18 07/05 03:30 Serum or plasma sodium measurement (moles/volume) 133 mmol/L 135-145 Serum or plasma potassium measurement (moles/volume) 3.6 mmol/L 3.6-5.0 Serum or plasma chloride measurement (moles/volume) 109 mmol/L 98-107 Carbon dioxide 17 mmol/L 21-32 Serum or plasma anion gap determination (moles/volume) 7 mmol/L 5-14 Serum or plasma urea nitrogen measurement (mass/volume ) 6 mg/dL 7-18 Serum or plasma creatinine measurement (mass/volume) 0.47 mg/dL 0.60-1.30 Serum or plasma urea nitrogen/creatinine mass ratio 13 NRG Serum or plasma creatinine measurement w ith calculation of estimated glomerular filtration rate > NRG Serum or plasma glucose measurement (mass/volume) 128 mg/dL 70-105 Serum or plasma calcium measurement (mass/volume) 7.2 mg/dL 8.5-10.1 Magnesium - 09/09/18 03:30 Magnesium 2.2 mg/dL 1.8-2.4 Fungus culture - 09/09/18 06:30 QUANTITY OF GROWTH . NRG Fungus culture [id number] NRG Sputum Gram stain - 09/09/18 06:31 Sputum Gram stain No bacteria seen NRG Bacteria identification in bronchial spe cimen by aerobe culture - 09/09/18 06:31 QUANTITY OF GROWTH . NRG Bacteria identification in bronchial specimen by aerob e culture [id number] NRG FTX;REPORTABLE 3,000 CFU/ML NRG Fungus culture - 09/09/18 06:31 QUANTITY OF GROWTH FEW NRG Fungus culture [id number] NRG Mycobacterium species detection by organ ism specific culture - 09/09/18 06:31 DATE/TIME MICROSCOPIC 09/10/18 NRG MICROSCOPIC AFB SMEAR NEGATIVE NRG Capillary blood glucose measurement by g lucometer (mass/volume) - 09/09/18 12:02 Capillary blood glucose measurement by glucometer (mas s/volume) 145 mg/dL 70-110 Capillary blood glucose measurement by g lucometer (mass/volume) - 09/09/18 18:04 Capillary blood glucose measurement by glucometer (mas s/volume) 118 mg/dL 70-110 Capillary blood glucose measurement by g lucometer (mass/volume) - 09/09/18 23:30 Capillary blood glucose measurement by glucometer (mas s/volume) 113 mg/dL 70-110 Arterial blood gas measurement - 9 03:20 Blood pCO2 36 mm[Hg] 35-45 Blood pO2 62 mm[Hg] 79-93 Arterial blood bicarbonate measurement (moles/volume) 22 mmol/L 23-27 Arterial blood base excess by calculation -2.5 mmo l/L -2.5-2.5 Arterial blood oxygen saturation measurement 94 % 94-100 * Inhaled oxygen flow rate 25% VENT NRG Arterial blood pH measurement with patient temperature correction 7.39 7.37-7.43 Arterial blood carbon dioxide, total measurement (mole s/volume) 23.1 mmol/L 21.0-31.0 Body site LEFT RADIAL NRG Assessment of wrist artery patency prior to arterial p uncture POSITIVE NRG Setting of ventilation mode YES NR G Measurement of body temperature 96.0 NRG Complete blood count (CBC) with automate d white blood cell (WBC) differential - 09/10/18 03:20 Blood leukocytes automated count (number/volume) 4.0 10*3/uL 4.3-11.0 Blood erythrocytes automated count (number/volume) 4.12 10*6/uL 4.35-5.85 Venous blood hemoglobin measurement (mass/volume) 12.7 g/dL 11.5-16.0 Blood hematocrit (volume fraction) 37 % 35-52 Automated erythrocyte mean corpuscular volume 90 [ foz_us] 80-99 Automated erythrocyte mean corpuscular h emoglobin (mass per erythrocyte) 31 pg 25-34 Automated erythrocyte mean corpuscular h emoglobin concentration measurement (mass/volume) 34 g/dL 32-36 Automated erythrocyte distribution width ratio 14. 2 % 10.0- 14.5 Automated blood platelet count (count/volume) 151 10*3/uL 130-400 Automated blood platelet mean volume measurement 10.1 [foz_us] 7.4-10.4 Automated blood neutrophils/100 leukocytes 86 % 42-75 Automated blood lymphocytes/100 leukocytes 11 % 12-44 Blood monocytes/100 leukocytes 3 % 0-12 Automated blood eosinophils/100 leukocytes 0 % 0-10 Automated blood basophils/100 leukocytes 0 % 0-10 Blood neutrophils automated count (number/volume) 3.4 10*3 1.8-7.8 Blood lymphocytes automated count (number/volume) 0.5 10*3 1.0-4.0 Blood monocytes automated count (number/volume) 0. 1 10*3 0.0-1.0 Automated eosinophil count 0.0 10*3/uL 0 .0-0.3 Automated blood basophil count (count/volume) 0.0 10*3/uL 0.0-0.1 PT panel in platelet poor plasma by coag ulation assay - 09/10/18 03:20 Prothrombin time (PT) in platelet poor plasma by coagu lation assay 41.6 s 12.2-14.7 INR in platelet poor plasma or blood by coagulation as say 4.1 0.8-1.4 Whole blood basic metabolic panel - 08/18 08/04 03:20 Serum or plasma sodium measurement (moles/volume) 136 mmol/L 135-145 Serum or plasma potassium measurement (moles/volume) 4.0 mmol/L 3.6-5.0 Serum or plasma chloride measurement (moles/volume) 109 mmol/L 98-107 Carbon dioxide 21 mmol/L 21-32 Serum or plasma anion gap determination (moles/volume) 6 mmol/L 5-14 Serum or plasma urea nitrogen measurement (mass/volume ) 7 mg/dL 7-18 Serum or plasma creatinine measurement (mass/volume) 0.46 mg/dL 0.60-1.30 Serum or plasma urea nitrogen/creatinine mass ratio 15 NRG Serum or plasma creatinine measurement w ith calculation of estimated glomerular filtration rate > NRG Serum or plasma glucose measurement (mass/volume) 121 mg/dL 70-105 Serum or plasma calcium measurement (mass/volume) 7.2 mg/dL 8.5-10.1 Serum or plasma phosphate measurement (m ass/volume) - 09/10/18 03:20 Serum or plasma phosphate measurement (mass/volume) 2.8 mg/dL 2.3-4.7 Magnesium - 09/10/18 03:20 Magnesium 2.1 mg/dL 1.8-2.4 Capillary blood glucose measurement by g lucometer (mass/volume) - 09/10/18 11:43 Capillary blood glucose measurement by glucometer (mas s/volume) 74 mg/dL 70-110 Capillary blood glucose measurement by g lucometer (mass/volume) - 09/10/18 17:35 Capillary blood glucose measurement by glucometer (mas s/volume) 74 mg/dL 70-110 Capillary blood glucose measurement by g lucometer (mass/volume) - 09/10/18 23:56 Capillary blood glucose measurement by glucometer (mas s/volume) 95 mg/dL 70-110 Complete blood count (CBC) with automate d white blood cell (WBC) differential - 09/11/18 03:05 Blood leukocytes automated count (number/volume) 13.0 10*3/uL 4.3-11.0 Blood erythrocytes automated count (number/volume) 4.33 10*6/uL 4.35-5.85 Venous blood hemoglobin measurement (mass/volume) 13.4 g/dL 11.5-16.0 Blood hematocrit (volume fraction) 39 % 35-52 Automated erythrocyte mean corpuscular volume 89 [ foz_us] 80-99 Automated erythrocyte mean corpuscular h emoglobin (mass per erythrocyte) 31 pg 25-34 Automated erythrocyte mean corpuscular h emoglobin concentration measurement (mass/volume) 35 g/dL 32-36 Automated erythrocyte distribution width ratio 14. 9 % 10.0- 14.5 Automated blood platelet count (count/volume) 217 10*3/uL 130-400 Automated blood platelet mean volume measurement 9.3 [foz_us] 7.4-10.4 Automated blood neutrophils/100 leukocytes 88 % 42-75 Automated blood lymphocytes/100 leukocytes 6 % 12-44 Blood monocytes/100 leukocytes 6 % 0-12 Automated blood eosinophils/100 leukocytes 0 % 0-10 Automated blood basophils/100 leukocytes 0 % 0-10 Blood neutrophils automated count (number/volume) 11.5 10*3 1.8-7.8 Blood lymphocytes automated count (number/volume) 0.8 10*3 1.0-4.0 Blood monocytes automated count (number/volume) 0. 8 10*3 0.0-1.0 Automated eosinophil count 0.0 10*3/uL 0 .0-0.3 Automated blood basophil count (count/volume) 0.0 10*3/uL 0.0-0.1 Whole blood basic metabolic panel - 08/18 09/04 03:05 Serum or plasma sodium measurement (moles/volume) 140 mmol/L 135-145 Serum or plasma potassium measurement (moles/volume) 4.0 mmol/L 3.6-5.0 Serum or plasma chloride measurement (moles/volume) 107 mmol/L 98-107 Carbon dioxide 19 mmol/L 21-32 Serum or plasma anion gap determination (moles/volume) 14 mmol/L 5-14 Serum or plasma urea nitrogen measurement (mass/volume ) 9 mg/dL 7-18 Serum or plasma creatinine measurement (mass/volume) 0.58 mg/dL 0.60-1.30 Serum or plasma urea nitrogen/creatinine mass ratio 16 NRG Serum or plasma creatinine measurement w ith calculation of estimated glomerular filtration rate > NRG Serum or plasma glucose measurement (mass/volume) 63 mg/dL 70-105 Serum or plasma calcium measurement (mass/volume) 8.0 mg/dL 8.5-10.1 Magnesium - 09/11/18 03:05 Magnesium 2.0 mg/dL 1.8-2.4 PT panel in platelet poor plasma by coag ulation assay - 09/11/18 03:05 Prothrombin time (PT) in platelet poor plasma by coagu lation assay 33.6 s 12.2-14.7 INR in platelet poor plasma or blood by coagulation as say 3.1 0.8-1.4 Capillary blood glucose measurement by g lucometer (mass/volume) - 09/11/18 04:24 Capillary blood glucose measurement by glucometer (mas s/volume) 132 mg/dL 70-110 Capillary blood glucose measurement by g lucometer (mass/volume) - 09/11/18 11:21 Capillary blood glucose measurement by glucometer (mas s/volume) 95 mg/dL 70-110 Capillary blood glucose measurement by g lucometer (mass/volume) - 09/11/18 17:09 Capillary blood glucose measurement by glucometer (mas s/volume) 145 mg/dL 70-110 Capillary blood glucose measurement by g lucometer (mass/volume) - 09/12/18 00:28 Capillary blood glucose measurement by glucometer (mas s/volume) 127 mg/dL 70-110 Complete blood count (CBC) with automate d white blood cell (WBC) differential - 09/12/18 03:00 Blood leukocytes automated count (number/volume) 6.5 10*3/uL 4.3-11.0 Blood erythrocytes automated count (number/volume) 4.06 10*6/uL 4.35-5.85 Venous blood hemoglobin measurement (mass/volume) 12.7 g/dL 11.5-16.0 Blood hematocrit (volume fraction) 37 % 35-52 Automated erythrocyte mean corpuscular volume 91 [ foz_us] 80-99 Automated erythrocyte mean corpuscular h emoglobin (mass per erythrocyte) 31 pg 25-34 Automated erythrocyte mean corpuscular h emoglobin concentration measurement (mass/volume) 34 g/dL 32-36 Automated erythrocyte distribution width ratio 14. 5 % 10.0- 14.5 Automated blood platelet count (count/volume) 124 10*3/uL 130-400 Automated blood platelet mean volume measurement 9.6 [foz_us] 7.4-10.4 Automated blood neutrophils/100 leukocytes 86 % 42-75 Automated blood lymphocytes/100 leukocytes 11 % 12-44 Blood monocytes/100 leukocytes 3 % 0-12 Automated blood eosinophils/100 leukocytes 0 % 0-10 Automated blood basophils/100 leukocytes 0 % 0-10 Blood neutrophils automated count (number/volume) 5.6 10*3 1.8-7.8 Blood lymphocytes automated count (number/volume) 0.7 10*3 1.0-4.0 Blood monocytes automated count (number/volume) 0. 2 10*3 0.0-1.0 Automated eosinophil count 0.0 10*3/uL 0 .0-0.3 Automated blood basophil count (count/volume) 0.0 10*3/uL 0.0-0.1 PT panel in platelet poor plasma by coag ulation assay - 09/12/18 03:00 Prothrombin time (PT) in platelet poor plasma by coagu lation assay 28.9 s 12.2-14.7 INR in platelet poor plasma or blood by coagulation as say 2.6 0.8-1.4 Whole blood basic metabolic panel - 08/18 10/04 03:00 Serum or plasma sodium measurement (moles/volume) 138 mmol/L 135-145 Serum or plasma potassium measurement (moles/volume) 4.2 mmol/L 3.6-5.0 Serum or plasma chloride measurement (moles/volume) 105 mmol/L 98-107 Carbon dioxide 21 mmol/L 21-32 Serum or plasma anion gap determination (moles/volume) 12 mmol/L 5-14 Serum or plasma urea nitrogen measurement (mass/volume ) 14 mg/dL 7-18 Serum or plasma creatinine measurement (mass/volume) 0.58 mg/dL 0.60-1.30 Serum or plasma urea nitrogen/creatinine mass ratio 24 NRG Serum or plasma creatinine measurement w ith calculation of estimated glomerular filtration rate > NRG Serum or plasma glucose measurement (mass/volume) 95 mg/dL 70-105 Serum or plasma calcium measurement (mass/volume) 8.0 mg/dL 8.5-10.1 Serum or plasma phosphate measurement (m ass/volume) - 09/12/18 03:00 Serum or plasma phosphate measurement (mass/volume) 4.1 mg/dL 2.3-4.7 Magnesium - 09/12/18 03:00 Magnesium 2.0 mg/dL 1.8-2.4 Capillary blood glucose measurement by g lucometer (mass/volume) - 09/12/18 11:46 Capillary blood glucose measurement by glucometer (mas s/volume) 117 mg/dL 70-110 Capillary blood glucose measurement by g lucometer (mass/volume) - 09/12/18 17:59 Capillary blood glucose measurement by glucometer (mas s/volume) 118 mg/dL 70-110 Capillary blood glucose measurement by g lucometer (mass/volume) - 09/13/18 00:12 Capillary blood glucose measurement by glucometer (mas s/volume) 201 mg/dL 70-110 Complete blood count (CBC) with automate d white blood cell (WBC) differential - 09/13/18 02:40 Blood leukocytes automated count (number/volume) 10.7 10*3/uL 4.3-11.0 Blood erythrocytes automated count (number/volume) 4.26 10*6/uL 4.35-5.85 Venous blood hemoglobin measurement (mass/volume) 13.3 g/dL 11.5-16.0 Blood hematocrit (volume fraction) 38 % 35-52 Automated erythrocyte mean corpuscular volume 90 [ foz_us] 80-99 Automated erythrocyte mean corpuscular h emoglobin (mass per erythrocyte) 31 pg 25-34 Automated erythrocyte mean corpuscular h emoglobin concentration measurement (mass/volume) 35 g/dL 32-36 Automated erythrocyte distribution width ratio 14. 6 % 10.0- 14.5 Automated blood platelet count (count/volume) 155 10*3/uL 130-400 Automated blood platelet mean volume measurement 9.7 [foz_us] 7.4-10.4 Automated blood neutrophils/100 leukocytes 87 % 42-75 Automated blood lymphocytes/100 leukocytes 10 % 12-44 Blood monocytes/100 leukocytes 4 % 0-12 Automated blood eosinophils/100 leukocytes 0 % 0-10 Automated blood basophils/100 leukocytes 0 % 0-10 Blood neutrophils automated count (number/volume) 9.3 10*3 1.8-7.8 Blood lymphocytes automated count (number/volume) 1.1 10*3 1.0-4.0 Blood monocytes automated count (number/volume) 0. 4 10*3 0.0-1.0 Automated eosinophil count 0.0 10*3/uL 0 .0-0.3 Automated blood basophil count (count/volume) 0.0 10*3/uL 0.0-0.1 Whole blood basic metabolic panel - 08/18 11/04 02:45 Serum or plasma sodium measurement (moles/volume) 134 mmol/L 135-145 Serum or plasma potassium measurement (moles/volume) 3.5 mmol/L 3.6-5.0 Serum or plasma chloride measurement (moles/volume) 98 mmol/L 98-107 Carbon dioxide 26 mmol/L 21-32 Serum or plasma anion gap determination (moles/volume) 10 mmol/L 5-14 Serum or plasma urea nitrogen measurement (mass/volume ) 13 mg/dL 7-18 Serum or plasma creatinine measurement (mass/volume) 0.60 mg/dL 0.60-1.30 Serum or plasma urea nitrogen/creatinine mass ratio 22 NRG Serum or plasma creatinine measurement w ith calculation of estimated glomerular filtration rate > NRG Serum or plasma glucose measurement (mass/volume) 82 mg/dL 70-105 Serum or plasma calcium measurement (mass/volume) 8.3 mg/dL 8.5-10.1 Serum or plasma phosphate measurement (m ass/volume) - 09/13/18 02:45 Serum or plasma phosphate measurement (mass/volume) 3.3 mg/dL 2.3-4.7 Magnesium - 09/13/18 02:45 Magnesium 1.9 mg/dL 1.8-2.4 PT panel in platelet poor plasma by coag ulation assay - 09/13/18 02:50 Prothrombin time (PT) in platelet poor plasma by coagu lation assay 42.8 s 12.2-14.7 INR in platelet poor plasma or blood by coagulation as say 4.2 0.8-1.4 Capillary blood glucose measurement by g lucometer (mass/volume) - 09/13/18 05:26 Capillary blood glucose measurement by glucometer (mas s/volume) 140 mg/dL 70-110 Capillary blood glucose measurement by g lucometer (mass/volume) - 09/13/18 12:38 Capillary blood glucose measurement by glucometer (mas s/volume) 149 mg/dL 70-110 Capillary blood glucose measurement by g lucometer (mass/volume) - 09/13/18 17:42 Capillary blood glucose measurement by glucometer (mas s/volume) 108 mg/dL 70-110 Capillary blood glucose measurement by g lucometer (mass/volume) - 09/14/18 00:09 Capillary blood glucose measurement by glucometer (mas s/volume) 108 mg/dL 70-110 Capillary blood glucose measurement by g lucometer (mass/volume) - 09/14/18 05:12 Capillary blood glucose measurement by glucometer (mas s/volume) 107 mg/dL 70-110 Complete blood count (CBC) with automate d white blood cell (WBC) differential - 09/14/18 05:43 Blood leukocytes automated count (number/volume) 9.9 10*3/uL 4.3-11.0 Blood erythrocytes automated count (number/volume) 4.36 10*6/uL 4.35-5.85 Venous blood hemoglobin measurement (mass/volume) 13.7 g/dL 11.5-16.0 Blood hematocrit (volume fraction) 39 % 35-52 Automated erythrocyte mean corpuscular volume 90 [ foz_us] 80-99 Automated erythrocyte mean corpuscular h emoglobin (mass per erythrocyte) 31 pg 25-34 Automated erythrocyte mean corpuscular h emoglobin concentration measurement (mass/volume) 35 g/dL 32-36 Automated erythrocyte distribution width ratio 14. 2 % 10.0- 14.5 Automated blood platelet count (count/volume) 149 10*3/uL 130-400 Automated blood platelet mean volume measurement 9.7 [foz_us] 7.4-10.4 Automated blood neutrophils/100 leukocytes 73 % 42-75 Automated blood lymphocytes/100 leukocytes 20 % 12-44 Blood monocytes/100 leukocytes 7 % 0-12 Automated blood eosinophils/100 leukocytes 1 % 0-10 Automated blood basophils/100 leukocytes 0 % 0-10 Blood neutrophils automated count (number/volume) 7.2 10*3 1.8-7.8 Blood lymphocytes automated count (number/volume) 2.0 10*3 1.0-4.0 Blood monocytes automated count (number/volume) 0. 7 10*3 0.0-1.0 Automated eosinophil count 0.1 10*3/uL 0 .0-0.3 Automated blood basophil count (count/volume) 0.0 10*3/uL 0.0-0.1 PT panel in platelet poor plasma by coag ulation assay - 09/14/18 05:43 Prothrombin time (PT) in platelet poor plasma by coagu lation assay 37.9 s 12.2-14.7 INR in platelet poor plasma or blood by coagulation as say 3.6 0.8-1.4 Comprehensive metabolic panel - 09/14/18 05:43 Serum or plasma sodium measurement (moles/volume) 134 mmol/L 135-145 Serum or plasma potassium measurement (moles/volume) 4.1 mmol/L 3.6-5.0 Serum or plasma chloride measurement (moles/volume) 98 mmol/L 98-107 Carbon dioxide 26 mmol/L 21-32 Serum or plasma anion gap determination (moles/volume) 10 mmol/L 5-14 Serum or plasma urea nitrogen measurement (mass/volume ) 11 mg/dL 7-18 Serum or plasma creatinine measurement (mass/volume) 0.55 mg/dL 0.60-1.30 Serum or plasma urea nitrogen/creatinine mass ratio 20 NRG Serum or plasma creatinine measurement w ith calculation of estimated glomerular filtration rate > NRG Serum or plasma glucose measurement (mass/volume) 73 mg/dL 70-105 Serum or plasma calcium measurement (mass/volume) 8.7 mg/dL 8.5-10.1 Serum or plasma total bilirubin measurement (mass/volu me) 0.5 mg/dL 0.1-1.0 Serum or plasma alkaline phosphatase lucero surement (enzymatic activity/volume) 39 U/L 40-136 Serum or plasma aspartate aminotransfera se measurement (enzymatic activity/volume) 20 U/L 5-34 Serum or plasma alanine aminotransferase measurement (enzymatic activity/volume) 25 U/L 0-55 Serum or plasma protein measurement (mass/volume) 5.6 g/dL 6.4-8.2 Serum or plasma albumin measurement (mass/volume) 3.2 g/dL 3.2-4.5 CALCIUM CORRECTED 9.3 mg/dL 8.5-10.1 Comprehensive metabolic panel - 09/16/18 05:25 Serum or plasma sodium measurement (moles/volume) 133 mmol/L 135-145 Serum or plasma potassium measurement (moles/volume) 4.1 mmol/L 3.6-5.0 Serum or plasma chloride measurement (moles/volume) 98 mmol/L 98-107 Carbon dioxide 27 mmol/L 21-32 Serum or plasma anion gap determination (moles/volume) 8 mmol/L 5-14 Serum or plasma urea nitrogen measurement (mass/volume ) 13 mg/dL 7-18 Serum or plasma creatinine measurement (mass/volume) 0.61 mg/dL 0.60-1.30 Serum or plasma urea nitrogen/creatinine mass ratio 21 NRG Serum or plasma creatinine measurement w ith calculation of estimated glomerular filtration rate > NRG Serum or plasma glucose measurement (mass/volume) 87 mg/dL 70-105 Serum or plasma calcium measurement (mass/volume) 8.0 mg/dL 8.5-10.1 Serum or plasma total bilirubin measurement (mass/volu me) 0.4 mg/dL 0.1-1.0 Serum or plasma alkaline phosphatase lucero surement (enzymatic activity/volume) 44 U/L 40-136 Serum or plasma aspartate aminotransfera se measurement (enzymatic activity/volume) 13 U/L 5-34 Serum or plasma alanine aminotransferase measurement (enzymatic activity/volume) 23 U/L 0-55 Serum or plasma protein measurement (mass/volume) 5.2 g/dL 6.4-8.2 Serum or plasma albumin measurement (mass/volume) 3.0 g/dL 3.2-4.5 CALCIUM CORRECTED 8.8 mg/dL 8.5-10.1 Complete blood count (CBC) with automate d white blood cell (WBC) differential - 09/16/18 05:35 Blood leukocytes automated count (number/volume) 6.5 10*3/uL 4.3-11.0 Blood erythrocytes automated count (number/volume) 4.00 10*6/uL 4.35-5.85 Venous blood hemoglobin measurement (mass/volume) 12.4 g/dL 11.5-16.0 Blood hematocrit (volume fraction) 37 % 35-52 Automated erythrocyte mean corpuscular volume 92 [ foz_us] 80-99 Automated erythrocyte mean corpuscular h emoglobin (mass per erythrocyte) 31 pg 25-34 Automated erythrocyte mean corpuscular h emoglobin concentration measurement (mass/volume) 34 g/dL 32-36 Automated erythrocyte distribution width ratio 14. 3 % 10.0- 14.5 Automated blood platelet count (count/volume) 164 10*3/uL 130-400 Automated blood platelet mean volume measurement 9.9 [foz_us] 7.4-10.4 Automated blood neutrophils/100 leukocytes 69 % 42-75 Automated blood lymphocytes/100 leukocytes 24 % 12-44 Blood monocytes/100 leukocytes 7 % 0-12 Automated blood eosinophils/100 leukocytes 1 % 0-10 Automated blood basophils/100 leukocytes 0 % 0-10 Blood neutrophils automated count (number/volume) 4.5 10*3 1.8-7.8 Blood lymphocytes automated count (number/volume) 1.5 10*3 1.0-4.0 Blood monocytes automated count (number/volume) 0. 5 10*3 0.0-1.0 Automated eosinophil count 0.0 10*3/uL 0 .0-0.3 Automated blood basophil count (count/volume) 0.0 10*3/uL 0.0-0.1 PT panel in platelet poor plasma by coag ulation assay - 09/16/18 05:35 Prothrombin time (PT) in platelet poor plasma by coagu lation assay 17.3 s 12.2-14.7 INR in platelet poor plasma or blood by coagulation as say 1.4 0.8-1.4 PT panel in platelet poor plasma by coag ulation assay - 09/18/18 07:00 Prothrombin time (PT) in platelet poor plasma by coagu lation assay 17.7 s 12.2-14.7 INR in platelet poor plasma or blood by coagulation as say 1.4 0.8-1.4 Complete urinalysis with reflex to cultu re - 09/18/18 18:10 Urine color determination YELLOW NRG Urine clarity determination CLEAR NR G Urine pH measurement by test strip 8 5-9 Specific gravity of urine by test strip 1.010 1.016-1.022 Urine protein assay by test strip, semi-quantitative NEGATIVE NEGATIVE Urine glucose detection by automated test strip NE GATIVE NEGATIVE Erythrocytes detection in urine sediment by light micr oscopy 2+ NEGATIVE Urine ketones detection by automated test strip NE GATIVE NEGATIVE Urine nitrite detection by test strip NEGATIVE NEGATIVE Urine total bilirubin detection by test strip NEGA TIVE NEGATIVE Urine urobilinogen measurement by automated test strip (mass/volume) NORMAL NORMAL Urine leukocyte esterase detection by dipstick 2+ NEGATIVE Automated urine sediment erythrocyte cou nt by microscopy (number/high power field) NONE NRG Automated urine sediment leukocyte count by microscopy (number/high power field) [HPF] NRG Bacteria detection in urine sediment by light microsco py FEW NRG Squamous epithelial cells detection in u rine sediment by light microscopy NONE NRG Crystals detection in urine sediment by light microsco py NONE NRG Casts detection in urine sediment by light microscopy NONE NRG Mucus detection in urine sediment by light microscopy NEGATIVE NRG Complete urinalysis with reflex to culture YES NRG Bacterial urine culture - 09/18/18 18:10 Bacterial urine culture [id number] NRG COLONY COUNT 30,000 CFU/ML NRG FTX;REPORTABLE MULTI-DRUG RESISTANT ORGANISM; NRG FREE TEXT ENTRY 2 CONTACT PRECAUTIONS N RG FREE TEXT ENTRY 3 SUSCEPTIBILITY REPORTED 09/21 14:5 0 NRG Dirithromycin susceptibility test by dis k diffusion - 09/18/18 18:10 Trimethoprim/sulfamethoxazole susceptibi lity test by minimum inhibitoryconcentration <= NRG Levofloxacin susceptibility test by minimum inhibitory concentration <= NRG PT panel in platelet poor plasma by coag ulation assay - 09/20/18 05:12 Prothrombin time (PT) in platelet poor plasma by coagu lation assay 25.5 s 12.2-14.7 INR in platelet poor plasma or blood by coagulation as say 2.2 0.8-1.4 Complete blood count (CBC) with automate d white blood cell (WBC) differential - 09/23/18 05:40 Blood leukocytes automated count (number/volume) 7.3 10*3/uL 4.3-11.0 Blood erythrocytes automated count (number/volume) 3.22 10*6/uL 4.35-5.85 Venous blood hemoglobin measurement (mass/volume) 9.9 g/dL 11.5-16.0 Blood hematocrit (volume fraction) 30 % 35-52 Automated erythrocyte mean corpuscular volume 94 [ foz_us] 80-99 Automated erythrocyte mean corpuscular h emoglobin (mass per erythrocyte) 31 pg 25-34 Automated erythrocyte mean corpuscular h emoglobin concentration measurement (mass/volume) 33 g/dL 32-36 Automated erythrocyte distribution width ratio 15. 1 % 10.0- 14.5 Automated blood platelet count (count/volume) 190 10*3/uL 130-400 Automated blood platelet mean volume measurement 9.6 [foz_us] 7.4-10.4 Automated blood neutrophils/100 leukocytes 64 % 42-75 Automated blood lymphocytes/100 leukocytes 29 % 12-44 Blood monocytes/100 leukocytes 5 % 0-12 Automated blood eosinophils/100 leukocytes 1 % 0-10 Automated blood basophils/100 leukocytes 0 % 0-10 Blood neutrophils automated count (number/volume) 4.7 10*3 1.8-7.8 Blood lymphocytes automated count (number/volume) 2.1 10*3 1.0-4.0 Blood monocytes automated count (number/volume) 0. 4 10*3 0.0-1.0 Automated eosinophil count 0.1 10*3/uL 0 .0-0.3 Automated blood basophil count (count/volume) 0.0 10*3/uL 0.0-0.1 PT panel in platelet poor plasma by coag ulation assay - 09/23/18 05:40 Prothrombin time (PT) in platelet poor plasma by coagu lation assay 32.0 s 12.2-14.7 INR in platelet poor plasma or blood by coagulation as say 2.9 0.8-1.4 Comprehensive metabolic panel - 09/23/18 05:40 Serum or plasma sodium measurement (moles/volume) 134 mmol/L 135-145 Serum or plasma potassium measurement (moles/volume) 4.0 mmol/L 3.6-5.0 Serum or plasma chloride measurement (moles/volume) 101 mmol/L 98-107 Carbon dioxide 26 mmol/L 21-32 Serum or plasma anion gap determination (moles/volume) 7 mmol/L 5-14 Serum or plasma urea nitrogen measurement (mass/volume ) 12 mg/dL 7-18 Serum or plasma creatinine measurement (mass/volume) 0.57 mg/dL 0.60-1.30 Serum or plasma urea nitrogen/creatinine mass ratio 21 NRG Serum or plasma creatinine measurement w ith calculation of estimated glomerular filtration rate > NRG Serum or plasma glucose measurement (mass/volume) 83 mg/dL 70-105 Serum or plasma calcium measurement (mass/volume) 8.0 mg/dL 8.5-10.1 Serum or plasma total bilirubin measurement (mass/volu me) 0.3 mg/dL 0.1-1.0 Serum or plasma alkaline phosphatase lucero surement (enzymatic activity/volume) 39 U/L 40-136 Serum or plasma aspartate aminotransfera se measurement (enzymatic activity/volume) 13 U/L 5-34 Serum or plasma alanine aminotransferase measurement (enzymatic activity/volume) 29 U/L 0-55 Serum or plasma protein measurement (mass/volume) 4.8 g/dL 6.4-8.2 Serum or plasma albumin measurement (mass/volume) 2.8 g/dL 3.2-4.5 CALCIUM CORRECTED 9.0 mg/dL 8.5-10.1 PT panel in platelet poor plasma by coag ulation assay - 09/26/18 06:04 Prothrombin time (PT) in platelet poor plasma by coagu lation assay 28.0 s 12.2-14.7 INR in platelet poor plasma or blood by coagulation as say 2.5 0.8-1.4 Complete blood count (CBC) with automate d white blood cell (WBC) differential - 09/26/18 06:04 Blood leukocytes automated count (number/volume) 8.0 10*3/uL 4.3-11.0 Blood erythrocytes automated count (number/volume) 3.14 10*6/uL 4.35-5.85 Venous blood hemoglobin measurement (mass/volume) 9.9 g/dL 11.5-16.0 Blood hematocrit (volume fraction) 29 % 35-52 Automated erythrocyte mean corpuscular volume 93 [ foz_us] 80-99 Automated erythrocyte mean corpuscular h emoglobin (mass per erythrocyte) 32 pg 25-34 Automated erythrocyte mean corpuscular h emoglobin concentration measurement (mass/volume) 34 g/dL 32-36 Automated erythrocyte distribution width ratio 15. 2 % 10.0- 14.5 Automated blood platelet count (count/volume) 180 10*3/uL 130-400 Automated blood platelet mean volume measurement 9.8 [foz_us] 7.4-10.4 Automated blood neutrophils/100 leukocytes 88 % 42-75 Automated blood lymphocytes/100 leukocytes 6 % 12-44 Blood monocytes/100 leukocytes 3 % 0-12 Automated blood eosinophils/100 leukocytes 2 % 0-10 Automated blood basophils/100 leukocytes 0 % 0-10 Blood neutrophils automated count (number/volume) 7.1 10*3 1.8-7.8 Blood lymphocytes automated count (number/volume) 0.5 10*3 1.0-4.0 Blood monocytes automated count (number/volume) 0. 3 10*3 0.0-1.0 Automated eosinophil count 0.2 10*3/uL 0 .0-0.3 Automated blood basophil count (count/volume) 0.0 10*3/uL 0.0-0.1 Comprehensive metabolic panel - 09/26/18 06:04 Serum or plasma sodium measurement (moles/volume) 131 mmol/L 135-145 Serum or plasma potassium measurement (moles/volume) 3.8 mmol/L 3.6-5.0 Serum or plasma chloride measurement (moles/volume) 98 mmol/L 98-107 Carbon dioxide 25 mmol/L 21-32 Serum or plasma anion gap determination (moles/volume) 8 mmol/L 5-14 Serum or plasma urea nitrogen measurement (mass/volume ) 17 mg/dL 7-18 Serum or plasma creatinine measurement (mass/volume) 0.63 mg/dL 0.60-1.30 Serum or plasma urea nitrogen/creatinine mass ratio 27 NRG Serum or plasma creatinine measurement w ith calculation of estimated glomerular filtration rate > NRG Serum or plasma glucose measurement (mass/volume) 107 mg/dL 70-105 Serum or plasma calcium measurement (mass/volume) 8.2 mg/dL 8.5-10.1 Serum or plasma total bilirubin measurement (mass/volu me) 0.3 mg/dL 0.1-1.0 Serum or plasma alkaline phosphatase lucero surement (enzymatic activity/volume) 61 U/L 40-136 Serum or plasma aspartate aminotransfera se measurement (enzymatic activity/volume) 13 U/L 5-34 Serum or plasma alanine aminotransferase measurement (enzymatic activity/volume) 20 U/L 0-55 Serum or plasma protein measurement (mass/volume) 4.9 g/dL 6.4-8.2 Serum or plasma albumin measurement (mass/volume) 2.7 g/dL 3.2-4.5 CALCIUM CORRECTED 9.2 mg/dL 8.5-10.1 Manual absolute plasma cell count - 09/16 04/06 06:04 Blood monocytes/100 leukocytes 2 % NRG Manual blood segmented neutrophils/100 leukocytes 86 % NRG Blood band neutrophils/100 leukocytes 2 % NRG Manual blood lymphocytes/100 leukocytes 5 % NRG Manual eosinophils/100 leukocytes in nose 5 % NRG Manual blood basophils/100 leukocytes 0 % NRG Blood erythrocyte morphology finding identification NORMAL NRG Complete urinalysis with reflex to cultu re - 09/26/18 08:00 Urine color determination YELLOW NRG Urine clarity determination VERY CLOUDY NRG Urine pH measurement by test strip 7 5-9 Specific gravity of urine by test strip 1.010 1.016-1.022 Urine protein assay by test strip, semi-quantitative 3+ NEGATIVE Urine glucose detection by automated test strip NE GATIVE NEGATIVE Erythrocytes detection in urine sediment by light micr oscopy 5+ NEGATIVE Urine ketones detection by automated test strip 1+ NEGATIVE Urine nitrite detection by test strip POSITIVE NEGATIVE Urine total bilirubin detection by test strip 1+ NEGATIVE Urine urobilinogen measurement by automated test strip (mass/volume) 4 mg/dL NORMAL Urine leukocyte esterase detection by dipstick 3+ NEGATIVE Automated urine sediment erythrocyte cou nt by microscopy (number/high power field) TNTC NRG Automated urine sediment leukocyte count by microscopy (number/high power field) [HPF] NRG Bacteria detection in urine sediment by light microsco py MODERATE NRG Squamous epithelial cells detection in u rine sediment by light microscopy RARE NRG Crystals detection in urine sediment by light microsco py NONE NRG Casts detection in urine sediment by light microscopy NONE NRG Mucus detection in urine sediment by light microscopy NEGATIVE NRG Complete urinalysis with reflex to culture YES NRG Complete urinalysis with reflex to cultu re - 09/26/18 09:55 Urine color determination YELLOW NRG Urine clarity determination CLEAR NR G Urine pH measurement by test strip 7 5-9 Specific gravity of urine by test strip 1.010 1.016-1.022 Urine protein assay by test strip, semi-quantitative 1+ NEGATIVE Urine glucose detection by automated test strip NE GATIVE NEGATIVE Erythrocytes detection in urine sediment by light micr oscopy 5+ NEGATIVE Urine ketones detection by automated test strip NE GATIVE NEGATIVE Urine nitrite detection by test strip NEGATIVE NEGATIVE Urine total bilirubin detection by test strip NEGA TIVE NEGATIVE Urine urobilinogen measurement by automated test strip (mass/volume) NORMAL NORMAL Urine leukocyte esterase detection by dipstick 3+ NEGATIVE Automated urine sediment erythrocyte cou nt by microscopy (number/high power field) [HPF] NRG Automated urine sediment leukocyte count by microscopy (number/high power field) [HPF] NRG Bacteria detection in urine sediment by light microsco py NEGATIVE NRG Squamous epithelial cells detection in u rine sediment by light microscopy 0-2 NRG Crystals detection in urine sediment by light microsco py NONE NRG Casts detection in urine sediment by light microscopy NONE NRG Mucus detection in urine sediment by light microscopy NEGATIVE NRG Complete urinalysis with reflex to culture YES NRG Bacterial urine culture - 09/26/18 09:55 Bacterial urine culture [id number] NRG COLONY COUNT 20,000 CFU/ML NRG FTX;REPORTABLE SUSCEPTIBILITY REPORTED 09/29/18 11: 40 NRG FREE TEXT ENTRY 2 ID REPORTED 09/27/18 12:05 NRG Dirithromycin susceptibility test by dis k diffusion - 09/26/18 09:55 Oxacillin susceptibility test by minimum inhibitory co ncentration > NRG Trimethoprim/sulfamethoxazole susceptibi lity test by minimum inhibitoryconcentration <= NRG Vancomycin susceptibility test by minimum inhibitory c oncentration 1 NRG Levofloxacin susceptibility test by minimum inhibitory concentration 4 NRG Rifampin susceptibility test by minimum inhibitory con centration <= NRG Cefazolin susceptibility test by minimum inhibitory co ncentration > NRG Nitrofurantoin susceptibility test by mi nimum inhibitory concentration <= NRG Penicillin G susceptibility test by minimum inhibitory concentration > NRG Dirithromycin susceptibility test by dis k diffusion - 09/26/18 09:55 Vancomycin susceptibility test by minimum inhibitory c oncentration 1 NRG Levofloxacin susceptibility test by minimum inhibitory concentration <= NRG Ampicillin susceptibility test by minimum inhibitory c oncentration 2 NRG Nitrofurantoin susceptibility test by mi nimum inhibitory concentration <= NRG Linezolid susceptibility test by minimum inhibitory co ncentration <= NRG Daptomycin susc NYASIA 2 NRG Dirithromycin susceptibility test by dis k diffusion - 09/26/18 09:55 Oxacillin susceptibility test by minimum inhibitory co ncentration > NRG Trimethoprim/sulfamethoxazole susceptibi lity test by minimum inhibitoryconcentration <= NRG Vancomycin susceptibility test by minimum inhibitory c oncentration 1 NRG Levofloxacin susceptibility test by minimum inhibitory concentration 4 NRG Rifampin susceptibility test by minimum inhibitory con centration <= NRG Cefazolin susceptibility test by minimum inhibitory co ncentration > NRG Nitrofurantoin susceptibility test by mi nimum inhibitory concentration <= NRG Penicillin G susceptibility test by minimum inhibitory concentration > NRG Blood lactic acid measurement (moles/vol ume) - 09/27/18 04:39 Blood lactic acid measurement (moles/volume) 0.61 mmol/L 0.50-2.00 PT panel in platelet poor plasma by coag ulation assay - 09/27/18 04:39 Prothrombin time (PT) in platelet poor plasma by coagu lation assay 26.9 s 12.2-14.7 INR in platelet poor plasma or blood by coagulation as say 2.4 0.8-1.4 Comprehensive metabolic panel - 09/27/18 04:39 Serum or plasma sodium measurement (moles/volume) 134 mmol/L 135-145 Serum or plasma potassium measurement (moles/volume) 3.6 mmol/L 3.6-5.0 Serum or plasma chloride measurement (moles/volume) 102 mmol/L 98-107 Carbon dioxide 22 mmol/L 21-32 Serum or plasma anion gap determination (moles/volume) 10 mmol/L 5-14 Serum or plasma urea nitrogen measurement (mass/volume ) 15 mg/dL 7-18 Serum or plasma creatinine measurement (mass/volume) 0.72 mg/dL 0.60-1.30 Serum or plasma urea nitrogen/creatinine mass ratio 21 NRG Serum or plasma creatinine measurement w ith calculation of estimated glomerular filtration rate > NRG Serum or plasma glucose measurement (mass/volume) 107 mg/dL 70-105 Serum or plasma calcium measurement (mass/volume) 7.9 mg/dL 8.5-10.1 Serum or plasma total bilirubin measurement (mass/volu me) 0.3 mg/dL 0.1-1.0 Serum or plasma alkaline phosphatase lucero surement (enzymatic activity/volume) 60 U/L 40-136 Serum or plasma aspartate aminotransfera se measurement (enzymatic activity/volume) 9 U/L 5-34 Serum or plasma alanine aminotransferase measurement (enzymatic activity/volume) 17 U/L 0-55 Serum or plasma protein measurement (mass/volume) 4.6 g/dL 6.4-8.2 Serum or plasma albumin measurement (mass/volume) 2.5 g/dL 3.2-4.5 CALCIUM CORRECTED 9.1 mg/dL 8.5-10.1 Gram stain microscopy - 10/10/18 16:13 Gram stain microscopy Many Gram positive cocci in clusters NRG Bacteria identification in wound by cult ure - 10/10/18 16:13 Bacteria identification in wound by culture [id number] NRG FREE TEXT EXTERNAL SUSCEPTIBILITY REPORTED 10/14/18 11:35 NRG QUANTITY OF GROWTH FEW NRG FREE TEXT ENTRY 2 ID REPORTED 10/13/18 15:05 NRG Dirithromycin susceptibility test by dis k diffusion - 10/10/18 16:13 Oxacillin susceptibility test by minimum inhibitory co ncentration > NRG Clindamycin susceptibility test by minimum inhibitory concentration > NRG Erythromycin susceptibility test by minimum inhibitory concentration > NRG Trimethoprim/sulfamethoxazole susceptibi lity test by minimum inhibitoryconcentration <= NRG Vancomycin susceptibility test by minimum inhibitory c oncentration 1 NRG Levofloxacin susceptibility test by minimum inhibitory concentration 4 NRG Rifampin susceptibility test by minimum inhibitory con centration <= NRG Ampicillin susceptibility test by minimum inhibitory c oncentration R NRG Cefazolin susceptibility test by minimum inhibitory co ncentration > NRG Linezolid susceptibility test by minimum inhibitory co ncentration <= NRG Penicillin G susceptibility test by minimum inhibitory concentration > NRG Moxifloxacin susceptibility test by minimum inhibitory concentration 1 NRG Daptomycin susc NYASIA <= NRG Minocycline susc NYASIA <= NRG Dirithromycin susceptibility test by dis k diffusion - 10/10/18 16:13 Gentamicin susceptibility test by minimum inhibitory c oncentration <= NRG Levofloxacin susceptibility test by minimum inhibitory concentration <= NRG Tobramycin susceptibility test by minimum inhibitory c oncentration <= NRG Piperacillin/tazobactam susceptibility t est by minimum inhibitory concentration = NRG Ciprofloxacin susceptibility test by minimum inhibitor y concentration <= NRG Meropenem susceptibility test by minimum inhibitory co ncentration 0.5 NRG Aztreonam susceptibility test by minimum inhibitory co ncentration 8 NRG Cefepime susceptibility test by minimum inhibitory con centration 2 NRG Imipenem susceptibility test by minimum inhibitory con centration 1 NRG Ceftazidime susceptibility test by minimum inhibitory concentration <= NRG Complete urinalysis with reflex to cultu re - 10/29/18 11:40 Urine color determination BROWN NRG Urine clarity determination SL CLOUDY N RG Urine pH measurement by test strip 65 5-9 Specific gravity of urine by test strip 1.020 1.016-1.022 Urine protein assay by test strip, semi-quantitative 2+ NEGATIVE Urine glucose detection by automated test strip NE GATIVE NEGATIVE Erythrocytes detection in urine sediment by light micr oscopy 3+ NEGATIVE Urine ketones detection by automated test strip NE GATIVE NEGATIVE Urine nitrite detection by test strip NEGATIVE NEGATIVE Urine total bilirubin detection by test strip NEGA TIVE NEGATIVE Urine urobilinogen measurement by automated test strip (mass/volume) 0.2 mg/dL NORMAL Urine leukocyte esterase detection by dipstick TRA CE NEGATIVE Automated urine sediment erythrocyte cou nt by microscopy (number/high power field) > [HPF] NRG Automated urine sediment leukocyte count by microscopy (number/high power field) [HPF] NRG Bacteria detection in urine sediment by light microsco py NONE NRG Squamous epithelial cells detection in u rine sediment by light microscopy 2-5 NRG Crystals detection in urine sediment by light microsco py NONE NRG Casts detection in urine sediment by light microscopy NONE NRG Mucus detection in urine sediment by light microscopy NEGATIVE NRG Complete urinalysis with reflex to culture NO NRG Complete blood count (CBC) with automate d white blood cell (WBC) differential - 10/29/18 11:43 Blood leukocytes automated count (number/volume) 20.9 10*3/uL 4.3-11.0 Blood erythrocytes automated count (number/volume) 3.52 10*6/uL 4.35-5.85 Venous blood hemoglobin measurement (mass/volume) 10.3 g/dL 11.5-16.0 Blood hematocrit (volume fraction) 31 % 35-52 Automated erythrocyte mean corpuscular volume 88 [ foz_us] 80-99 Automated erythrocyte mean corpuscular h emoglobin (mass per erythrocyte) 29 pg 25-34 Automated erythrocyte mean corpuscular h emoglobin concentration measurement (mass/volume) 33 g/dL 32-36 Automated erythrocyte distribution width ratio 41. 6 % 10.0- 14.5 Automated blood platelet count (count/volume) 405 10*3/uL 130-400 Automated blood platelet mean volume measurement 8.8 [foz_us] 7.4-10.4 Automated blood neutrophils/100 leukocytes 90 % 42-75 Automated blood lymphocytes/100 leukocytes 6 % 12-44 Blood monocytes/100 leukocytes 2 % 0-12 Automated blood eosinophils/100 leukocytes 0 % 0-10 Automated blood basophils/100 leukocytes 0 % 0-10 Blood neutrophils automated count (number/volume) 18.7 10*3 1.8-7.8 Blood lymphocytes automated count (number/volume) 1.3 10*3 1.0-4.0 Blood monocytes automated count (number/volume) 0. 6 10*3 0.0-1.0 Automated eosinophil count 0.1 10*3/uL 0 .0-0.3 Automated blood basophil count (count/volume) 0.0 10*3/uL 0.0-0.1 Blood lactic acid measurement (moles/vol ume) - 10/29/18 11:43 Blood lactic acid measurement (moles/volume) 0.96 mmol/L 0.50-2.00 Comprehensive metabolic panel - 10/29/18 11:43 Serum or plasma sodium measurement (moles/volume) 123 mmol/L 135-145 Serum or plasma potassium measurement (moles/volume) 3.6 mmol/L 3.6-5.0 Serum or plasma chloride measurement (moles/volume) 85 mmol/L 98-107 Carbon dioxide 23 mmol/L 21-32 Serum or plasma anion gap determination (moles/volume) 15 mmol/L 5-14 Serum or plasma urea nitrogen measurement (mass/volume ) 18 mg/dL 7-18 Serum or plasma creatinine measurement (mass/volume) 0.52 mg/dL 0.60-1.30 Serum or plasma urea nitrogen/creatinine mass ratio 35 NRG Serum or plasma creatinine measurement w ith calculation of estimated glomerular filtration rate > NRG Serum or plasma glucose measurement (mass/volume) 108 mg/dL 70-105 Serum or plasma calcium measurement (mass/volume) 8.0 mg/dL 8.5-10.1 Serum or plasma total bilirubin measurement (mass/volu me) 0.3 mg/dL 0.1-1.0 Serum or plasma alkaline phosphatase lucero surement (enzymatic activity/volume) 171 U/L 40-136 Serum or plasma aspartate aminotransfera se measurement (enzymatic activity/volume) 43 U/L 5-34 Serum or plasma alanine aminotransferase measurement (enzymatic activity/volume) 26 U/L 0-55 Serum or plasma protein measurement (mass/volume) 5.3 g/dL 6.4-8.2 Serum or plasma albumin measurement (mass/volume) 2.5 g/dL 3.2-4.5 CALCIUM CORRECTED 9.2 mg/dL 8.5-10.1 Manual absolute plasma cell count - 10/17 06/04 11:43 Blood monocytes/100 leukocytes 1 % NRG Manual blood segmented neutrophils/100 leukocytes 84 % NRG Blood band neutrophils/100 leukocytes 11 % NRG Manual blood lymphocytes/100 leukocytes 4 % NRG Manual eosinophils/100 leukocytes in nose 0 % NRG Manual blood basophils/100 leukocytes 0 % NRG Blood erythrocyte morphology finding identification NORMAL NRG Bacterial blood culture - 10/29/18 11:43 FREE TEXT EXTERNAL SEE COMMENTS NRG QUANTITY OF GROWTH Isolated NRG Bacterial blood culture STRCON NR FREE TEXT ENTRY 3 (A [employer]) NRG Bacterial blood culture - 10/29/18 11:53 Bacterial blood culture NG NRG PT panel in platelet poor plasma by coag ulation assay - 05/07/19 10:30 Prothrombin time (PT) in platelet poor plasma by coagu lation assay 17.5 s 12.2-14.7 INR in platelet poor plasma or blood by coagulation as say 1.4 0.8-1.4 PT panel in platelet poor plasma by coag ulation assay - 05/12/19 00:00 Prothrombin time (PT) in platelet poor plasma by coagu lation assay 18.8 s 12.2-14.7 INR in platelet poor plasma or blood by coagulation as say 1.5 0.8-1.4 PT panel in platelet poor plasma by coag ulation assay - 05/23/19 11:48 Prothrombin time (PT) in platelet poor plasma by coagu lation assay 17.4 s 12.2-14.7 INR in platelet poor plasma or blood by coagulation as say 1.4 0.8-1.4 Blood CBC with ordered manual differenti al panel - 05/25/19 11:45 Blood leukocytes automated count (number/volume) 11.5 10*3/uL 4.3-11.0 Blood erythrocytes automated count (number/volume) 3.65 10*6/uL 4.35-5.85 Venous blood hemoglobin measurement (mass/volume) 9.3 g/dL 11.5-16.0 Blood hematocrit (volume fraction) 31 % 35-52 Automated erythrocyte mean corpuscular volume 84 [ foz_us] 80-99 Automated erythrocyte mean corpuscular h emoglobin (mass per erythrocyte) 25 pg 25-34 Automated erythrocyte mean corpuscular h emoglobin concentration measurement (mass/volume) 30 g/dL 32-36 Automated erythrocyte distribution width ratio 15. 7 % 10.0- 14.5 Automated blood platelet count (count/volume) 580 10*3/uL 130-400 Automated blood platelet mean volume measurement 8.7 [foz_us] 7.4-10.4 Automated blood neutrophils/100 leukocytes 79 % 42-75 Automated blood lymphocytes/100 leukocytes 8 % 12-44 Blood monocytes/100 leukocytes 3 % NRG Automated blood eosinophils/100 leukocytes 7 % 0-10 Automated blood basophils/100 leukocytes 1 % 0-10 Blood neutrophils automated count (number/volume) 9.0 10*3 1.8-7.8 Blood lymphocytes automated count (number/volume) 0.9 10*3 1.0-4.0 Blood monocytes automated count (number/volume) 0. 7 10*3 0.0-1.0 Automated eosinophil count 0.8 10*3/uL 0 .0-0.3 Automated blood basophil count (count/volume) 0.1 10*3/uL 0.0-0.1 Manual blood segmented neutrophils/100 leukocytes 78 % NRG Blood band neutrophils/100 leukocytes 6 % NRG Manual blood lymphocytes/100 leukocytes 10 % NRG Manual eosinophils/100 leukocytes in nose 3 % NRG Manual blood basophils/100 leukocytes 0 % NRG Blood anisocytosis detection by light microscopy S LIGHT NRG Blood lactic acid measurement (moles/vol ume) - 05/25/19 11:45 Blood lactic acid measurement (moles/volume) 0.76 mmol/L 0.50-2.00 Influenza virus A and B antigen detectio n - 05/25/19 11:45 FLU RESULT NEGATIVE FOR INFLUENZA A AND B ANTIGENS BY IA NRG PT panel in platelet poor plasma by coag ulation assay - 05/25/19 11:45 Prothrombin time (PT) in platelet poor plasma by coagu lation assay 14.7 s 12.2-14.7 INR in platelet poor plasma or blood by coagulation as say 1.1 0.8-1.4 Activated partial thromboplastin time (a PTT) in platelet poor plasma bycoagulation assay - 05/25/19 11:45 Activated partial thromboplastin time (a PTT) in platelet poor plasma bycoagulation assay 37 s 24-35 TROPONIN I FS - 05/25/19 11:45 TROPONIN I FS 0.30 ng/mL <0.30 PROBNP FS - 05/25/19 11:45 PROBNP FS 590.0 pg/mL <75.0 Magnesium - 05/25/19 11:45 Magnesium 2.2 mg/dL 1.6-2.4 Comprehensive metabolic panel - 05/25/19 11:45 Serum or plasma sodium measurement (moles/volume) 134 mmol/L 135-145 Serum or plasma potassium measurement (moles/volume) 4.2 mmol/L 3.6-5.0 Serum or plasma chloride measurement (moles/volume) 96 mmol/L 98-107 Carbon dioxide 27 mmol/L 21-32 Serum or plasma anion gap determination (moles/volume) 11 mmol/L 5-14 Serum or plasma urea nitrogen measurement (mass/volume ) 10 mg/dL 7-18 Serum or plasma creatinine measurement (mass/volume) 0.29 mg/dL 0.60-1.30 Serum or plasma urea nitrogen/creatinine mass ratio 34 NRG Serum or plasma creatinine measurement w ith calculation of estimated glomerular filtration rate > NRG Serum or plasma glucose measurement (mass/volume) 130 mg/dL 70-105 Serum or plasma calcium measurement (mass/volume) 9.0 mg/dL 8.5-10.1 Serum or plasma total bilirubin measurement (mass/volu me) 0.2 mg/dL 0.1-1.0 Serum or plasma alkaline phosphatase lucero surement (enzymatic activity/volume) 109 U/L 40-136 Serum or plasma aspartate aminotransfera se measurement (enzymatic activity/volume) 18 U/L 5-34 Serum or plasma alanine aminotransferase measurement (enzymatic activity/volume) 14 U/L 0-55 Serum or plasma protein measurement (mass/volume) 6.1 g/dL 6.4-8.2 Serum or plasma albumin measurement (mass/volume) 2.7 g/dL 3.2-4.5 CALCIUM CORRECTED 10.0 mg/dL 8.5-10.1 Fibrin D-dimer FEU measurement in platel et poor plasma (mass/volume) - 05/25/19 11:45 Fibrin D-dimer FEU measurement in platelet poor plasma (mass/volume) 1.10 ug/mL 0.00-0.49 Serum or plasma creatine kinase MB measu rement (enzymatic activity/volume) - 05/25/19 11:45 Serum or plasma creatine kinase MB measu rement (enzymatic activity/volume) 5.0 ng/mL <6.6 Bacterial blood culture - 05/25/19 11:45 Bacterial blood culture NG NRG Complete urinalysis with reflex to cultu re - 05/25/19 12:00 Urine color determination YELLOW NRG Urine clarity determination CLOUDY NR G Urine pH measurement by test strip 5.5 5-9 Specific gravity of urine by test strip > 1.016-1.022 Urine protein assay by test strip, semi-quantitative NEGATIVE NEGATIVE Urine glucose detection by automated test strip 1+ NEGATIVE Erythrocytes detection in urine sediment by light micr oscopy NEGATIVE NEGATIVE Urine ketones detection by automated test strip NE GATIVE NEGATIVE Urine nitrite detection by test strip NEGATIVE NEGATIVE Urine total bilirubin detection by test strip NEGA TIVE NEGATIVE Urine urobilinogen measurement by automated test strip (mass/volume) 0.2 mg/dL < = 1.0 Urine leukocyte esterase detection by dipstick 1+ NEGATIVE Automated urine sediment erythrocyte cou nt by microscopy (number/high power field) [HPF] NRG Automated urine sediment leukocyte count by microscopy (number/high power field) [HPF] NRG Bacteria detection in urine sediment by light microsco py LARGE NRG Crystals detection in urine sediment by light microsco py NONE NRG Casts detection in urine sediment by light microscopy NONE NRG Mucus detection in urine sediment by light microscopy NEGATIVE NRG Complete urinalysis with reflex to culture YES NRG Bacterial urine culture - 05/25/19 12:00 Bacterial urine culture [id number] NRG COLONY COUNT >100,000/ML NRG Arterial blood gas measurement - 0 12:11 Blood pCO2 75 mm[Hg] 35-45 Blood pO2 216 mm[Hg] 79-93 Arterial blood bicarbonate measurement (moles/volume) 33 mmol/L 23-27 Arterial blood base excess by calculation 3.5 mmol /L -2.5-2.5 Arterial blood oxygen saturation measurement 100 % 94-100 * Inhaled oxygen flow rate 4L NRG Arterial blood pH measurement with patient temperature correction 7.25 7.37-7.43 Arterial blood carbon dioxide, total measurement (mole s/volume) 35.0 mmol/L 21.0-31.0 Body site RT RAD NRG Assessment of wrist artery patency prior to arterial p uncture YES-POS NRG Setting of ventilation mode NO NR G Measurement of body temperature 35.9 NRG Bacterial blood culture - 05/25/19 12:20 Bacterial blood culture NG NRG Arterial blood gas measurement - 0 15:11 Blood pCO2 56 mm[Hg] 35-45 Blood pO2 137 mm[Hg] 79-93 Arterial blood bicarbonate measurement (moles/volume) 30 mmol/L 23-27 Arterial blood base excess by calculation 3.2 mmol /L -2.5-2.5 Arterial blood oxygen saturation measurement 99 % 94-100 * Inhaled oxygen flow rate 30% NRG Arterial blood pH measurement with patient temperature correction 7.34 7.37-7.43 Arterial blood carbon dioxide, total measurement (mole s/volume) 31.9 mmol/L 21.0-31.0 Body site LT RAD NRG Assessment of wrist artery patency prior to arterial p uncture YES-POS NRG Setting of ventilation mode YES NR G Measurement of body temperature 35.7 NRG Encounters ACCT No. Visit Date/Time Discharge Status Pt. Type Provider Facility Loc./Unit Complaint [id number] 05/25/2019 11:42:00 16:58:00 DIS Emergency ESTER RIDDLE MD [facility] ER FS SOB [id number] 05/23/2019 14:07:00 23:59:59 CLS Outpatient SELF ANDRÉS HE [facility] LAB FS COUMADIN THERAPY [id number] 05/21/2019 12:09:00 23:59:59 CLS Outpatient SELF ANDRÉS HE [facility] RAD FS J44.1 [id number] 05/20/2019 12:57:00 23:59:59 CLS Outpatient HARJINDER MAGUIRE MD [facility] WOUNDCARE [id number] 05/12/2019 11:32:00 23:59:59 CLS Outpatient SELF ANDRÉS HE [facility] LAB FS HIGH RISK MEDS [id number] 05/07/2019 10:37:00 23:59:59 CLS Outpatient SELF ANDRÉS HE [facility] FS HIGH RISK MEDS [id number] 10/29/2018 11:31:00 14:10:00 DIS Emergency GARCIA RHETT [facility] ER FS WOUND CARE [id number] 10/10/2018 17:06:00 23:59:59 CLS Outpatient ANDRÉS RAMOS MD [facility] L89.153 [id number] 09/13/2018 13:30:00 14:00:00 DIS Inpatient MARTINEZ DO, CHEVY [place] [facility] IRF IRF [id number] 09/04/2018 17:55:00 13:04:00 DIS Inpatient LB SHAFFER MD [facility] 4TH COPD EXACERBATION [id number] 07/23/2018 16:27:00 23:59:59 CLS Outpatient SELF ANDRÉS HE [facility] RAD FS Z79.01 [id number] 07/10/2018 17:46:00 23:59:59 CLS Outpatient SELF ANDRÉS HE [facility] LAB FS TSH;CBC WITH AUTO DIFF [id number] 07/09/2018 16:57:00 23:59:59 CLS Outpatient ANDRÉS RAMOS MD [facility] LAB FS L89.153; [id number] 07/09/2018 10:19:00 23:59:59 CLS Outpatient SELF ANDRÉS HE [facility] LAB FS WOUND INFECTION [id number] 07/08/2018 10:05:00 23:59:59 CLS Outpatient JOHANN THORNTON [facility] RAD FS M28.561 [id number] 06/21/2018 13:58:00 23:59:59 CLS Outpatient SELF ANDRÉS HE [facility] RAD FS Z79.01 [id number] 06/20/2018 16:48:00 23:59:59 CLS Outpatient SELF ANDRÉS HE [facility] LAB FS PT-INR [id number] 05/26/2019 09:33:00 P ASHLEY MAGUIRE MD, HARJINDER [facility] WOUNDCARE [id number] 10/07/2018 10:04:00 Document Registration
== END 2019-05-25 16:58 | disposition short-term general hospital (02) ==
LOC: EDUNIT# 11:37 → ER FS 11:42
DX: J96.00 Acute respiratory failure, unspecified whether with hypoxia or hypercapnia (principal); N39.0 Urinary tract infection, site not specified; J44.1 Chronic obstructive pulmonary disease with (acute) exacerbation; E78.00 Pure hypercholesterolemia, unspecified; F17.210 Nicotine dependence, cigarettes, uncomplicated; Z86.718 Personal history of other venous thrombosis and embolism; Z91.040 Latex allergy status; Z88.1 Allergy status to other antibiotic agents; Z79.01 Long term (current) use of anticoagulants; Z80.0 Family history of malignant neoplasm of digestive organs
CPT/HCPCS: 36415; 71045; 80053; 81000; 82553; 82805; 83605; 83735; 83880; 84484; 85007; 85027; 85379; 85610; 85730; 87040; 87077; 87088; 87186; 87804; 93005; 93041